=== PATIENT | female | born 1935 | race Caucasian/White ===

== ENCOUNTER 2023-02-27 11:24 | Emergency (ER) | payer MEDICARE, SELFPAY ==
--- NOTE | ~2023-02-27 | CT_ITS ---
EXAMINATION: CT CHEST WITHOUT CONTRAST CLINICAL INFORMATION: Increased attenuation of right upper lobe question infiltrate versus mass. COMPARISON: Chest x-ray 02/27/2023 TECHNIQUE: Multidetector volumetric CT imaging of the chest was done. Axial MIP volume rendering provided. Sagittal and coronal reformatted images were obtained. This CT examination was performed using dose optimization techniques as appropriate, variously including the following: *Automated exposure control *Adjustment of mA and/or kV according to patient size (this includes techniques or standardized protocols for targeted exams where dose is matched to indication/reason for exam; i.e. extremities or head) *Use of iterative reconstruction technique DLP: 181 mGy-cm FINDINGS: WET COTTON FEEDER: Hyperinflated lungs. LUNGS: There is centrilobular emphysema with diffuse groundglass attenuation seen throughout the right upper lobe corresponding to chest x-ray abnormality. Also visualized is mild groundglass attenuation in the superior segment of both lower lobes. There are scattered pulmonary nodules. A 3 mm nodule left upper lobe axial image 212/5, 3 mm nodule right upper lobe anterior segment image 151/5, 3 mm nodule along the right minor fissure likely intrafissural lymph node axial image 228/5, 2 mm nodule right middle lobe axial image 259/5, 2 mm nodule in the lingula axial image 269/5, 3 mm nodule right lower lobe axial image 293/5 and three-minute nodule left lower lobe axial image 363/5.. There is mild atelectatic changes in both lung bases. MEDIASTINUM: The thyroid lobes are symmetric and normal. The central trachea and the bronchi widely patent. Small precarinal lymph nodes are seen. Heart size and the great vessels are normal caliber. No pericardial effusion seen. Identified CORONARY ARTERY CALCIFICATION: Moderate coronary artery calcifications visualized. PLEURA: There is no pleural effusion. No pleural mass or thickening. AXILLA: Small shotty lymph nodes measuring 5 mm less seen in the axilla. The chest wall is unremarkable. UPPER ABDOMEN: Visualized liver, spleen, pancreas and bilateral adrenal glands unremarkable. No radiopaque gallstone seen. OSSEOUS STRUCTURES: No aggressive lytic or sclerotic process seen. There is exaggerated thoracic kyphosis. CT/CT chest wo IV con IMPRESSION: Centrilobular emphysema. Diffuse groundglass attenuation seen in right upper lobe and bilateral superior segments of lower lobe. Findings most suggestive of inflammatory or infectious parenchymal processes but no acute consolidation seen. Multiple pulmonary nodules measuring 3 mm and less with 3 mm right minor intrafissural lymph node. No abnormal mediastinal or axillary adenopathy. Fleischner guidelines were followed.
--- NOTE | ~2023-02-27 | XR_ITS ---
EXAMINATION: XR CHEST CLINICAL INFORMATION: Dyspnea on exertion COMPARISON: Previous chest x-ray November 2018 TECHNIQUE: 2 views of the chest were obtained. FINDINGS: The cardiac and mediastinal contours are stable. There is increased density in the right upper lobe measuring approximately 5.3 cm. Differential would include infiltrate and mass. The lungs are otherwise clear. The lungs are well inflated. No pleural effusion or pneumothorax. Increased thoracic kyphosis. Multiple old-appearing thoracic compression fractures. XR/XR chest 2V IMPRESSION: Increased attenuation in the right upper lobe, question infiltrate versus mass. Clinical correlation recommended. If there is clinical suspicion of pneumonia, short-term follow-up chest x-ray following antibiotic treatment would be recommended. If there is no suggestion of pneumonia or radiographic abnormality fails to resolve, contrast enhanced chest CT scan would be recommended.
--- NOTE | 2023-02-27 11:45 | ED_ITS ---
HPI - SOB/Dyspnea General Chief Complaint: Weakness Stated Complaint: diff breathing shaking Time Seen by Provider: 02/27/23 16:25 Source: patient and family Mode of arrival: ambulatory History of Present Illness HPI Narrative: 87-year-old female comes in with shaking on the inside as she describes it and notes that she has had a dry cough for a couple of weeks and has a remote history of cigarette smoking, quit 35 years ago. Otherwise she currently takes medications for Parkinson's, hypertension and GERD. She denies any visual/berry tory/speech difficulties denies any chest pain/palpitations and denies any GI or symptoms. Related Data Previous Rx's Medication Instructions Recorded azithromycin 250 mg tablet 250 mg PO DAILY 4 days #4 tabs 02/27/23 Allergies Allergy/AdvReac Type Severity Reaction Status Date / Time codeine [CODEINE] Allergy Mild NAUSEA & Unverified 06/25/20 15:28 VOMITING tramadol [TRAMADOL] Allergy Mild NAUSEA & Unverified 06/25/20 15:28 VOMITING Review of Systems Review of Systems: Pertinent positives and negatives as stated in HPI PMFSH Past Medical History Source: nursing notes reviewed Social History Social History Alcohol intake: current Alcohol intake frequency: 0-2 drinks per day Alcohol type: wine Smoked in Last 30 Days: No Use of substances other than those prescribed or required for medical reasons: No Advance Directives: No Advance Directives Information Provided: Yes Physical Exam Vital Signs: Vital Signs: Last Vital Signs Temp 97.5 F 02/27/23 19:06 Pulse 91 02/27/23 19:06 Resp 14 02/27/23 19:06 BP 170/66 H 02/27/23 19:06 Pulse Ox 97 02/27/23 19:06 O2 Del Method Room Air 02/27/23 19:06 BMI result Body Mass Index 20.1 VITAL SIGNS: Reviewed. GENERAL: Well developed, well nourished, in no acute distress. HEAD: Normocephalic/atraumatic EYES: PERRLA, EOMI EARS: Ext canals without abnormality NOSE: Nares patent bilateral OROPHARYNX: no oral lesions noted, posterior pharynx clear NECK: Supple, no adenopathy LUNGS: Good inspiratory effort, patient is noted to be decreased over right middle and right upper lobes but no evidence of wheeze/rhonchi/rales no tachypnea. SpO2<99> CARDIOVASCULAR: Regular rate and rhythm without noted murmurs ABDOMEN: Soft, non-tender, non-distended with bowel sounds. MUSCULOSKELETAL: No tenderness, deformities, or effusions noted on gross inspection. EXTREMITIES: No cyanosis, clubbing or edema. SKIN: Inspection of the skin reveals no rashes NEUROLOGIC: Alert and oriented x 4. Strength and sensation to light touch were grossly intact x 4. Course Course Course Narrative: This is a rapid medical exam. Deferred additional HPI, ROS, PE to primary provider. 87 yo female with history of Parkinson, HTN, GERD, HLD here with coughing, shaking weakness, LEA since Monday. Will obtain labs, EKG, CXR, viral testing. VSS Medical Decision Making Medical Decision Making MDM Narrative: 87-year-old female with rigors and reports dry cough, I reviewed all investigations and appears that she has a right-sided lung mass unclear significance. Proceed with this CT of the chest patient is otherwise afebrile, there is no leukocytosis to suggest a pneumonia, she is not tachypneic and continues to oxygenate well. Follow-up on the CT scan my interpretation is in agreement with radiology's impression that this appears to be an inflammatory or possibly infectious etiology. Will place patient on a Z-Janak and give initial 500 mg of azithromycin here in the emergency room. All results and findings were discussed with her at bedside and she is otherwise discharged home in stable condition has follow- up appointment with her primary care provider in the morning. Differential Diagnosis Please see the discussion above Lab Data Please see the discussion above 02/27/23 12:22 02/27/23 12:22 Labs: Lab Results 02/27/23 02/27/23 02/27/23 Range/Units 12:22 12:22 12:22 WBC 7.2 (4.8-10.8) X10*3/uL RBC 4.35 (4.20-5.50) X10*6/uL Hgb 12.4 (12.0-16.0) g/dl Hct 37.9 (37.0-47.0) % MCV 87.1 (80.0-98.0) fL MCH 28.5 (27.0-33.0) pg MCHC 32.7 (31.0-35.0) g/dl RDW 12.4 (11.0-16.0) % Plt Count 308 (160-400) X10*3/uL MPV 10.3 (9.4-12.3) fL Immature Gran % (Auto) 0.4 (0.0-0.4) % Neut % (Auto) 71.4 (45-73) % Lymph % (Auto) 15.3 L (20-40) % [place] % (Auto) 11.9 H (2-11) % Eos % (Auto) 0.7 (0-4) % Baso % (Auto) 0.3 (0-2) % Lymph # (Auto) 1.1 L (1.2-4.9) X10*3/uL [place] # (Auto) 0.9 (0.1-1.2) X10*3/uL Eos # (Auto) 0.1 (0.0-0.4) X10*3/uL Baso # (Auto) 0.0 (0.0-0.2) X10*3/uL Abs Immat Gran (auto) 0.03 (0.00-0.03) X10*3/uL Absolute Neuts (auto) 5.1 (2.0-8.3) x10*3/uL Absolute Nucleated RBC 0.000 (0.0-0.012) X10*3/uL Nucleated RBC % (auto) 0.0 (0.0-0.2) /100WBC PT (10.0-13.1) SEC INR (0.9-1.1) Sodium 139 (135-145) mmol/L Potassium 4.3 (3.3-5.1) mmol/L Chloride 106 (96-108) mmol/L Carbon Dioxide 23 (22-29) mmol/L Anion Gap 14 (12-20) BUN 15 (9-16) mg/dL Creatinine 1.07 (0.5-1.4) mg/dL Estim Creat Clear Calc 33.2 Estimated GFR 49 Random Glucose 100 (60-115) mg/dL Lactic Acid (0.5-2.0) mmol/L Calcium 9.6 (8.4-10.2) mg/dL Magnesium 2.0 (1.6-2.6) mg/dL Total Bilirubin 0.6 (0.0-1.0) mg/dL Direct Bilirubin 0.2 (0.0-0.5) mg/dL AST 12 (5-31) U/L ALT < 5 (0-31) U/L Alkaline Phosphatase 83 (39-117) U/L Troponin I High Sens (<3.5-17.0) ng/L B-Natriuretic Peptide (<100) pg/mL Total Protein 6.5 (6.5-8.0) g/dL Albumin 3.7 (3.5-5.0) g/dL Influenza Type A (PCR) NEGATIVE (Negative) Influenza Type B (PCR) NEGATIVE (Negative) RSV RNA Qual (PCR) NEGATIVE (Negative) SARS-CoV-2 RNA (RT-PCR) NEGATIVE (Negative) 02/27/23 02/27/23 02/27/23 Range/Units 12:22 12:22 12:22 WBC (4.8-10.8) X10*3/uL RBC (4.20-5.50) X10*6/uL Hgb (12.0-16.0) g/dl Hct (37.0-47.0) % MCV (80.0-98.0) fL MCH (27.0-33.0) pg MCHC (31.0-35.0) g/dl RDW (11.0-16.0) % Plt Count (160-400) X10*3/uL MPV (9.4-12.3) fL Immature Gran % (Auto) (0.0-0.4) % Neut % (Auto) (45-73) % Lymph % (Auto) (20-40) % [place] % (Auto) (2-11) % Eos % (Auto) (0-4) % Baso % (Auto) (0-2) % Lymph # (Auto) (1.2-4.9) X10*3/uL [place] # (Auto) (0.1-1.2) X10*3/uL Eos # (Auto) (0.0-0.4) X10*3/uL Baso # (Auto) (0.0-0.2) X10*3/uL Abs Immat Gran (auto) (0.00-0.03) X10*3/uL Absolute Neuts (auto) (2.0-8.3) x10*3/uL Absolute Nucleated RBC (0.0-0.012) X10*3/uL Nucleated RBC % (auto) (0.0-0.2) /100WBC PT 11.1 (10.0-13.1) SEC INR 1.0 (0.9-1.1) Sodium (135-145) mmol/L Potassium (3.3-5.1) mmol/L Chloride (96-108) mmol/L Carbon Dioxide (22-29) mmol/L Anion Gap (12-20) BUN (9-16) mg/dL Creatinine (0.5-1.4) mg/dL Estim Creat Clear Calc Estimated GFR Random Glucose (60-115) mg/dL Lactic Acid 0.8 (0.5-2.0) mmol/L Calcium (8.4-10.2) mg/dL Magnesium (1.6-2.6) mg/dL Total Bilirubin (0.0-1.0) mg/dL Direct Bilirubin (0.0-0.5) mg/dL AST (5-31) U/L ALT (0-31) U/L Alkaline Phosphatase (39-117) U/L Troponin I High Sens 7.0 (<3.5-17.0) ng/L B-Natriuretic Peptide (<100) pg/mL Total Protein (6.5-8.0) g/dL Albumin (3.5-5.0) g/dL Influenza Type A (PCR) (Negative) Influenza Type B (PCR) (Negative) RSV RNA Qual (PCR) (Negative) SARS-CoV-2 RNA (RT-PCR) (Negative) 02/27/23 02/27/23 Range/Units 12:22 15:53 WBC (4.8-10.8) X10*3/uL RBC (4.20-5.50) X10*6/uL Hgb (12.0-16.0) g/dl Hct (37.0-47.0) % MCV (80.0-98.0) fL MCH (27.0-33.0) pg MCHC (31.0-35.0) g/dl RDW (11.0-16.0) % Plt Count (160-400) X10*3/uL MPV (9.4-12.3) fL Immature Gran % (Auto) (0.0-0.4) % Neut % (Auto) (45-73) % Lymph % (Auto) (20-40) % [place] % (Auto) (2-11) % Eos % (Auto) (0-4) % Baso % (Auto) (0-2) % Lymph # (Auto) (1.2-4.9) X10*3/uL [place] # (Auto) (0.1-1.2) X10*3/uL Eos # (Auto) (0.0-0.4) X10*3/uL Baso # (Auto) (0.0-0.2) X10*3/uL Abs Immat Gran (auto) (0.00-0.03) X10*3/uL Absolute Neuts (auto) (2.0-8.3) x10*3/uL Absolute Nucleated RBC (0.0-0.012) X10*3/uL Nucleated RBC % (auto) (0.0-0.2) /100WBC PT (10.0-13.1) SEC INR (0.9-1.1) Sodium (135-145) mmol/L Potassium (3.3-5.1) mmol/L Chloride (96-108) mmol/L Carbon Dioxide (22-29) mmol/L Anion Gap (12-20) BUN (9-16) mg/dL Creatinine (0.5-1.4) mg/dL Estim Creat Clear Calc Estimated GFR Random Glucose (60-115) mg/dL Lactic Acid (0.5-2.0) mmol/L Calcium (8.4-10.2) mg/dL Magnesium (1.6-2.6) mg/dL Total Bilirubin (0.0-1.0) mg/dL Direct Bilirubin (0.0-0.5) mg/dL AST (5-31) U/L ALT (0-31) U/L Alkaline Phosphatase (39-117) U/L Troponin I High Sens 6.1 (<3.5-17.0) ng/L B-Natriuretic Peptide 41 (<100) pg/mL Total Protein (6.5-8.0) g/dL Albumin (3.5-5.0) g/dL Influenza Type A (PCR) (Negative) Influenza Type B (PCR) (Negative) RSV RNA Qual (PCR) (Negative) SARS-CoV-2 RNA (RT-PCR) (Negative) Independent Interpretation I performed an independent interpretation of an: EKG Interpretation: Normal sinus rhythm, HR-81, no STEMI, [place]/QRS/QTC is within normal limits. Radiology Impression Radiologist Impression: My interpretation is in agreement with radiology's impression of the imaging studies. External Record Review External record reviewed: Prior outpatient labs Chronic Conditions Patient?s care impacted by: Hypertension Discharge Plan Discharge Clinical Impression: Pneumonia Patient Disposition: Home, Self-Care Instructions: Pneumonia (ED) Additional Instructions: 1. Resume all home medications. 2. Complete the course of antibiotics as ordered. 3. Please keep the appointment with your primary care provider tomorrow as scheduled. Return to the ER for any worsening symptoms. Prescriptions: New azithromycin 250 mg tablet 250 mg PO DAILY 4 Days Qty: 4 0RF Rx Instructions: start on day 2 of therapy Referrals: Saleem Gutiérrez PA [Primary Care Provider] -
[2023-02-27 11:46] VITALS: BP 143/71; PULSE 88; RESP 18; TEMP 36.8; O2SAT 100; BMI 20.1
--- NOTE | 2023-02-27 11:47 | ECG_ITS ---
Test Reason : weakness Blood Pressure : / mmHG Vent. Rate : 081 BPM Atrial Rate : 081 BPM P-R Int : 162 ms QRS Dur : 068 ms QT Int : 358 ms P-R-T Axes : 036 064 040 degrees QTc Int : 415 ms Normal sinus rhythm Normal ECG When compared with ECG of 02-DEC-2018 16:18, T wave inversion no longer evident in Inferior leads Referred By: Tahira Gregorio Electronically Signed By:NICOLASA ARROYO
[2023-02-27 12:36] LABS: MANUAL DIFF FLAG NO
[2023-02-27 12:37] LABS: Basophils Percent Auto 0.3 % (0-2); Eosinophils Absolute Auto 0.1 X10*3/uL (0.0-0.4); Eosinophils Percent Auto 0.7 % (0-4); Hematocrit 37.9 % (37.0-47.0); Hemoglobin 12.4 g/dl (12.0-16.0); Imm Gran Abs Auto 0.03 X10*3/uL (0.00-0.03); Imm Gran Pct Auto 0.4 % (0.0-0.4); Lymphocytes Absolute Auto 1.1 X10*3/uL (1.2-4.9); Lymphocytes Percent Auto 15.3 % (20-40); Mean Corpuscular HGB Conc 32.7 g/dl (31.0-35.0); Mean Corpuscular Hemoglobin 28.5 pg (27.0-33.0); Mean Corpuscular Volume 87.1 fL (80.0-98.0); Mean Platelet Volume 10.3 fL (9.4-12.3); Monocytes Absolute Auto 0.9 X10*3/uL (0.1-1.2); Monocytes Percent Auto 11.9 % (2-11); Neutrophils Absolute Auto 5.1 x10*3/uL (2.0-8.3); Neutrophils Percent Auto 71.4 % (45-73); Platelet Count 308 X10*3/uL (160-400); Red Blood Count 4.35 X10*6/uL (4.20-5.50); Red Cell Distribution Width 12.4 % (11.0-16.0); White Blood Count 7.2 X10*3/uL (4.8-10.8)
[2023-02-27 12:45] LABS: Prothrombin Time 11.1 SEC (10.0-13.1)
[2023-02-27 12:54] LABS: Lactic Acid 0.8 mmol/L (0.5-2.0)
[2023-02-27 13:01] LABS: Alanine Aminotransferase < 5 U/L (0-31); Albumin Level 3.7 g/dL (3.5-5.0); Alkaline Phosphatase 83 U/L (39-117); Anion Gap 14 (12-20); Aspartate Amino Transferase 12 U/L (5-31); Bilirubin Direct 0.2 mg/dL (0.0-0.5); Bilirubin Total 0.6 mg/dL (0.0-1.0); Blood Urea Nitrogen 15 mg/dL (9-16); Calcium 9.6 mg/dL (8.4-10.2); Carbon Dioxide 23 mmol/L (22-29); Chloride 106 mmol/L (96-108); Creatinine Clr Calc Pharmacy 33.2; Estimated Glomerular Filt Rate 49; Glucose Random 100 mg/dL (60-115); Potassium 4.3 mmol/L (3.3-5.1); Sodium 139 mmol/L (135-145); Total Protein 6.5 g/dL (6.5-8.0)
[2023-02-27 13:02] LABS: B Type Natriuretic Peptide 41 pg/mL (<100)
[2023-02-27 13:20] LABS: Influenza A PCR NEGATIVE (Negative); Influenza B PCR NEGATIVE (Negative); Resp Syncy Virus RNA Qual PCR NEGATIVE (Negative); SARS COV2 PCR INHOUSE NEGATIVE (Negative)
--- NOTE | 2023-02-27 15:56 | MHC.EDTECH ---
PATIENT REPETED TROP DRAWN ALSO BLOOD CULTURE DRAWN AND SENT TO LAB .
[2023-02-27 16:22] LABS: Troponin-I High Sensitivity 6.1 ng/L (<3.5-17.0)
[2023-02-27 16:27] VITALS: BP 171/77; PULSE 85; RESP 18; TEMP 36.4; O2SAT 99
--- NOTE | 2023-02-27 17:26 | PC.NURSE ---
per MD, patient does not need a swallow screening test.
[2023-02-27 19:06] VITALS: BP 170/66; PULSE 91; RESP 14; TEMP 36.4; O2SAT 97
== END 2023-02-27 19:46 | disposition home or self-care (01) ==
PROVIDERS: Nurse Practitioner Family; Physician Assistant Medical; Emergency Provider Student in an Organized Health Care Education/Training Program; PCP Physician Assistant Medical
DX: J18.9 Pneumonia, unspecified organism (principal); R06.00 Dyspnea, unspecified; R53.1 Weakness; R91.8 Other nonspecific abnormal finding of lung field; Z20.822 Contact with and (suspected) exposure to COVID-19; Z20.828 Contact with and (suspected) exposure to other viral communicable diseases; I10 Essential (primary) hypertension; E78.5 Hyperlipidemia, unspecified; G20 Parkinson's disease; Z87.891 Personal history of nicotine dependence
CPT/HCPCS: 0241U; 36415; 71046; 71250; 80048; 80076; 83605; 83735; 83880; 84484; 85025; 85610; 87040; 93005; 99284; 99285

== ENCOUNTER 2023-07-19 06:45 | Emergency (ER) | payer MEDICARE, SELFPAY ==
[2023-07-19 06:49] VITALS: BP 126/91; PULSE 86; RESP 18; TEMP 36.7; O2SAT 97; BMI 18.6
[2023-07-19 07:36] VITALS: BP 145/63; PULSE 74; RESP 18; O2SAT 97
--- NOTE | 2023-07-19 07:48 | ED_ITS ---
HPI - General Adult General Chief complaint: Upper Respiratory Symptoms Stated complaint: Diff Breathing Heavy Chest ?Pneumonia Time Seen by Provider: 07/19/23 07:04 Source: patient Mode of arrival: ambulatory Limitations: no limitations History of Present Illness HPI narrative: This is an 88-year-old female recently COVID positive and completed Paxlovid within the past week presenting to the emergency department fatigue, malaise, myalgias, cough, shortness of breath worsening for the past 2-3 days. Patient reports she feels like she has pneumonia, reports she had pneumonia and a in this feels very similar to that episode. Patient denies chest pain, fevers, chills, headache, vision changes, dizziness, nausea, vomiting, abdominal pain. Related Data Previous Rx's Medication Instructions Recorded azithromycin 250 mg tablet 250 mg PO DAILY 4 days #4 tabs 02/27/23 albuterol sulfate 90 mcg/actuation 2 inh inhalation Q4-6H PRN 07/19/23 breath activated powder inhaler shortness of breath or wheezing #1 ea prednisone 20 mg tablet 40 mg (2 x 20 mg) PO DAILY 5 days 07/19/23 #10 tabs Allergies Allergy/AdvReac Type Severity Reaction Status Date / Time codeine [CODEINE] Allergy Mild NAUSEA & Unverified 06/25/20 15:28 VOMITING tramadol [TRAMADOL] Allergy Mild NAUSEA & Unverified 06/25/20 15:28 VOMITING Review of Systems 2 Review of Systems: Constitutional : No Weight loss, No Fever, + Chills, + Fatigue, + Malaise ENT/Mouth : No sore throat, No Rhinorrhea Eyes: No Eye Pain, No Swelling, No Redness Cardiovascular : No Chest Pain, + SOB, No Dyspnea on Exertion, No Orthopnea, No Edema, No Palpitations Respiratory : + Cough, No Sputum, No Wheezing Gastrointestinal : No Nausea, No Vomiting, No Diarrhea, No Constipation, No abdominal Pain, No Hematochezia, No Melena Genitourinary : No Dysuria, No Urinary Frequency, No Hematuria, Musculoskeletal : No joint pain, + Myalgias, No Joint Swelling Skin : No Skin Lesions, No rash Neuro : No Weakness, No Numbness, No Dizziness, No Headache Psych : No Anxiety/Panic, No Depression All other systems reviewed and are negative Yes all other systems are reviewed and are negative [facility] Past Medical History Attestation statement: The following information was validated with the patient. Source: old records reviewed and nursing notes reviewed Social History Social History Alcohol intake: current Alcohol intake frequency: 0-2 drinks per day Alcohol type: wine Advance Directives: No Advance Directives Information Provided: Yes Physical Exam ED Vital Signs: Vital Signs - 24 hr 07/19/23 06:49 07/19/23 07:36 07/19/23 07:36 Temperature 98.0 F Pulse Rate 86 74 Respiratory Rate 18 18 Blood Pressure 126/91 H 145/63 H Pulse Oximetry 97 97 97 Oxygen Delivery Method Room Air Room Air 07/19/23 09:22 Temperature Pulse Rate Respiratory Rate Blood Pressure Pulse Oximetry 95 Oxygen Delivery Method Room Air BMI result Body Mass Index 18.6 vss Appearance: Alert.? Oriented X3.? No acute distress.? Head: Normocephalic, atraumatic, no step-offs or deformities Eyes: Pupils equal, round and reactive to light.? ENT: Pharynx normal.? Neck: Normal inspection.? Neck supple.? CVS: Normal heart rate and rhythm.? Pulses normal.? Respiratory: No respiratory distress.? Breath sounds Faint crackles to right lower lobe..? Abdomen: Soft and nontender.? Skin: Skin warm and dry.? Normal skin color.? Normal skin turgor.? Extremities: No lower extremity edema.? No calf ttp. 5/5 strength to bilateral upper and lower extremities Neuro: Oriented X 3.? No motor deficit.? No sensory deficit. CN 2-12 intact Course Reevaluation(s) Reevaluation #1: CBC within normal limits. Chemistry with no acute findings. troponin negative, EKG nonischemic unlikely that this is ACS (heart score 2) . BNP within normal limits. Chest x-ray unremarkable. No signs of fluid overload on exam. Likely post viral syndrome versus bronchitis. D-dimer is negative, unlikely pulmonary embolism. I did discuss this case in depth with my attending who agrees with my diagnosis and treatment plan. No need for chest CT at this time. Educated patient on diagnosis and treatment plan, answered all question, patient verbalizes understanding. At this time patient will be discharged home, advised to return with new or worsening symptoms. Educated on worrisome signs and symptoms and when to return. At this time I feel comfortable discharge home. Time: 10:04 Medical Decision Making Medical Decision Making [facility] Narrative: 0749 88 year old female presents w/ chest heaviness, sob, cough, myalgias X 3 days recently covid + PE w/ faint crackles to RLL Concerns for post viral pna vs bronchitis vs prolonged viral illness. Based off hx and PE unlikely PE, ACS, disecion, acute respiratory distress, pneumothorax. Plan- labs, ekg, imaging Differential Diagnosis Differential Diagnoses: The differential diagnosis associated with the presentation includes Concerns for post viral pna vs bronchitis vs prolonged viral illness. Based off hx and PE unlikely PE, ACS, disecion, acute respiratory distress, pneumothorax. Admission/Observation Consideration of admission/observation: Escalation of care including admission/observation considered unlikely Lab Data [facility] Lab Attestation statement: I reviewed the patient's lab results. 07/19/23 07:43 07/19/23 07:43 Labs: Lab Results 07/19/23 07/19/23 Range/Units 07:43 09:26 WBC 7.9 (4.8-10.8) X10*3/uL RBC 4.15 L (4.20-5.50) X10*6/uL Hgb 11.6 L (12.0-16.0) g/dl Hct 35.5 L (37.0-47.0) % MCV 85.5 (80.0-98.0) fL MCH 28.0 (27.0-33.0) pg MCHC 32.7 (31.0-35.0) g/dl RDW 13.3 (11.0-16.0) % Plt Count 221 D (160-400) X10*3/uL MPV 10.6 (9.4-12.3) fL Immature Gran % (Auto) 0.3 (0.0-0.4) % Neut % (Auto) 71.5 (45-73) % Lymph % (Auto) 16.1 L (20-40) % [place] % (Auto) 11.2 H (2-11) % Eos % (Auto) 0.6 (0-4) % Baso % (Auto) 0.3 (0-2) % Lymph # (Auto) 1.3 (1.2-4.9) X10*3/uL [place] # (Auto) 0.9 (0.1-1.2) X10*3/uL Eos # (Auto) 0.1 (0.0-0.4) X10*3/uL Baso # (Auto) 0.0 (0.0-0.2) X10*3/uL Abs Immat Gran (auto) 0.02 (0.00-0.03) X10*3/uL Absolute Neuts (auto) 5.6 (2.0-8.3) x10*3/uL Absolute Nucleated RBC 0.000 (0.0-0.012) X10*3/uL Nucleated RBC % (auto) 0.0 (0.0-0.2) /100WBC D-Dimer High Sensitivty 176 NG/ML Sodium 137 (135-145) mmol/L Potassium 4.0 (3.3-5.1) mmol/L Chloride 108 (96-108) mmol/L Carbon Dioxide 20 L (22-29) mmol/L Anion Gap 13 (12-20) BUN 17 H (9-16) mg/dL Creatinine 0.96 (0.5-1.4) mg/dL Estim Creat Clear Calc 33.7 Estimated GFR 55 Random Glucose 121 H (60-115) mg/dL Calcium 9.6 (8.4-10.2) mg/dL Magnesium 1.9 (1.6-2.6) mg/dL Total Bilirubin 0.4 (0.0-1.0) mg/dL AST 17 (5-31) U/L ALT < 5 (0-31) U/L Alkaline Phosphatase 75 (39-117) U/L Troponin I High Sens < 2.7 D (<3.5-17.0) ng/L B-Natriuretic Peptide 42 (<100) pg/mL Total Protein 7.0 (6.5-8.0) g/dL Albumin 3.5 (3.5-5.0) g/dL COVID-19 (CESIA) Positive A (Negative) COVID-19 Clin Com See Note Independent Interpretation I performed an independent interpretation of an: EKG and Plain X-Ray Radiology Impression Discussion of test interpretation with radiology: I have reviewed the radiologist's reading. External Record Review External record reviewed: Inpatient record, Office record, Outpatient record, Prior outpatient labs, Prior outpatient radiology, Primary care record and Outside ED record Critical Care Time Critical Care Time Critical Care Time: No Discharge Plan Discharge Clinical Impression: Post viral syndrome, Shortness of breath Patient Disposition: Home, Self-Care Instructions: Shortness of Breath (ED) Additional Instructions: Take your medications as prescribed. If you were prescribed antibiotics today, it is important that you take your medication to their entirety, do not skip any doses, do not finish them early. Follow-up with your primary care provider this week. Return to the emergency department with new or worsening symptoms. Such as fevers, chills, chest pain, shortness of breath, nausea, vomiting, dizziness, headache, vision changes, lethargy In case of emergency call 911 ' XR/XR chest 1V IMPRESSION: Unremarkable chest exam Prescriptions: New prednisone 20 mg tablet 40 mg PO DAILY 5 Days Qty: 10 0RF albuterol sulfate 90 mcg/actuation aerosol powdr breath activated 2 inh inhalation Q4-6H PRN (Reason: shortness of breath or wheezing) Qty: 1 0RF No Action azithromycin 250 mg tablet 250 mg PO DAILY 4 Days Qty: 4 0RF Rx Instructions: start on day 2 of therapy Referrals: [facility] [Provider Group] - 2 days Saleem Gutiérrez PA [Primary Care Provider] - 2 days Stand Alone Forms: Work/School Release
[2023-07-19 09:22] VITALS: O2SAT 95
--- NOTE | 2023-07-19 09:22 | PC.NURSE ---
Pt ambulated around unit with O2 monitor on, ranging from 92-100% on RA. Pt started to get SOB towards end of walk.
[2023-07-19 10:17] VITALS: PULSE 73; RESP 18; O2SAT 100
== END 2023-07-19 10:26 | disposition home or self-care (01) ==
PROVIDERS: Emergency Provider Emergency Medicine Emergency Medical Services; PCP Physician Assistant Medical
DX: U07.1 COVID-19 (principal); R06.02 Shortness of breath
CPT/HCPCS: 36415; 71045; 80053; 83735; 83880; 84484; 85025; 85379; 87635; 93005; 99283; 99285

== ENCOUNTER 2023-11-09 10:35 | Emergency (ER) | payer MEDICARE, SELFPAY ==
--- NOTE | ~2023-11-09 | CT_ITS ---
EXAMINATION: CT ABDOMEN AND PELVIS WITH CONTRAST CLINICAL INFORMATION: Periumbilical pain, right lower quadrant tenderness. COMPARISON: CT chest 02/27/2023. CT abdomen/pelvis 09/10/2018. TECHNIQUE: Multidetector volumetric images were obtained from the superior aspect of the liver through the pubic symphysis following administration 85 mL of Omnipaque 350 intravenous contrast. Sagittal and coronal reformatted images were obtained on the technologist's workstation. Oral contrast: No This CT examination was performed using dose optimization techniques as appropriate, variously including the following: *Automated exposure control *Adjustment of mA and/or kV according to patient size (this includes techniques or standardized protocols for targeted exams where dose is matched to indication/reason for exam; i.e. extremities or head) *Use of iterative reconstruction technique DLP: 354 mGy-cm FINDINGS: LUNG BASES: A few up to 0.4 cm bilateral pulmonary nodules are unchanged compared to 02/27/2023. No focal consolidation or pleural effusion. Partially imaged multivessel coronary artery calcifications. LIVER, GALLBLADDER, AND BILIARY TREE: The liver is normal in size, shape, and attenuation. No focal hepatic lesion or biliary ductal dilatation is present. The gallbladder is unremarkable with no evidence of radiopaque gallstones, gallbladder wall thickening, or obvious pericholecystic inflammatory changes. PANCREAS: Unremarkable. SPLEEN: Unremarkable. ADRENAL GLANDS: Unremarkable. KIDNEYS AND URETERS: Subtle bilateral patchy nephrograms, for instance in the left upper lobe coronal image 58 series 7. 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 A distinct obstructive calculus is not seen, although evaluation of the ureters is very limited due to streak artifacts from hardware in the lumbar spine/sacrum. BLADDER: Unremarkable. GASTROINTESTINAL TRACT: Small hiatal hernia. The stomach and the small bowel are nondilated. No indirect findings to suspect acute appendicitis. Severe colonic diverticulosis without significant inflammatory changes. No evidence of bowel obstruction. Moderate degree of colonic stool burden. ABDOMINAL WALL: No significant hernia is appreciated. LYMPH NODES: No lymphadenopathy. VASCULAR: Severe atherosclerotic disease. Infrarenal abdominal aorta measures up to 2.5 cm in diameter. PELVIC VISCERA: Redemonstration of 0.9 cm fundal myometrial calcification, most likely related with a degenerative fibroid. Possible endometrial thickening. OSSEOUS STRUCTURES: Posterior fusion hardware with transpedicular screws at L5-S1. Degenerative changes of the spine. No acute or aggressive appearing osseous findings. Stable nonspecific collections density in the medial left iliac bone (7:67) dating back to 2018. CT/CT abdomen pelvis w IV con IMPRESSION: 1. Subtle bilateral patchy nephrograms raising the possibility of acute pyelonephritis. Correlate clinically. 2. 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 No discrete obstructive nephrolithiasis, although evaluation of the ureters is somewhat limited. 3. Possible endometrial thickening. Recommend correlation with a nonemergent pelvic ultrasound. 4. Severe diverticulosis but no evidence of acute diverticulitis. 5. Moderate degree of colonic stool burden that could be seen with constipation. 6. A few bilateral pulmonary nodules measuring up to 0.4 cm are stable compared to 02/27/2023. According to the UPDATED 2017 Fleischner Society recommendations, the advised follow-up imaging for multiple solid nodules measuring up to 6-8 mm is follow-up CT at 3 to 6 months. In high-risk patients, subsequent CT follow-up at 18 to 24 months is recommended. In low-risk patients, subsequent CT follow-up at 18 to 24 months is optional. Fleischner guidelines were followed.
[2023-11-09 10:39] VITALS: BP 162/70; PULSE 76; RESP 18; TEMP 36.6; O2SAT 99; BMI 18.6
[2023-11-09 11:42] LABS: MANUAL DIFF FLAG NO
[2023-11-09 11:49] LABS: Basophils Percent Auto 0.3 % (0-2); Eosinophils Percent Auto 0.5 % (0-4); Hematocrit 39.8 % (37.0-47.0); Hemoglobin 13.3 g/dl (12.0-16.0); Imm Gran Abs Auto 0.07 X10*3/uL (0.00-0.03); Lymphocytes Absolute Auto 1.9 X10*3/uL (1.2-4.9); Lymphocytes Percent Auto 26.2 % (20-40); Mean Corpuscular HGB Conc 33.4 g/dl (31.0-35.0); Mean Corpuscular Hemoglobin 28.9 pg (27.0-33.0); Mean Corpuscular Volume 86.3 fL (80.0-98.0); Mean Platelet Volume 11.2 fL (9.4-12.3); Monocytes Absolute Auto 1.1 X10*3/uL (0.1-1.2); Monocytes Percent Auto 14.4 % (2-11); Neutrophils Absolute Auto 4.2 x10*3/uL (2.0-8.3); Neutrophils Percent Auto 57.6 % (45-73); Platelet Count 222 X10*3/uL (160-400); Red Blood Count 4.61 X10*6/uL (4.20-5.50); Red Cell Distribution Width 12.6 % (11.0-16.0); White Blood Count 7.3 X10*3/uL (4.8-10.8)
[2023-11-09 11:59] LABS: Alanine Aminotransferase < 5 U/L (0-31); Albumin Level 4.1 g/dL (3.5-5.0); Alkaline Phosphatase 75 U/L (39-117); Anion Gap 11 (12-20); Aspartate Amino Transferase 13 U/L (5-31); Bilirubin Total 0.6 mg/dL (0.0-1.0); Blood Urea Nitrogen 21 mg/dL (9-16); Calcium 10.1 mg/dL (8.4-10.2); Carbon Dioxide 25 mmol/L (22-29); Chloride 106 mmol/L (96-108); Creatinine Clr Calc Pharmacy 26.5; Estimated Glomerular Filt Rate 42; Glucose Random 101 mg/dL (60-115); Lipase 25 U/L (8-78); Potassium 4.1 mmol/L (3.3-5.1); Sodium 138 mmol/L (135-145); Total Protein 7.1 g/dL (6.5-8.0)
[2023-11-09 13:34] VITALS: BP 168/70; PULSE 80; RESP 16; RESP 20; TEMP 36.6; TEMP 36.7; O2SAT 100
--- NOTE | 2023-11-09 13:35 | ECG_ITS ---
Test Reason : pain Blood Pressure : / mmHG Vent. Rate : 069 BPM Atrial Rate : 068 BPM P-R Int : 148 ms QRS Dur : 078 ms QT Int : 378 ms P-R-T Axes : 021 054 046 degrees QTc Int : 405 ms Normal sinus rhythm with Premature ventricular complexes Septal infarct , age undetermined Abnormal ECG When compared with ECG of 19-JUL-2023 08:09, Premature ventricular complexes is now Present Referred By: Jose Maria Mckenzie Electronically Signed By:FREIDA GUTHRIE MD
--- NOTE | 2023-11-09 13:36 | ED_ITS ---
HPI - General Adult General Chief complaint: Abdominal Pain Stated complaint: Abd pain Time Seen by Provider: 11/09/23 16:02 Source: patient Mode of arrival: ambulatory Limitations: no limitations History of Present Illness HPI narrative: Patient is an 88y.o. F presents for 3.5 days epigastric/ periunbilical pain, states severe 10/10, constant, no exacerbating or alleviating factors. Has eaten toast without worsening of symptoms. Last BM 3 days ago, friend suggested she may be constipated, took lactulose today with no effect, does not feel constipated. She does state that since being in the [place] over past couple of hours pain has resolved. Denies fevers, chills, chest pain, SOB, cough, nausea, vomiting, urinary symptoms, diarrhea. Related Data Previous Rx's Medication Instructions Recorded azithromycin 250 mg tablet 250 mg PO DAILY 4 days #4 tabs 02/27/23 albuterol sulfate 90 mcg/actuation 2 inh inhalation Q4-6H PRN 07/19/23 breath activated powder inhaler shortness of breath or wheezing #1 ea prednisone 20 mg tablet 40 mg (2 x 20 mg) PO DAILY 5 days 07/19/23 #10 tabs Allergies Allergy/AdvReac Type Severity Reaction Status Date / Time codeine [CODEINE] Allergy Mild NAUSEA & Unverified 06/25/20 15:28 VOMITING tramadol [TRAMADOL] Allergy Mild NAUSEA & Unverified 06/25/20 15:28 VOMITING Review of Systems 2 Review of Systems: Yes all other systems are reviewed and are negative PMFSH Past Medical History Attestation statement: The following information was validated with the patient. Source: old records reviewed Medical History (Updated 11/09/23 @ 19:30 by Josseline Bronson CNP) GERD (gastroesophageal reflux disease) High cholesterol Hypertension Parkinson disease Surgical History (Updated 11/09/23 @ 16:47 by Karen Dutta RN) History of back surgery Social History Social History Alcohol intake: current Alcohol intake frequency: holidays/special occasions only Alcohol type: wine Smoked in Last 30 Days: No Use of substances other than those prescribed or required for medical reasons: No Advance Directives: No Advance Directives Information Provided: Yes Physical Exam ED Vital Signs: Vital Signs - 24 hr 11/09/23 10:39 11/09/23 13:34 11/09/23 13:34 Temperature 98 F 98 F 98.0 F Pulse Rate 76 80 80 Respiratory Rate 18 16 20 Blood Pressure 162/70 H 168/70 H 168/70 H Pulse Oximetry 99 100 100 Oxygen Delivery Method Room Air Room Air Room Air 11/09/23 15:19 11/09/23 16:43 11/09/23 18:06 Temperature 97.6 F 97.8 F Pulse Rate 71 69 75 Respiratory Rate 18 18 18 Blood Pressure 190/73 H 170/63 H 155/67 H Pulse Oximetry 99 99 99 Oxygen Delivery Method Room Air Room Air Room Air BMI result Body Mass Index 18.6 Appearance: Alert.?Oriented to person, place and time. No acute distress.?Normal affect. Eyes: Pupils equal, round and reactive to light.? ENT: Pharynx normal.?? Neck: Normal inspection.? Neck supple.?? CVS: Heart sounds normal. Normal heart rate and rhythm.? Pulses normal.?? Respiratory: No respiratory distress.? Lung sounds clear to auscultation bilaterally?? Abdomen: Soft with periumbilical and RLQ TTP, no rigidity, no guarding, no rebound tenderness. Normoactive bowel sounds. No pulsatile mass.?? Skin: Skin warm and dry.? Normal skin color.? Normal skin turgor.?? Extremities: No lower extremity edema.? No calf ttp? Neuro: Moves all extremities spontaneously. Sensation intact bilaterally. CN II- XII intact. No focal neuro deficits. Ambulates with normal steady gait. Course Course Course Narrative: RME- 88 year old female presents for evaluation of abdominal pain that started today. Denies any nausea. She states that she did have some mild chest discomfort earlier but not currently. Plan for labs, UA, EKG Reevaluation(s) Reevaluation #1: Urinalysis with 2+ leukocyte esterase and urine WBCs but no bacteria seen, denies any urinary symptoms. CT of the abdomen and pelvis reveals subtle bilateral patchy nephrogram raising the possibility of acute pyelonephritis, no CVA tenderness upon examination, clinically have low suspicion for pyelonephritis. On CT also noted to have severe diverticulosis but no evidence of diverticulitis, in a moderate degree of colonic stool burden, suspect this to be more likely etiology of her symptoms, she is prescribed lactulose outpatient, advised continued management with this, no evidence of rectal impaction. Medications Administered Discontinued Medications Generic Name Dose Route Start Last Admin Trade Name Angela PRN Reason Stop Dose Admin Sodium Chloride 1,000 mls @ 999 mls/hr 11/09/23 16:30 11/09/23 17:41 Ns IV 11/09/23 17:30 Infused .Q1H1M MARTÍNEZ Infusion Iohexol 100 ml 11/09/23 17:03 11/09/23 17:03 Iohexol 350 Mg/Ml 100 Ml Infus..Btl IV 11/09/23 17:04 85 ml ONCE ONE Administration Medical Decision Making Medical Decision Making [facility] Narrative: Patient is an 88 y.o. F pmhx HTN, HLD, GERD, parkinsons presenting for ABD pain as per HPI. Notable TTP periumbilical and RLQ on exam. Will obtain CBC to evaluate for leukocytosis/ anemia, CMP and lipase to evaluate for abnormal electrolytes /abnormal renal function/ abnormal hepatic/biliary function, EKG, CT AP and Urinalysis. Differential Diagnosis Differential Diagnoses: The differential diagnosis associated with the presentation includes (constipation, obstruction, appendicitis, biliary colic, cholecystitis) Admission/Observation Consideration of admission/observation: Escalation of care including admission/observation considered Lab Data [facility] Lab Attestation statement: I reviewed the patient's lab results. no leukocytosis, no anemia, electrolytes normal, BUN/creatinine increased when compared to 07/2023, suspect secondary to dehydration, she admits to decreased fluid intake over past few days. 11/09/23 11:36 11/09/23 11:36 Labs: Lab Results 11/09/23 11/09/23 Range/Units 11:36 16:41 WBC 7.3 (4.8-10.8) X10*3/uL RBC 4.61 (4.20-5.50) X10*6/uL Hgb 13.3 (12.0-16.0) g/dl Hct 39.8 (37.0-47.0) % MCV 86.3 (80.0-98.0) fL MCH 28.9 (27.0-33.0) pg MCHC 33.4 (31.0-35.0) g/dl RDW 12.6 (11.0-16.0) % Plt Count 222 (160-400) X10*3/uL MPV 11.2 (9.4-12.3) fL Immature Gran % (Auto) 1.0 H (0.0-0.4) % Neut % (Auto) 57.6 (45-73) % Lymph % (Auto) 26.2 (20-40) % [place] % (Auto) 14.4 H (2-11) % Eos % (Auto) 0.5 (0-4) % Baso % (Auto) 0.3 (0-2) % Lymph # (Auto) 1.9 (1.2-4.9) X10*3/uL [place] # (Auto) 1.1 (0.1-1.2) X10*3/uL Eos # (Auto) 0.0 (0.0-0.4) X10*3/uL Baso # (Auto) 0.0 (0.0-0.2) X10*3/uL Abs Immat Gran (auto) 0.07 H (0.00-0.03) X10*3/uL Absolute Neuts (auto) 4.2 (2.0-8.3) x10*3/uL Absolute Nucleated RBC 0.000 (0.0-0.012) X10*3/uL Nucleated RBC % (auto) 0.0 (0.0-0.2) /100WBC Sodium 138 (135-145) mmol/L Potassium 4.1 (3.3-5.1) mmol/L Chloride 106 (96-108) mmol/L Carbon Dioxide 25 (22-29) mmol/L Anion Gap 11 L (12-20) BUN 21 H (9-16) mg/dL Creatinine 1.22 (0.5-1.4) mg/dL Estim Creat Clear Calc 26.5 Estimated GFR 42 Random Glucose 101 (60-115) mg/dL Calcium 10.1 (8.4-10.2) mg/dL Total Bilirubin 0.6 (0.0-1.0) mg/dL AST 13 (5-31) U/L ALT < 5 (0-31) U/L Alkaline Phosphatase 75 (39-117) U/L Total Protein 7.1 (6.5-8.0) g/dL Albumin 4.1 (3.5-5.0) g/dL Lipase 25 (8-78) U/L Urine Color Yellow Urine Appearance Clear Urine pH 6.0 (5.0-9.0) Ur Specific [place] 1.015 (1.005-1.025) Urine Protein Negative (Neg-Trace) mg/dL Urine Glucose (UA) Negative (Negative) mg/dL Urine Ketones Negative (Negative) mg/dL Urine Blood Negative (Negative) Urine Nitrite Negative (Negative) Ur Leukocyte Esterase Moderate (2+) H (Negative) Urine RBC 0-2 (0-2) /HPF Urine WBC 11-20 H (0-5) /HPF Ur Squamous Epith Cells 0-2 (0-2) /HPF Urine Bacteria None Seen (None Seen) Hyaline Casts 0-2 (0-2) /LPF Independent Interpretation I performed an independent interpretation of an: EKG and CT Scan Interpretation: Rate:69 Rhythm:? NSR with PVC Normal P waves.? Normal PAIGE.?? Normal QRS complex.?? ST T wave :??No ST elevation, no ST depression qTC: 405 The study has been interpreted contemporaneously by me. Radiology Impression Discussion of test interpretation with radiology: I have reviewed the radiologist's reading. External Record Review External record reviewed: Outpatient record Discharge Plan Discharge Clinical Impression: Abdominal pain, Constipation Patient Disposition: Home, Self-Care Instructions: Abdominal Pain (ED), Constipation (DC) Additional Instructions: CT scan does show that you are constipated, this is most likely the cause for the pain you have been experiencing. Please continue to take the lactulose as previously prescribed. Follow-up with your primary care provider. Return back to emergency department any new or worsening symptoms or concerns. Prescriptions: No Action azithromycin 250 mg tablet 250 mg PO DAILY 4 Days Qty: 4 0RF Rx Instructions: start on day 2 of therapy prednisone 20 mg tablet 40 mg PO DAILY 5 Days Qty: 10 0RF albuterol sulfate 90 mcg/actuation aerosol powdr breath activated 2 inh inhalation Q4-6H PRN (Reason: shortness of breath or wheezing) Qty: 1 0RF Referrals: Saleem Gutiérrez PA [Primary Care Provider] -
[2023-11-09 15:19] VITALS: BP 190/73; PULSE 71; RESP 18; O2SAT 99
[2023-11-09] MEDS: 0.9 % Sodium Chloride 1,000 ML 999 ML IV (16:40)
[2023-11-09 16:43] VITALS: BP 170/63; PULSE 69; RESP 18; TEMP 36.4; O2SAT 99
--- NOTE | 2023-11-09 16:47 | PC.NURSE ---
patient a&ox3, vss, pt states she has 2/10 mid abd pain, iv inserted, labs previously drawn in triage, ivf hung per order, call henderson within reach, pt awaiting radiology, will continue to monitor
[2023-11-09] MEDS: iohexoL 350 MG/ML 100 ML INFUS..BTL IV (17:03)
[2023-11-09 17:06] LABS: Appearance Urine Clear; Color Urine Yellow; Glucose Urine UA Negative (Negative); Leukocyte Esterase Urine Moderate (2+) (Negative); Nitrite Urine Negative (Negative); Specific Gravity - Urine 1.015 (1.005-1.025); UMIC TRIGGER UACC YES; Urine Blood Negative (Negative); Urine Ketones Negative (Negative); Urine Protein Negative (Neg-Trace)
[2023-11-09 17:14] LABS: Bacteria Urine None Seen (None Seen); Hyaline Casts Urine 0-2 /LPF (0-2); RBC Urine 0-2 /HPF (0-2); Squamous Epithelial Cell Urine 0-2 /HPF (0-2); UACC Culture Trigger YES
[2023-11-09 18:06] VITALS: BP 155/67; PULSE 75; RESP 18; TEMP 36.6; O2SAT 99
--- NOTE | 2023-11-09 19:15 | PC.NURSE ---
patient a&ox3, vss, pt currently denying pain/discomfort, pt asking if she can have a coffee that her daughter is bringing her, pt was told to not drink coffee until she has the results of her testing from the provider
== END 2023-11-09 19:57 | disposition home or self-care (01) ==
PROVIDERS: Physician Assistant; Emergency Provider Student in an Organized Health Care Education/Training Program; PCP Physician Assistant Medical
DX: R10.33 Periumbilical pain (principal); K59.00 Constipation, unspecified; I10 Essential (primary) hypertension; E78.00 Pure hypercholesterolemia, unspecified; G20.A1 Parkinson's disease without dyskinesia, without mention of fluctuations
CPT/HCPCS: 36415; 74177; 80053; 81001; 83690; 85025; 87086; 93005; 96360; 99284; 99285; Q9967

== ENCOUNTER → 2023-11-09 13:35 | Outpatient (BNV) | payer MEDICARE, SELFPAY | PROVIDERS: Emergency Provider Student in an Organized Health Care Education/Training Program; PCP Physician Assistant Medical; Visit Provider Internal Medicine Cardiovascular Disease | DX: I49.3 Ventricular premature depolarization (principal); R94.31 Abnormal electrocardiogram [ECG] [EKG] | CPT/HCPCS: 93010 ==

== ENCOUNTER 2023-12-13 12:36 | Outpatient (AMB) | payer MEDICARE, SELFPAY ==
--- NOTE | 2023-12-13 12:47 | HO.SPINEOV ---
Intake Intake Visit Reasons: spinal stenosis Intake Note: Ms. Mcneil is here today c/o low back pain that radiates to the left leg Partner Management Consultant Required: No Allergies codeine [CODEINE] Allergy (Mild, Unverified 06/25/20 15:28) NAUSEA & VOMITING tramadol [TRAMADOL] Allergy (Mild, Unverified 06/25/20 15:28) NAUSEA & VOMITING Assessment & Plan Assessment & Plan (1) Lumbago: Code(s): M54.50 - Low back pain, unspecified Plan Dear Dr. Phillip, Thank you for referring Elisa to our office today. She is a pleasant 88-year-old female who comes in today with a chief complaint of severe low back pain with radiation into her left lower extremity. She reports this has been ongoing for the last 4-5 years. She reports no inciting incident, but states she did have back surgery in the past in [place]. She provided us with a note that appears to be written by the Neurosurgeon Dr. Nicole describing her surgical construct. She reports she is currently established with pain management and has been getting regular injections that have been intermittently helpful. When describing the radiation of her pain she states that it starts in her low back and shoots over her left lateral thigh terminating before the knee. She states that her back pain is her worst symptom. She does report that she has taken many [id number] remedies in the past in order to help relieve her symptoms which have at times been helpful. She reports that she currently gets the most relief from sitting on a heating pad. She does state that she has significant difficulty walking, and reports that she needs to utilize the shopping cart at the grocery store to get around and complete her shopping. She gets relief from her pain by sitting or lying down. PMH: Previous L5-S1 fusion completed by Dr. Nicole in [place] at [facility]. GERD, Hypertension, hyperlipidemia, Parkinson's disease. Patient denies any pulmonary/cardiac/renal issues. Social hx: The patient does not smoke, reports no substance use. Medications: Simvastatin, amlodipine, omeprazole, carbidopa/levodopa. Allergies: NKDA. Physical exam: The patient has 5/5 strength in her upper and lower extremities. She has no sensational deficits. Her reflexes are 2+ intact. She is able to ambulate well and rises from a seated position without difficulty. Some notable kyphosis when standing upright. (-) straight leg raise, (-) Pelayo's, (-) clonus. Imaging review: MRI of the lumbar spine is of limited utility as there is significant artifact given her previous surgical construct. There is severe stenosis noted at L3-4, but the subsequent levels can not be evaluated. CT scan of the abdomen/pelvis reveals a significant levoscoliosis with the apex at L3. There is significant degenerative disc disease of the lumbar spine seen diffusely on CT. I would say L3-4 exhibits the worst degeneration that can be seen. Impression: Elisa is a pleasant 88-year-old female who comes in today with a chief complaint of low back pain with some radiation into her left lateral thigh. When discussing her symptoms, she states that they began roughly 4-5 years ago and have been worsening as the years go by. She has had good relief from injections with Dr. Phillip in the past. I reviewed both her MRI and CT imaging alongside Dr. Cruz who believes she would likely need a scoliosis correction to resolve her symptoms. I discussed with Elisa what this would entail, and she reported that she has not interested in another fusion surgery at this time. She was encouraged to continue injections with Dr. Phillip, and to reach back out to our office in the future if she feels as though she would like to pursue a surgical intervention. We do not see any health barriers that would prevent her from being a surgical candidate. Thank you for allowing us to care for your patient. The total time spent with this visit with this patient was 45 minutes reviewing history, physical exam, MRI / CT imaging review, and implementation of treatment plan or further diagnostic testing. Marcio Cruz MD,PhD [facility] Coding Level of Care Code New Pt Level 4 (11350) Diagnoses Lumbago M54.50
== END 2023-12-13 13:25 | disposition home or self-care (01) ==
PROVIDERS: PCP Physician Assistant Medical; Referring Provider Physical Medicine & Rehabilitation; Visit Provider Physician Assistant
DX: M54.50 Low back pain, unspecified (principal)
CPT/HCPCS: 99204

== ENCOUNTER → 2023-12-13 12:36 | Outpatient (BNVA) | payer MEDICARE, SELFPAY | PROVIDERS: PCP Physician Assistant Medical; Visit Provider Physician Assistant | DX: M54.50 Low back pain, unspecified (principal) | CPT/HCPCS: 99202 ==

== ENCOUNTER 2024-04-25 10:51 | Outpatient (AMB) | payer MEDICARE, SELFPAY ==
--- NOTE | 2024-04-25 10:58 | MHC.OFFVIS ---
Vital Signs 04/25/24 11:05 Height 5 ft 5 in Weight 120 lb 4 oz BMI 20.0 BP 133/73 Blood Pressure Location Lt brachial Position Sitting Respiration 12 Pulse 81 Pulse Source Pulse Oximeter Pulse Oximetry (%) 98 Oxygen Delivery Method Room Air Intake Visit Reasons: Chronic Back Pain Intake Note: Patient comes in for initial visit was referred by [facility] primary care. Reports pain 03/18. Allergies codeine [CODEINE] Allergy (Mild, Verified 04/25/24 11:07) NAUSEA & VOMITING tramadol [TRAMADOL] Allergy (Mild, Verified 04/25/24 11:07) NAUSEA & VOMITING HPI Comments Details: Elisa is very pleasant 89 years old female who presents in my office with complains on pain in the bilateral lower extremities and lower back. She reports that her pain started 7 years ago. She was diagnose with L3-L4 spinal stenosis. In the past she received L5-S1 laminectomy with diskectomy and stabilization by Dr. Nicole. 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 She reports that heat applications help her pain. She can take care of herself, she can not function normally. She was under care of Dr. Phillip and presumably received epidural steroid injections, she admits that those injections initially were helpful but now they lost the effectiveness. She was examined by Dr. Cruz and associates and she was offered L3-L4 laminectomy procedure however she refused she thinks that she is too old to have this procedure. She does not want to go for major surgery. She had images done demonstrating L3-L4 lumbar spinal canal stenosis she is suffering from chronic back pain and chronic pain syndrome. Her past medical history is negative. Past surgical history is significant for spinal fusion 30 years ago. She denies smoking cigarettes admits drinking wine once a week drinks 2 cups of coffee a day, she denies drinking soda she denies recreational drugs. [facility] Medical History (Updated 04/25/24 @ 13:03 by Boaz Rosa MD) GERD (gastroesophageal reflux disease) High cholesterol Hypertension Parkinson disease Surgical History (Updated 11/09/23 @ 16:47 by Karen Dutta RN) History of back surgery Social History Alcohol intake: current Alcohol intake frequency: holidays/special occasions only Alcohol type: wine Review of Systems Const Reports no additional complaints Eyes Reports no additional complaints ENT Reports Normal hearing present Card Reports no additional complaints Resp Reports no additional complaints GI Reports no additional complaints Reports no additional complaints Musc Reports as per HPI Neuro Reports no additional complaints, Reports Normal hearing present, Denies Abnormal speech present, Denies confusion and Denies Sensory deficit (Neuro) Psych Reports no additional complaints and Denies confusion Physical Exam Vital Signs: Last Vital Signs Pulse 81 04/25/24 11:05 Resp 12 04/25/24 11:05 BP 133/73 04/25/24 11:05 Pulse Ox 98 04/25/24 11:05 Oxygen Delivery Method Room Air 04/25/24 11:05 BMI result Body Mass Index 20.0 Const General: no acute distress; No confusion Orientation/consciousness: patient oriented x3 and No confusion Eyes General: appearance normal, both eyes and all related structures Pupils: Equal, round and reactive pupils present EOM: EOMs intact bilaterally Neck Neck: Yes full ROM Chest Chest palpation & inspection: normal inspection of the chest Resp Effort & Inspection: normal respiratory effort, able to speak in complete sentences, normal respiratory pattern, no audible wheezes and no cough Cardio Jugular venous distension: no JVD GI Inspection: Yes normal to inspection Back/Spine/Pelvis Other: 5/5 strength in her upper and lower extremities. No sensory deficit, reflexes are 2+ intact. She is able to ambulate well and rises from a seated position without difficulty. Advanced kyphosis thoracic spine, negative SLR negative clonus , negative Beni test. MRI of the lumbar spine is of limited utility as there is significant artifact given her previous surgical construct. There is severe stenosis noted at L3-4, but the subsequent levels can not be evaluated. CT scan of the abdomen/pelvis reveals a significant levoscoliosis with the apex at L3. There is significant degenerative disc disease of the lumbar spine seen diffusely on CT. I would say L3-4 exhibits the worst degeneration that can be seen. Neuro General: patient oriented x3, gait normal and No confusion Cranial nerves: Yes CN's II-XII intact bilaterally, Yes Equal, round and reactive pupils present, Yes Normal hearing present and Yes Ability to bilaterally elevate shoulders present Speech: No Abnormal speech present Gait exam (Neuro): Normal gait present Motor exam (neuro): 5/5 motor strength present throughout Sensory Exam: No Sensory deficit (Neuro) Extrem General: No pedal edema Psych Speech and movement: Normal speech and movement present Affect: normal affect Attitude: cooperative Thought process: Normal thought process present Thought content: Normal thought content present Insight: Good insight present (Psych) Judgement: Good judgement present (Psych) Results Reviewed Results Reviewed: MRI of the lumbar spine there is significant artifact given her previous surgical construct. There is severe stenosis noted at L3-4, but the subsequent levels can not be evaluated. CT scan of the abdomen/pelvis reveals a significant levoscoliosis with the apex at L3. There is significant degenerative disc disease of the lumbar spine seen diffusely on CT. I would say L3-4 exhibits the worst degeneration that can be seen. 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 Office of Dr. Cruz offered her surgical intervention at L3-L4 spinal stenotic area however patient adamantly refused. Today I offered the patient spinal cord stimulator [place] scientific trial an attempt to alleviate her pain. I explained to the patient process of getting through the trial and process of implantation of the spinal cord stimulator. [employer]ure was given to the patient. The patient was explained psychological evaluation. She does not have computer at home so she would need to be invited in the office to complete psychological evaluation. After that we will proceed with the trial. If pain relief will be unsatisfactory for this patient on the trial of spinal cord stimulator I would consider obtaining the MRI images of the lumbar spine to determine if she has ligamentum flavum infolding and/or hypertrophy and therefore minimally invasive lumbar decompression (mild) would be indicated for this patient. 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
[2024-04-25 11:05] VITALS: BP 133/73; PULSE 81; RESP 12; O2SAT 98
== END 2024-04-25 11:22 | disposition home or self-care (01) ==
PROVIDERS: PCP Physician Assistant Medical; Visit Provider Anesthesiology
DX: G89.4 Chronic pain syndrome (principal); M47.27 Other spondylosis with radiculopathy, lumbosacral region; M96.1 Postlaminectomy syndrome, not elsewhere classified; M51.36 Other intervertebral disc degeneration, lumbar region; M48.061 Spinal stenosis, lumbar region without neurogenic claudication
CPT/HCPCS: 99203

== ENCOUNTER → 2024-04-25 10:51 | Outpatient (BNVA) | payer MEDICARE, SELFPAY | PROVIDERS: PCP Physician Assistant Medical; Visit Provider Anesthesiology | DX: G89.4 Chronic pain syndrome (principal); M47.27 Other spondylosis with radiculopathy, lumbosacral region; M96.1 Postlaminectomy syndrome, not elsewhere classified; M51.36 Other intervertebral disc degeneration, lumbar region; M48.061 Spinal stenosis, lumbar region without neurogenic claudication | CPT/HCPCS: 99202 ==

== ENCOUNTER 2024-06-18 08:42 | Outpatient (AMB) | payer MEDICARE, SELFPAY ==
--- NOTE | 2024-06-18 08:42 | AM.OFFWIN_ITS ---
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 diverticulitis flair, No diarrhea, no vomiting. Constipated. Using Miralax Patient Tobacco Use Status: Former Tobacco user Allergies codeine [CODEINE] Allergy (Mild, Verified 06/18/24 08:43) NAUSEA & VOMITING tramadol [TRAMADOL] Allergy (Mild, Verified 06/18/24 08:43) NAUSEA & VOMITING Do you need a note to return to daycare/school/sports/work: No HPI HPI Comments History of Present Illness Details Patient is a 89-year-old female complaining of right lower quadrant abdominal pain for 1 week. She denies any nausea vomiting diarrhea or fevers. She does report reduced eating and drinking. She states the pain is not worse when she eats. Nothing seems to make it better. She states she does have a history of diverticulitis, still has her appendix and her gallbladder. She denies any changes in her urinary habits, blood in her urine or history of kidney stones. She denies any back pain beyond her chronic back pain, any chest pain or any arm pain. [facility] Medical History (Updated 06/18/24 @ 09:17 by Marysol Cobb PA-C) GERD (gastroesophageal reflux disease) High cholesterol Hypertension Parkinson disease Surgical History (Updated 11/09/23 @ 16:47 by Karen Dutta RN) History of back surgery Social History Alcohol intake: current Alcohol intake frequency: holidays/special occasions only Alcohol type: wine Patient Tobacco Use Status: Former Tobacco user Review of Systems Const All systems reviewed & are unremarkable except as noted in HPI and below Physical Exam Vital Signs: Last Vital Signs Temp 97.7 F 06/18/24 08:44 Pulse 76 06/18/24 08:44 BP 180/82 H 06/18/24 08:44 Pulse Ox 97 06/18/24 08:44 Oxygen Delivery Method Room Air 06/18/24 08:44 BMI result Body Mass Index 20.3 Const General: cooperative, healthy appearing, comfortable, no acute distress and well developed Orientation/consciousness: patient oriented x3 Limitations: no limitations HEENT Head: Yes normal to inspection Ears: hearing grossly normal bilaterally General nose exam: Normal external nose present Face and sinus: Yes normal facial exam Eyes General: appearance normal, both eyes and all related structures Neck Neck: Yes normal visual inspection and Yes full ROM Resp Effort & Inspection: normal respiratory effort and able to speak in complete sentences Auscultation: clear to auscultation bilaterally Cardio Rate: regular rate Rhythm: regular rhythm Heart sounds: normal S1 and S2 GI Inspection: Yes normal to inspection Palpation (GI): Soft to palpation, Tenderness to palpation present (GI) in the RLQ, with rebound tenderness and Rovsing's sign positive; Jovel's sign negative, No hepatosplenomegaly present, Rebound tenderness present and No Bladder palpation abnormal Auscultation: normal bowel sounds General: No Bladder palpation abnormal Skin General skin exam: no rashes or lesions noted Neuro General: patient oriented x3 Extrem General: Yes normal to inspection Assessment & Plan Assessment & Plan (1) Right lower quadrant abdominal pain: Code(s): R10.31 - Right lower quadrant pain Plan: Blood pressure improving, however with patient's age, continued abdominal pain not improving after 1 week, and positive Rovsing sign, sent to [facility] ED to rule out appendicitis or a GI neoplasm. Called [facility] ED with expect Plan See above Coding Level of Care Code New Pt Level 5 (08246) Diagnoses Right lower quadrant abdominal pain R10.31
[2024-06-18 08:44] VITALS: BP 180/82; PULSE 76; TEMP 36.5; O2SAT 97; BMI 20.3
[2024-06-18 09:06] VITALS: BP 150/90
== END 2024-06-18 09:21 | disposition home or self-care (01) ==
PROVIDERS: PCP Physician Assistant Medical; Visit Provider Physician Assistant
DX: R10.31 Right lower quadrant pain (principal)
CPT/HCPCS: 99203

== ENCOUNTER 2024-06-18 09:29 | Emergency (ER) | payer MEDICARE, SELFPAY ==
--- NOTE | ~2024-06-18 | CT_ITS ---
EXAMINATION: CT ABDOMEN AND PELVIS WITHOUT CONTRAST CLINICAL INFORMATION: Lower abdominal discomfort COMPARISON: 11/09/2023 TECHNIQUE: Multidetector volumetric imaging was performed from the superior aspect of the liver through the pubic symphysis. Sagittal and coronal reformatted images were obtained on the technologist's workstation. This CT examination was performed using dose optimization techniques as appropriate, variously including the following: *Automated exposure control *Adjustment of mA and/or kV according to patient size (this includes techniques or standardized protocols for targeted exams where dose is matched to indication/reason for exam; i.e. extremities or head) *Use of iterative reconstruction technique DLP: 313 mGy-cm FINDINGS: EQUIPMENT INSPECTOR: Nonobstructive bowel pattern. Fecal retention. Elevated right hemidiaphragm. Scoliosis and lumbar surgical hardware. LUNG BASES: Hyperinflated. Minor left lower lobe atelectasis. Small hiatal hernia. LIVER, GALLBLADDER, AND BILIARY TREE: The liver is normal in size, shape, and attenuation. No focal hepatic lesion or biliary ductal dilatation is present. The gallbladder is significantly distended but no evidence of radiopaque gallstones, gallbladder wall thickening, or obvious pericholecystic inflammatory changes. Common duct measures 6 mm maximally and tapers distally. PANCREAS: Unremarkable. SPLEEN: Unremarkable. ADRENAL GLANDS: Unremarkable. KIDNEYS AND URETERS: The kidneys are normal in size, shape, and attenuation. No hydronephrosis, hydroureter, or calculi seen. No perinephric stranding. 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 BLADDER: Unremarkable. GASTROINTESTINAL TRACT: Stomach is underdistended. Nonobstructive bowel pattern. Appendix not seen with certainty. Moderately severe fecal retention. Diverticulosis without diverticulitis. ABDOMINAL WALL: No significant hernia is appreciated. Scaphoid abdomen. LYMPH NODES: Normal. VASCULAR: Dense atherosclerotic calcifications ectatic infrarenal aorta. PELVIC VISCERA: Small calcified uterine fibroids. OSSEOUS STRUCTURES: Unchanged L5-S1 which somehow docking bench surgical hardware and left iliac sclerotic foci CT/CT abdomen pelvis wo IV con IMPRESSION: Distended the gallbladder. If there is a clinical concern, consider right upper quadrant ultrasound. Moderately severe fecal retention. Diverticulosis without diverticulitis. Fleischner guidelines were followed. Electronically signed by: Bernadette Traore MD 06/18/2024 05:02 PM EDT RP
--- NOTE | ~2024-06-18 | US_ITS ---
EXAMINATION: US ABDOMEN LIMITED CLINICAL INFORMATION: Right upper quadrant pain with distended gallbladder. COMPARISON: CT abdomen and pelvis earlier today TECHNIQUE: Real-time imaging of the gallbladder and common bile duct only. FINDINGS: GALLBLADDER: The gallbladder is mildly distended but without evidence of stones, sludge, polyps, wall thickening or pericholecystic fluid. Wall thickness is 3 mm and Jovel's sign is negative. COMMON BILE DUCT: Normal in caliber measuring 0.4 cm in diameter. US/US abdomen limited IMPRESSION: Normal-appearing gallbladder. Electronically signed by: Aroldo Mason MD 06/18/2024 08:47 PM EDT
[2024-06-18 09:32] VITALS: BP 184/73; PULSE 83; RESP 16; TEMP 36.4; O2SAT 100; BMI 20.2
--- NOTE | 2024-06-18 12:23 | ED_ITS ---
HPI - Abdominal Pain General Chief Complaint: Abdominal Pain Stated Complaint: Abd pain Time Seen by Provider: 06/18/24 16:27 Source: patient Mode of arrival: ambulatory History of Present Illness ED Provider: liya JACOBS narrative: Patient with chronic constipation diverticulosis comes here for about 9 days bloating feeling more pain in the right side no nausea no vomiting no fever no chills no urinary complaint patient has been taking MiraLax and been moving her bowels daily Related Data Home Medications ?Medication ?Instructions ?Recorded ?Confirmed carbidopa 25 mg-levodopa 100 mg tab PO 04/25/24 tablet spironolactone 50 mg tablet 50 mg PO DAILY 04/25/24 amlodipine 10 mg tablet 10 mg PO DAILY 06/18/24 simvastatin 20 mg tablet 20 mg PO BEDTIME 06/18/24 Previous Rx's ?Medication ?Instructions ?Recorded albuterol sulfate 90 mcg/actuation 2 inh inhalation Q4-6H PRN 07/19/23 breath activated powder inhaler shortness of breath or wheezing #1 ea losartan 50 mg tablet 50 mg PO DAILY #30 tabs 06/18/24 Allergies Allergy/AdvReac Type Severity Reaction Status Date / Time codeine [CODEINE] Allergy Mild NAUSEA & Verified 06/18/24 09:33 VOMITING tramadol [TRAMADOL] Allergy Mild NAUSEA & Verified 06/18/24 09:33 VOMITING Review of Systems Review of Systems Yes all other systems are reviewed and are negative [facility] Past Medical History Medical History GERD (gastroesophageal reflux disease) High cholesterol Hypertension Parkinson disease Surgical History History of back surgery Social History Social History Alcohol intake: current Alcohol intake frequency: a few times a month Alcohol type: wine Patient Tobacco Use Status: Former Tobacco user Smoked in Last 30 Days: No Use of substances other than those prescribed or required for medical reasons: No Advance Directives: Yes Advance Directives Information Provided: No Advance Directives on File: No Physical Exam ED Vital Signs: Vital Signs - 24 hr 06/18/24 09:32 06/18/24 16:57 06/18/24 16:58 Temperature 97.5 F 97.6 F Pulse Rate 83 74 73 Respiratory Rate 16 16 16 Blood Pressure 184/73 H 199/74 H 205/87 H Pulse Oximetry 100 100 99 Oxygen Delivery Method Room Air Room Air Room Air 06/18/24 19:09 06/18/24 19:12 Temperature 97.6 F Pulse Rate 80 80 Respiratory Rate 12 12 Blood Pressure 177/73 H 177/73 H Pulse Oximetry 97 97 Oxygen Delivery Method Room Air Room Air BMI result Body Mass Index 20.2 Appearance: Alert. Oriented X3. No acute distress. Eyes: PERRLA, No Nystagmus ENT: Pharynx normal. Oral Mucosa moist Neck: Normal inspection. Neck supple. CVS: Normal heart rate and rhythm. Pulses normal. Respiratory: No respiratory distress. Equal air entry bilateral, no wheezing/rales/rhonchi Abdomen: Soft and diffuse mild tenderness no rebound tenderness or guarding. Bowel sounds are present, no mass palpable, no CVA tenderness Skin: Skin warm and dry. Normal skin color. Normal skin turgor. Extremities: No lower extremity edema. No calf tenderness Neuro: Oriented X 3. No motor deficit. Course Course Course Narrative: This is an RME done by MIGUEL ÁNGEL Lopes: Additional HPI, ROS, PE not included below will be deferred to primary provider. This is an 89-year-old female presenting with right lower quadrant pain for the past few weeks worsening. She was concerned it was her appendix because the clinic told her it may be her appendix or diverticulitis. Denies nausea, vomiting, fevers, chills, rectal bleeding. Appearance: Alert.? Oriented X3.? No acute cardiopulmonary distress distress.? Head: Normocephalic, atraumatic, no step-offs or deformities CVS: Pulses normal.? Respiratory: No respiratory distress.? Abdomen: Soft and nontender.? Skin: ? Normal skin color. Extremities: 5/5 strength to bilateral upper and lower extremities Neuro: Oriented X 3.? No motor deficit.? No sensory deficit. Medical Decision Making Lab Data 06/18/24 12:34 06/18/24 12:34 Labs: Lab Results 06/18/24 06/18/24 Range/Units 12:31 12:34 WBC 5.0 (4.8-10.8) X10*3/uL RBC 4.27 (4.20-5.50) X10*6/uL Hgb 12.5 (12.0-16.0) g/dl Hct 37.7 (37.0-47.0) % MCV 88.3 (80.0-98.0) fL MCH 29.3 (27.0-33.0) pg MCHC 33.2 (31.0-35.0) g/dl RDW 13.2 (11.0-16.0) % Plt Count 215 (160-400) X10*3/uL MPV 10.1 (9.4-12.3) fL Immature Gran % (Auto) 0.2 (0.0-0.4) % Neut % (Auto) 62.9 (45-73) % Lymph % (Auto) 26.5 (20-40) % [place] % (Auto) 9.8 (2-11) % Eos % (Auto) 0.4 (0-4) % Baso % (Auto) 0.2 (0-2) % Lymph # (Auto) 1.3 (1.2-4.9) X10*3/uL [place] # (Auto) 0.5 (0.1-1.2) X10*3/uL Eos # (Auto) 0.0 (0.0-0.4) X10*3/uL Baso # (Auto) 0.0 (0.0-0.2) X10*3/uL Abs Immat Gran (auto) 0.01 (0.00-0.03) X10*3/uL Absolute Neuts (auto) 3.1 (2.0-8.3) x10*3/uL Absolute Nucleated RBC 0.000 (0.0-0.012) X10*3/uL Nucleated RBC % (auto) 0.0 (0.0-0.2) /100WBC Sodium 139 (135-145) mmol/L Potassium 4.3 (3.3-5.1) mmol/L Chloride 108 (96-108) mmol/L Carbon Dioxide 24 (22-29) mmol/L Anion Gap 11 L (12-20) BUN 21 H (9-16) mg/dL Creatinine 1.39 (0.5-1.4) mg/dL Estim Creat Clear Calc 24.7 Estimated GFR 36 Random Glucose 98 (60-115) mg/dL Calcium 10.0 (8.4-10.2) mg/dL Magnesium 2.3 (1.6-2.6) mg/dL Total Bilirubin 0.7 (0.0-1.0) mg/dL AST 18 (5-31) U/L ALT < 5 (0-31) U/L Alkaline Phosphatase 73 (39-117) U/L Total Protein 6.9 (6.5-8.0) g/dL Albumin 4.1 (3.5-5.0) g/dL Urine Color Yellow Urine Appearance Clear Urine pH 6.0 (5.0-9.0) Ur Specific [place] 1.015 (1.005-1.025) Urine Protein Negative (Neg-Trace) mg/dL Urine Glucose (UA) Negative (Negative) mg/dL Urine Ketones Trace (Negative) mg/dL Urine Blood Negative (Negative) Urine Nitrite Negative (Negative) Ur Leukocyte Esterase Moderate (2+) H (Negative) Urine RBC 0-2 (0-2) /HPF Urine WBC 0-5 (0-5) /HPF Ur Squamous Epith Cells 0-2 (0-2) /HPF Urine Bacteria None Seen (None Seen) Hyaline Casts 0-2 (0-2) /LPF Influenza Type A (PCR) NEGATIVE (Negative) Influenza Type B (PCR) NEGATIVE (Negative) RSV RNA Qual (PCR) NEGATIVE (Negative) SARS-CoV-2 RNA (RT-PCR) NEGATIVE (Negative) Medications Administered Discontinued Medications Generic Name Dose Route Start Last Admin Trade Name Freq PRN Reason Stop Dose Admin Bisacodyl 10 mg 06/18/24 16:41 06/18/24 17:26 Bisacodyl 5 Mg Tablet.Dr PO 06/18/24 16:42 10 mg ONCE ONE Administration Losartan Potassium 50 mg 06/18/24 17:25 06/18/24 17:31 Losartan Potassium 50 Mg Tablet PO 06/18/24 17:26 50 mg ONCE ONE Administration Protocol Magnesium Hydroxide 30 ml 06/18/24 16:41 06/18/24 17:27 Milk Of Magnesia 30 Ml Oral.Susp PO 06/18/24 16:42 30 ml ONCE ONE Administration Discharge Plan Discharge Clinical Impression: Constipation, Hypertension Patient Disposition: Home, Self-Care Instructions: Constipation (ED), Hypertension (ED) Additional Instructions: Continue take your stool softener, take milk of magnesia for severe constipation as needed Start taking losartan 50 mg daily for blood pressure control You may discontinue spironolactone Follow up with your PCP Prescriptions: New losartan 50 mg tablet 50 mg PO DAILY Qty: 30 2RF No Action albuterol sulfate 90 mcg/actuation aerosol powdr breath activated 2 inh inhalation Q4-6H PRN (Reason: shortness of breath or wheezing) Qty: 1 0RF amlodipine 10 mg tablet 10 mg PO DAILY simvastatin 20 mg tablet 20 mg PO BEDTIME carbidopa-levodopa 25-100 mg tablet PO spironolactone 50 mg tablet 50 mg PO DAILY Interventions: ED Discharge Assessment Last Done: 06/18/24 19:12 Discharge Date/Time: 06/18/24 19:21 Print Language: German
[2024-06-18 12:40] LABS: MANUAL DIFF FLAG NO
[2024-06-18 12:41] LABS: Basophils Percent Auto 0.2 % (0-2); Eosinophils Percent Auto 0.4 % (0-4); Hematocrit 37.7 % (37.0-47.0); Hemoglobin 12.5 g/dl (12.0-16.0); Imm Gran Abs Auto 0.01 X10*3/uL (0.00-0.03); Imm Gran Pct Auto 0.2 % (0.0-0.4); Lymphocytes Absolute Auto 1.3 X10*3/uL (1.2-4.9); Lymphocytes Percent Auto 26.5 % (20-40); Mean Corpuscular HGB Conc 33.2 g/dl (31.0-35.0); Mean Corpuscular Hemoglobin 29.3 pg (27.0-33.0); Mean Corpuscular Volume 88.3 fL (80.0-98.0); Mean Platelet Volume 10.1 fL (9.4-12.3); Monocytes Absolute Auto 0.5 X10*3/uL (0.1-1.2); Monocytes Percent Auto 9.8 % (2-11); Neutrophils Absolute Auto 3.1 x10*3/uL (2.0-8.3); Neutrophils Percent Auto 62.9 % (45-73); Platelet Count 215 X10*3/uL (160-400); Red Blood Count 4.27 X10*6/uL (4.20-5.50); Red Cell Distribution Width 13.2 % (11.0-16.0)
[2024-06-18 12:42] LABS: Appearance Urine Clear; Color Urine Yellow; Glucose Urine UA Negative (Negative); Leukocyte Esterase Urine Moderate (2+) (Negative); Nitrite Urine Negative (Negative); Specific Gravity - Urine 1.015 (1.005-1.025); UMIC TRIGGER UACC YES; Urine Blood Negative (Negative); Urine Ketones Trace mg/dL (Negative); Urine Protein Negative (Neg-Trace)
[2024-06-18 12:57] LABS: Bacteria Urine None Seen (None Seen); Hyaline Casts Urine 0-2 /LPF (0-2); RBC Urine 0-2 /HPF (0-2); Squamous Epithelial Cell Urine 0-2 /HPF (0-2); WBC Urine 0-5 /HPF (0-5)
[2024-06-18 13:06] LABS: Alanine Aminotransferase < 5 U/L (0-31); Albumin Level 4.1 g/dL (3.5-5.0); Alkaline Phosphatase 73 U/L (39-117); Anion Gap 11 (12-20); Aspartate Amino Transferase 18 U/L (5-31); Bilirubin Total 0.7 mg/dL (0.0-1.0); Blood Urea Nitrogen 21 mg/dL (9-16); Carbon Dioxide 24 mmol/L (22-29); Chloride 108 mmol/L (96-108); Creatinine Clr Calc Pharmacy 24.7; Estimated Glomerular Filt Rate 36; Glucose Random 98 mg/dL (60-115); Magnesium 2.3 mg/dL (1.6-2.6); Potassium 4.3 mmol/L (3.3-5.1); Sodium 139 mmol/L (135-145); Total Protein 6.9 g/dL (6.5-8.0)
[2024-06-18 13:19] LABS: Influenza A PCR NEGATIVE (Negative); Influenza B PCR NEGATIVE (Negative); Resp Syncy Virus RNA Qual PCR NEGATIVE (Negative); SARS COV2 PCR INHOUSE NEGATIVE (Negative)
[2024-06-18 16:57] VITALS: BP 199/74; PULSE 74; RESP 16; TEMP 36.4; O2SAT 100
[2024-06-18 16:58] VITALS: BP 205/87; PULSE 73; RESP 16; O2SAT 99
[2024-06-18] MEDS: bisacodyL 5 MG TABLET.DR 10 MG PO (17:26)
[2024-06-18] MEDS: Milk of Magnesia 30 ML ORAL.SUSP PO (17:27)
[2024-06-18] MEDS: Losartan Potassium 50 MG TABLET PO (17:31)
[2024-06-18 19:09] VITALS: BP 177/73; PULSE 80; RESP 12; O2SAT 97
[2024-06-18 19:12] VITALS: BP 177/73; PULSE 80; RESP 12; TEMP 36.4; O2SAT 97
== END 2024-06-18 19:21 | disposition home or self-care (01) ==
PROVIDERS: Physician Assistant Medical; Emergency Provider Internal Medicine; PCP Physician Assistant Medical
DX: K59.00 Constipation, unspecified (principal); I10 Essential (primary) hypertension; Z03.818 Encounter for observation for suspected exposure to other biological agents ruled out; R10.31 Right lower quadrant pain; E78.5 Hyperlipidemia, unspecified; K21.9 Gastro-esophageal reflux disease without esophagitis; G20.A1 Parkinson's disease without dyskinesia, without mention of fluctuations; Z79.02 Long term (current) use of antithrombotics/antiplatelets; Z79.899 Other long term (current) drug therapy
CPT/HCPCS: 0241U; 74176; 76705; 80053; 81001; 83735; 85025; 99284

== ENCOUNTER 2024-11-13 17:32 | Emergency (ER) | payer MEDICARE, SELFPAY ==
--- NOTE | ~2024-11-13 | CT_ITS ---
CLINICAL HISTORY: elevated BP - headache CT head without contrast Comparison: CT/CO/SR - BRAIN WO IV CONTRAST [id number] - 09/10/18 00:21 EST Findings: No intra-axial mass, midline shift, hydrocephalus, or acute hemorrhage. No significant atrophy-like change or white matter disease. There is no sinus or mastoid fluid. The orbits are within normal limits. No skull fracture. IMPRESSION: 1. No acute intracranial findings. This document has been electronically signed by: Kimberly Villarreal MD on 11/13/2024 18:51:08
[2024-11-13 17:37] VITALS: BP 148/88; PULSE 84; RESP 20; TEMP 36.5; O2SAT 99; BMI 23.2
--- NOTE | 2024-11-13 17:40 | ED.GENADULT ---
HPI - General Adult General Chief complaint: General Medical Stated complaint: Blood pressure @ 215/headache Time Seen by Provider: 11/13/24 22:11 Source: patient Mode of arrival: ambulatory Limitations: no limitations History of Present Illness ED Provider: Josseline Bronson NP HPI narrative: Patient is an 89-year-old female who presents emergency department for evaluation of an intermittent headache over the past few weeks and with elevated blood pressure readings. She states that recently her blood pressure readings have been elevated, she has an automated cuff at home that records a blood pressure readings. She was evaluated by her primary care doctor recently, decision was made to make adjustments to her blood pressure regimen; amlodipine was discontinued she was started on hydrochlorothiazide 12.5 mg which she just received from the pharmacy today, she also takes losartan 100 mg. When she arrived to emergency department her blood pressure was 144/88, however at the time of my evaluation 6 hours later it was elevated at 207/88. Of note she does take her antihypertensives in the evening. Reports currently she has a frontal headache 01/16, has not taken acetaminophen since earlier today. She denies dizziness, lightheadedness, vision changes, neck pain, neck stiffness, chest pain, shortness of breath, difficulty breathing, nausea, vomiting, abdominal pain, numbness or tingling of the extremities. Related Data Home Medications ?Medication ?Instructions ?Recorded ?Confirmed carbidopa 25 mg-levodopa 100 mg tab PO 04/25/24 tablet spironolactone 50 mg tablet 50 mg PO DAILY 04/25/24 amlodipine 10 mg tablet 10 mg PO DAILY 06/18/24 simvastatin 20 mg tablet 20 mg PO BEDTIME 06/18/24 Previous Rx's ?Medication ?Instructions ?Recorded albuterol sulfate 90 mcg/actuation 2 inh inhalation Q4-6H PRN 07/19/23 breath activated powder inhaler shortness of breath or wheezing #1 ea losartan 50 mg tablet 50 mg PO DAILY #30 tabs 06/18/24 Allergies Allergy/AdvReac Type Severity Reaction Status Date / Time codeine [CODEINE] Allergy Mild NAUSEA & Verified 11/13/24 17:42 VOMITING tramadol [TRAMADOL] Allergy Mild NAUSEA & Verified 11/13/24 17:42 VOMITING Review of Systems Review of Systems: Yes all other systems are reviewed and are negative PMFSH Past Medical History Medical History GERD (gastroesophageal reflux disease) High cholesterol Hypertension Parkinson disease Surgical History History of back surgery Social History Social History Alcohol intake: current Alcohol intake frequency: a few times a month Alcohol type: wine Patient Tobacco Use Status: Former Tobacco user Advance Directives: No Advance Directives Information Provided: Yes Do you have a plan to hurt others: No Plan Physical Exam ED Vital Signs: Vital Signs - 24 hr 11/13/24 17:37 11/13/24 22:13 11/13/24 23:17 Temperature 97.7 F 98.0 F Pulse Rate 84 80 Respiratory Rate 20 20 Blood Pressure 148/88 H 207/88 H 197/83 H Pulse Oximetry 99 98 Oxygen Delivery Method Room Air Room Air 11/14/24 07:13 Temperature 0 F L Pulse Rate 0 L Respiratory Rate 0 L Blood Pressure 0/0 L Pulse Oximetry 0 L Oxygen Delivery Method BMI result Body Mass Index 23.2 Appearance: Alert.?Oriented to person, place and time. No acute distress.?Normal affect. Eyes: Pupils equal, round and reactive to light.? Eye. No nystagmus. ENT: Pharynx normal.?? Neck: Normal inspection.? Neck supple.?? CVS: Heart sounds normal. Normal heart rate and rhythm.? Pulses normal.?? Respiratory: No respiratory distress.? Lung sounds clear to auscultation bilaterally?? Abdomen: Soft and non-tender. Normoactive bowel sounds. Skin: Skin warm and dry.? Normal skin color.?? Extremities: 1+ bilateral lower extremity edema.? No calf ttp? Neuro: Moves all extremities spontaneously. Sensation intact bilaterally. CN II-XII intact. No focal neuro deficits. Ambulates with normal steady gait. Course Course Course Narrative: This is a Rapid Medical Examination (RME) performed by Toro Velasco PA-C in triage. Full HPI, ROS, assessment and treatment plan per primary provider in the Main ED. 89 year old female hx of HTN here for elevated BP readings at home. reports SBP 190s then 215 [employer]. admits to headache x few weeks, worsening. recently started a new BP med a few weeks ago - cannot recall the name. no chest pain, dizzines, vision changes. + clammy, otherwise well appearing. Plan: labs, ekg, cxr, viral swabs Medications Administered Discontinued Medications Generic Name Dose Route Start Last Admin Trade Name Angela PRN Reason Stop Dose Admin Acetaminophen 975 mg 11/13/24 23:28 11/13/24 23:42 Acetaminophen 325 Mg Tablet PO 11/13/24 23:29 975 mg ONCE ONE Administration Losartan Potassium 100 mg 11/13/24 22:43 11/13/24 23:17 Losartan Potassium 50 Mg Tablet PO 11/13/24 22:44 100 mg ONCE ONE Administration Protocol Medical Decision Making Medical Decision Making MDM Narrative: Patient is an 89-year-old female with past medical history of GERD, hyperlipidemia, hypertension, Parkinson's who presents emergency department for evaluation of intermittent headache, with recently elevated blood pressure readings as per HPI. She is following with her primary care doctor was making adjustments to her antihypertensive regimen, she has just received her hydrochlorothiazide today he has not yet taken it. She arrived with a blood pressure 144/88, though 6 hours later on my evaluation it is notably more elevated 197/83, I suspect this is because she has not taken her evening antihypertensives. She will receive losartan 100 mg orally here in addition to acetaminophen for headache. She has no focal neurological deficits at the time my evaluation and a CT scan of the head was obtained prior to my assumption care is without evidence of ICH, SDH, or acute intracranial mass. She is ambulatory with a steady gait. She has 1+ bilateral lower extremity edema which is chronic for her, she elevates her legs often when possible, she states she was not able to place compression stockings to her legs on her own so she ultimately through the mouth quite some time ago, and I did discuss with her the importance of them and appropriate time to with them on such as 1st thing in the morning with the assistance of her daughter before she goes to work she is amenable to trying this again she is going to purchase in additional pair to trial. Extremities are neurovascularly intact distally. On review of serum labs CBC is without leukocytosis anemia thrombocytopenia. No significant electrolyte derangement. No KINJAL. LFTs are overall unremarkable. Troponin within normal range, EKG revealing normal sinus rhythm with ventricular rate of 82, QTC 411. Viral serologies are negative. Who provide with her losartan and re-evaluate her blood pressure, with good improvement I anticipate discharge home this there is no indication for admission to hospital at this time Differential Diagnosis Differential Diagnoses: The differential diagnosis associated with the presentation includes (See narrative above) Admission/Observation Consideration of admission/observation: Escalation of care including admission/observation considered (See narrative above) Lab Data MDM Lab Attestation statement: I reviewed the patient's lab results. (See narrative above) 11/13/24 18:41 11/13/24 18:41 Labs: Lab Results 11/13/24 Range/Units 18:41 WBC 5.7 (4.8-10.8) X10*3/uL RBC 4.06 L (4.20-5.50) X10*6/uL Hgb 12.0 (12.0-16.0) g/dl Hct 36.1 L (37.0-47.0) % MCV 88.9 (80.0-98.0) fL MCH 29.6 (27.0-33.0) pg MCHC 33.2 (31.0-35.0) g/dl RDW 12.8 (11.0-16.0) % Plt Count 233 (160-400) X10*3/uL MPV 11.5 (9.4-12.3) fL Immature Gran % (Auto) 0.4 (0.0-0.4) % Neut % (Auto) 56.7 (45-73) % Lymph % (Auto) 29.6 (20-40) % [place] % (Auto) 11.8 H (2-11) % Eos % (Auto) 1.1 (0-4) % Baso % (Auto) 0.4 (0-2) % Lymph # (Auto) 1.7 (1.2-4.9) X10*3/uL [place] # (Auto) 0.7 (0.1-1.2) X10*3/uL Eos # (Auto) 0.1 (0.0-0.4) X10*3/uL Baso # (Auto) 0.0 (0.0-0.2) X10*3/uL Abs Immat Gran (auto) 0.02 (0.00-0.03) X10*3/uL Absolute Neuts (auto) 3.2 (2.0-8.3) x10*3/uL Absolute Nucleated RBC 0.000 (0.0-0.012) X10*3/uL Nucleated RBC % (auto) 0.0 (0.0-0.2) /100WBC Sodium 140 (135-145) mmol/L Potassium 4.9 (3.3-5.1) mmol/L Chloride 110 H (96-108) mmol/L Carbon Dioxide 25 (22-29) mmol/L Anion Gap 10 L (12-20) BUN 21 H (9-16) mg/dL Creatinine 1.19 (0.5-1.4) mg/dL Estim Creat Clear Calc 29.9 Estimated GFR 43 Random Glucose 101 (60-115) mg/dL Calcium 8.9 D (8.4-10.2) mg/dL Magnesium 2.1 (1.6-2.6) mg/dL Total Bilirubin 0.5 (0.0-1.0) mg/dL AST 36 H (5-31) U/L ALT 25 (0-31) U/L Alkaline Phosphatase 97 (39-117) U/L Troponin I High Sens 7.4 D (<3.5-17.0) ng/L Total Protein 7.3 (6.5-8.0) g/dL Albumin 4.1 (3.5-5.0) g/dL Influenza Type A (PCR) NEGATIVE (Negative) Influenza Type B (PCR) NEGATIVE (Negative) RSV RNA Qual (PCR) NEGATIVE (Negative) SARS-CoV-2 RNA (RT-PCR) NEGATIVE (Negative) Independent Interpretation I performed an independent interpretation of an: EKG (See narrative above) and CT Scan (See narrative above) Radiology Impression Discussion of test interpretation with radiology: I have reviewed the radiologist's reading. Radiologist Impression: CT head without contrast Comparison: CT/NE/SR - BRAIN WO IV CONTRAST [id number] - 09/10/18 00:21 EST Findings: No intra-axial mass, midline shift, hydrocephalus, or acute hemorrhage. No significant atrophy-like change or white matter disease. There is no sinus or mastoid fluid. The orbits are within normal limits. No skull fracture. IMPRESSION: 1. No acute intracranial findings. External Record Review External record reviewed: Outpatient record Chronic Conditions Patient?s care impacted by: Other (See narrative above) Discharge Plan Discharge Clinical Impression: Hypertension Patient Disposition: Home, Self-Care Instructions: How to Take a Blood Pressure (ED), Chronic Hypertension (ED) Additional Instructions: You were evaluated in the emergency department today for a headache in the setting of elevated blood pressure readings. As discussed when you arrived your blood pressure was much better controlled, though later in the evening it was noted to again be elevated however you had not yet taken your blood pressure medications. You received a dose of losartan in the emergency department. CT scan of the head did not show evidence of bleeding into the brain which is very reassuring. It is recommended that you continue to elevate your legs at all times when possible up above the level of your chest, and reconsider usage of compression stockings placing them on 1st thing in the morning before getting out of bed to help allow for venous return back to the heart. Follow-up with your primary care doctor. Return with any new or worsening symptoms or concerns. Prescriptions: No Action albuterol sulfate 90 mcg/actuation aerosol powdr breath activated 2 inh inhalation Q4-6H PRN (Reason: shortness of breath or wheezing) Qty: 1 0RF losartan 50 mg tablet 50 mg PO DAILY Qty: 30 2RF amlodipine 10 mg tablet 10 mg PO DAILY simvastatin 20 mg tablet 20 mg PO BEDTIME carbidopa-levodopa 25-100 mg tablet PO spironolactone 50 mg tablet 50 mg PO DAILY Referrals: Saleem Gutiérrez PA [Primary Care Provider] - Interventions: ED Discharge Assessment Last Done: 11/14/24 07:13 Discharge Date/Time: 11/14/24 07:13 Print Language: Slovak
--- NOTE | 2024-11-13 17:41 | ECG_ITS ---
Test Reason : HYPERTENSION Blood Pressure : */* mmHG Vent. Rate : 82 BPM Atrial Rate : 82 BPM P-R Int : 180 ms QRS Dur : 74 ms QT Int : 352 ms P-R-T Axes : 66 45 25 degrees QTcB Int : 411 ms Normal sinus rhythm Normal ECG When compared with ECG of 09-Nov-2023 13:46, Previous ECG has undetermined rhythm, needs review Criteria for Septal infarct are no longer Present Referred By: Kathryn Velasco Electronically Signed By: Real Golden
[2024-11-13 18:58] LABS: MANUAL DIFF FLAG NO
[2024-11-13 19:13] LABS: Alanine Aminotransferase 25 U/L (0-31); Albumin Level 4.1 g/dL (3.5-5.0); Alkaline Phosphatase 97 U/L (39-117); Anion Gap 10 (12-20); Aspartate Amino Transferase 36 U/L (5-31); Bilirubin Total 0.5 mg/dL (0.0-1.0); Blood Urea Nitrogen 21 mg/dL (9-16); Calcium 8.9 mg/dL (8.4-10.2); Carbon Dioxide 25 mmol/L (22-29); Chloride 110 mmol/L (96-108); Creatinine Clr Calc Pharmacy 29.9; Estimated Glomerular Filt Rate 43; Glucose Random 101 mg/dL (60-115); Magnesium 2.1 mg/dL (1.6-2.6); Potassium 4.9 mmol/L (3.3-5.1); Sodium 140 mmol/L (135-145); Total Protein 7.3 g/dL (6.5-8.0)
[2024-11-13 19:20] LABS: Basophils Percent Auto 0.4 % (0-2); Eosinophils Absolute Auto 0.1 X10*3/uL (0.0-0.4); Eosinophils Percent Auto 1.1 % (0-4); Hematocrit 36.1 % (37.0-47.0); Imm Gran Abs Auto 0.02 X10*3/uL (0.00-0.03); Imm Gran Pct Auto 0.4 % (0.0-0.4); Lymphocytes Absolute Auto 1.7 X10*3/uL (1.2-4.9); Lymphocytes Percent Auto 29.6 % (20-40); Mean Corpuscular HGB Conc 33.2 g/dl (31.0-35.0); Mean Corpuscular Hemoglobin 29.6 pg (27.0-33.0); Mean Corpuscular Volume 88.9 fL (80.0-98.0); Mean Platelet Volume 11.5 fL (9.4-12.3); Monocytes Absolute Auto 0.7 X10*3/uL (0.1-1.2); Monocytes Percent Auto 11.8 % (2-11); Neutrophils Absolute Auto 3.2 x10*3/uL (2.0-8.3); Neutrophils Percent Auto 56.7 % (45-73); Platelet Count 233 X10*3/uL (160-400); Red Blood Count 4.06 X10*6/uL (4.20-5.50); Red Cell Distribution Width 12.8 % (11.0-16.0); Troponin-I High Sensitivity 7.4 ng/L (<3.5-17.0); White Blood Count 5.7 X10*3/uL (4.8-10.8)
[2024-11-13 19:37] LABS: Influenza A PCR NEGATIVE (Negative); Influenza B PCR NEGATIVE (Negative); Resp Syncy Virus RNA Qual PCR NEGATIVE (Negative); SARS COV2 PCR INHOUSE NEGATIVE (Negative)
[2024-11-13 22:13] VITALS: BP 207/88; PULSE 80; RESP 20; TEMP 36.7; O2SAT 98
--- OUTSIDE RECORDS SUMMARY | 2024-11-13 22:18 | XMS_ITS | Encounter Summary ---
Author Organization [facility] Address [address] [place] [address] Care Team Providers Care Imaging Clerk Name Role Phone Saleem Gutiérrez Primary Care Provider [phone] Reason for Visit * Reason Comments Hypertension Encounter Details Date Type Department Care Team (Late st Contact Info) Description 11/12/2024 10:15 AM EST Office Visit Adult Medicine [facility] [address] [place] [address] Guillermina Coffey PA [address] [place] [address] Primary hypertension (Primary Dx); Stage 3b chronic kidney disease (CMS/HCC) Social History Tobacco Use Types Packs/Day Years Used Date Smoking Tobacco: Former Cigarettes Q uit: 10/09/1987 Smokeless Tobacco: Never Tobacco Cessation:Counseling Given: Not Answered Alcohol Use Standard Drinks/Week Comments Yes 1 (1 standard drink = 0.6 oz pur e alcohol) Sex and Gender Information Value Date Recorded Sex Assigned at Female 09/27/2024 3:11 PM EST Gender Identity Female 09/27/2024 3:11 PM EST Sexual Orientation Straight 09/30/2024 8: 42 AM EST Job Start Date Occupation Industry Not on file Not on file Not on file documented as of this encounter Last Filed Vital Signs Vital Sign Reading Time Taken Comments Blood Pressure 160/62 11/12/2024 10:28 AM EST Pulse 74 11/12/2024 9:58 AM EST Temperature 36.1 ??C (96.9 ??F) 11/12/2024 9:58 AM ES T Respiratory Rate 16 11/12/2024 9:58 AM EST Oxygen Saturation - - Inhaled Oxygen Concentration - - Weight 63.3 kg (139 lb 9.6 oz) 11/12/2024 9:58 A M EST Height 166.4 cm (5' 5.5 ) 11/12/2024 9:58 AM EST Body Mass Index 22.88 11/12/2024 9:58 AM EST documented in this encounter Ordered Prescriptions Prescription Sig Dispensed Refills Start Date End Da te hydroCHLOROthiazide 12.5 mg tablet Take 1 tablet (12.5 mg total) by mouth 1 (one) time each day. 90 tablet 11/12/2024 documented in this encounter Progress Notes * [facility]EL [facility] - 11/12/2024 10:15 AM EST CHIEF COMPLAINT: Hypertension IDENTIFIER: Elisa Mcneil is a 89 y.o. old female. HPI: Patient presents to the office today for reevaluation of hypertension. She has CKD and osteopenia/osteoporosis. During recent visit with PCP team patient was started on amlodipine 2.5 mg and BP remained elevated. Dosing was increased to 5 mg on follow-up. Home BP has continued to be elevated. BP inoffice today is again noted. She has also started to experience leg swelling which she also had previously when on higher doses of amlodipine. She continues on losartan 100 mg. Many years ago she wason lisinopril and this was discontinued due to cough. She was also more recently on spironolactone and this was discontinued due to insufficient response. Patient denies dizziness or lightheadedness.No chest pain or palpitations. No shortness of breath. Having mild intermittent headaches and is using Tylenol at onset with good effect. No visual disturbances. No slurred speech. No facial droop. No numbness, tingling, weakness. No falls or head trauma. No disorientation or confusion. No fever orchills. No acute URI symptoms. No neck pain or stiffness. ROS: GENERAL: No malaise, significant weight loss or fever. See HPI HEENT: No changes in hearing or vision, nose bleeds or other nasal problems. See HPI RESPIRATORY: No cough, wheezing or shortness of breath CARDIOVASCULAR: No chest pain or palpitations. See HPI GI: No abdominal discomfort, N/V, blood in stools or black stools MUSCULOSKELETAL: see HPI SKIN: No lesions, rash or itching NEURO: No persistent headache, syncope, seizures, weakness or numbness. See HPI PAST MEDICAL HISTORY: Patient Active Problem List Diagnosis Date Noted Stage 3b chronic kidney disease ([facility]) 11/12/2024 Parkinson disease ([facility]) 05/11/2020 Tremor of left hand 04/23/2018 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 fracture 10/13/2017 Pulmonary nodules/lesions, multiple 05/08/2014 Osteopenia 06/22/2012 HTN (hypertension) 05/04/2012 Backache 09/05/2005 Esophageal reflux 09/05/2005 External hemorrhoids 09/05/2005 Hyperlipidemia 09/05/2005 SOCIAL HISTORY: Social History Tobacco Use Smoking status: Former Current packs/day: 0.00 Types: Cigarettes Quit date: 10/09/1987 Years since quittin.1 Smokeless tobacco: Never Substance Use Topics Alcohol use: Yes Alcohol/week: 1.0 standard drink of alcohol FAMILY HISTORY: Family Status Relation Name Status Mother at age 91 KIDNEY FAILURE Father at age 94 Brother (Not Specified) Brother (Not Specified) Neg Hx (Not Specified) Brother at age 71 DM HTN Sister Alive CHOLESTEROL PROBEMS htn alzheimers MGM MGF PGM PGF Daughter Alive Son Alive Daughter No partnership data on file Family History Problem Relation Name Age of Onset Hyperlipidemia Mother Other (Other: heart by-pass) Mother Other (Other: blindness) Mother Prostate cancer Father Diabetes Brother Other (Other: heart disease) Brother Breast cancer Neg Hx Colon cancer Neg Hx ACTIVE MEDICATIONS: Outpatient Medications Marked as Taking for the 11/12/24 encounter (Office Visit) with [facility]UEL [facility] Medication Sig Dispense Refill carbidopa-levodopa (PARCOPA) 25-100 mg per disintegrating tablet Take 1 tablet by mouth 2 (two) times a day. cetirizine (ZyrTEC) 10 mg tablet Take 1 tablet (10 mg total) by mouth 1 (one) time each day. fluticasone propionate (FLONASE) 50 mcg/actuation nasal spray Administer 1 spray into affected nostril(s) 1 (one) time each day. lactulose (CHRONULAC) solution losartan (COZAAR) 100 mg tablet TAKE 1 TABLET BY MOUTH DAILY 90 tablet 0 omeprazole (PriLOSEC) [address] capsule Take 1 Capsule by mouth 2 Times Daily for 360 days. polyethylene glycol (MIRALAX) 17 gram packet Take 1 Packet by mouth 2 times daily. senna (SENOKOT) 8.6 mg tablet Take 1 tablet (8.6 mg total) by mouth 2 (two) times a day. simvastatin (ZOCOR) 20 mg tablet Take 1 tablet (20 mg total) by mouth at bedtime. at bedtime. 90 tablet 1 zolpidem (AMBIEN) 5 mg tablet Take 1 tablet (5 mg total) by mouth at bedtime as needed for sleep. Max Daily Amount: 5 mg 30 tablet 5 [DISCONTINUED] amLODIPine (NORVASC) 5 mg tablet TAKE 1 TABLET(5 MG) BY MOUTH 1 TIME EACH DAY 90 tablet 0 ALLERGIES: Codeine and Tramadol hcl PHYSICAL EXAM: Blood pressure (!) 160/62, pulse 74, temperature 36.1 ??C (96.9 ??F), temperature source Temporal, resp. rate 16, height 1.664 m (65.5 ), weight 63.3 kg (139 lb 9.6 oz). Body mass index is 22.88 kg/m??. BMI is 18.5 to 24.9 (within the normal range) and will be followed APPEARANCE: Alert and in no acute distress EYES: PERRLA. Conjunctiva and sclera normal. EOMI. HEART: RRR with normal S1 and S2, no murmurs LUNG: clear to auscultation EXTREMITIES: Extremities warm and well perfused without clubbing or cyanosis. Lower extremities with 1-2+ edema. NEURO: Awake, alert and oriented x 3. Cranial nerves II-XII intact. Speech clear. No focal deficit. SKIN: Skin color, texture, turgor normal. LABS: Lab Results Component Value Date CHOL 167 10/11/2024 TRIG 56 10/11/2024 HDL 69 10/11/2024 LDLCALC 87 10/11/2024 VLDL 11.2 10/11/2024 NONHDLC 98 10/11/2024 CHOLHDL 2.4 10/11/2024 LDL 91 Lab Results Component Value Date NA 140 10/11/2024 K 4.6 10/11/2024 CL 108 10/11/2024 CO2 25 10/11/2024 GLUCOSE 113 (H) 10/11/2024 BUN 21 10/11/2024 CREATININE 1.37 (H) 10/11/2024 CALCIUM 9.6 10/11/2024 PROT 6.7 10/11/2024 ALBUMIN 4.0 10/11/2024 BILITOT 0.5 10/11/2024 AST 20 10/11/2024 ALT 9 (L) 10/11/2024 ALKPHOS 105 10/11/2024 EGFR 37 (L) 10/11/202407/2024 CREAT 0.5 - 1.1 mg/dL 1.37 High GLOMERULAR FILTRATION RATE >60 37 Low This eGFR result was calculated using the CKD-EPI 2020 Creatinine Equation NA 135 - 145 mEq/L 140 K 3.5 - 5.5 mmol/L 4.6 CL 96 - 110 mmol/L 109 CARBON DIOXIDE (CO2) 21 - 32 mmol/L 25 ANION GAP 3 - 11 6 Blood Urea Nitrogen 5 - 25 mg/dL 17 CALCIUM 8.5 - 10.5 mg/dL 9.6 BP Readings from Last 5 Encounters: 11/12/24 (!) 160/62 10/11/24 (!) 150/62 09/10/24 (!) 150/70 08/15/24 (!) 168/74 08/07/24 (!) 151/65 IMPRESSION: 1. Primary hypertension 2. Stage 3b chronic kidney disease ([facility]) PLAN: Blood pressure elevated on arrival again on repeat reading. Home BP readings have also continued farhan elevated. Patient does not appear to be adequately responding to amlodipine and is also experiencing side effect of leg swelling. Amlodipine will be discontinued. She will continue with losartan as instructed. Will trial hydrochlorothiazide 12.5 mg once daily. The risks and benefits of this medication were discussed with the patient. The patient understands the potential side effects and basicinteractions of this medication. The patient is asked to call me or my colleagues if they begin to experience any difficulties with this medication. Patient to continue with low-sodium diet. Patient to maintain adequate hydration. Patient will continue to monitor BP at home. Patient will return forclose follow-up in 2 weeks to reevaluate. Pt is educated on alarm sx's that would warrant emergencyroom evaluation. Patient understands and agrees to plan. Will contact the office sooner with any further problems or concerns. No orders of the defined types were placed in this encounter. ADDITIONAL ORDERS: None [facility]IGUEL [facility]NG[facility] Heart on 11/12/2024 at 10:58 AM EST documented in this encounter Plan of Treatment Upcoming Encounters Date Type Department Care Team (Late st Contact Info) Description 11/26/2024 2:45 PM EST Office Visit Adult Medicine [address] [phone] Saleem Gutiérrez PA [address] [place] [address] 12/02/2024 8:30 AM EST Appointment [facility] [address] [place] [address] 12/24/2024 10:30 AM EDT Office Visit Gastroenterology - [place] [address] [facility] 175 [facility] [address] [place] [phone] Pastora Arriola PA [address] [address] 04/17/2025 11:10 AM EDT Appointment Radiology Department - [address] [phone] 04/18/2025 10:30 AM EDT Office Visit Adult [address] [phone] Saleem Gutiérrez PA [address] [place] [address] documented as of this encounter Visit Diagnoses Diagnosis Primary hypertension- Primary Unspecified essential hypertension Stage 3b chronic kidney disease ([facility]/HCC) Encounter for screening mammogram for breast cancer documented in this encounter Discontinued Medications Medication Sig Discontinue Reason Start Date End Da te amLODIPine (NORVASC) 5 mg tablet TAKE 1 TABLET(5 MG) BY MOUTH 1 TIME EACH DAY Ineffective 10/18/2024 11/12/2024 documented as of this encounter Care Teams Imaging Clerk Relationship Specialty Start Date End Date Saleem Gutiérrez PA [address] [place] [address] PCP - General Internal Medicine 08/06/24 documented as of this encounter
--- OUTSIDE RECORDS SUMMARY | 2024-11-13 22:18 | XMS_ITS | Clinical Summary ---
Author Organization [facility] Address [address] [place] [address] Phone Care Team Providers Care Marine Designer Name Role Phone Saleem Gutiérrez Primary Care Provider [phone] Allergies Active Allergy Reactions Criticality Noted Date Comments Codeine Itching 09/05/2005 Other Reaction(s): Hives/Urticaria Tramadol Hcl Nausea And Vomiting 03/11/2010 dizzy Medications Medication Sig Dispensed Refills Start Date End Date Status cetirizine (ZyrTEC) 10 mg tablet Take 1 tablet (10 mg total) by mouth 1 (one) time each day. 4 Active senna (SENOKOT) 8.6 mg tablet Take 1 tablet (8.6 mg total) by mouth 2 (two) times a day. 4 Active polyethylene glycol (MIRALAX) 17 gram packet Take 1 Packet by mouth 2 times daily. 4 Active lactulose (CHRONULAC) solution 4 Active omeprazole (PriLOSEC) [address] capsule Take 1 Capsule by mouth 2 Times Daily for 360 days. 4 04/19/20 25 Active carbidopa-levodopa (PARCOPA) 25-100 mg per disintegrating tablet Take 1 tablet by mouth 2 (two) times a day. Active fluticasone propionate (FLONASE) 50 mcg/actuation nasal spray Administer 1 spray into affected nostril(s) 1 (one) time each day. 4 Active zolpidem (AMBIEN) 5 mg tablet Take 1 tablet (5 mg total) by mouth at bedtime as needed for sleep. Max Daily Amount: 5 mg 30 tablet 5 4 Active simvastatin (ZOCOR) 20 mg tablet Take 1 tablet (20 mg total) by mouth at bedtime. at bedtime. 90 tablet 1 5 Active losartan (COZAAR) 100 mg tablet TAKE 1 TABLET BY MOUTH DAILY 90 tablet 5 Active hydroCHLOROthiazid e 12.5 mg tablet Take 1 tablet (12.5 mg total) by mouth 1 (one) time each day. 90 tablet 5 Active losartan (COZAAR) 50 mg tablet Take 2 tablets (100 mg total) by mouth 1 (one) time each day. 4 10/29/19 25 Discontinued(Dos e adjustment) amLODIPine (NORVASC) 5 mg tablet Take 1 tablet (5 mg total) by mouth 1 (one) time each day. 60 tablet 5 10/18/19 25 Discontinued amLODIPine (NORVASC) 5 mg tablet TAKE 1 TABLET(5 MG) BY MOUTH 1 TIME EACH DAY 90 tablet 5 11/12/19 25 Discontinued(Ine ffective) Active Problems Problem Noted Date Diagnosed Date Stage 3b chronic kidney disease 11/12/2024 Parkinson disease 05/11/2020 Tremor of left hand 04/23/2018 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 fracture 10/13/2017 Pulmonary nodules/lesions, multiple 05/08/2014 Overview (07/22/2024): seen first 7-12 largest is 6mm in the RUL, unchanged over 2 yrs Osteopenia 06/22/2012 HTN (hypertension) 05/04/2012 Backache 09/05/2005 Overview (07/22/2024): IMO update Esophageal reflux 09/05/2005 External hemorrhoids 09/05/2005 Overview (07/22/2024): IMO update Hyperlipidemia 09/05/2005 Encounters Date Type Department Care Team Description 11/12/2024 10:15 AM EST Office Visit Adult [address] [phone] Guillermina Coffey PA Primary hypertension (Primary Dx); Stage 3b chronic kidney disease (CMS/HCC) 10/11/2024 10:15 AM EST Office Visit Adult Medicine [address] [phone] Guillermina Coffey PA Primary hypertension (Primary Dx); Hyperlipidemia, unspecified hyperlipidemia type 10/04/2024 Telephone Adult [address] [phone] Saleem Gutiérrez PA Medication Problem 09/20/2024 Telephone Adult [address] [phone] Saleem Gutiérrez PA Medication Problem (doxepin (SINEquan) 10 mg capsule) 09/10/2024 10:23 AM EST - 09/10/2024 11:59 PM EST Hospital Encounter Radiology Department [address] [phone] Primary hypertension; Hyperlipidemia, unspecified hyperlipidemia type; Osteopenia, unspecified location; 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 fracture; Parkinson's disease without dyskinesia or fluctuating manifestations (CMS/HCC); Localized edema Discharge Disposition: Home or Self Care 09/10/2024 9:30 AM EST Office Visit Adult [address] [phone] Saleem Gutiérrez PA Primary hypertension (Primary Dx); Hyperlipidemia, unspecified hyperlipidemia type; Osteopenia, unspecified location; 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 fracture; Parkinson's disease without dyskinesia or fluctuating manifestations (CMS/HCC); Type 2 diabetes mellitus with both eyes affected by mild nonproliferative retinopathy without macular edema, without long-term current use of insulin (CMS/HCC); Localized edema; Neck pain 08/15/2024 11:00 AM EST Office Visit Gastroenterology - [place] 175 [facility] 175 [facility] [address] [place] [address] Pastora Arriola PA Periumbilical abdominal pain (Primary Dx); Gastroesophageal reflux disease, unspecified whether esophagitis present; Diverticulosis from Last 3 Months Immunizations Name Administration Dates Next Due Influenza trivalent, 0.5mL ( Fluad) 65yo and older 07/02/2024,07/06/2023,06/17/2022,06/22,06/20/2018,08/16/2017,07/22/2016 ,07/23/2015 Influenza trivalent, 0.5mL, preservative free (Fluarix; FluLaval; Fluzone) ages 6mo and older (Afluria) 3 years and older 06/27/2020,06/09/2020,06/25/2013,06/21,06/24/2011,07/29/2010,07/09/2009 ,06/23/2008,07/20/2007,08/10/2005 Influenza, Unspecified 06/29/2019,2016,07/22/2016,07/23,07/10/2014 Pfizer (ages 12 & older) Biv alent, COVID-19 08/23/2023 Pneumococcal conjugate 13 va lent (Prevnar 13, PCV13) 2mo and older 03/12/2015 Pneumococcal polysaccharide 23 valent (Pneumovax 23) 2yo and older 06/24/2003 RSV, bivalent, protein subun it RSVpreF, 0.5mL, Preservative Free (Arexvy) 60yo and older 09/07/2023 Td Tetanus diptheria (Tdvax) 7yo and older 06/17/2022,06/23/2008 Zoster Live 03/01/2012 Surgical History Surgery Date Site/Laterality Comments CATARACT EXTRACTION PROCEDURE: HISTORICAL CATARACT REMOVAL; COMMENT: bilat TONSILLECTOMY PROCEDURE: HISTORICAL TONSILLECTOMY OTHER SURGICAL HISTORY PROCEDURE: HISTORY OTHER; COMMENT: SPINAL FUSION DR MORIN LOW BACK COLONOSCOPY 02/19/2008 PROCEDURE: HISTORICAL COLONOSCOPY; COMMENT: Negative UPPER GASTROINTESTINAL ENDOSCOPY 01/04/2021 PROCEDURE: NC UPPER GI ENDOSCOPY PERFORMED; COMMENT: Medium sized axial hiatal hernia, otherwise normal. Medical History Medical History Date Comments Esophageal reflux 09/05/2005 DX:Esophageal reflux Other and unspecified hyperlipidemia 09/05/2005 DX:Other and unspecified hyperlipidemia Backache, unspecified 09/05/2005 DX:Backach e, unspecified Backache, unspecified 09/05/2005 DX:Backach e, unspecified Other and unspecified hyperlipidemia 09/05/2005 DX:Other and unspecified hyperlipidemia Special screening for malign ant neoplasms, colon 02/19/2008 DX:Special screening for mal ignant neoplasms, colon; COMMENT: Negative colonoscopy 02/19/2008, no colon cancer screening needed for 10 years. HTN (hypertension) 05/04/2012 DX:HTN (hyper tension) Actinic keratosis, hx of DX:Acti alex keratosis, hx of Tremor of left hand 04/23/2018 DX:Tremor of left hand Family History Medical History Relation Name Comments Diabetes Brother 1 Other: heart disease Brother 2 Prostate cancer Father Hyperlipidemia Mother Other: blindness Mother Other: heart by-pass Mother Breast cancer Neg Hx Colon cancer Neg Hx Relation Name Status Comments Brother 1 Brother 2 Brother 3 (Age 71) DM HTN Daughter 1 Alive Daughter 2 Father (Age 94) Maternal Grandfather Maternal Grandmother Mother (Age 91) KIDNEY BEATRIZ LURE Paternal Grandfather Paternal Grandmother Sister Alive CHOLESTEROL PRO BEMS htn alzheimers Son Alive Social History Tobacco Use Types Packs/Day Years [...] file Not on file Not on file Obstetrics History Last Filed Vital Signs Vital Sign Reading [...] Mass Index 22.88 11/12/2024 9:58 AM EST Plan of Treatment Upcoming Encounters Date Type Department Care Team (Late st Contact Info) Description 11/26/2024 2:45 PM EST Office Visit Adult Medicine [address] [phone] Saleem Gutiérrez, PA [address] [place], [place] 12/02/2024 8:30 AM EST Appointment [facility] Xray [address] [place] [phone] 12/24/2024 10:30 AM EDT Office Visit Gastroenterology - [place] 175 [facility] 175 [facility] [address] [place] [phone] Pastora Arriola PA [address] [facility] [address] [place] [address] 04/17/2025 11:10 AM EDT Appointment Radiology Department - [address] [phone] 04/18/2025 10:30 AM EDT Office Visit [address] [phone] Saleem Gutiérrez, PA [address] [place] [address] Health Maintenance Due Date Last Done Comments Diabetes: Annual Foot Exam 1945 Diabetes: Annual Retina Eye Exam 1945 Social Influencers of Health Screening 09/17/2022 COVID-19 Vaccine ( season) 2024 08/23/2023, 07/21/2022, 02/13/2022, Additional history exists Depression Screening 03/19/2025 03/19/2024 Medicare Annual Wellness Visit 03/19/2025 03/19/2024 Diabetes: Blood Sugar Control Test (HGBA1C) 04/10/2025 10/11/2024, 11/16/2023 Falls Risk Assessment 04/30/2025 04/30/2024 Hypertension/CHF/CAD Annual BMP Blood Test 10/11/2025 10/11/2024, 07/17/2024, 07/17/2024, Additional history exists Cholesterol Screening (Lipid Panel) 10/11/2029 10/11/2024, 11/15/2023 Osteoporosis Screening (Bone Density Screening) 04/21/2032 04/21/2017 DTaP,Tdap,and Td Vaccines (3 - Td or Tdap) 06/17/2032 06/17/2022, 06/23/2008 Pneumococcal Vaccine: 65+ Years Completed 03/12/2015, 06/24/2003 Zoster Vaccines Completed 10/18/2022, 12/2021, 03/01/2012 RSV Immunization Patients 60+ Years Old Completed 09/07/2023 Influenza Vaccine Completed 07/02/2024, , 06/17/2022, Additional history exists HIB Vaccines Aged Out No longer eligi ble based on patient's age to complete this topic HPV Vaccines Aged Out No longer eligi ble based on patient's age to complete this topic Hepatitis A Vaccines Aged Out No long er eligible based on patient's age to complete this topic Hepatitis B Vaccines Aged Out No long er eligible based on patient's age to complete this topic IPV Vaccines Aged Out No longer eligi ble based on patient's age to complete this topic MMR Vaccines Aged Out No longer eligi ble based on patient's age to complete this topic Meningococcal ACWY Vaccine Aged Out N o longer eligible based on patient's age to complete this topic RSV Immunization Patients Under 20 months Aged Out No longer eligible based on patient's age to complete this topic Varicella Vaccines Aged Out No longer eligible based on patient's age to complete this topic Procedures Procedure Name Priority Date/Time Associated Diagnosis Comments LIPID PANEL WITH REFLEX TO DIRECT LDL Routine 10/11/2024 10:56 AM EST Primary hypertension Hyperlipidemia, unspecified hyperlipidemia type Osteopenia, unspecified location 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 fracture Parkinson's disease without dyskinesia or fluctuating manifestations (CMS/HCC) COMPREHENSIVE METABOLIC PANEL Routine 10/11/2024 10:56 AM EST Primary hypertension Hyperlipidemia, unspecified hyperlipidemia type Osteopenia, unspecified location 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 fracture Parkinson's disease without dyskinesia or fluctuating manifestations (CMS/HCC) HEMOGLOBIN A1C Routine 10/11/2024 10:56 AM EST Primary hypertension Hyperlipidemia, unspecified hyperlipidemia type Osteopenia, unspecified location 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 fracture Parkinson's disease without dyskinesia or fluctuating manifestations (CMS/HCC) Type 2 diabetes mellitus with both eyes affected by mild nonproliferative retinopathy without macular edema, without long-term current use of insulin (CMS/HCC) VAS US DUPLEX LOWER EXT VENOUS LEFT Routine 09/10/2024 10:50 AM EST Primary hypertension Hyperlipidemia, unspecified hyperlipidemia type Osteopenia, unspecified location 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 fracture Parkinson's disease without dyskinesia or fluctuating manifestations (CMS/HCC) Localized edema FALLS RISK ASSESSMENT Routine 04/30/2024 DEPRESSION SCREENING Routine 03/19/2024 DXA BONE DENSITY STUDY 1+ SITS AXIAL SKEL Routine 04/21/2017 9:13 AM EDT Encounter for screening for osteoporosis from Last 3 Months or Most Recently Relevant to Health Maintenance Results * Lipid panel with reflex to direct LDL (10/11/2024 10:56 AM EST) Cholesterol 167 0 - 200 mg/dL LAB CHEMISTRY METHOD 10/11/2024 2:38 PM [facility] Triglycerides 56 0 - 150 mg/dL LAB CHEMISTRY METHOD 10/11/2024 2:38 PM [facility] HDL 69 >=40 mg/dL LAB CHEMISTRY METHOD 10/11/2024 2:38 PM EST [facility] LDL Calculated 87 0 - 100 mg/dL LAB CHEMISTRY METHOD 10/11/2024 2:38 PM [facility] VLDL Cholesterol Tato 11.2 mg/dL LAB CHEMISTRY METHOD 10/11/2024 2:38 PM EST [facility] Non HDL Chol. (LDL+VLDL) 98 <145 mg/dL LAB CHEMISTRY METHOD 10/11/2024 2:38 PM EST [facility] Chol/HDL Ratio 2.4 0.0 - 4.4 LAB CHEMISTRY METHOD 10/11/2024 2:38 PM [facility] Blood Venous blood specimen / Unknown Venipuncture / Unknown 10/11/2024 10:56 AM EST 10/11/2024 10:56 AM EST Saleem DEL ROSARIO LAB BLOOD ORDERAB LES Performing Organization Address City/[facility]/ZIP Co de Phone Number [facility] [address] [place] [address], [place] [phone] * Hemoglobin A1c (10/11/2024 10:56 AM EST) Hemoglobin A1C 5.8 <6.5 % LAB CHEMISTRY METHOD 10/11/2024 2:47 PM EST [facility] Mean Bld Glu Estim. 120 mg/dL LAB CHEMISTRY METHOD 10/11/2024 2:47 PM [facility] Blood Venous blood specimen / Unknown Venipuncture / Unknown 10/11/2024 10:56 AM EST 10/11/2024 10:56 AM EST Saleem DEL ROSARIO LAB BLOOD ORDERAB LES Performing Organization Address City/[facility]/ZIP Co de Phone Number [facility] [address] [place] [address], [place] [phone] * (ABNORMAL) Comprehensive metabolic panel (10/11/2024 10:56 AM EST) Sodium 140 133 - 145 mmol/L LAB CHEMISTRY METHOD 10/11/2024 2:38 PM [facility] Potassium 4.6 3.5 - 5.5 mmol/L LAB CHEMISTRY METHOD 10/11/2024 2:38 PM EST [facility] Chloride 108 96 - 110 mmol/L LAB CHEMISTRY METHOD 10/11/2024 2:38 PM [facility] CO2 25 21 - 32 mmol/L LAB CHEMISTRY METHOD 10/11/2024 2:38 PM [facility] Anion Gap 7 3 - 11 LAB CHEMISTRY METHOD 10/11/2024 2:38 PM [facility] Glucose 113(H) 70 - 100 mg/dL LAB CHEMISTRY METHOD 10/11/2024 2:38 PM [facility] BUN 21 5 - 25 mg/dL LAB CHEMISTRY METHOD 10/11/2024 2:38 PM [facility] Creatinine 1.37(H) 0.50 - 1.10 mg/dL LAB CHEMISTRY METHOD 10/11/2024 2:38 PM [facility] eGFR 37(L) >=60 mL/min/1. 73m2 LAB CHEMISTRY METHOD 10/11/2024 2:38 PM [facility] Comment:Calculation based on the??Chronic Kidney Disease Epidemiology Collaboration (CKD-EPI) equation refit??without adjustment for race. BUN/Creatinine Ratio 15.3 LAB CHEMISTRY METHOD 10/11/2024 2:38 PM [facility] Calcium 9.6 8.5 - 10.5 mg/dL LAB CHEMISTRY METHOD 10/11/2024 2:38 PM [facility] AST (SGOT) 20 10 - 42 unit/L LAB CHEMISTRY METHOD 10/11/2024 2:38 PM [facility] ALT (SGPT) 9(L) 10 - 60 unit/L LAB CHEMISTRY METHOD 10/11/2024 2:38 PM [facility] Alkaline Phosphatase 105 42 - 121 unit/L LAB CHEMISTRY METHOD 10/11/2024 2:38 PM [facility] Total Protein 6.7 6.0 - 8.0 g/dL LAB CHEMISTRY METHOD 10/11/2024 2:38 PM [facility] Albumin 4.0 3.2 - 5.0 g/dL LAB CHEMISTRY METHOD 10/11/2024 2:38 PM EST [facility] Total Bilirubin 0.5 0.0 - 1.4 mg/dL LAB CHEMISTRY METHOD 10/11/2024 2:38 PM EST [facility] Blood Venous blood specimen / Unknown Venipuncture / Unknown 10/11/2024 10:56 AM EST 10/11/2024 10:56 AM EST Saleem DEL ROSARIO LAB BLOOD ORDERAB LES [facility] [address] [place] [address], * Vascular US duplex lower extremity venous left (09/10/2024 10:50 AM EST) Anatomical Region Laterality Modality Vascular, Abdomen Ultrasound 09/10/2024 1:48 PM EST Impressions 09/10/2024 1:50 PM EST Limited examination with nonvisualized posterior tibial and peroneal veins. ??No evidence of deep venous thrombosis in the left lower extremity . -------- FINAL REPORT -------- Dictated By: Tara Lewis Dictated Date: 09/10/2024 13:48 ET Assigned Physician: Tara Lewis Reviewed and Electronically Signed By: Tara Lewis Signed Date: 09/10/2024 13:50 ET Workstation ID: [id number] Transcribed By: Self Edit Transcribed Date: 09/10/2024 13:48 ET Narrative 09/10/2024 1:50 PM EST VAS US DUPLEX LOWER EXT VENOUS LEFT VENOUS ULTRASOUND, LEFT LOWER EXTREMITY HISTORY: ??Left flank pain and swelling. Procedure: Venous ultrasound of the left leg was performed from the upper groin throughout the calf. FINDINGS: ??Examination is limited. Posterior tibial and peroneal veins were not visualized. No echogenic thrombus was seen in the visualized portion of the deep venous system of the left lower extremity. ??The visualized deep venous system throughout the left leg was compressible. ??There was normal waveform respiratory phasicity. There was normal augmentation of color flow and duplex Doppler wave form throughout the deep venous system during compression at the ankle. No fluid or cyst is seen in the popliteal fossa. Procedure Note Tara Lewis MD - 09/10/2024 VAS US DUPLEX LOWER EXT VENOUS LEFT VENOUS ULTRASOUND, LEFT LOWER EXTREMITY HISTORY: Left flank pain and swelling. Procedure: Venous ultrasound of the left leg was performed from the uppergroin throughout the calf. FINDINGS: Examination is limited. Posterior tibial and peroneal veinswere not visualized. No echogenic thrombus was seen in the visualizedportion of the deep venous system of the left lower extremity. Thevisualized deep venous system throughout the left leg was compressible.There was normal waveform respiratory phasicity. There was normalaugmentation of color flow and duplex Doppler wave form throughout thedeep venous system during compression at the ankle. No fluid or cyst isseen in the popliteal fossa. IMPRESSION: Limited examination with nonvisualized posterior tibial and peronealveins. No evidence of deep venous thrombosis in the left lower extremity. -------- FINAL REPORT -------- Dictated By: Tara Lewis Dictated Date: 09/10/2024 13:48 ET Assigned Physician: Tara Lewis Reviewed and Electronically Signed By: Tara Lewis Signed Date: 09/10/2024 13:50 ET Workstation ID: [id number] Transcribed By: Self Edit Transcribed Date: 09/10/2024 13:48 ET Saleem DEL ROSARIO CV VASCULAR PROCE DURES * Falls Risk Assessment (04/30/2024) Pathologist [facility] Falls Risk Assessment abstracted Historical Provider MD MARLENE Lanier * Depression Screening (03/19/2024) Pathologist [facility] Depression Screening abstracted Historical Provider MD MARLENE JOLLY E * DXA BONE DENSITY STUDY 1+ SITS AXIAL SKEL (04/21/2017 9:13 AM EDT) Anatomical Region Laterality Modality Bone Densitometr y 04/07/2017 8:54 AM EDT Narrative 04/21/2017 1:09 PM EDT BONE DENSITY ? Lumbar Spine T-score is -2.2 ?? (SD relative to 20-29 y/o adult) Z-score is +0.4 ??(SD relative to age matched peers) This is consistent with osteopenia by criteria defined by the WHO. Left Hip T-score is -2.8 Z-score is -0.5 This is consistent with osteoporosis by criteria defined by the WHO. Comparison exam(s): significant decrease in bone density of ??lumbar spine and hip when compared to most recent bone density examination ?? Confidence level is +/-95%. Impression: Based on the World Health Organization criteria, Elisa Mcneil should be classified as having osteoporosis. The [facility] of Internal Medicine recommends using National Osteoporosis Foundation (NOF) guidelines in treatment decisions related to osteoporosis. NOF guidelines suggest considering treatment for postmenopausal women and men aged 50 or older presenting with the following: History of hip or vertebral fracture. T-score less than or equal to -2.5 (DXA) at the femoral neck, total hip, or spine, after appropriate evaluation to exclude secondary causes. Low bone mass (T-score between -1.0 and -2.5 at the femoral neck or spine) AND a 10-year probability of a hip fracture greater than or equal to 3% OR a 10-year probability of a major osteoporosis-related fracture greater than or equal to 20% based on the [place]-adapted WHO algorithm Please note that all treatment decisions require clinical judgment and consideration of individual patient factors, including patient preferences, co-morbidities, previous drug use, risk factors not captured in the FRAX model (e.g., frailty, falls, vitamin D deficiency, increased bone turnover, interval significant decline in bone density) and possible under- or over-estimation of fracture risk by FRAX. Procedure Note Beni Stark MD - 11/10/2023 BONE DENSITY Lumbar Spine T-score is -2.2 (SD relative to 20-29 y/o adult) Z-score is +0.4 (SD relative to age matched peers) This is consistent with osteopenia by criteria defined by the WHO. Left Hip T-score is -2.8 Z-score is -0.5 This is consistent with osteoporosis by criteria defined by the WHO. Comparison exam(s): significant decrease in bone density of lumbar spineand hip when compared to most recent bone density examination Confidence level is +/-95%. Impression: Based on the World Health Organization criteria, Elisa Mcneil should beclassified as having osteoporosis. The [facility] of [facility] recommendsusing National Osteoporosis Foundation (NOF) guidelines in treatmentdecisions related to osteoporosis. NOF guidelines suggest consideringtreatment for postmenopausal women and men aged 50 or older presentingwith the following: History of hip or vertebral fracture. T-score less than or equal to -2.5 (DXA) at the femoral neck, total hip,or spine, after appropriate evaluation to exclude secondary causes. Low bone mass (T-score between -1.0 and -2.5 at the femoral neck or spine)AND a 10-year probability of a hip fracture greater than or equal to 3% ORa 10-year probability of a major osteoporosis-related fracture greaterthan or equal to 20% based on the [place]-adapted WHO algorithm Please note that all treatment decisions require clinical judgment andconsideration of individual patient factors, including patientpreferences, co-morbidities, previous drug use, risk factors not capturedin the FRAX model (e.g., frailty, falls, vitamin D deficiency, increasedbone turnover, interval significant decline in bone density) and possibleunder- or over-estimation of fracture risk by FRAX. Robbie Arias MD IMG DXA PROCEDURES from Last 3 Months or Most Recently Relevant to Health Maintenance Care Teams Marine Designer Relationship Specialty Start Date End Date Saleem Gutiérrez PA [address] [place] [address] PCP - General Internal Medicine 08/06/24
[2024-11-13 23:17] VITALS: BP 197/83
[2024-11-13] MEDS: Losartan Potassium 50 MG TABLET 100 MG PO (23:17)
[2024-11-13] MEDS: Acetaminophen 325 MG TABLET 975 MG PO (23:42)
[2024-11-14 07:13] VITALS: BP 0/0; PULSE 0; RESP 0; TEMP -17.7; TEMP 0; O2SAT 0
== END 2024-11-14 07:13 | disposition home or self-care (01) ==
PROVIDERS: Physician Assistant Medical; Emergency Provider Emergency Medicine; PCP Physician Assistant Medical
DX: I10 Essential (primary) hypertension (principal); R51.9 Headache, unspecified; G20.A1 Parkinson's disease without dyskinesia, without mention of fluctuations; K21.9 Gastro-esophageal reflux disease without esophagitis; Z03.818 Encounter for observation for suspected exposure to other biological agents ruled out; Z79.899 Other long term (current) drug therapy
CPT/HCPCS: 0241U; 36415; 70450; 80053; 83735; 84484; 85025; 93005; 99284

== ENCOUNTER → 2024-11-13 17:40 | Outpatient (BNV) | payer MEDICARE, SELFPAY | PROVIDERS: PCP Physician Assistant Medical; Visit Provider Student in an Organized Health Care Education/Training Program | DX: R51.9 Headache, unspecified (principal); R03.0 Elevated blood-pressure reading, without diagnosis of hypertension | CPT/HCPCS: 70450 ==

== ENCOUNTER 2024-12-20 06:47 | Emergency (ER) | payer MEDICARE, SELFPAY ==
[2024-12-20 06:55] VITALS: BP 153/61; PULSE 82; RESP 18; TEMP 36.6; O2SAT 99; BMI 22.1
--- OUTSIDE RECORDS SUMMARY | 2024-12-20 07:13 | XMS_ITS | Clinical Summary ---
Author Organization [facility] Address [address] [place] [address] Phone Care Team Providers Care Dried Fruit Washer Name Role Phone Saleem Gutiérrez Primary Care Provider [phone] Allergies Active Allergy Reactions Criticality Noted Date Comments Codeine Itching 09/05/2005 Other Reaction(s): Hives/Urticaria Tramadol Hcl Nausea And Vomiting 03/11/2010 dizzy Medications cetirizine (ZyrTEC) 10 mg tablet Take 1 tablet (10 mg total) by mouth 1 (one) time each day. Active senna (SENOKOT) 8.6 mg tablet Take 1 tablet (8.6 mg total) by mouth 2 (two) times a day. Active polyethylene glycol (MIRALAX) 17 gram packet Take 1 Packet by mouth 2 times daily. Active lactulose (CHRONULAC) solution Active carbidopa-levodop a (PARCOPA) 25-100 mg per disintegrating tablet Take 1 tablet by mouth 2 (two) times a day. Active fluticasone propionate (FLONASE) 50 mcg/actuation nasal spray Administer 1 spray into affected nostril(s) 1 (one) time each day. 024 Active losartan (COZAAR) 100 mg tablet Take 1 tablet (100 mg total) by mouth 1 (one) time each day. 90 tablet 3 025 Active simvastatin (ZOCOR) 20 mg tablet Take 1 tablet (20 mg total) by mouth at bedtime. at bedtime. 90 tablet 3 Active hydroCHLOROthiazi de (HYDRODIURIL) 25 mg tablet Take 1 tablet (25 mg total) by mouth 1 (one) time each day. 30 each 5 025 2024 Active Simethicone 125 mg tablet Take 125 mg by mouth every 6 (six) hours if needed (bloating). 120 tablet 3 025 2024 Active esomeprazole (NexIUM) [address] capsule Take 1 capsule (40 mg total) by mouth 1 (one) time each day before breakfast. Do not open capsule. 90 each 1 025 2024 Active doxepin (SINEquan) 10 mg capsule Take 1 capsule (10 mg total) by mouth at bedtime as needed for sleep. 30 each Active HYDROcodone-aceta minophen (NORCO) 5-325 mg per tabletIndications :Primary hypertension,Hype rlipidemia, unspecified hyperlipidemia type,Gastroesopha geal reflux disease without esophagitis,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 fracture,Parkinso n's disease without dyskinesia or fluctuating manifestations (CMS/HCC),Stage 3b chronic kidney disease (CMS/HCC) Take 1 tablet by mouth every 6 (six) hours if needed for severe pain. Max Daily Amount: 4 tablets 28 tablet Active amLODIPine (NORVASC) 10 mg tablet Take 1 tablet (10 mg total) by mouth 1 (one) time each day. 30 each 2024 Active omeprazole (PriLOSEC) [address] capsule Take 1 Capsule by mouth 2 Times Daily for 360 days. 024 2024 Discontinued zolpidem (AMBIEN) 5 mg tablet Take 1 tablet (5 mg total) by mouth at bedtime as needed for sleep. Max Daily Amount: 5 mg 30 tablet 5 024 2024 Discontinued simvastatin (ZOCOR) 20 mg tablet Take 1 tablet (20 mg total) by mouth at bedtime. at bedtime. 90 tablet 1 025 2024 Discontinued(R eorder) losartan (COZAAR) 100 mg tablet TAKE 1 TABLET BY MOUTH DAILY 90 tablet 025 2024 Discontinued(R eorder) hydroCHLOROthiazi de 12.5 mg tablet Take 1 tablet (12.5 mg total) by mouth 1 (one) time each day. 90 tablet 025 2024 Discontinued ramelteon (Rozerem) 8 mg tablet Take 1 tablet (8 mg total) by mouth at bedtime. 30 each 11 025 2024 Discontinued(D uplicate order) amLODIPine (NORVASC) 5 mg tablet Take 1 tablet (5 mg total) by mouth 1 (one) time each day. 30 each 11 025 2024 Discontinued traZODone (DESYREL) 50 mg tablet Take 1 tablet (50 mg total) by mouth at bedtime as needed for sleep. 30 tablet 11 2024 Discontinued esomeprazole (NexIUM) [address] capsule Take 1 capsule (40 mg total) by mouth 1 (one) time each day before breakfast. Do not open capsule. 30 each 3 025 2024 Discontinued(R eorder) Active Problems Problem Noted Date Diagnosed Date [...] Encounters Date Type Department Care Team Description 12/18/2024 Telephone Adult Medicine [address] [phone] Saleem Gutiérrez PA Leg Swelling 12/12/2024 1:00 PM EST Office Visit Adult [address] [phone] Saleem Gutiérrez PA Primary hypertension (Primary Dx); Hyperlipidemia, unspecified hyperlipidemia type; Gastroesophageal reflux disease without esophagitis; 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 fracture; Parkinson's disease without dyskinesia or fluctuating manifestations (CMS/HCC); Stage 3b chronic kidney disease (CMS/HCC) 12/12/2024 Telephone Adult Medicine [address] [phone] Saleem Gutiérrez PA fyi 12/12/2024 Telephone Gastroenterology [facility] 175 [facility] [address] [phone] Pastora Arriola PA prior authorization 12/09/2024 Telephone Gastroenterology [facility] 175 [facility] [address] [phone] Heidi [place] 12/03/2024 10:45 AM EST Office Visit Adult [address] [phone] Saleem Gutiérrez PA Primary hypertension (Primary Dx); Hyperlipidemia, unspecified hyperlipidemia type; Osteopenia, unspecified location; Parkinson's disease without dyskinesia or fluctuating manifestations (CMS/HCC); Stage 3b chronic kidney disease (CMS/HCC); 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 fracture 12/02/2024 7:03 AM EST - 12/02/2024 11:59 PM EST Hospital Encounter [facility] Xray [address] [place] [phone] Diverticulosis of intestine w/o perforation or abscess w/o bleeding Discharge Disposition: Home or Self Care 11/26/2024 2:30 PM EST Office Visit Adult [address] [phone] Saleem Gutiérrez PA Primary hypertension (Primary Dx); Hyperlipidemia, unspecified hyperlipidemia type; Gastroesophageal reflux disease without esophagitis; 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 fracture; Parkinson's disease without dyskinesia or fluctuating manifestations ([facility]); Osteopenia, unspecified location; Stage 3b chronic kidney disease ([facility]) 11/12/2024 10:15 AM EST Office Visit Adult Medicine [address] [phone] Guillermina Coffey PA Primary hypertension (Primary Dx); Stage 3b chronic kidney disease ([facility]) 10/11/2024 10:15 AM EST Office Visit Adult [address] [phone] Guillermina Coffey PA Primary hypertension (Primary Dx); Hyperlipidemia, unspecified hyperlipidemia type 10/04/2024 Telephone Adult Medicine [address] [phone] Saleem Gutiérrez PA Medication Problem from Last 3 Months Immunizations Name Administration [...] COMMENT: Negative UPPER GASTROINTESTINAL ENDOSCOPY 01/04/2021 PROCEDURE: [facility] UPPER GI ENDOSCOPY PERFORMED; COMMENT: Medium sized [...] drink = 0.6 oz pur e alcohol) Comments Unknown Sex and Gender Information Value Date Recorded Sex Assigned at Female 09/27/2024 3:11 PM EST Legal Sex Female 4:07 AM EST Gender Identity Female 09/27/2024 3:11 PM EST Sexual Orientation Straight 09/30/2024 8: 42 AM EST Obstetrics History Last Filed Vital Signs Vital Sign Reading Time Taken Comments Blood Pressure 156/71 12/12/2024 12:58 PM EST Pulse 79 12/12/2024 12:58 PM EST Temperature 36.9 ??C (98.5 ??F) 12/12/2024 12:[address] Respiratory Rate 15 12/12/2024 12:58 PM EST Oxygen Saturation - - Inhaled Oxygen Concentration - - Weight 61.2 kg (135 lb) 12/12/2024 12:58 PM EST Height 160 cm (5' 3 ) 12/12/2024 12:58 PM EST Body Mass Index 23.91 12/12/2024 12:58 PM EST Plan of Treatment Upcoming Encounters Date Type Department Care Team (Late st Contact Info) Description 12/23/2024 2:30 PM EDT Appointment Radiology Department - [address] [phone] 12/24/2024 10:30 AM EDT Office Visit Gastroenterology [facility] [address] [place] [address] Pastora Arriola PA [address] [place] [address] 12/31/2024 9:00 AM EDT Office Visit Adult Medicine [facility] - [address] [phone] Saleem Gutiérrez PA [address] [place] [address] 04/17/2025 11:10 AM EDT Appointment Radiology Department - [address] [phone] 04/18/2025 10:30 AM EDT Office Visit Adult Medicine [facility] [address] [place], [place] [phone] Saleem Gutiérrez PA [address] [place] [address] Health Maintenance Due Date Last Done Comments [...] 04/30/2025 04/30/2024 Hypertension/CHF/CAD Annual BMP Blood Test 12/09/2025 12/09/2024, 10/11/2024, 07/17/2024, Additional history exists Cholesterol Screening (Lipid Panel) 10/11/2029 10/11/2024, 11/15/2023 Osteoporosis Screening (Bone Density Screening) 04/21/2032 04/21/2017 DTaP,Tdap,and Td Vaccines (3 - Td or Tdap) 06/17/2032 06/17/2022, 06/23/2008 Pneumococcal Vaccine: 50+ Years Completed 03/12/2015, 06/24/2003 Zoster Vaccines Completed 10/18/2022, 11/12/2021, 03/01/2012 RSV Immunization Patients 60+ Years Old [...] patient's age to complete this topic Meningococcal B Vacine Aged Out No lo nger eligible based on patient's age to complete this topic RSV Immunization Patients Under 20 months Aged Out No longer eligible based on patient's age to complete this topic Varicella Vaccines Aged Out No longer eligible based on patient's age to complete this topic Procedures Procedure Name Priority Date/Time Associated Diagnosis Comments BASIC METABOLIC PANEL Routine 12/09/2024 4:20 PM EST Primary hypertension XR UGI W AIR CONTRAST Routine 12/02/2024 8:46 AM EST Diverticulosis of intestine w/o perforation or abscess w/o bleeding LIPID PANEL WITH REFLEX TO DIRECT LDL [...] without long-term current use of insulin (CMS/HCC) FALLS RISK ASSESSMENT Routine 04/30/2024 DEPRESSION SCREENING Routine 03/19/2024 DXA BONE DENSITY STUDY 1+ SITS AXIAL SKEL Routine 04/21/2017 9:13 AM EDT Encounter for screening for osteoporosis from Last 3 Months or Most Recently Relevant to Health Maintenance Results * (ABNORMAL) Basic metabolic panel (12/09/2024 4:20 PM EST) Sodium 136 133 - 145 mmol/L LAB CHEMISTRY METHOD 12/09/2024 7:31 PM [facility] Potassium 4.9 3.5 - 5.5 mmol/L LAB CHEMISTRY METHOD 12/09/2024 7:31 PM [facility] Chloride 106 96 - 110 mmol/L LAB CHEMISTRY METHOD 12/09/2024 7:31 PM [facility] CO2 24 21 - 32 mmol/L LAB CHEMISTRY METHOD 12/09/2024 7:31 PM [facility] Anion Gap 6 3 - 11 LAB CHEMISTRY METHOD 12/09/2024 7:31 PM [facility] Glucose 106(H) 70 - 100 mg/dL LAB CHEMISTRY METHOD 12/09/2024 7:31 PM [facility] BUN 31(H) 5 - 25 mg/dL LAB CHEMISTRY METHOD 12/09/2024 7:31 PM [facility] Creatinine 1.60(H) 0.50 - 1.10 mg/dL LAB CHEMISTRY METHOD 12/09/2024 7:31 PM [facility] eGFR 31(L) >=60 mL/min/1. 73m2 LAB CHEMISTRY METHOD 12/09/2024 7:31 PM [facility] Comment:Calculation based on the??Chronic Kidney Disease Epidemiology Collaboration (CKD-EPI) equation refit??without adjustment for race. BUN/Creatinine Ratio 19.4 LAB CHEMISTRY METHOD 12/09/2024 7:31 PM [facility] Calcium 10.0 8.5 - 10.5 mg/dL LAB CHEMISTRY METHOD 12/09/2024 7:31 PM [facility] Blood Venous blood specimen / Unknown 12/09/2024 4:20 PM EST 12/09/2024 4:20 PM EST Saleem DEL ROSARIO LAB BLOOD ORDERABLES Corina young Result [facility] [address] [place] [address], * XR UGI w Air Contrast (12/02/2024 8:46 AM EST) Anatomical Region Laterality Modality Body Radiographic Amalia ging 12/02/2024 9:18 AM EST Impressions 12/02/2024 9:54 AM EST Limited exam due to patient immobility and difficulty with effervescent crystals. 1. Moderate esophageal dysmotility. 2. Small to moderate sized, fixed paraesophageal hernia with small amounts of spontaneous gastroesophageal reflux visualized. -------- FINAL REPORT -------- Dictated By: Bettina Son Dictated Date: 12/02/2024 09:18 ET Assigned Physician: Micheal Stapleton Reviewed and Electronically Signed By: Micheal Stapleton Signed Date: 12/02/2024 09:54 ET Workstation ID: [id number] Transcribed By: Self Edit Transcribed Date: 12/02/2024 09:28 ET Resident/PA/MACHINE MAINTENANCE: Bettina Son Narrative 12/02/2024 9:54 AM EST FINDINGS: Double contrast UGI performed. Limited exam due to patient immobility and poor retention of effervescent crystals. COMPARISON: No prior upper GI imaging. HISTORY: Patient is an 89-year-old female with history of generalized abdominal pain. CREDIT RELATIONSHIP MANAGER radiographs: Lathe Operator Contact Lens AP radiograph of the abdomen obtained. Bowel gas pattern is nonobstructive. Visualized lung bases appear clear. There is moderate to severe S-shaped scoliosis of the thoracolumbar spine. There is surgical hardware noted to L5-S1. The descending aorta is grossly calcified. FINDINGS: Effervescent crystals were administered orally. Thick and thin barium was then administered orally under fluoroscopic control. Esophagus: Esophagus is tortuous. Moderate esophageal dysmotility as demonstrated by multiple tertiary contractions visualized. Normal distensibility and mucosal pattern. There is no evidence of obstruction. There is a small to moderate sized, fixed, paraesophageal hernia. Stomach: The stomach is poorly distended likely due to patient poor retention of effervescent crystals. Normal motility. Prompt passage of contrast from the stomach into the duodenal bulb and sweep. No gastric mass or ulceration. Visualization of proximal small bowel is within normal limits. ?? Gastroesophageal reflux: Small amounts of spontaneous gastroesophageal reflux visualized. DAP: 739.97 Gycm^2 Procedure Note Micheal Stapleton MD - 12/02/2024 FINDINGS: Double contrast UGI performed. Limited exam due to patientimmobility and poor retention of effervescent crystals. COMPARISON: No prior upper GI imaging. HISTORY: Patient is an 89-year-old female with history of generalizedabdominal pain. CREDIT RELATIONSHIP MANAGER radiographs: Lathe Operator Contact Lens AP radiograph of the abdomen obtained. Bowel gaspattern is nonobstructive. Visualized lung bases appear clear. There ismoderate to severe S-shaped scoliosis of the thoracolumbar spine. There issurgical hardware noted to L5-S1. The descending aorta is grosslycalcified. FINDINGS: Effervescent crystals were administered orally. Thick and thinbarium was then administered orally under fluoroscopic control. Esophagus: Esophagus is tortuous. Moderate esophageal dysmotility asdemonstrated by multiple tertiary contractions visualized. Normaldistensibility and mucosal pattern. There is no evidence of obstruction.There is a small to moderate sized, fixed, paraesophageal hernia. Stomach: The stomach is poorly distended likely due to patient poorretention of effervescent crystals. Normal motility. Prompt passage ofcontrast from the stomach into the duodenal bulb and sweep. No gastricmass or ulceration. Visualization of proximal small bowel is within normallimits. Gastroesophageal reflux: Small amounts of spontaneous gastroesophagealreflux visualized. DAP: 739.97 Gycm^2 IMPRESSION: Limited exam due to patient immobility and difficulty with effervescentcrystals. 1. Moderate esophageal dysmotility. 2. Small to moderate sized, fixed paraesophageal hernia with small amountsof spontaneous gastroesophageal reflux visualized. -------- FINAL REPORT -------- Dictated By: Bettina Son Dictated Date: 12/02/2024 09:18 ET Assigned Physician: Micheal Stapleton Reviewed and Electronically Signed By: Micheal Stapleton Signed Date: 12/02/2024 09:54 ET Workstation ID: [id number] Transcribed By: Self Edit Transcribed Date: 12/02/2024 09:28 ET Resident/PA/MACHINE MAINTENANCE: Bettina Son Pastora DEL ROSARIO IMG FLUOROSCOPY PROCEDURES Fi nal Result * Lipid panel with reflex to direct LDL (10/11/2024 10:56 AM EST) Cholesterol 167 0 - 200 mg/dL LAB CHEMISTRY METHOD 10/11/2024 2:38 PM EST [facility] Triglycerides 56 0 - 150 mg/dL LAB CHEMISTRY METHOD 10/11/2024 2:38 PM EST [facility] HDL 69 >=40 mg/dL LAB CHEMISTRY METHOD 10/11/2024 2:38 PM EST [facility] LDL Calculated 87 0 - 100 mg/dL LAB CHEMISTRY METHOD 10/11/2024 2:38 PM EST [facility] VLDL Cholesterol Tato 11.2 mg/dL LAB CHEMISTRY METHOD 10/11/2024 2:38 PM EST [facility] Non HDL Chol. (LDL+VLDL) 98 <145 mg/dL LAB CHEMISTRY METHOD 10/11/2024 2:38 PM EST [facility] Chol/HDL Ratio 2.4 0.0 - 4.4 LAB CHEMISTRY METHOD 10/11/2024 2:38 PM EST [facility] Blood Venous blood specimen / Unknown Venipuncture / Unknown 10/11/2024 10:56 AM EST 10/11/2024 10:56 AM EST Saleem DEL ROSARIO LAB BLOOD ORDERABLES Corina l Result [facility] [address] [place] [address], [place] [phone] * Hemoglobin A1c (10/11/2024 10:56 AM EST) [facility] Hemoglobin A1C 5.8 <6.5 % LAB CHEMISTRY METHOD 10/11/2024 2:47 PM [facility] Mean Bld Glu Estim. 120 mg/dL LAB CHEMISTRY METHOD 10/11/2024 2:47 PM [facility] Blood Venous blood specimen / Unknown Venipuncture / Unknown 10/11/2024 10:56 AM EST 10/11/2024 10:56 AM EST us Saleem DEL ROSARIO LAB BLOOD ORDERABLES Corina young Result [facility] [address] [place] [address], * (ABNORMAL) Comprehensive metabolic panel (10/11/2024 10:56 AM EST) [facility] Sodium 140 133 - 145 mmol/L LAB CHEMISTRY METHOD 10/11/2024 2:38 PM [facility] Potassium 4.6 3.5 - 5.5 mmol/L LAB CHEMISTRY METHOD 10/11/2024 2:38 PM [facility] Chloride 108 96 - 110 mmol/L LAB CHEMISTRY METHOD 10/11/2024 2:38 PM [facility] CO2 25 21 - 32 mmol/L LAB CHEMISTRY METHOD 10/11/2024 2:38 PM [facility] Anion Gap 7 3 - 11 LAB CHEMISTRY METHOD 10/11/2024 2:38 PM [facility] Glucose 113(H) 70 - 100 mg/dL LAB CHEMISTRY METHOD 10/11/2024 2:38 PM [facility] BUN 21 5 - 25 mg/dL LAB CHEMISTRY METHOD 10/11/2024 2:38 PM [facility] Creatinine 1.37(H) 0.50 - 1.10 mg/dL LAB CHEMISTRY METHOD 10/11/2024 2:38 PM [facility] eGFR 37(L) >=60 mL/min/1. 73m2 LAB CHEMISTRY METHOD 10/11/2024 2:38 PM [facility] Comment:Calculation based on the??Chronic Kidney Disease Epidemiology Collaboration (CKD-EPI) equation refit??without adjustment for race. BUN/Creatinine Ratio 15.3 LAB CHEMISTRY METHOD 10/11/2024 2:38 PM [facility] Calcium 9.6 8.5 - 10.5 mg/dL LAB CHEMISTRY METHOD 10/11/2024 2:38 PM [facility] AST (SGOT) 20 10 - 42 unit/L LAB CHEMISTRY METHOD 10/11/2024 2:38 PM [facility] ALT (SGPT) 9(L) 10 - 60 unit/L LAB CHEMISTRY METHOD 10/11/2024 2:38 PM [facility] Alkaline Phosphatase 105 42 - 121 unit/L LAB CHEMISTRY METHOD 10/11/2024 2:38 PM [facility] Total Protein 6.7 6.0 - 8.0 g/dL LAB CHEMISTRY METHOD 10/11/2024 2:38 PM [facility] Albumin 4.0 3.2 - 5.0 g/dL LAB CHEMISTRY METHOD 10/11/2024 2:38 PM [facility] Total Bilirubin 0.5 0.0 - 1.4 mg/dL LAB CHEMISTRY METHOD 10/11/2024 2:38 PM [facility] Blood Venous blood specimen / Unknown Venipuncture / Unknown 10/11/2024 10:56 AM EST 10/11/2024 10:56 AM EST us Saleem DEL ROSARIO LAB BLOOD ORDERABLES Corina l Result [facility] [address] [place], [place] [address] [phone] * Falls Risk Assessment (04/30/2024) Falls Risk Assessment abstracted us Historical Provider MD HEALTH MAINTENANCE Final Result * Depression Screening (03/19/2024) Depression Screening abstracted us Historical Provider MD HEALTH MAINTENANCE Final Result * DXA BONE DENSITY STUDY 1+ SITS [...] should be classified as having osteoporosis. [facility] Department of Internal Medicine recommends using National [...] Mcneil should beclassified as having osteoporosis. The [facility] Department of Internal Medicine recommendsusing National Osteoporosis [...] FRAX. Robbie Arias MD IMG DXA PROCEDURES Final Result from Last 3 Months or Most Recently Relevant to Health Maintenance Insurance MEDICARE [facility] Care Teams Dried Fruit Washer Relationship Specialty Start Date End Date Saleem Gutiérrez PA [address] [place] [address] PCP - General Internal Medicine 08/06/24
--- OUTSIDE RECORDS SUMMARY | 2024-12-20 07:13 | XMS_ITS | Encounter Summary ---
Author Organization [facility] Address [address] [place] [address] Care Team Providers Care Substitute Teacher Name Role Phone Saleem Gutiérrez Primary Care Provider [phone] Reason for Referral * Imaging (Routine) - Authorized Specialty Diagnoses / Procedures Referred By Contac t Referred To Contact Radiology Diagnoses New onset headache Procedures MR Brain wo Contrast Saleem Gutiérrez PA [address] [place] [address] Phone: tel: fax: [address] Phone: tel: Referral ID Status Reason Start Date Expiration Date V isits Requested Visits Authorized [id number] Authorized 12/12/2024 12/12/2025 1 1 Reason for Visit * Reason Onset Date Comments fyi 12/12/2024 Encounter Details Date Type Department Care Team (Late st Contact Info) Description 12/12/2024 Telephone Adult Medicine [address] [phone] Saleem Gutiérrez PA [address] [place] [address] Social History Tobacco Use Types Packs/Day Years Used Date Smoking Tobacco: Former Cigarettes Q uit: 10/09/1987 Smokeless Tobacco: Never Alcohol Use Standard Drinks/Week Comments Yes 1 (1 standard drink = 0.6 oz pur e alcohol) Comments Unknown Sex and Gender Information Value Date Recorded Sex Assigned at Female 09/27/2024 3:11 PM EST Legal Sex Female 4:07 AM EST Gender Identity Female 09/27/2024 3:11 PM EST Sexual Orientation Straight 09/30/2024 8: 42 AM EST documented as of this encounter Progress Notes * Fannie Benjamin MA - 12/13/2024 3:10 PM EST Called pt and informed. * MIGUEL ÁNGEL Ozuna - 12/12/2024 3:15 PM EST She is right I had forgotten about that. I would probably do a brain MRI given the persistent headaches. * Kelli De La Cruz MA - 12/12/2024 2:54 PM EST Please advise, CT done during er visit on 11/14/24. Notes are scanned in chart. * Afia Ma - 12/12/2024 2:11 PM EST Patient is calling in today because PCP order a cat scan for PT but PT states he already had one [facility] last month on 11/14/24 Please advise documented in this encounter Plan of Treatment Upcoming Encounters Date Type Department Care Team (Late st Contact Info) Description 12/23/2024 2:30 PM EDT Appointment Radiology Department [address] [phone] 12/24/2024 10:30 AM EDT Office Visit Gastroenterology - [place] [address] [place] [phone] Pastora Arriola PA [address] [address] 12/31/2024 9:00 AM EDT Office Visit Adult Medicine [address] [phone] Saleem Gutiérrez PA [address] [place] [address] 04/17/2025 11:10 AM EDT Appointment Radiology Department [address] [phone] 04/18/2025 10:30 AM EDT Office Visit [address] [phone] Saleem Gutiérrez PA [address] [place] [address] Scheduled Orders Name Type Priority Associated Diagnoses Orde r Schedule MR Brain wo Contrast Imaging Routine New onset headache Expected: 12/12/2024, Expires: 12/12/2025 documented as of this encounter Visit Diagnoses Diagnosis New onset headache- Primary Headache Encounter for screening mammogram for breast cancer documented in this encounter Care Teams Substitute Teacher Relationship Specialty Start Date End Date Saleem Gutiérrez PA [address] [place] [address] PCP - General Internal Medicine 08/06/24 documented as of this encounter
--- OUTSIDE RECORDS SUMMARY | 2024-12-20 07:13 | XMS_ITS | Encounter Summary ---
Author Organization [facility] Address [address] [place] [address] Care Team Providers Care Shelter Case Manager Name Role Phone Saleem Gutiérrez Primary Care Provider [phone] Reason for Referral * Imaging (Routine) - Closed Specialty Diagnoses / Procedures Referred By Mike aleman Referred To Contact Radiology Diagnoses Diverticulosis of intestine w/o perforation or abscess w/o bleeding Procedures XR UGI w Air Contrast Pastora Arriola PA [address] [place] [address] Phone: tel: fax: [facility] Referral ID Status Reason Start Date Expiration Date Visits Re quested Visits Authorized [id number] Closed 07/27/2024 07/27/2025 1 1 Reason for Visit * Imaging (Routine) - Closed Specialty Diagnoses / Procedures Referred By Mike aleman Referred To Contact Radiology Diagnoses Diverticulosis of intestine w/o perforation or abscess w/o bleeding Procedures XR UGI w Air Contrast Pastora Arriola PA [address] [facility] [address] [place] [address] Phone: tel: fax: [facility] Referral ID Status Reason Start Date Expiration Date Visits Re quested Visits Authorized [id number] Closed 07/27/2024 07/27/2025 1 1 Encounter Details Date Type Department Care Team (Latest Contact Info) Description 12/02/2024 7:03 AM EST - 12/02/2024 11:59 PM EST Hospital Encounter [facility] Xray [address] [place] [address] Diverticulosis of intestine w/o perforation or abscess w/o bleeding Discharge Disposition: Home or Self Care Social History Tobacco Use Types Packs/Day Years [...] AM EST documented as of this encounter Medications at Time of Discharge carbidopa-levodopa (PARCOPA) 25-100 mg per disintegrating tablet Take 1 tablet by mouth 2 (two) times a day. cetirizine (ZyrTEC) 10 mg tablet Take 1 tablet (10 mg total) by mouth 1 (one) time each day. 07/17/2024 fluticasone propionate (FLONASE) 50 mcg/actuation nasal spray Administer 1 spray into affected nostril(s) 1 (one) time each day. 08/07/2024 hydroCHLOROthiazide (HYDRODIURIL) 25 mg tablet Take 1 tablet (25 mg total) by mouth 1 (one) time each day. 30 each 5 11/26/2024 5 lactulose (CHRONULAC) solution 07/02/2024 losartan (COZAAR) 100 mg tablet Take 1 tablet (100 mg total) by mouth 1 (one) time each day. 90 tablet 3 11/26/2024 polyethylene glycol (MIRALAX) 17 gram packet Take 1 Packet by mouth 2 times daily. 07/02/2024 senna (SENOKOT) 8.6 mg tablet Take 1 tablet (8.6 mg total) by mouth 2 (two) times a day. 07/02/2024 simvastatin (ZOCOR) 20 mg tablet Take 1 tablet (20 mg total) by mouth at bedtime. at bedtime. 90 tablet 3 11/26/2024 omeprazole (PriLOSEC) [address] capsule Take 1 Capsule by mouth 2 Times Daily for 360 days. 04/24/2024 5 ramelteon (Rozerem) 8 mg tablet Take 1 tablet (8 mg total) by mouth at bedtime. 30 each 11 11/26/2024 5 zolpidem (AMBIEN) 5 mg tablet Take 1 tablet (5 mg total) by mouth at bedtime as needed for sleep. 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 At some point, I prescribed omeprazole 20 mg daily. Ask if she is still taking that or not thank you documented in this encounter Plan of Treatment Upcoming Encounters Date Type Department Care Team (Late st Contact Info) Description 12/23/2024 2:30 PM EDT Appointment Radiology Department - [address] [phone] 12/24/2024 10:30 AM EDT Office Visit Gastroenterology - [place] 175 [facility] [address] [phone] Pastora Arriola PA 175 [facility] [address] [place] [address] 12/31/2024 9:00 AM EDT Office Visit Adult Medicine [facility] - [address] [phone] Saleem Gutiérrez PA [address] [place] [address] 04/17/2025 11:10 AM EDT Appointment Radiology Department - [address] [phone] 04/18/2025 10:30 AM EDT Office Visit Adult Medicine [facility] - [address] [phone] Saleem Gutiérrez PA [address] [place], [place] documented as of this encounter Procedures Procedure Name Priority Date/Time Associated Diagnosis Comments XR UGI W AIR CONTRAST Routine 12/02/2024 8:46 AM EST Diverticulosis of intestine w/o perforation or abscess w/o bleeding documented in this encounter Results * XR UGI w Air Contrast (12/02/2024 [...] Signed Date: 12/02/2024 09:54 ET Workstation ID: [id number] Transcribed By: Self Edit Transcribed Date: 12/02/2024 09:28 ET Resident/PA/SENIOR SYSTEMS ENGINEER: Bettina Son Narrative 12/02/2024 9:54 AM EST FINDINGS: Double contrast UGI performed. Limited exam due to patient immobility and poor retention of effervescent crystals. COMPARISON: No prior upper GI imaging. HISTORY: Patient is an 89-year-old female with history of generalized abdominal pain. [employer] radiographs: Solar Energy Systems Engineer AP radiograph of the abdomen obtained. Bowel [...] 89-year-old female with history of generalizedabdominal pain. [employer] radiographs: Solar Energy Systems Engineer AP radiograph of the abdomen obtained. Bowel [...] Signed Date: 12/02/2024 09:54 ET Workstation ID: [id number] Transcribed By: Self Edit Transcribed Date: 12/02/2024 09:28 ET Resident/PA/SENIOR SYSTEMS ENGINEER: Bettina Son Pastora [facility] IMG FLUOROSCOPY PROCEDURES Fi nal Result documented in this encounter Visit Diagnoses Diagnosis Diverticulosis of intestine w/o perforation or abscess w/o bleeding Encounter for screening mammogram for breast cancer documented in this encounter Administered Medications Inactive Administered Medications - up to 3 most recent administrations Medication Order MAR Action Action Date Dose Rate Site barium sulfate (E-Z-HD) 98 % suspension 100 mL 100 mL, oral, Once in imaging, Starting on Mon12/02/24 at 0845, For 1 dose Given 12/02/2024 8:45 AM EST 100 mL barium sulfate (E-Z-PAQUE) 96 % (w/w) suspension 100 mL 100 mL, oral, Once in imaging, Starting on Mon12/02/24 at 0844, For 1 dose Given 12/02/2024 8:45 AM EST 100 mL documented in this encounter Care Teams Shelter Case Manager Relationship Specialty Start Date End Date Saleem Gutiérrez PA [address] [place] [id number] PCP - General Internal Medicine 08/06/24 documented as of this encounter
--- OUTSIDE RECORDS SUMMARY | 2024-12-20 07:13 | XMS_ITS | Encounter Summary ---
Author Organization [facility] Address [address] [place] [address] Care Team Providers Care Loans Consultant Name Role Phone Saleem Gutiérrez Primary Care Provider [phone] Reason for Visit * Reason Onset Date Comments Leg Swelling 12/18/2024 Encounter Details Date Type Department Care Team (Late st Contact Info) Description 12/18/2024 Telephone Adult Medicine [facility] [address] [place] [address] Saleem Gutiérrez PA [address] [place], [place] [phone] Leg Swelling Social History Tobacco Use Types Packs/Day Years [...] as of this encounter Progress Notes * Mary Correa RN - 12/19/2024 8:11 AM EDT Called pt. At home to inform pt. Of providers message and discuss medications. Her symptoms at present time are bilat. Lower leg edema. Pt. States her legs are very tight but not painful and she denies any tender areas, redness or heat . She states she is having facial swelling I look like I had surgery she denies any difficulty breathing or swallowing , no swelling of the tongue . She has headache every day and has been worked up for them and awaiting an MRI .She does have swelling of her lips and left side of face from nose to jaw, no heat or redness and No pain she states her upper lip is more swollen then her bottom and the sides of her mouth are cracked . She denies it is getting worse but just about staying the same over last couple of days she denies swelling around eyes. She denies weakness, dizziness, fever or chills , no cp or sob at present but admits she will become sobwith exertion . I advised pt. With swollen lips and facial swelling left side bilat lower leg edemaadvising ER evaluation , pt. Agrees and will get a ride * MIGUEL ÁNGEL Ozuna - 12/18/2024 10:12 PM EDT I think we did increase amlodipine to 10 mg which might be related as this can cause edema althoughwould not necessarily cause shortness of breath. We might need to decrease the amlodipine back to 5and consider adding another medication * Dayna Silver RN - 12/18/2024 3:05 PM EDT Spoke with the pt Started with swelling in bilateral LE up to mid thigh Also with swelling in her face in the cheeks and lips. No swelling around the eyes. BP is still 150s No SOB or difficulty breathing. Speaking in complete sentences. 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 No cough, wheeze, stridor or distress noted Does feel like she has enough energy Swelling does go down a little when she sits in the recliner. Going to the bathroom frequently, more than usual. Please advise * Nelida Young - 12/18/2024 2:05 PM EDT Patient call requires triage: Symptoms patient is presenting: c/o swelling in both legs and she also has facial swelling How long has patient had these symptoms?: 1 week For ALL patients calling to schedule any appointment (routine, sick visit, follow up, consult, etc.) in the outpatient setting please ask the following questions: Do you have fever of higher than 101, sore throat with difficulty swallowing or severe shortness ofbreath? no If YES to any of these above symptoms, send a message to triage and do not book. Red dot. If no, an audio or video visit should be booked. Have you had close contact with someone with Coronavirus in the last 14 days? no Have you traveled abroad? no Have you traveled recently to another state outside of [place], [place], [place], [place], [place], [place], [place]? no o If yes, did you quarantine for 14 days or have a negative covid test? no If yes to any of the above, patient is not to be scheduled in office until after 14 day quarantine or negative covid test. If pain or injury related was it due to an accident at work or from a motor vehicle accident? If yes, date of accident/Injury: No If yes, gather 3rd alliance party insurance information Third Alliance Party Information: not applicable PCP: MIGUEL ÁNGEL Alegre Payor: MEDICARE / Plan: MEDICARE PART A & B / Product Type: Medicare / documented in this encounter Plan of Treatment Upcoming Encounters Date Type Department Care Team (Late st Contact Info) Description 12/23/2024 2:30 PM EDT Appointment Radiology Department - [address] [phone] 12/24/2024 10:30 AM EDT Office Visit Gastroenterology - [place] [address] [place] [phone] Pastora Arriola PA [address] [place] [address] 12/31/2024 9:00 AM EDT Office Visit Adult Medicine [address] [phone] Saleem Gutiérrez PA [address] [place] [address] 04/17/2025 11:10 AM EDT Appointment Radiology Department - [address] [phone] 04/18/2025 10:30 AM EDT Office Visit Adult [address] [phone] Saleem Gutiérrez PA [address] [place] [address] documented as of this encounter Visit Diagnoses Not on filedocumented in this encounter Care Teams Loans Consultant Relationship Specialty Start Date End Date Saleem Gutiérrez PA [address] [place] [address] PCP - General Internal Medicine 08/06/24 documented as of this encounter
--- OUTSIDE RECORDS SUMMARY | 2024-12-20 07:13 | XMS_ITS | Encounter Summary ---
Author Organization [facility] Address [address] [place] [address] Care Team Providers Care Evidence Specialist Name Role Phone Saleem Gutiérrez Primary Care Provider [phone] Reason for Referral * Consultation (Routine) - Authorized Specialty Diagnoses / Procedures Referred By Mike t Referred To Contact Internal Medicine Diagnoses Primary hypertension Saleem Gutiérrez PA [address] [place] [address] Phone: tel: fax: Hypertension Clinic - [address] [address] Phone: tel: fax: Referral ID Status Reason Start Date Expiration Date Visits Requested Visits Authorized [id number] Authorized Specialty Services Required 11/26/2024 11/26/2025 1 1 Reason for Visit * Reason Comments Blood Pressure Check Follow-up [facility] er f/u Encounter Details Date Type Department Care Team (Late st Contact Info) Description 11/26/2024 2:30 PM EST Office Visit Adult Medicine [address] [phone] Saleem Gutiérrez PA [address] [place] [address] Primary hypertension (Primary Dx); Hyperlipidemia, unspecified hyperlipidemia type; Gastroesophageal reflux disease without esophagitis; 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 fracture; Parkinson's disease without dyskinesia or fluctuating manifestations ([facility]); Osteopenia, unspecified location; Stage 3b chronic kidney disease ([facility]) Social History Tobacco Use Types Packs/Day Years [...] AM EST documented as of this encounter Last Filed Vital Signs Vital Sign Reading Time Taken Comments Blood Pressure 191/76 11/26/2024 2:29 PM EST Pulse 72 11/26/2024 2:29 PM EST Temperature 36.8 ??C (98.3 ??F) 11/26/2024 2:29 PM ES T Respiratory Rate 14 11/26/2024 2:29 PM EST Oxygen Saturation - - Inhaled Oxygen Concentration - - Weight 61.5 kg (135 lb 9.6 oz) 11/26/2024 2:29 P M EST Height 160 cm (5' 3 ) 11/26/2024 2:29 PM EST Body Mass Index 24.02 11/26/2024 2:29 PM EST documented in this encounter Ordered Prescriptions Prescription Sig Dispense Quantity Refills Last Filled Start Date End Date hydroCHLOROthiazid e (HYDRODIURIL) 25 mg tablet Take 1 tablet (25 mg total) by mouth 1 (one) time each day. 30 each 5 11/26/2024 05/25/2025 simvastatin (ZOCOR) 20 mg tablet Take 1 tablet (20 mg total) by mouth at bedtime. at bedtime. 90 tablet 3 11/26/2024 losartan (COZAAR) 100 mg tablet Take 1 tablet (100 mg total) by mouth 1 (one) time each day. 90 tablet 3 11/26/2024 ramelteon (Rozerem) 8 mg tablet Take 1 tablet (8 mg total) by mouth at bedtime. 30 each 11 11/26/2024 12/12/2024 documented in this encounter Progress Notes * Saleem Gutiérrez, MIGUEL ÁNGEL - 11/26/2024 2:30 PM EST CHIEF COMPLAINT: Blood Pressure Check and Follow-up ([facility] er f/u ) IDENTIFIER: Elisa Mcneil is a 89 y.o. old female. HPI: This very pleasant patient presents today for follow-up. Her blood pressure remains elevated. She is having some headaches in the frontal area which probably are related. She ended up at the emergency department recently had a head CT which was normal. Her medications have been adjusted quite a bitlately she was previously taking amlodipine but this was contributing to leg swelling so now she istaking losartan 100 mg and she was started on hydrochlorothiazide 12.5 by my colleague recently sheseems to be tolerating these so far. she is also having some trouble sleeping. Has tried a couple of medications ROS: GENERAL: Negative for malaise, significant weight loss and fever RESPIRATORY: No cough, wheezing or shortness of breath CARDIOVASCULAR: Negative for chest pain, leg swelling and palpitations ENDOCRINE: Negative for cold or heat intolerance, polyuria, polydipsia and goiter NEURO: No persistent headache, fainting, seizures, strokes, TIAs, weakness, numbness or tingling PAST MEDICAL HISTORY: Patient Active Problem List Diagnosis Date Noted Stage 3b chronic kidney disease ([facility]) 11/12/2024 Parkinson disease ([facility]) 05/11/2020 Tremor of left hand 04/23/2018 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 fracture 10/13/2017 Pulmonary nodules/lesions, multiple 05/08/2014 Osteopenia 06/22/2012 HTN (hypertension) 05/04/2012 Backache 09/05/2005 Esophageal reflux 09/05/2005 External hemorrhoids 09/05/2005 Hyperlipidemia 09/05/2005 Past Surgical History: Procedure Laterality Date CATARACT EXTRACTION PROCEDURE: HISTORICAL CATARACT REMOVAL; COMMENT: bilat COLONOSCOPY 02/19/2008 PROCEDURE: HISTORICAL COLONOSCOPY; COMMENT: Negative OTHER SURGICAL HISTORY PROCEDURE: HISTORY OTHER; COMMENT: SPINAL FUSION DR MORIN LOW BACK TONSILLECTOMY PROCEDURE: HISTORICAL TONSILLECTOMY UPPER GASTROINTESTINAL ENDOSCOPY 01/04/2021 PROCEDURE: [facility] UPPER GI ENDOSCOPY PERFORMED; COMMENT: Medium sized axial hiatal hernia, otherwise normal. SOCIAL HISTORY: Social History Tobacco Use Smoking status: Former Current packs/day: 0.00 Types: Cigarettes Quit date: 10/09/1987 Years since quittin.1 Smokeless tobacco: Never Substance Use Topics Alcohol use: Yes Alcohol/week: 1.0 standard drink of alcohol FAMILY HISTORY: Family History Problem Relation Name Age of Onset Hyperlipidemia Mother Other (Other: heart by-pass) Mother Other (Other: blindness) Mother Prostate cancer Father Diabetes Brother Other (Other: heart disease) Brother Breast cancer Neg Hx Colon cancer Neg Hx Family Status Relation Name Status Mother at age 91 KIDNEY FAILURE Father at age 94 Brother (Not Specified) Brother (Not Specified) Neg Hx (Not Specified) Brother at age 71 DM HTN Sister Alive CHOLESTEROL PROBEMS htn alzheimers MGM MGF PGM PGF Daughter Alive Son Alive Daughter No partnership data on file MEDICATIONS DISCONTINUED/REORDERED: Medications Discontinued During This Encounter Medication Reason simvastatin (ZOCOR) 20 mg tablet Reorder losartan (COZAAR) 100 mg tablet Reorder hydroCHLOROthiazide 12.5 mg tablet ACTIVE MEDICATIONS: Outpatient Medications Marked as Taking for the 11/26/24 encounter (Office Visit) with MIGUEL ÁNGEL Ozuna Medication Sig Dispense Refill carbidopa-levodopa (PARCOPA) 25-100 mg per disintegrating tablet Take 1 tablet by mouth 2 (two) times a day. fluticasone propionate (FLONASE) 50 mcg/actuation nasal spray Administer 1 spray into affected nostril(s) 1 (one) time each day. losartan (COZAAR) 100 mg tablet Take 1 tablet (100 mg total) by mouth 1 (one) time each day. 90 tablet 3 omeprazole (PriLOSEC) [address] capsule Take 1 Capsule by mouth 2 Times Daily for 360 days. polyethylene glycol (MIRALAX) 17 gram packet Take 1 Packet by mouth 2 times daily. simvastatin (ZOCOR) 20 mg tablet Take 1 tablet (20 mg total) by mouth at bedtime. at bedtime. 90 tablet 3 [DISCONTINUED] hydroCHLOROthiazide 12.5 mg tablet Take 1 tablet (12.5 mg total) by mouth 1 (one) time each day. 90 tablet 0 [DISCONTINUED] losartan (COZAAR) 100 mg tablet TAKE 1 TABLET BY MOUTH DAILY 90 tablet 0 [DISCONTINUED] simvastatin (ZOCOR) 20 mg tablet Take 1 tablet (20 mg total) by mouth at bedtime. atbedtime. 90 tablet 1 ALLERGIES: Allergies Allergen Reactions Codeine Itching Other Reaction(s): Hives/Urticaria Tramadol Hcl Nausea And Vomiting dizzy PHYSICAL EXAM: Visit Vitals BP (!) 191/76 Pulse 72 Temp 36.8 ??C (98.3 ??F) (Temporal) Resp 14 Ht 1.6 m (63 ) Wt 61.5 kg (135 lb 9.6 oz) BMI 24.02 kg/m?? Smoking Status Former BSA 1.64 m?? General appearance: alert and oriented, in no acute distress Lungs: clear to auscultation bilaterally Heart: regular rate and rhythm, S1, S2 normal, no murmur, click, rub or gallop Extremities: extremities normal, warm and well-perfused; no cyanosis, clubbing, or edema Neurologic: Grossly normal LABS/IMAGING: labs IMPRESSION: 1. Primary hypertension 2. Hyperlipidemia, unspecified hyperlipidemia type 3. Gastroesophageal reflux disease without esophagitis 4. 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 fracture 5. Parkinson's disease without dyskinesia or fluctuating manifestations (CMS/HCC) 6. Osteopenia, unspecified location 7. Stage 3b chronic kidney disease (CMS/HCC) PLAN: 1. Blood pressure remains elevated. I am getting her around 1 60-1 70 systolic however readings have been elevated will increase hydrochlorothiazide to 25 mg continue losartan follow-up in a week with myself check labs around that time I am hoping her headaches will improve with this we will refer to the hypertension clinic as well. 2. Still having some leg swelling I am hoping that this will also improve with the hydrochlorothiazide. 3. Chronic kidney disease will have to monitor GFR. 4. Insomnia, has tried multiple meds. Will try ramelteon discussed adverse effects. I have applied the code G2211 to this patient???s visit as the primary care provider dealing with (list the condition that is/are complex) leading to the extensive work up, and management associated with the medical care of this patient. This patient???s serious conditions and complex medical conditions also required several consultants needing management and coordination through my office. I have reviewed all information as it pertains to the management of this patient for final approval. Advised the patient to call me if any problems. Patient understands the plan. Patient is in agreement with the plan. documented in this encounter Plan of Treatment Upcoming Encounters Date Type Department Care Team (Late st Contact Info) Description 12/23/2024 2:30 PM EDT Appointment Radiology Department - [address] [phone] 12/24/2024 10:30 AM EDT Office Visit Gastroenterology - [place] [address] [place] [phone] Pastora Arriola PA [address] [address] 12/31/2024 9:00 AM EDT Office Visit Adult Medicine [address] [phone] Saleem Gutiérrez PA [address] [place] [address] 04/17/2025 11:10 AM EDT Appointment Radiology Department - [address] [phone] 04/18/2025 10:30 AM EDT Office Visit Adult Medicine [address] [phone] Saleem Gutiérrez PA [address] [place] [address] Scheduled Referrals Name Type Priority Associated Diagnoses Orde r Schedule Ambulatory referral to Hypertension Clinic Outpatient Referral Routine Primary hypertension 1 Occurrences starting 11/26/2024 until 11/26/2025 documented as of this encounter Results * (ABNORMAL) Basic metabolic panel (12/09/2024 4:20 PM EST) [facility] Sodium 136 133 - 145 mmol/L LAB CHEMISTRY METHOD 12/09/2024 7:31 PM [facility] Potassium 4.9 3.5 - 5.5 mmol/L LAB CHEMISTRY METHOD 12/09/2024 7:31 PM [facility] Chloride 106 96 - 110 mmol/L LAB CHEMISTRY METHOD 12/09/2024 7:31 PM [facility] CO2 24 21 - 32 mmol/L LAB CHEMISTRY METHOD 12/09/2024 7:31 PM [facility] Anion Gap 6 3 - 11 LAB CHEMISTRY METHOD 12/09/2024 7:31 PM [facility] Glucose 106(H) 70 - 100 mg/dL LAB CHEMISTRY METHOD 12/09/2024 7:31 PM [facility] BUN 31(H) 5 - 25 mg/dL LAB CHEMISTRY METHOD 12/09/2024 7:31 PM [facility] Creatinine 1.60(H) 0.50 - 1.10 mg/dL LAB CHEMISTRY METHOD 12/09/2024 7:31 PM [facility] eGFR 31(L) >=60 mL/min/1. 73m2 LAB CHEMISTRY METHOD 12/09/2024 7:31 PM [facility] Comment:Calculation based on the??Chronic Kidney Disease Epidemiology Collaboration (CKD-EPI) equation refit??without adjustment for race. BUN/Creatinine Ratio 19.4 LAB CHEMISTRY METHOD 12/09/2024 7:31 PM [facility] Calcium 10.0 8.5 - 10.5 mg/dL LAB CHEMISTRY METHOD 12/09/2024 7:31 PM [facility] Blood Venous blood specimen / Unknown 12/09/2024 4:20 PM EST 12/09/2024 4:20 PM EST us Saleem DEL [facility] LAB BLOOD ORDERABLES Corina l Result [facility] [address] [place] [address], [place] [phone] documented in this encounter Visit Diagnoses Diagnosis Primary hypertension- Primary Unspecified essential hypertension Hyperlipidemia, unspecified hyperlipidemia type Gastroesophageal reflux disease without esophagitis Esophageal reflux 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 fracture Parkinson's disease without dyskinesia or fluctuating manifestations ([facility]) Osteopenia, unspecified location Stage 3b chronic kidney disease ([facility]) Encounter for screening mammogram for breast cancer documented in this encounter Discontinued Medications Medication Sig Discontinue Reason Start Date End Da te simvastatin (ZOCOR) 20 mg tablet Take 1 tablet (20 mg total) by mouth at bedtime. at bedtime. Reorder 10/11/2024 11/26/2024 losartan (COZAAR) 100 mg tablet TAKE 1 TABLET BY MOUTH DAILY Reorder 10/29/2024 11/26/2024 hydroCHLOROthiazide 12.5 mg tablet Take 1 tablet (12.5 mg total) by mouth 1 (one) time each day. 11/12/2024 11/26/2024 documented as of this encounter Care Teams Evidence Specialist Relationship Specialty Start Date End Date Saleem Gutiérrez PA [address] [place] [address] PCP - General Internal Medicine 08/06/24 documented as of this encounter
--- OUTSIDE RECORDS SUMMARY | 2024-12-20 07:13 | XMS_ITS | Encounter Summary ---
Author Organization [facility] Address [address] [place] [address] Care Team Providers Care Livestock Exhibitor Name Role Phone Saleem Gutiérrez Primary Care Provider [phone] Reason for Visit * Reason Comments Follow-up 1 week f/u blood pre ssure Encounter Details Date Type Department Care Team (Late st Contact Info) Description 12/12/2024 1:00 PM EST Office Visit Adult Medicine [facility] [address] [place] [address] Saleem Gutiérrez PA [address] [place] [address] Primary hypertension (Primary Dx); Hyperlipidemia, unspecified hyperlipidemia type; Gastroesophageal reflux disease without esophagitis; 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 fracture; Parkinson's disease without dyskinesia or fluctuating manifestations (CMS/HCC); Stage 3b chronic kidney disease ([facility]) Social History Tobacco Use Types Packs/Day Years [...] Mass Index 23.91 12/12/2024 12:58 PM EST documented in this encounter Ordered Prescriptions Prescription Sig Dispense Quantity Refills Last Filled Start Date End Date amLODIPine (NORVASC) 10 mg tablet Take 1 tablet (10 mg total) by mouth 1 (one) time each day. 30 each 5 12/12/2024 HYDROcodone-acetamin ophen (NORCO) 5-325 mg per tabletIndications:Pr imary hypertension,Hyperli pidemia, unspecified hyperlipidemia type,Gastroesophagea l reflux disease without esophagitis,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 fracture,Parkinson's disease without dyskinesia or fluctuating manifestations (CMS/HCC),Stage 3b chronic kidney disease (CMS/HCC) Take 1 tablet by mouth every 6 (six) hours if needed for severe pain. Max Daily Amount: 4 tablets 28 tablet 12/12/2024 doxepin (SINEquan) 10 mg capsule Take 1 capsule (10 mg total) by mouth at bedtime as needed for sleep. 30 each 11 12/12/2024 documented in this encounter Progress Notes * MIGUEL ÁNGEL Ozuna - 12/12/2024 1:00 PM EST CHIEF COMPLAINT: Follow-up (1 week f/u blood pressure) IDENTIFIER: Elisa Mcneil is a 89 y.o. old female. HPI: This very pleasant patient presents today for follow-up of the blood pressure. Still seems to be a little bit elevated some for home readings are getting closer to goal which is good news. She is still struggling with insomnia. She is still struggling with chronic back pain. She is still having theheadaches. I was hoping that her headaches would improve with the blood pressure coming down ROS: GENERAL: Negative for malaise, significant weight [...] Date Noted Stage 3b chronic kidney disease ([facility]) 11/12/2024 Parkinson disease ([facility]) 05/11/2020 Tremor of left hand 04/23/2018 Other [...] HISTORICAL TONSILLECTOMY UPPER GASTROINTESTINAL ENDOSCOPY 01/04/2021 PROCEDURE: [place] UPPER GI ENDOSCOPY PERFORMED; COMMENT: Medium sized axial hiatal hernia, otherwise normal. SOCIAL HISTORY: Social History Tobacco Use Smoking status: Former Current packs/day: 0.00 Types: Cigarettes Quit date: 10/09/1987 Years since quittin.2 Smokeless tobacco: Never Substance Use Topics Alcohol [...] Medications Discontinued During This Encounter Medication Reason zolpidem (AMBIEN) 5 mg tablet traZODone (DESYREL) 50 mg tablet ramelteon (Rozerem) 8 mg tablet Duplicate order amLODIPine (NORVASC) 5 mg tablet ACTIVE MEDICATIONS: Outpatient Medications Marked as Taking for the 12/12/24 encounter (Office Visit) with MIGUEL ÁNGEL Ozuna Medication Sig Dispense Refill carbidopa-levodopa (PARCOPA) 25-100 mg per disintegrating tablet Take 1 tablet by mouth 2 (two) times a day. cetirizine (ZyrTEC) 10 mg tablet Take 1 tablet (10 mg total) by mouth 1 (one) time each day. esomeprazole (NexIUM) [address] capsule Take 1 capsule (40 mg total) by mouth 1 (one) time each day before breakfast. Do not open capsule. 90 each 1 fluticasone propionate (FLONASE) 50 mcg/actuation nasal spray Administer 1 spray into affected nostril(s) 1 (one) time each day. hydroCHLOROthiazide (HYDRODIURIL) 25 mg tablet Take 1 tablet (25 mg total) by mouth 1 (one) time each day. 30 each 5 lactulose (CHRONULAC) solution losartan (COZAAR) 100 mg tablet Take 1 tablet (100 mg total) by mouth 1 (one) time each day. 90 tablet 3 polyethylene glycol (MIRALAX) 17 gram packet Take 1 Packet by mouth 2 times daily. senna (SENOKOT) 8.6 mg tablet Take 1 tablet (8.6 mg total) by mouth 2 (two) times a day. Simethicone 125 mg tablet Take 125 mg by mouth every 6 (six) hours if needed (bloating). 120 tablet3 simvastatin (ZOCOR) 20 mg tablet Take 1 tablet (20 mg total) by mouth at bedtime. at bedtime. 90 tablet 3 [DISCONTINUED] amLODIPine (NORVASC) 5 mg tablet Take 1 tablet (5 mg total) by mouth 1 (one) time each day. 30 each 11 [DISCONTINUED] ramelteon (Rozerem) 8 mg tablet Take 1 tablet (8 mg total) by mouth at bedtime. 30 each 11 [DISCONTINUED] traZODone (DESYREL) 50 mg tablet Take 1 tablet (50 mg total) by mouth at bedtime as needed for sleep. 30 tablet 11 [DISCONTINUED] zolpidem (AMBIEN) 5 mg tablet Take 1 tablet (5 mg total) by mouth at bedtime as needed for sleep. Max Daily Amount: 5 mg 30 tablet 5 ALLERGIES: Allergies Allergen Reactions Codeine Itching Other Reaction(s): Hives/Urticaria Tramadol Hcl Nausea And Vomiting dizzy PHYSICAL EXAM: Visit Vitals BP (!) 156/71 Pulse 79 Temp 36.9 ??C (98.5 ??F) (Temporal) Resp 15 Ht 1.6 m (63 ) Wt 61.2 kg (135 lb) BMI 23.91 kg/m?? Smoking Status Former BSA 1.64 m?? General appearance: alert and oriented, in no acute distress Lungs: clear to auscultation bilaterally Heart: regular rate and rhythm, S1, S2 normal, no murmur, click, rub or gallop Extremities: extremities normal, warm and well-perfused; no cyanosis, clubbing, or edema Neurologic: Grossly normal LABS/IMAGING: Lab Results Component Value Date GLUCOSE 106 (H) 12/09/2024 CALCIUM 10.0 12/09/2024 NA 136 12/09/2024 K 4.9 12/09/2024 CO2 24 12/09/2024 CL 106 12/09/2024 BUN 31 (H) 12/09/2024 CREATININE 1.60 (H) 12/09/2024 IMPRESSION: 1. Primary hypertension 2. Hyperlipidemia, unspecified hyperlipidemia type 3. Gastroesophageal reflux disease without esophagitis 4. 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 fracture 5. Parkinson's disease without dyskinesia or fluctuating manifestations ([facility]) 6. Stage 3b chronic kidney disease ([facility]) PLAN: 1. Blood pressure does seem to be elevated still. Home readings are getting closer to goal. I thinkwe should increase her amlodipine to 10 mg we will arrange another short-term follow-up continue losartan and hydrochlorothiazide. Her headaches unfortunately are not much better. I was hoping these would improve with her blood pressure coming down but so far that has not been the case. I think we should get a CT scan of her head as the headaches are new onset issue. 2. She continues to experience problems with insomnia we have tried multiple meds and going to try some doxepin instead discussed adverse effects. 3. Still struggling with chronic pain she does have a referral to neurosurgery although she is veryreluctant to do anything invasive which is understandable. I did prescribe some hydrocodone for pain but I recommended that she use caution with this medication I have applied the code G2211 to [...] 2:30 PM EDT Appointment Radiology Department - [address] [phone] 12/24/2024 10:30 AM EDT Office Visit Gastroenterology - [place] [address] [place] [phone] Pastora Arriola PA [address] [place] [address] 12/31/2024 9:00 AM EDT Office Visit Adult Medicine [address] [phone] Saleem Gutiérrez PA [address] [place] [address] 04/17/2025 11:10 AM EDT Appointment Radiology Department [address] [phone] 04/18/2025 10:30 AM EDT Office Visit Adult Medicine [address] [phone] Saleem Gutiérrez PA [address] [place] [address] documented as of this encounter Visit Diagnoses Diagnosis Primary hypertension- Primary Unspecified essential hypertension Hyperlipidemia, unspecified hyperlipidemia type Gastroesophageal reflux disease without esophagitis Esophageal reflux 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 fracture Parkinson's disease without dyskinesia or fluctuating manifestations ([facility]) Stage 3b chronic kidney disease ([facility]) Encounter for screening mammogram for breast cancer documented in this encounter Discontinued Medications Medication Sig Discontinue Reason Start Date End Da te zolpidem (AMBIEN) 5 mg tablet Take 1 tablet (5 mg total) by mouth at bedtime as needed for sleep. Max Daily Amount: 5 mg 10/07/2024 12/12/2024 traZODone (DESYREL) 50 mg tablet Take 1 tablet (50 mg total) by mouth at bedtime as needed for sleep. 12/03/2024 12/12/2024 ramelteon (Rozerem) 8 mg tablet Take 1 tablet (8 mg total) by mouth at bedtime. Duplicate order 11/26/2024 12/12/2024 amLODIPine (NORVASC) 5 mg tablet Take 1 tablet (5 mg total) by mouth 1 (one) time each day. 12/03/2024 12/12/2024 documented as of this encounter Care Teams Livestock Exhibitor Relationship Specialty Start Date End Date Saleem Gutiérrez PA [address] [place] [address] PCP - General Internal Medicine 08/06/24 documented as of this encounter
--- OUTSIDE RECORDS SUMMARY | 2024-12-20 07:14 | XMS_ITS | Encounter Summary ---
Author Organization [facility] Address [address] [place] [address] Care Team Providers Care Political Researcher Name Role Phone Saleem Gutiérrez Primary Care Provider [phone] Encounter Details Date Type Department Care Team (Late st Contact Info) Description 12/09/2024 Telephone Gastroenterology - [place] 175 [facility] 175 [facility] [address] [place] [address] Heidi Waldron MA Social History Tobacco Use Types Packs/Day Years [...] as of this encounter Progress Notes * Heidi Waldron MA - 12/09/2024 2:18 PM EST Left a message for the patient to call the office * Heidi Waldron MA - 12/09/2024 2:17 PM EST ----- Message from MIGUEL ÁNGEL Wall sent at 12/08/2024 3:13 PM EST ----- Please call patient and let her know [...] 12/23/2024 2:30 PM EDT Appointment Radiology Department [address] [phone] 12/24/2024 10:30 AM EDT Office Visit Gastroenterology - [place] 175 [facility] 175 [facility] [address] [place] [address] Pastora Arriola PA 175 [facility] 200 [place] [address] 12/31/2024 9:00 AM EDT Office Visit Adult Medicine [address] [phone] Saleem Gutiérrez PA [address] [place] [address] 04/17/2025 11:10 AM EDT Appointment Radiology Department [address] [phone] 04/18/2025 10:30 AM EDT Office Visit Adult Medicine [address] [phone] Saleem Gutiérrez PA [address] [place] [address] documented as of this encounter Visit Diagnoses Not on filedocumented in this encounter Care Teams Political Researcher Relationship Specialty Start Date End Date Saleem Gutiérrez PA [address] [place] [address] PCP - General Internal Medicine 08/06/24 documented as of this encounter
--- OUTSIDE RECORDS SUMMARY | 2024-12-20 07:14 | XMS_ITS | Encounter Summary ---
Author Organization [facility] Address [address] [place] [address] Care Team Providers Care Emergency Dispatcher Name Role Phone Saleem Xie Primary Care Provider [phone] Reason for Visit * Reason Comments Hypertension 1 week f/u Encounter Details Date Type Department Care Team (Late st Contact Info) Description 12/03/2024 10:45 AM EST Office Visit Adult Medicine [facility] [address] [place] [address] Saleem Xie PA [address] [place], [place] [phone] Primary hypertension (Primary Dx); Hyperlipidemia, unspecified hyperlipidemia type; Osteopenia, unspecified location; Parkinson's disease without dyskinesia or fluctuating manifestations (CMS/HCC); Stage 3b chronic kidney disease (CMS/HCC); 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 fracture Social History Tobacco Use Types Packs/Day Years [...] Sign Reading Time Taken Comments Blood Pressure 176/75 12/03/2024 11:05 AM EST Pulse 73 12/03/2024 11:05 AM EST Temperature 36.9 ??C (98.4 ??F) 12/03/2024 11:[address] Respiratory Rate 14 12/03/2024 11:05 AM EST Oxygen Saturation - - Inhaled Oxygen Concentration - - Weight 61.4 kg (135 lb 6.4 oz) 12/03/2024 11:05 AM EST Height 160 cm (5' 3 ) 12/03/2024 11:05 AM EST Body Mass Index 23.99 12/03/2024 11:05 AM EST documented in this encounter Ordered Prescriptions Prescription Sig Dispense Quantity Refills Last Filled Start Date End Date traZODone (DESYREL) 50 mg tablet Take 1 tablet (50 mg total) by mouth at bedtime as needed for sleep. 30 tablet 11 12/03/2024 amLODIPine (NORVASC) 5 mg tablet Take 1 tablet (5 mg total) by mouth 1 (one) time each day. 30 each 11 12/03/2024 5 documented in this encounter Progress Notes * MIGUEL ÁNGEL Ozuna - 12/03/2024 10:45 AM ESTAddended by: SALEEM XIE on: 12/03/2024 11:30 AM Modules accepted: Orders * MIGUEL ÁNGEL Ozuna - 12/03/2024 10:45 AM EST CHIEF COMPLAINT: Hypertension (1 week f/u ) IDENTIFIER: Elisa Mcneil is a 89 y.o. old female. HPI: This very pleasant patient presents today for follow-up we increased the hydrochlorothiazide last week she is tolerating it but her blood pressure remains still pretty high we discussed adding amlodipine again. It is possible this could worsen her leg swelling although she did seem to tolerate this previously ROS: GENERAL: Negative for malaise, significant weight [...] Date Noted Stage 3b chronic kidney disease ([facility]) 11/12/2024 Parkinson disease ([facility]) 05/11/2020 Tremor of left hand [...] HISTORICAL TONSILLECTOMY UPPER GASTROINTESTINAL ENDOSCOPY 01/04/2021 PROCEDURE: [place] UPPER GI ENDOSCOPY PERFORMED; COMMENT: Medium sized [...] No partnership data on file MEDICATIONS DISCONTINUED/REORDERED: There are no discontinued medications. ACTIVE MEDICATIONS: Outpatient Medications Marked as Taking for the 12/03/24 encounter (Office Visit) with MIGUEL ÁNGEL Ozuna [...] at bedtime. at bedtime. 90 tablet 3 ALLERGIES: Allergies Allergen Reactions Codeine Itching Other Reaction(s): Hives/Urticaria Tramadol Hcl Nausea And Vomiting dizzy PHYSICAL EXAM: Visit Vitals BP (!) 176/75 Pulse 73 Temp 36.9 ??C (98.4 ??F) (Temporal) Resp 14 Ht 1.6 m (63 ) Wt 61.4 kg (135 lb 6.4 oz) BMI 23.99 kg/m?? Smoking Status Former BSA 1.64 m?? General appearance: alert and oriented, in no acute distress Lungs: clear to auscultation bilaterally Heart: regular rate and rhythm, S1, S2 normal, no murmur, click, rub or gallop Extremities: extremities normal, warm and well-perfused; no cyanosis, clubbing, or edema Neurologic: Grossly normal LABS/IMAGING: Labs IMPRESSION: 1. Primary hypertension 2. Hyperlipidemia, unspecified hyperlipidemia type 3. Osteopenia, unspecified location 4. Parkinson's disease without dyskinesia or fluctuating manifestations (CMS/HCC) 5. Stage 3b chronic kidney disease (CMS/HCC) 6. 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 fracture PLAN: 1. Hypertension, blood pressure still elevated today continue hydrochlorothiazide and losartan willadd 5 mg of amlodipine will follow-up next week to recheck. 2. Hyperlipidemia, continue statin. 3. Osteopenia encourage calcium and vitamin D. 4. Parkinson's has been stable we will continue Sinemet 5. Chronic kidney disease stable will update metabolic panel today I have applied the code G2211 to [...] 2:30 PM EDT Appointment Radiology Department - [address] [phone] 12/24/2024 10:30 AM EDT Office Visit Gastroenterology - [place] [address] [place] [address] Pastora Arriola PA [address] [address] [place] [address] 12/31/2024 9:00 AM EDT Office Visit Adult Medicine [address] [phone] Saleem Xie PA [address] [place] [address] 04/17/2025 11:10 AM EDT Appointment Radiology Department [address] [phone] 04/18/2025 10:30 AM EDT Office Visit Adult Medicine [address] [phone] Saleem Xie PA [address] [place] [address] documented as of this encounter Visit Diagnoses Diagnosis Primary hypertension- Primary Unspecified essential hypertension Hyperlipidemia, unspecified hyperlipidemia type Osteopenia, unspecified location Parkinson's disease without dyskinesia or fluctuating manifestations ([facility]) Stage 3b chronic kidney disease ([facility]) 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 fracture Encounter for screening mammogram for breast cancer documented in this encounter Care Teams Emergency Dispatcher Relationship Specialty Start Date End Date Saleem Xie PA [address] [place] [address] PCP - General Internal Medicine 08/06/24 documented as of this encounter
--- OUTSIDE RECORDS SUMMARY | 2024-12-20 07:14 | XMS_ITS | Encounter Summary ---
Author Organization [facility] Address [address] [place] [address] Care Team Providers Care Edi Architect Name Role Phone Saleem Gutiérrez Primary Care Provider [phone] Reason for Visit * Reason Onset Date Comments prior authorization 12/12/2024 Encounter Details Date Type Department Care Team (Late st Contact Info) Description 12/12/2024 Telephone Gastroenterology - [place] [address] [place] [address] Pastora Arriola PA [address] [place] [address] prior authorization Social History Tobacco Use Types Packs/Day Years [...] as of this encounter Progress Notes * Ranjana Rodrigues - 12/12/2024 9:18 AM EST Prior Authorization for Medication-do not complete and send this encounter unless you have the fax from the pharmacy. Is this a Cover My Meds request: NO Name of Medication esomeprazole (NexIUM) Dose of Medication [address] capsule What is the RX # from the faxed refill? [id number] [phone] [id number] How does patient take this med? Take 1 capsule (40 mg total) by mouth 1 (one) time each day before breakfast. Do not open capsule. What Pharmacy did the fax come from: [facility] Pharmacy fax #: [phone] documented in this encounter Plan of Treatment Upcoming Encounters Date Type Department Care Team (Late st Contact Info) Description 12/23/2024 2:30 PM EDT Appointment Radiology Department - [address] [phone] 12/24/2024 10:30 AM EDT Office Visit Gastroenterology - [place] 175 [facility] [address] [address] Pastora Arriola PA 175 [facility] 200 [place] [address] 12/31/2024 9:00 AM EDT Office Visit Adult Medicine [address] [phone] Saleem Gutiérrez PA [address] [place] [address] 04/17/2025 11:10 AM EDT Appointment Radiology Department - [address] [phone] 04/18/2025 10:30 AM EDT Office Visit Adult Medicine [address] [phone] Saleem Gutiérrez PA [address] [place] [address] documented as of this encounter Visit Diagnoses Not on filedocumented in this encounter Care Teams Edi Architect Relationship Specialty Start Date End Date Saleem Gutiérrez PA [address] [place] [address] PCP - General Internal Medicine 08/06/24 documented as of this encounter
--- NOTE | 2024-12-20 07:16 | ED.GENADULT ---
HPI - General Adult General Chief complaint: General Medical Stated complaint: swollen face Time Seen by Provider: 12/20/24 07:16 Source: patient, RN notes reviewed and old records reviewed Mode of arrival: ambulatory Limitations: no limitations History of Present Illness ED Provider: Surekha Farfan PA-C HPI narrative: 89 yo female presenting for evaluation of lesions on her lips that have been present for over 1 week. She is worried it may be an allergic reaction from one of her BP meds. she reports getting a cold sore on her upper lip 1 week ago. a few days later she started getting dry, flaking, cracked and red skin on the sides of her mouth radiating down toward her chin. she feels like the area on the sides of her mouth are swollen and puffy. no lip swelling. no tongue swelling, trouble swallowing or breathing. no other rashes on her body. no dental pain MD complaint: lip/face rash and swelling Onset (ago): day(s) Location: face and mouth Severity: mild Quality: other (dry) Pain Consistency: intermittent Relieving factors: none Exacerbating factors: none Associated symptoms: denies other symptoms Treatments prior to arrival: none Related Data Home Medications ?Medication ?Instructions ?Recorded ?Confirmed carbidopa 25 mg-levodopa 100 mg tab PO 04/25/24 tablet spironolactone 50 mg tablet 50 mg PO DAILY 04/25/24 amlodipine 10 mg tablet 10 mg PO DAILY 06/18/24 simvastatin 20 mg tablet 20 mg PO BEDTIME 06/18/24 Previous Rx's ?Medication ?Instructions ?Recorded albuterol sulfate 90 mcg/actuation 2 inh inhalation Q4-6H PRN 07/19/23 breath activated powder inhaler shortness of breath or wheezing #1 ea losartan 50 mg tablet 50 mg PO DAILY #30 tabs 06/18/24 mupirocin 2 % topical ointment 1 appl topical BID 2 weeks #22 12/20/24 grams Allergies Allergy/AdvReac Type Severity Reaction Status Date / Time codeine [CODEINE] Allergy Mild NAUSEA & Verified 12/20/24 06:56 VOMITING tramadol [TRAMADOL] Allergy Mild NAUSEA & Verified 12/20/24 06:56 VOMITING Review of Systems Review of Systems: Yes all other systems are reviewed and are negative PMFSH Past Medical History Medical History GERD (gastroesophageal reflux disease) High cholesterol Hypertension Parkinson disease Surgical History History of back surgery Social History Social History Alcohol intake: current Alcohol intake frequency: a few times a month Alcohol type: wine Patient Tobacco Use Status: Former Tobacco user Advance Directives: Yes Advance Directives Information Provided: Yes Advance Directives on File: No Do you have a plan to hurt others: No Plan Physical Exam ED Vital Signs: Vital Signs - 24 hr 12/20/24 06:55 Temperature 97.8 F Pulse Rate 82 Respiratory Rate 18 Blood Pressure 153/61 H Pulse Oximetry 99 Oxygen Delivery Method Room Air BMI result Body Mass Index 22.1 Appearance: Alert elderly female sitting in the chair. Oriented X3. No acute distress. Head: normocephalic, atraumatic. Eyes: Pupils equal, round and reactive to light. ENT: upper lips with a scabbed lesion, no drainage, minimal swelling. skinfolds and lateral aspects of the jeffery border with dry, red, flakey skin and mild yellow crusting. no facial swelling. Pharynx normal. No tonsillar swelling or exudate. normal appearance of the teeth and tongue. Neck: Normal inspection. Neck supple. CVS: Normal heart rate and rhythm. Pulses normal. Respiratory: No respiratory distress. Breath sounds normal. Abdomen: Soft and nontender. +BS x4 Skin: Skin warm and dry. Normal skin color. Normal skin turgor. No rashes elsewhere on the body Extremities: No lower extremity edema. No joint swelling. Neuro/psych: Oriented X 3. grossly normal, nonfocal. Normal speech and cognition. Medical Decision Making Medical Decision Making MDM Narrative: 89 yo female presenting for evaluation of lesions on her lips and red, flaking skin on the angles of her mouth. exam is c/w a cold sore and angular chelitis. may have superimposed bacterial infection as there is some crusting and yellowish coloring. will treat with mupirocin. pt counseled. no role for oral antivirals given duration of cold sore. stable for d/c home. she has appointment with her pcp on monday and can follow up for improvement then. Differential Diagnosis Differential Diagnoses: The differential diagnosis associated with the presentation includes angular chelitis, bacterial infectio, fungal infection, allergic reaction, eczema External Record Review External record reviewed: Outpatient record and Prior outpatient labs Prescription Management I considered prescription management with: Antiviral and Antibiotic Critical Care Time Critical Care Time Critical Care Time: No Discharge Plan Discharge Clinical Impression: Angular cheilitis, Cold sore Patient Disposition: Home, Self-Care Instructions: Oral Herpes Simplex Virus Infections (ED) Additional Instructions: your exam is consistent with angular chelitis which is inflammation and irritation of the skin around your lips. there is no evidence of an allergic reaction use the prescribed antibiotic ointment 2 times per day for the next 10-14 days. this will treat any superimposed bacterial infection on the skin and help moisturize the area use vasoline at night for the cold sore on your lip, recommend over the counter Abreva. this can be found at any pharmacy your symptoms have been going on for too long for the antiviral pills to work, and the pills can have adverse reactions so we are not going to prescribe those today follow up with your doctor as scheduled on 12/24/24 If you develop new or worsening symptoms call 911 or come back to the ER for further evaluation. Prescriptions: New mupirocin 2 % ointment 1 appl topical BID 14 Days Qty: 22 0RF No Action albuterol sulfate 90 mcg/actuation aerosol powdr breath activated 2 inh inhalation Q4-6H PRN (Reason: shortness of breath or wheezing) Qty: 1 0RF losartan 50 mg tablet 50 mg PO DAILY Qty: 30 2RF amlodipine 10 mg tablet 10 mg PO DAILY simvastatin 20 mg tablet 20 mg PO BEDTIME carbidopa-levodopa 25-100 mg tablet PO spironolactone 50 mg tablet 50 mg PO DAILY Referrals: Saleem Gutiérrez PA [Primary Care Provider] - Print Language: Bulgarian
[2024-12-20 08:14] VITALS: BP 153/61; PULSE 82; RESP 18; TEMP 36.6; O2SAT 99
== END 2024-12-20 08:14 | disposition home or self-care (01) ==
PROVIDERS: Emergency Provider Emergency Medicine; PCP Physician Assistant Medical
DX: K13.0 Diseases of lips (principal); R21 Rash and other nonspecific skin eruption
CPT/HCPCS: 99283; 99284

== ENCOUNTER 2024-12-30 14:04 | Outpatient (REF) | payer MEDICARE, SELFPAY ==
[2024-12-30 15:05] LABS: Blood Urea Nitrogen 26 mg/dL (9-16); Estimated Glomerular Filt Rate 34
== END 2024-12-30 14:05 | disposition home or self-care (01) ==
LOC: HO.LAB 14:04
PROVIDERS: PCP Physician Assistant Medical; Visit Provider Registered Nurse
DX: I67.9 Cerebrovascular disease, unspecified (principal); I63.12 Cerebral infarction due to embolism of basilar artery
CPT/HCPCS: 36415; 82565; 84520

== ENCOUNTER 2025-03-05 08:04 | Outpatient (REF) | payer MEDICARE, SELFPAY ==
--- NOTE | ~2025-03-05 | CT_ITS ---
CLINICAL HISTORY: CEREBRAL INFARCTION CT angiography neck with contrast. 3D Postprocessing. Comparison: None Findings: There are mild calcific atherosclerotic changes of the carotid bulbs bilaterally with mild stenosis at the origin of the right internal carotid artery. There is moderate stenosis of the origin of the left external carotid artery. Visualized intracranial arteries are patent. No aneurysm, dissection, hemodynamically significant stenoses, or occlusion. The visualized thyroid gland is unremarkable. No cervical mass or fluid collection. Lung apices clear. No acute fracture. 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 This document has been electronically signed by: Damian Oropeza MD on 03/06/2025 13:35:12
--- NOTE | ~2025-03-05 | CT_ITS ---
CLINICAL HISTORY: CEREBRAL INFRACTION CT angiography head with contrast. 3D Postprocessing. Comparison: None Findings: Intracranial arteries are patent. No aneurysm, dissection, hemodynamically significant stenoses, or occlusion. No abnormal intracranial enhancement. No intra-axial mass, midline shift, hydrocephalus, or acute hemorrhage. There are mild calcific atherosclerotic changes at the cavernous carotids without significant stenosis. IMPRESSION: Patent head CTA. This document has been electronically signed by: Damian Oropeza MD on 03/06/2025 13:34:13
[2025-03-05 09:40] LABS: GFR POC 59
[2025-03-05] MEDS: iohexoL 350 MG/ML 100 ML INFUS..BTL IV (09:40)
== END 2025-03-05 08:05 | disposition home or self-care (01) ==
LOC: HO.CT 08:04
PROVIDERS: PCP Physician Assistant Medical; Visit Provider Registered Nurse
DX: I63.12 Cerebral infarction due to embolism of basilar artery (principal)
CPT/HCPCS: 70496; 70498; 82565; Q9967

== ENCOUNTER 2025-04-17 11:49 | Outpatient (AMB) | payer MEDICARE, SELFPAY ==
--- OUTSIDE RECORDS SUMMARY | 2025-04-17 12:21 | XMS_ITS | Clinical Summary ---
Author Organization 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 07/02/20 24 Active carbidopa-levodop a (PARCOPA) 25-100 mg per disintegrating tablet Take 1 tablet by mouth 2 (two) times a day. Active losartan (COZAAR) 100 mg tablet Take 1 tablet (100 mg total) by mouth 1 (one) time each day. 90 tablet 3 11/26/19 25 Active simvastatin (ZOCOR) 20 mg tablet Take 1 tablet (20 mg total) by mouth at bedtime. at bedtime. 90 tablet 3 11/26/19 25 Active hydroCHLOROthiazi de (HYDRODIURIL) 25 mg tablet Take 1 tablet (25 mg total) by mouth 1 (one) time each day. 30 each 5 11/26/19 25 2024 Active HYDROcodone-aceta minophen (NORCO) 5-325 mg per tabletIndications :Primary hypertension,Hype rlipidemia, unspecified hyperlipidemia type,Gastroesopha geal reflux disease without esophagitis,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 fracture,Parkinso n's disease without dyskinesia or fluctuating manifestations (CMS/HCC V24, CMS/HCC V28),Stage 3b chronic kidney disease (CMS/HCC V24, CMS/HCC V28) Take 1 tablet by mouth every 6 (six) hours if needed for severe pain. Max Daily Amount: 4 tablets 28 tablet 12/13/19 25 Active amLODIPine (NORVASC) 10 mg tablet Take 1 tablet (10 mg total) by mouth 1 (one) time each day. 30 each 5 12/13/19 25 2024 Active triamcinolone (KENALOG) 0.1 % ointment Apply topically 2 (two) times a day if needed for irritation or rash. 30 g 3 02/19/20 25 Active omeprazole (PriLOSEC) [address] capsule Take 1 capsule (20 mg total) by mouth 2 (two) times a day before meals. 180 capsule 3 04/07/20 25 Active omeprazole (PriLOSEC) [address] capsule Take 1 capsule (20 mg total) by mouth 2 (two) times a day. 2024 Discontinued Active Problems Problem Noted Date Diagnosed Date Bilateral carotid artery stenosis 02/18/2025 Hx of stroke without residual deficits Stage 3b chronic kidney disease ([facility]/HCC V24, [facility]/HCC V28) 11/12/2024 Parkinson disease ([facility] V24, [facility] V28) 12/2019 Tremor of left hand 04/23/2018 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 fracture 10/13/2017 Pulmonary nodules/lesions, multiple 05/08/2014 Overview (07/22/2024): seen first 7-12 largest is 6mm in the RUL, unchanged over 2 yrs Osteopenia 06/22/2012 HTN (hypertension) 05/04/2012 Backache 09/05/2005 Overview (07/22/2024): IMO update Esophageal reflux 09/05/2005 External hemorrhoids 09/05/2005 Overview (07/22/2024): IMO update Hyperlipidemia 09/05/2005 Encounters Date Type Department Care Team Description 03/13/2025 10:30 AM EDT Ancillary Procedure [facility] [address] [place] [address] Cerebrovascular accident (CVA), unspecified mechanism ([facility] V24, [facility] V28) 03/11/2025 Telephone Adult [address] [phone] Saleem Gutiérrez PA call back 02/18/2025 1:30 PM EDT Office Visit Adult [address] [phone] Saleem Gutiérrez PA Left facial swelling (Primary Dx); Bilateral carotid artery stenosis; Cheilitis; Abnormal results of thyroid function studies 02/17/2025 Telephone Adult [address] [phone] Teresa Collins [place] Facial Swelling from Last 3 Months Immunizations Name Administration [...] COMMENT: Negative UPPER GASTROINTESTINAL ENDOSCOPY 01/04/2021 PROCEDURE: ND UPPER GI ENDOSCOPY PERFORMED; COMMENT: Medium sized [...] = 0.6 oz pur e alcohol) Comments No Sex and Gender Information Value Date Recorded Sex Assigned at Female 09/27/2024 3:11 PM EST Legal Sex Female 4:07 AM EST Gender Identity Female 09/27/2024 3:11 PM EST Sexual Orientation Straight 09/30/2024 8: 42 AM EST Obstetrics History Last Filed Vital Signs Vital Sign Reading Time Taken Comments Blood Pressure 150/79 03/13/2025 12:52 PM EDT Pulse 50 02/18/2025 1:28 PM EDT Temperature 36.4 C (97.5 F) 02/18/2025 1:28 PM EDT Respiratory Rate 14 02/18/2025 1:28 PM EDT Oxygen Saturation - - Inhaled Oxygen Concentration - - Weight 63 kg (139 lb) 03/13/2025 12:52 PM EDT Height 165.1 cm (5' 5 ) 03/13/2025 12:52 PM EDT Body Mass Index 23.13 03/13/2025 12:52 PM EDT Plan of Treatment Upcoming Encounters Date Type Department Care Team (Late st Contact Info) Description 04/28/2025 11:15 AM EDT Office Visit Adult Medicine [address] [phone] Herlinda Mcgovern PA [address] [place], [place] 05/26/2025 10:30 AM EDT Office Visit Gastroenterology - [place] [facility] 175 [facility] [address] [place] [phone] Pastora Arriola PA 175 [facility] [address] [place] [address] 05/28/2025 2:30 PM EDT Consult Vascular Surgery - [place] [address] [facility] [address] [place] [phone] Christine Maldonado MD [address] [facility] [address] [place] [id number] 08/20/2025 8:45 AM EST Office Visit Adult Medicine [facility] [address] [place] [address] Saleem Gutiérrez PA [address] [place] [address] Health Maintenance Due Date Last Done Comments Social Influencers of Health Screening 09/17/2022 COVID-19 Vaccine ( season) 2024 08/23/2023, 07/21/2022, 02/13/2022, Additional history exists Depression Screening 03/19/2025 03/19/2024 Medicare Annual Wellness Visit 03/19/2025 03/19/2024 Falls Risk Assessment 04/30/2025 04/30/2024 Influenza Vaccine (#1) 2025 , 07/06/2023, 06/17/2022, Additional history exists Hypertension/CHF/CAD Annual BMP Blood Test 03/07/2026 03/07/2025, 02/18/2025, 12/09/2024, Additional history exists Cholesterol Screening (Lipid Panel) 10/11/2029 10/11/2024, 11/15/2023 Osteoporosis Screening (Bone Density Screening) 04/21/2032 04/21/2017 DTaP,Tdap,and Td Vaccines (3 - Td or Tdap) 06/17/2032 06/17/2022, 06/23/2008 Pneumococcal Vaccine: 50+ Years Completed 03/12/2015, 06/24/2003 Zoster Vaccines Completed 10/18/2022, 12/2021, 03/01/2012 RSV Immunization Adult Patients Completed 09/07/2023 HIB Vaccines Aged Out No longer eligi [...] age to complete this topic Meningococcal B Vaccine Aged Out No l onger eligible based on patient's age to complete this topic RSV Immunization Patients Under 20 months Aged Out No longer eligible based on patient's age to complete this topic Varicella Vaccines Aged Out No longer eligible based on patient's age to complete this topic Procedures Procedure Name Priority Date/Time Associated Diagnosis Comments TRANSTHORACIC ECHOCARDIOGRAM (TTE) COMPLETE Routine 03/13/2025 11:10 AM EDT Cerebrovascular accident (CVA), unspecified mechanism ([facility] V24, CMS/[facility] V28) BASIC METABOLIC PANEL Routine 03/07/2025 2:17 PM EDT Decreased GFR EXTERNAL CLINICAL LAB 03/05/2025 EXTERNAL CLINICAL LAB 03/05/[address] REPORT 03/05/[address] REPORT 03/05/2025 CBC WITH AUTO DIFFERENTIAL Routine 02/18/2025 2:18 PM EDT Bilateral carotid artery stenosis Cheilitis Left facial swelling URINALYSIS WITH REFLEX MICROSCOPIC Routine 02/18/2025 2:18 PM EDT Bilateral carotid artery stenosis Cheilitis Left facial swelling CBC AND DIFFERENTIAL Routine 02/18/2025 2:18 PM EDT Bilateral carotid artery stenosis Cheilitis Left facial swelling THYROID STIMULATING HORMONE WITH REFLEX TO FREE T4 AND FREE T3 Routine 02/18/2025 2:18 PM EDT Bilateral carotid artery stenosis Cheilitis Left facial swelling Abnormal results of thyroid function studies COMPREHENSIVE METABOLIC PANEL Routine 02/18/2025 2:18 PM EDT Bilateral carotid artery stenosis Cheilitis Left facial swelling B-TYPE NATRIURETIC PEPTIDE Routine 02/18/2025 2:18 PM EDT Bilateral carotid artery stenosis Cheilitis Left facial swelling URINALYSIS WITH REFLEX MICROSCOPIC Routine 02/18/2025 2:18 PM EDT Bilateral carotid artery stenosis Cheilitis Left facial swelling MICROALBUMIN CREATININE URINE RATIO Routine 02/18/2025 2:18 PM EDT Bilateral carotid artery stenosis Cheilitis Left facial swelling LIPID PANEL WITH REFLEX TO DIRECT LDL Routine 10/11/2024 10:56 AM EST Primary hypertension Hyperlipidemia, unspecified hyperlipidemia type Osteopenia, unspecified location 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 fracture Parkinson's disease without dyskinesia or fluctuating manifestations (CMS/HCC V24, CMS/HCC V28) FALLS RISK ASSESSMENT Routine 04/30/2024 DEPRESSION SCREENING Routine 03/19/2024 DXA BONE DENSITY STUDY 1+ SITS AXIAL SKEL Routine 04/21/2017 9:13 AM EDT Encounter for screening for osteoporosis from Last 3 Months or Most Recently Relevant to Health Maintenance Results * (ABNORMAL) TRANSTHORACIC ECHOCARDIOGRAM (TTE) COMPLETE (03/13/2025 11:10 AM EDT) LV EDV (A2C) 69 mL CV PACS LV EDV (A4C) 60 mL CV PACS LV Diastolic Volume (BP) 65 46 - 106 mL CV PACS LV ESV (A2C) 20 mL CV PACS LV ESV (A4C) 21 mL CV PACS LV Systolic Volume (BP) 19 14 - 42 mL CV PACS IVSD 1.0(A) 0.6 - 0.9 cm CV PACS LVIDD 5.0 3.8 - 5.2 cm CV PACS LVIDS 3.1 2.2 - 3.5 cm CV PACS LVOT Diameter 2.0 cm CV PACS LVOT Mean [place] 0.9 m/s CV PACS LVOT Mean Grad 4 mmHg CV PACS LVOT Mean Grad 4 mmHg CV PACS LVOT Peak VTI 29.6 cm CV PACS LVOT Peak [place] 1.4 m/s CV PACS LVOT Peak Gradient 8 mmHg CV PACS LVPWD 1.0(A) 0.6 - 0.9 cm CV PACS MV E' Tissue Velocity Lateral 10 cm/s CV PACS MV E' Tissue Velocity Septal 5 cm/s CV PACS LVOT Area 3.1 cm2 CV PACS LVOT Stroke Volume 93 mL CV PACS Left Atrium Minor [place] 6.1 cm CV PACS Left Atrium Major [place] 6.1 cm CV PACS LA Area Sys (A2C) 24 cm2 CV PACS LA Area Sys (A4C) 23 cm2 CV PACS LA Volume (BP) 74 mL CV PACS LA Size 4.1 cm CV PACS RA Area 12.0 cm2 CV PACS RA 2D Volume 25 mL CV PACS AV Mean Gradient 8 mmHg CV PACS Ao VTI 42.0 cm CV PACS AV Peak [place] 2.1 m/s CV PACS AV Peak Gradient 18 mmHg CV PACS AV Area Continuity Equation 2.2 cm2 CV PACS AV Area Peak Velocity 2.2 cm2 CV PACS Aortic Sinus Valsalva 3.1 cm CV PACS Ascending Aorta 3.3 cm CV PACS IVC Proximal 2.1 cm CV PACS MV Deceleration [place] 6.2 m/s2 CV PACS E Wave Deceleration Time 173 119 - 242 ms CV PACS MV PHT 51 ms CV PACS MV Peak A [place] 1.09 m/s CV PACS MV Peak A [place] 1.09 m/s CV PACS MV Peak E [place] 1.07 m/s CV PACS MV Mean Gradient 3 mmHg CV PACS MV VTI 33.1 cm CV PACS Mitral Valve Max Velocity 1.4 m/s CV PACS MV Peak Gradient 8 mmHg CV PACS MV Area PHT 4.3 cm2 CV PACS MV Area Continuity Equation 2.8 cm2 CV PACS PV Acceleration Time 121 ms CV PACS PV Mean Gradient 2 mmHg CV PACS PV VTI 19.7 cm CV PACS PV Peak Velocity 1.0 m/s CV PACS PV Peak Gradient 4 mmHg CV PACS RV Diastolic Basal Dimension 3.8 2.5 - 4.1 cm CV PACS RV S' 14 cm/s CV PACS TAPSE 23 mm CV PACS TR Peak Velocity 2.73 m/s CV PACS TR Peak Velocity 2.73 m/s CV PACS TR Peak Gradient 30 mmHg CV PACS E/E' Ratio Septal 21 CV PACS E/E' Ratio Averaged 16 CV PACS Relative Wall Thickness ratio 0.40 CV PACS LVOT:AV VTI Index 0.70 CV PACS FS 38 % CV PACS LV Mass 2D 182 g CV PACS MV VTI:LVOT VTI ratio 1.1 CV PACS LVOT flow 283 mL/s CV PACS AV Velocity Ratio 0.67 CV PACS E/E' Ratio Lateral 11 CV PACS BSA 1.7 m2 CV PACS LV Diastolic Volume Index (BP) 38 29 - 61 mL/m2 CV PACS LV Systolic Volume Index (BP) 11 8 - 24 mL/m2 CV PACS LV EDV Index (A4C) 36 mL/m2 CV PACS LV ESV Index (A4C) 12 mL/m2 CV PACS LV EDV Index (A2C) 41 mL/m2 CV PACS LV ESV Index (A2C) 12 mL/m2 CV PACS LA Volume Index (BP) 44 mL/m2 CV PACS LVIDD Index 2.96 cm/m2 CV PACS LVIDS Index 1.83 cm/m2 CV PACS LV Mass Index 2D 108(A) 44 - 88 g/m2 CV PACS LVOT Stroke Index 55 mL/m2 CV PACS LA Dimension Index 2D 2.4 cm/m2 CV PACS RA 2D Volume Index 15 15 - 27 mL/m2 CV PACS TANIA Index (VTI) 1.31 cm2/m2 CV PACS TANIA Index (Pk [place]) 1.30 cm2/m2 CV PACS Ascending Aorta Index 1.95 cm/m2 CV PACS Est. RA Pressure 8 mmHg CV PACS Anatomical Region Laterality Modality Ultrasound Narrative 04/04/2025 10:30 AM EDT Left ventricle cavity size is normal. There is mild, concentric left ventricular hypertrophy. Left ventricular systolic function is in the normal range with an ejection fraction of 60-65%. There is normal left ventricular regional wall motion. There is normal right ventricular size and systolic function. There is Grade II (moderate) diastolic dysfunction consistent with increased left atrial pressure. Borderline pulmonary hypertension with RV systolic pressure 38 mmHg. Right ventricle cavity is normal. Right ventricular systolic function is normal. There is no hemodynamically significant valve disease. Minor valvular abnormalities as below. There is moderate left atrial enlargement. Left Ventricle Left ventricle cavity size is normal. There is mild concentric hypertrophy. Systolic function is normal with an ejection fraction of 60-65%. There are no regional LV wall motion abnormalities. There is grade II (moderate) diastolic dysfunction and elevated left atrial pressure. Right Ventricle Right ventricle cavity appears normal. Systolic function is normal. Left Atrium Left atrium cavity is moderately dilated. Right Atrium Right atrium cavity is normal. IVC/SVC Inferior vena cava structure is normal. RA pressures is estimated to be 8 mmHg (IVC diameter <21 mm and decreases <50% during inspiration). Mitral Valve The leaflets are mildly thickened. There is mild annular calcification. There is mild regurgitation with a centrally directed jet. There is no evidence of mitral valve stenosis. Tricuspid Valve Tricuspid valve structure is normal. There is trace regurgitation. There is borderline pulmonary hypertension with RV systolic pressure 38 mmHg. Aortic Valve The aortic valve is trileaflet. The leaflets are mildly thickened. There is no regurgitation or stenosis. Pulmonic Valve There is trace pulmonic valve regurgitation. Ascending Aorta The aorta appears normal in size. Pericardium Pericardium appears normal. There is no pericardial effusion. Study Details Overall the study quality was adequate. Saleem DEL ROSARIO CV ECHO PROCEDURES Final Result * (ABNORMAL) Basic metabolic panel (03/07/2025 2:17 PM EDT) Sodium 137 133 - 145 mmol/L LAB CHEMISTRY METHOD 03/07/2025 5:45 PM [facility] Potassium 4.5 3.5 - 5.5 mmol/L LAB CHEMISTRY METHOD 03/07/2025 5:45 PM [facility] Chloride 106 96 - 110 mmol/L LAB CHEMISTRY METHOD 03/07/2025 5:45 PM [facility] CO2 25 21 - 32 mmol/L LAB CHEMISTRY METHOD 03/07/2025 5:45 PM [facility] Anion Gap 6 3 - 11 LAB CHEMISTRY METHOD 03/07/2025 5:45 PM [facility] Glucose 120(H) 70 - 100 mg/dL LAB CHEMISTRY METHOD 03/07/2025 5:45 PM [facility] BUN 30(H) 5 - 25 mg/dL LAB CHEMISTRY METHOD 03/07/2025 5:45 PM EDT [facility] Creatinine 1.99(H) 0.50 - 1.10 mg/dL LAB CHEMISTRY METHOD 03/07/2025 5:45 PM EDT [facility] eGFR 24(L) >=60 mL/min/1. 73m2 LAB CHEMISTRY METHOD 03/07/2025 5:45 PM EDT [facility] Comment:Calculation based on the Chronic Kidney Disease Epidemiology Collaboration (CKD-EPI) equation refit without adjustment for race. BUN/Creatinine Ratio 15.1 LAB CHEMISTRY METHOD 03/07/2025 5:45 PM EDT [facility] Calcium 9.4 8.5 - 10.5 mg/dL LAB CHEMISTRY METHOD 03/07/2025 5:45 PM EDT [facility] Blood Venous blood specimen / Unknown Venipuncture / Unknown 03/07/2025 2:17 PM EDT 03/07/2025 2:17 PM EDT Saleem DEL ROSARIO LAB BLOOD ORDERABLES Corina l Result [facility] [address] [place] [address], * External CT Report (03/05/2025) Only the most recent of2 resultswithin the time period is included. Anatomical Region Laterality Modality Computed Tomogra phy Provider [facility] IMG CT PROCEDURES Final Result * External clinical lab (03/05/2025) Only the most recent of2 resultswithin the time period is included. Provider [facility] LAB BLOOD ORDERABLES Fin al Result * (ABNORMAL) Urinalysis with reflex microscopic (02/18/2025 2:18 PM EDT) Specific [place] Urine 1.012 1.003 - 1.030 LAB URINALYSIS - AUTOMATED METHOD 02/18/2025 4:25 PM [facility] pH, Urine 6.0 5.0 - 8.0 pH LAB URINALYSIS - AUTOMATED METHOD 02/18/2025 4:25 PM [facility] Leukocytes, Urine Moderate(A) Negative LAB URINALYSIS - AUTOMATED METHOD 02/18/2025 4:25 PM [facility] Nitrite, Urine Negative Negative LAB URINALYSIS - AUTOMATED METHOD 02/18/2025 4:25 PM [facility] Protein, Urine Negative <=Trace mg/dL LAB URINALYSIS - AUTOMATED METHOD 02/18/2025 4:25 PM [facility] Glucose, Urine Negative Negative mg/dL LAB URINALYSIS - AUTOMATED METHOD 02/18/2025 4:25 PM [facility] Ketones, Urine Negative Negative mg/dL LAB URINALYSIS - AUTOMATED METHOD 02/18/2025 4:25 PM [facility] Urobilinogen , Urine 1.0 0.2 - 1.0 mg/dL LAB URINALYSIS - AUTOMATED METHOD 02/18/2025 4:25 PM [facility] Bilirubin, Urine Negative Negative LAB URINALYSIS - AUTOMATED METHOD 02/18/2025 4:25 PM [facility] Blood, Urine Negative Negative LAB URINALYSIS - AUTOMATED METHOD 02/18/2025 4:25 PM [facility] RBC, Urine 1.5 0 - 4 /HPF LAB URINALYSIS - AUTOMATED METHOD 02/18/2025 4:25 PM [facility] WBC, Urine 14.9(H) 0 - 4 /HPF LAB URINALYSIS - AUTOMATED METHOD 02/18/2025 4:25 PM [facility] Squamous Epithelial, Urine 49 0 - 60 /LPF LAB URINALYSIS - AUTOMATED METHOD 02/18/2025 4:25 PM [facility] Bacteria, Urine Negative Negative /HPF LAB URINALYSIS - AUTOMATED METHOD 02/18/2025 4:25 PM EDT [facility] Hyaline Casts, Urine 0.8 0 - 3 /LPF LAB URINALYSIS - AUTOMATED METHOD 02/18/2025 4:25 PM EDT [facility] Urine Urine specimen obtained by clean catch procedure / Unknown Non-blood Collection / Unknown 02/18/2025 2:18 PM EDT 02/18/2025 2:18 PM EDT Saleem Gutiérrez [place] LAB URINE ORDERABLES Corina l Result Performing Organization Address [facility]/ZIP Co de Phone Number [facility] [address] [place] [address], [place] [phone] * Thyroid stimulating hormone with reflex to free t4 and free t3 (02/18/2025 2:18 PM EDT) [facility] TSH 3.16 0.40 - 4.00 mcIU/mL LAB CHEMISTRY METHOD 02/18/2025 5:43 PM EDT [facility] Blood Venous blood specimen / Unknown Venipuncture / Unknown 02/18/2025 2:18 PM EDT 02/18/2025 2:18 PM EDT [facility] Rima Gutiérrez [place] LAB BLOOD ORDERABLES Corina l Result Performing Organization Address City/[facility]/ZIP Co de Phone Number [facility] [address] [place] [address], [place] [phone] * (ABNORMAL) CBC auto differential (02/18/2025 2:18 PM EDT) Pathologist [facility] WBC 6.7 4.8 - 10.8 K/[facility] LAB HEMETOLOGY METHOD 02/18/2025 4:26 PM EDT [facility] RBC 4.10 3.80 - 4.80 M/[facility] LAB HEMETOLOGY METHOD 02/18/2025 4:26 PM EDT [facility] Hemoglobin 12.0 11.5 - 16.0 g/dL LAB HEMETOLOGY METHOD 02/18[facility]2025 4:[facility] Hematocrit 37.6 35.0 - 47.0 % LAB HEMETOLOGY METHOD 02/18/2025 4:26 PM [facility] MCV 91.0 79.0 - 98.0 FL LAB HEMETOLOGY METHOD 02/18/2025 4:26 PM [facility] MCH 29.1 27.0 - 32.0 pcg LAB HEMETOLOGY METHOD 02/18/2025 4:26 PM [facility] MCHC 31.9(L) 32.0 - 37.0 g/dL LAB HEMETOLOGY METHOD 02/18/2025 4:26 PM [facility] RDW 13.2 11.0 - 15.0 % LAB HEMETOLOGY METHOD 02/18/2025 4:26 PM [facility] Platelets 389 130 - 400 K/mcL LAB HEMETOLOGY METHOD 02/18/2025 4:26 PM [facility] MPV 11.2(H) 7.0 - 11.0 FL LAB HEMETOLOGY METHOD 02/18/2025 4:26 PM [facility] NRBC 0.0 <1.0 % LAB HEMETOLOGY METHOD 02/18/2025 4:26 PM [facility] NRBC Absolute 0.00 <0.10 K/mcL LAB HEMETOLOGY METHOD 02/18/2025 4:26 PM [facility] Neutrophils Relative 49.7 % LAB HEMETOLOGY METHOD 02/18/2025 4:26 PM [facility] Lymphocytes Relative 34.9 % LAB HEMETOLOGY METHOD 02/18/2025 4:26 PM EDT [facility] Monocytes Relative 14.1 % LAB HEMETOLOGY METHOD 02/18/2025 4:26 PM EDT [facility] Eosinophils Relative 0.3 % LAB HEMETOLOGY METHOD 02/18/2025 4:26 PM [facility] Basophils Relative 0.4 % LAB HEMETOLOGY METHOD 02/18/2025 4:26 PM EDT [facility] Immature Granulocytes Relative 0.6 % LAB HEMETOLOGY METHOD 02/18/2025 4:26 PM EDT [facility] Neutrophils Absolute 3.32 1.50 - 7.00 K/mcL LAB HEMETOLOGY METHOD 02/18/2025 4:26 PM [facility] Lymphocytes Absolute 2.33 1.00 - 5.00 K/mcL LAB HEMETOLOGY METHOD 02/18/2025 4:26 PM [facility] Monocytes Absolute 0.94 0.20 - 1.00 K/mcL LAB HEMETOLOGY METHOD 02/18/2025 4:26 PM [facility] Eosinophils Absolute 0.02 0.00 - 0.50 K/mcL LAB HEMETOLOGY METHOD 02/18/2025 4:26 PM [facility] Basophils Absolute 0.03 0.00 - 0.20 K/mcL LAB HEMETOLOGY METHOD 02/18/2025 4:26 PM [facility] Immature Granulocytes Absolute 0.04(H) 0.00 - 0.03 K/mcL LAB HEMETOLOGY METHOD 02/18/2025 4:26 PM [facility] Blood Venous blood specimen / Unknown Venipuncture / Unknown 02/18/2025 2:18 PM EDT 02/18/2025 2:18 PM EDT Saleem DEL ROSARIO LAB BLOOD ORDERABLES Croina young Result [facility] [address] [place] [address], [place] [phone] * Microalbumin creatinine urine ratio (02/18/2025 2:18 PM EDT) Creatinine, Urine 126.0 mg/dL LAB CHEMISTRY METHOD 02/18/2025 5:41 PM EDT [facility] Microalb, Ur 12.0 0.0 - 29.0 mg/L LAB CHEMISTRY METHOD 02/18/2025 5:41 PM EDT [facility] Microalb/Creat Ratio 10 <30 mg/g creat LAB CHEMISTRY METHOD 02/18/2025 5:41 PM EDT [facility] Urine Urine specimen obtained by clean catch procedure / Unknown Non-blood Collection / Unknown 02/18/2025 2:18 PM EDT 02/18/2025 2:18 PM EDT Saleem DEL ROSARIO LAB URINE ORDERABLES Corina l Result Performing Organization Address [facility] de Phone Number [facility] [address] [place] [address], [place] [phone] * B-type natriuretic peptide (02/18/2025 2:18 PM EDT) BNP 58 <=100 pcg/mL LAB CHEMISTRY METHOD 02/18/2025 5:12 PM EDT [facility] Blood Venous blood specimen / Unknown Venipuncture / Unknown 02/18/2025 2:18 PM EDT 02/18/2025 2:18 PM EDT Saleem DEL ROSARIO LAB BLOOD ORDERABLES Corina l Result Performing Organization Address [facility]/ZIP Co de Phone Number [facility] [address] [place] [address], [place] [phone] * (ABNORMAL) Comprehensive metabolic panel (02/18/2025 2:18 PM EDT) [facility] Signature Sodium 138 133 - 145 mmol/L LAB CHEMISTRY METHOD 02/18/2025 4:49 PM [facility] Potassium 5.1 3.5 - 5.5 mmol/L LAB CHEMISTRY METHOD 02/18/2025 4:49 PM [facility] Chloride 105 96 - 110 mmol/L LAB CHEMISTRY METHOD 02/18/2025 4:49 PM [facility] CO2 24 21 - 32 mmol/L LAB CHEMISTRY METHOD 02/18/2025 4:49 PM [facility] Anion Gap 9 3 - 11 LAB CHEMISTRY METHOD 02/18/2025 4:49 PM [facility] Glucose 111(H) 70 - 100 mg/dL LAB CHEMISTRY METHOD 02/18/2025 4:49 PM [facility] BUN 26(H) 5 - 25 mg/dL LAB CHEMISTRY METHOD 02/18/2025 4:49 PM [facility] Creatinine 1.92(H) 0.50 - 1.10 mg/dL LAB CHEMISTRY METHOD 02/18/2025 4:49 PM [facility] eGFR 25(L) >=60 mL/min/1. 73m2 LAB CHEMISTRY METHOD 02/18/2025 4:49 PM [facility] Comment:Calculation based on the Chronic Kidney Disease Epidemiology Collaboration (CKD-EPI) equation refit without adjustment for race. BUN/Creatinine Ratio 13.5 LAB CHEMISTRY METHOD 02/18/2025 4:49 PM [facility] Calcium 10.1 8.5 - 10.5 mg/dL LAB CHEMISTRY METHOD 02/18/2025 4:49 PM [facility] AST (SGOT) 20 10 - 42 unit/L LAB CHEMISTRY METHOD 02/18/2025 4:49 PM [facility] ALT (SGPT) 11 10 - 60 unit/L LAB CHEMISTRY METHOD 02/18/2025 4:49 PM EDT [facility] Alkaline Phosphatase 117 42 - 121 unit/L LAB CHEMISTRY METHOD 02/18/2025 4:49 PM EDT [facility] Total Protein 7.4 6.0 - 8.0 g/dL LAB CHEMISTRY METHOD 02/18/2025 4:49 PM EDT [facility] Albumin 4.0 3.2 - 5.0 g/dL LAB CHEMISTRY METHOD 02/18/2025 4:49 PM EDT [facility] Total Bilirubin 0.5 0.0 - 1.4 mg/dL LAB CHEMISTRY METHOD 02/18/2025 4:49 PM [facility] Blood Venous blood specimen / Unknown Venipuncture / Unknown 02/18/2025 2:18 PM EDT 02/18/2025 2:18 PM EDT Saleem DEL ROSARIO LAB BLOOD ORDERABLES Corina l Result [facility] [address] [place] [address], * Lipid panel with reflex to direct LDL (10/11/2024 10:56 AM EST) Cholesterol 167 0 - 200 mg/dL LAB CHEMISTRY METHOD 10/11/2024 2:38 PM [facility] Triglycerides 56 0 - 150 mg/dL LAB CHEMISTRY METHOD 10/11/2024 2:38 PM [facility] HDL 69 >=40 mg/dL LAB CHEMISTRY METHOD 10/11/2024 2:38 PM [facility] LDL Calculated 87 0 - 100 mg/dL LAB CHEMISTRY METHOD 10/11/2024 2:38 PM [facility] VLDL Cholesterol Tato 11.2 mg/dL LAB CHEMISTRY METHOD 10/11/2024 2:38 PM [facility] Non HDL Chol. (LDL+VLDL) 98 <145 mg/dL LAB CHEMISTRY METHOD 10/11/2024 2:38 PM EST [facility] Chol/HDL Ratio 2.4 0.0 - 4.4 LAB CHEMISTRY METHOD 10/11/2024 2:38 PM EST [facility] Blood Venous blood specimen / Unknown Venipuncture / Unknown 10/11/2024 10:56 AM EST 10/11/2024 10:56 AM EST Saleem DEL ROSARIO LAB BLOOD ORDERABLES Corina l Result [facility] [address] [place] [address], [place] [phone] * Falls Risk Assessment (04/30/2024) Falls Risk Assessment abstracted Historical Provider MD HEALTH MAINTENANCE Final Result * Depression Screening (03/19/2024) Depression Screening abstracted Historical Provider MD HEALTH MAINTENANCE Final Result * DXA BONE DENSITY STUDY 1+ SITS AXIAL SKEL (04/21/2017 9:13 AM EDT) Anatomical Region Laterality Modality Bone Densitometr y 04/07/2017 8:54 AM EDT Narrative 04/21/2017 1:09 PM EDT BONE DENSITY Lumbar Spine T-score is -2.2 (SD relative to 20-29 y/o adult) Z-score is +0.4 (SD relative to age matched peers) This is consistent with osteopenia by criteria defined by the WHO. Left Hip T-score is -2.8 Z-score is -0.5 This is consistent with osteoporosis by criteria defined by the WHO. Comparison exam(s): significant decrease in bone density of lumbar spine and hip when compared to most recent bone density examination Confidence level is +/-95%. Impression: Based on the World Health Organization criteria, Elisa Hernandez should be classified as having osteoporosis. The [facility] recommends using National [...] on the World Health Organization criteria, Elisa Hernandez should beclassified as having osteoporosis. The [facility] recommendsusing National Osteoporosis [...] fracture risk by FRAX. 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
--- NOTE | 2025-04-17 12:34 | A.OFFVIS_ITS ---
Vital Signs 04/17/25 12:35 Height 5 ft 5 in Intake Visit Reasons: After CTA Allergies codeine (CODEINE) Allergy (Mild, Verified 04/17/25 12:40) NAUSEA & VOMITING tramadol (TRAMADOL) Allergy (Mild, Verified 04/17/25 12:40) NAUSEA & VOMITING Medication List - Last Reconciled 04/17/25 by Neelam Lara CNP albuterol sulfate 90 mcg/actuation 2 inhalations inhalation Q4-6H PRN amlodipine 10 mg PO DAILY aspirin 81 mg PO DAILY carbidopa-levodopa 25-100 mg tabs PO BID hydrochlorothiazide 25 mg PO DAILY losartan 100 mg PO DAILY mupirocin 2% 1 appl topical BID 2 weeks omeprazole 20 mg PO BID simvastatin 20 mg PO BEDTIME HPI Comments Details: 89-year-old woman with parkinsonism and tremor. She started to notice more shaking in left hand over the last few weeks. No difficulty eating, drinking, or swallowing. Balance could be off at times, but no falls. She had some trouble getting up from a chair. No recent headaches. She apparently saw rotary derrick operator and testing came back okay. Sleep was not so good. Mood was okay. 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 Anxiety Cerebral microvascular disease Parkinsonism GERD (gastroesophageal reflux disease) High cholesterol Hypertension Parkinson disease Surgical History History of back surgery Social History Alcohol intake: current Alcohol intake frequency: a few times a month Alcohol type: wine Patient Tobacco Use Status: Former Tobacco user Review of Systems Const Denies chills, Denies daytime sleepiness, Reports difficulty sleeping, Denies fatigue, Denies fever(s), Denies frequent falls, Denies headache(s), Denies increased appetite, Denies poor appetite, Denies snoring, Denies weakness, Denies weight gain and Denies weight loss Eyes Denies loss of vision ENT Denies vertigo, Denies dizziness and Denies headache(s) Card Denies chest pain at rest, Denies chest pain with activity, Denies leg edema and Denies palpitations Resp Denies snoring GI Denies constipation, Denies heartburn, Denies diarrhea and Denies nausea Denies urinary frequency, Denies urinary incontinence and Denies urinary urgency Musc Reports abnormal gait (balance difficulty), Reports numbness and Reports tingling Skin/Breast Denies dry skin and Denies rash Neuro Reports abnormal gait (balance difficulty), Denies vertigo, Denies dizziness, Denies frequent falls, Denies headache(s), Denies lack of coordination, Denies loss of vision, Denies memory loss, Reports numbness, Denies restless legs, Denies seizure-like activity, Reports tingling, Denies paresthesias, Reports tremor(s) and Denies weakness Psych Denies anxiety, Denies depression, Denies auditory hallucinations, Denies memory loss, Denies visual hallucinations and Denies suicidal ideation Endo Denies fatigue and Denies palpitations Physical Exam Const Other: General Appearance:? normal, in no acute distress. Skin:? no rashes, no significant birthmarks. Heart:? S1, S2 normal, no murmurs. Lungs:? clear anteriorly and posteriorly. Extremities:? no edema. Psych:? alert, oriented, cognitive function intact, cooperative with exam. Neuro Other: Mental Status:?Normal attention, orientation, memory and affect.? Cranial Nerves:?Pupils are equal, round and reactive to light. External occular muscles are intact. Visual de are full. Face is symmetrical. Facial sensations are normal. Tongue is midline. Palate elevates symmetrically. Shoulder shrugging is normal. Hearing to bedside conversation is normal. Sensory Exam:?....? Coordination:?No ataxia,?no titubation.? Gait Exam: Within normal limits. Cerebellar Signs:?[id number] is okay. Extrapyramidal System:?Slightly decreased facial expression and blinking. No rigidity. Mild bilateral hand postural tremor. Mild pill-rolling left hand tremor. Pronator Drift:?Not present.? Involuntary Movements:?Mild bilateral hand postural tremor. Mild pill-rolling tremor in left hand. Speech:?Normal.? Results Reviewed Results Reviewed: CTA at [facility] in February 2025: Mild atherosclerosis MRI brain WO at [place] in Dec 2024: Acute left occipital patchy infarct, mod chronic ischemic lesions Brain WO at in Aug 2018: Mild MVD Assessment & Plan Assessment & Plan (1) Parkinson disease: Code(s): G20.A1 - Parkinson's disease without dyskinesia, without mention of fluctuations Category: Medical Qualifiers: Dyskinesia presence: unspecified whether dyskinesia Fluctuating manifestations: unspecified whether manifestations fluctuate Qualified Code(s): G20.A1 - Parkinson's disease without dyskinesia, without mention of fluctuations Plan: Increase carbidopa-levodopa 25-100mg 1 tablet three times a day (2) 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 (3) Cerebral microvascular disease: Code(s): I67.89 - Other cerebrovascular disease Category: Medical Plan: Control blood pressure. Continue low dose aspirin and statin. Plan . 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
== END 2025-04-17 12:55 | disposition home or self-care (01) ==
LOC: HO.HSM 11:50
PROVIDERS: PCP Physician Assistant Medical; Referring Provider Physician Assistant Medical; Visit Provider Registered Nurse
DX: G20.A1 Parkinson's disease without dyskinesia, without mention of fluctuations (principal); I63.12 Cerebral infarction due to embolism of basilar artery; I67.89 Other cerebrovascular disease
CPT/HCPCS: 99214

== ENCOUNTER → 2025-04-17 11:49 | Outpatient (BNVA) | payer MEDICARE, SELFPAY | PROVIDERS: PCP Physician Assistant Medical; Referring Provider Physician Assistant Medical; Visit Provider Registered Nurse | DX: G20.A1 Parkinson's disease without dyskinesia, without mention of fluctuations (principal); I63.12 Cerebral infarction due to embolism of basilar artery; I67.89 Other cerebrovascular disease | CPT/HCPCS: 99212 ==

== ENCOUNTER 2025-05-08 16:18 | Emergency (ER) | payer MEDICARE, SELFPAY ==
--- NOTE | ~2025-05-08 | XR_ITS ---
EXAMINATION: XR LUMBOSACRAL SPINE CLINICAL INFORMATION: left lower back pain COMPARISON: None available. TECHNIQUE: Three views of the lumbosacral spine. FINDINGS: There is 17 degrees levoscoliosis. Posterior pedicle screws and rods are present at L5-S1. L2-3, L3-4, and L4-5 demonstrates disc space narrowing with endplate sclerosis and osteophytes. There is also facet sclerosis with osteophytes. Moderate abdominal aortic calcification is visible. XR/XR lumbar spine 2-3V IMPRESSION: Mild levoscoliosis. Moderate degenerative disc disease and facet osteoarthritis L2-3 through L4-5. PLIF at L5-S1. Electronically signed by: Donnell Bell MD 05/08/2025 05:00 PM EDT
[2025-05-08 16:32] VITALS: BP 147/56; PULSE 86; RESP 16; TEMP 36.2; O2SAT 100; BMI 22.5
--- NOTE | 2025-05-08 16:40 | ED.BACK ---
HPI - Back Pain/Injury General Chief Complaint: Back Pain/Injury Stated Complaint: lower back pain Time Seen by Provider: 05/08/25 16:38 Source: patient Mode of arrival: ambulatory Limitations: no limitations History of Present Illness ED Provider: KATHRYN VELASCO PA-C HPI Narrative: 89 year old female with pmhx significant for chronic pain syndrome, spinal stenosis, scoliosis, s/p L5-S1 fusion, parkinson's disease, GERD, HTN, HLD presents to the ED today for evaluation of acute on chronic left lower back pain that began on waking this morning. Pain is localized to left lower back. No radiation down left lower extremity. Reports long standing history of lower back pain. Reports following with pain management in the past for corticosteroid injections however these no longer help her discomfort. She has also followed with neuro spine surgeon who recommended surgical intervention however she declined at that time. She does not currently follow with anyone for her back pain. Reports trialing various pain medications in the past with out improvement in pain. Denies recent injury/trauma/falls. Reports previous spinal surgery >20 years ago. Denies IV drug use. Denies fever, chills, neck pain, bowel or bladder incontinence or retention, numbness/tingling/weakness in the lower extremities, dysuria, hematuria, saddle anesthesia. Related Data Home Medications ?Medication ?Instructions ?Recorded ?Confirmed amlodipine 10 mg tablet 10 mg PO DAILY 06/18/24 04/17/25 simvastatin 20 mg tablet 20 mg PO BEDTIME 06/18/24 04/17/25 aspirin 81 mg tablet,delayed 81 mg PO DAILY 04/17/25 04/17/25 release hydrochlorothiazide 25 mg tablet 25 mg PO DAILY 04/17/25 04/17/25 losartan 100 mg tablet 100 mg PO DAILY 04/17/25 04/17/25 omeprazole 20 mg capsule,delayed 20 mg PO BID 04/17/25 04/17/25 release Previous Rx's ?Medication ?Instructions ?Recorded albuterol sulfate 90 mcg/actuation 2 inh inhalation Q4-6H PRN 07/19/23 breath activated powder inhaler shortness of breath or wheezing #1 ea mupirocin 2 % topical ointment 1 appl topical BID 2 weeks #22 12/20/24 grams carbidopa 25 mg-levodopa 100 mg 1 tab PO TID 90 days #270 tabs 04/17/25 tablet (Sinemet) lidocaine 5 % topical patch 1 patch topical DAILY #15 ea 05/08/25 (Lidoderm) prednisone 50 mg tablet 50 mg PO DAILY 5 days #5 tabs 05/08/25 cyclobenzaprine 5 mg tablet 5 mg PO TID PRN back pain 7 days 05/14/25 #21 tabs Allergies Allergy/AdvReac Type Severity Reaction Status Date / Time codeine (CODEINE) Allergy Mild NAUSEA & Verified 05/14/25 06:54 VOMITING tramadol (TRAMADOL) Allergy Mild NAUSEA & Verified 05/14/25 06:54 VOMITING Review of Systems Review of Systems: Constitutional: No fever, chills, fatigue, night sweats, weight changes ENT/Mouth: No ear pain, hearing loss, nasal congestion, sinus pain, rhinorrhea, sore throat Eyes: No eye pain, swelling, redness, vision changes, discharge Cardio: No chest pain, palpitations, LEA, orthopnea, peripheral edema Pulm: No SOB, cough, sputum, wheezing, dyspnea, hemoptysis GI: No nausea, vomiting, hematemesis, abdominal pain, diarrhea, constipation, hematochezia, melena : No irregular bleeding, dysuria, frequency, urgency, hesitancy, hematuria, flank pain, urinary flow changes, urinary incontinence or retention MSK: +back pain, No neck pain, joint pain, myalgias Skin: No lesions, rashes Neuro: No weakness, numbness, paresthesias, LOC, dizziness, headache All other systems reviewed and are negative. ON LICENSE OF [facility] Past Medical History Attestation statement: The following information was validated with the patient. 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 Anxiety Cerebral microvascular disease Parkinsonism GERD (gastroesophageal reflux disease) High cholesterol Hypertension Parkinson disease Surgical History History of back surgery Social History Social History Alcohol intake: current Alcohol intake frequency: holidays/special occasions only Alcohol type: wine Patient Tobacco Use Status: Former Tobacco user Advance Directives: No Advance Directives Information Provided: Yes Do you have a plan to hurt others: No Plan Physical Exam Vital Signs: Vital Signs: Last Vital Signs Temp 97.9 F 05/08/25 18:44 Pulse 82 05/08/25 18:44 Resp 16 05/08/25 18:44 BP 138/58 L 05/08/25 18:44 Pulse Ox 100 05/08/25 18:44 O2 Del Method Room Air 05/08/25 18:44 BMI result Body Mass Index 22.5 Vital signs stable, afebrile Const: General: cooperative, healthy appearing, comfortable, no acute distress, alert, awake and Physically active Orientation/consciousness: patient oriented x3 HEENT: Head: Yes normal to inspection, Yes normocephalic and Yes atraumatic Eyes: General: appearance normal, both eyes and all related structures Pupils: Equal, round and reactive pupils present EOM: EOMs intact bilaterally Neck: Other: + no cervical midline spinous tenderness or step-off deformity. Neck: Yes normal visual inspection, Yes full ROM and Yes no meningeal signs Resp: Effort & Inspection: normal respiratory effort Auscultation: clear to auscultation bilaterally Cardio: Rate: regular rate Rhythm: regular rhythm GI: Inspection: Yes normal to inspection Palpation (GI): Soft to palpation and nontender : General: Yes no CVA tenderness Back/Spine/Pelvis: Other: No midline spinous tenderness. No paraspinal muscle tenderness. No step off deformity. Back: no CVA tenderness Neuro: Other: Strength 5/5 intact throughout.? No saddle anesthesia.? Sensation intact to light touch.? Neurovascular intact distally.? General: patient oriented x3, gait normal and no meningeal signs Cranial nerves: Yes Equal, round and reactive pupils present Gait exam (Neuro): Normal gait present Course Course Course Narrative: Patient with long standing hx of low back pain. unchanged from priors without new injury. unresponsive to multiple pain meds in the past. patient has followed up with dr. curz and declining any surgical interventions. XR lumbar spine 2-3V IMPRESSION: Mild levoscoliosis. Moderate degenerative disc disease and facet osteoarthritis L2-3 through L4-5. PLIF at L5-S1 discussed symptom control interventions with patient - declining any muscle relaxers which I feel is reasonable given her age. she is ameanable to trialing a course of steroids. advised to follow up with dr. pennings as her last appointment was approx 1 yr ago. no neuro deficits. ambulating with slow but steady gait. Patient has remained stable throughout ED visit today. Discussed worrisome signs and symptoms and when to return to the ED. All questions answered at this time. Patient is agreeable with disposition and stable for discharge. Medications Administered Discontinued Medications Generic Name Dose Route Start Last Admin Trade Name Angela PRN Reason Stop Dose Admin Lidocaine 1 patch 05/08/25 17:28 05/08/25 17:38 Lidocaine 4 % Patch Adh..Patch TRANSDERMA 05/08/25 17:29 1 patch ONCE ONE Administration Protocol Prednisone 50 mg 05/08/25 17:28 05/08/25 17:39 Prednisone 10 Mg Tablet PO 05/08/25 17:29 50 mg ONCE ONE Administration Medical Decision Making Medical Decision Making [facility] Narrative: 89 year old female with pmhx significant for chronic pain syndrome, spinal stenosis, scoliosis, s/p L5-S1 fusion, parkinson's disease, GERD, HTN, HLD presents to the ED today for evaluation of acute on chronic left lower back pain that began on waking this morning. Concern for MSK sprain/strain, fracture, subluxation, disc herniation, sciatica. Unlikely cord compression, cauda equina, Guillain-Gadsden, epidural abscess. Plan for imaging and pain control. Differential Diagnosis Differential Diagnoses: The differential diagnosis associated with the presentation includes as above Admission/Observation Not indicated. Lab Data [facility] Lab Attestation statement: I reviewed the patient's lab results. as above Labs: Lab Results 05/08/25 Range/Units 17:18 Urine Color Yellow Urine Appearance Clear Urine pH 6.0 (5.0-9.0) Ur Specific [place] 1.015 (1.005-1.025) Urine Protein Trace (Neg-Trace) mg/dL Urine Glucose (UA) Negative (Negative) mg/dL Urine Ketones Trace (Negative) mg/dL Urine Blood Negative (Negative) Urine Nitrite Negative (Negative) Ur Leukocyte Esterase Moderate (2+) H (Negative) Urine RBC 0-2 (0-2) /HPF Urine WBC 21-50 H (0-5) /HPF Ur Squamous Epith Cells 0-2 (0-2) /HPF Urine Bacteria None Seen (None Seen) Hyaline Casts >20 (0-2) /LPF Independent Interpretation I performed an independent interpretation of an: Plain X-Ray Interpretation: xr without acute compression fracture Radiology Impression Discussion of test interpretation with radiology: I have reviewed the radiologist's reading. Radiologist Impression: Procedure(s): XR lumbar spine 2-3V Accession Number(s): [id number] cc: Kathryn Velasco; Saleem Gutiérrez~ EXAMINATION: XR LUMBOSACRAL SPINE CLINICAL INFORMATION: left lower back pain COMPARISON: None available. TECHNIQUE: Three views of the lumbosacral spine. FINDINGS: There is 17 degrees levoscoliosis. Posterior pedicle screws and rods are present at L5-S1. L2-3, L3-4, and L4-5 demonstrates disc space narrowing with endplate sclerosis and osteophytes. There is also facet sclerosis with osteophytes. Moderate abdominal aortic calcification is visible. XR/XR lumbar spine 2-3V IMPRESSION: Mild levoscoliosis. Moderate degenerative disc disease and facet osteoarthritis L2-3 through L4-5. PLIF at L5-S1. Electronically signed by: Donnell Bell MD 05/08/2025 05:00 PM EDT External Record Review External record reviewed: Inpatient record Prescription Management I considered prescription management with: Pain Medication and Other (Muscle relaxer, steroid) Critical Care Time Critical Care Time Critical Care Time: No Discharge Plan Discharge Clinical Impression: Lumbago Patient Disposition: Home, Self-Care Instructions: Acute Low Back Pain (ED) Additional Instructions: You were evaluated in the Emergency Department today for your back pain.? The xray of your lumbar spine shows previous rods in place. There are also arthritic degenerative changes. Your urine does not show urinary tract infection. Use ice several times per day for 20 minutes at a time for the next 48 hours and then change to heat. I recommend you take 600mg ibuprofen every 6 hours or tylenol 650mg every 6 hours as needed for pain. If needed, you can alternate these medications so that you take one medication every 3 hours. For example, at noon take ibuprofen, then at 3pm take tylenol, then at 6pm take ibuprofen. Prednisone is a steroid that has been sent to your pharmacy. take this as prescribed for the next 5 days. Lidoderm patches are numbing patches. Apply to painful areas. Please schedule an appointment for follow-up with your primary care provider this week for further evaluation of your symptoms. Please follow up with neuro spine (Dr. Cruz) to discuss further management. You have been provided with their referrral, call them to establish care. Return to the Emergency Department if you experience worsening back pain, difficulty walking, fevers, numbness, tingling, incontinence, or any other concerning symptoms. In the case of an emergency call 911. Prescriptions: New prednisone 50 mg tablet 50 mg PO DAILY 5 Days Qty: 5 0RF lidocaine [Lidoderm] 5 % adhesive patch,medicated 1 patch topical DAILY Qty: 15 0RF Rx Instructions: leave on most painful area for up to 12 hrs No Action mupirocin 2 % ointment 1 appl topical BID 14 Days Qty: 22 0RF albuterol sulfate 90 mcg/actuation aerosol powdr breath activated 2 inh inhalation Q4-6H PRN (Reason: shortness of breath or wheezing) Qty: 1 0RF cyclobenzaprine 5 mg tablet 5 mg PO TID PRN (Reason: back pain) 7 Days Qty: 21 0RF amlodipine 10 mg tablet 10 mg PO DAILY simvastatin 20 mg tablet 20 mg PO BEDTIME aspirin 81 mg tablet,delayed release (DR/EC) 81 mg PO DAILY omeprazole 20 mg capsule,delayed release(DR/EC) 20 mg PO BID hydrochlorothiazide 25 mg tablet 25 mg PO DAILY losartan 100 mg tablet 100 mg PO DAILY carbidopa-levodopa [Sinemet] 25-100 mg tablet 1 tab PO TID 90 Days Qty: 270 0RF Referrals: He Cruz MD, PhD [Physician, Neuro Spine] Saleem Gutiérrez PA [Primary Care Provider, Internal Medicine] Interventions: ED Discharge Assessment Last Done: 05/08/25 18:44 Discharge Date/Time: 05/08/25 18:46 Print Language: Jordanian
--- OUTSIDE RECORDS SUMMARY | 2025-05-08 17:06 | XMS_ITS ---
Author Name [facility] Organization Unknown Care Team Organization Name Specialty Phone Email Start Date End Da te [facility] Anuradha Amaro Primary [facility] 10/17/20222023 [facility] Saleem Gutiérrez Primary Care 08/16/2022
--- NOTE | 2025-05-08 17:24 | MHC.EDTECH ---
pt ambulated well to and from the bathroom for urine output. UA collected and sent to lab
[2025-05-08 17:29] LABS: Appearance Urine Clear; Glucose Urine UA Negative (Negative); PH 6.0 (5.0-9.0); Specific Gravity - Urine 1.015 (1.005-1.025); UMIC TRIGGER UACC YES
[2025-05-08] MEDS: Lidocaine 4 % Patch ADH..PATCH 1 PATCH TRANSDERMA (17:38)
[2025-05-08 17:41] LABS: UACC Culture Trigger YES
[2025-05-08 18:44] VITALS: BP 138/58; PULSE 82; RESP 16; TEMP 36.6; O2SAT 100
== END 2025-05-08 18:46 | disposition home or self-care (01) ==
PROVIDERS: Physician Assistant Medical; Emergency Provider Emergency Medicine; PCP Physician Assistant Medical
DX: M54.50 Low back pain, unspecified (principal); Z79.899 Other long term (current) drug therapy
CPT/HCPCS: 72100; 81001; 87086; 99283; 99284

== ENCOUNTER → 2025-05-08 16:38 | Outpatient (BNV) | payer MEDICARE, SELFPAY | PROVIDERS: Emergency Provider Emergency Medicine; PCP Physician Assistant Medical; Visit Provider Radiology Diagnostic Radiology | DX: M51.369 Other intervertebral disc degeneration, lumbar region without mention of lumbar back pain or lower extremity pain (principal) | CPT/HCPCS: 72100 ==

== ENCOUNTER → 2025-05-14 06:39 | Outpatient (BNV) | payer MEDICARE, SELFPAY | PROVIDERS: Visit Provider Radiology Diagnostic Radiology | DX: K44.9 Diaphragmatic hernia without obstruction or gangrene (principal); M51.360 Other intervertebral disc degeneration, lumbar region with discogenic back pain only | CPT/HCPCS: 72100; 74176 ==

== ENCOUNTER 2025-05-14 06:48 | Emergency (ER) | payer MEDICARE, SELFPAY ==
--- NOTE | ~2025-05-14 | XR_ITS ---
EXAMINATION: XR LUMBAR SPINE 2-3 VIEWS HISTORY: lower back pain COMPARISON: Comparison is made with the prior examination dated 05/08/2025. FINDINGS: AP, lateral, and coned down views of the lumbar spine are submitted. The bones are osteopenic. There is scoliosis. The patient is again noted to be status post posterior fusion of L5 and S1 with pedicle screws and spinal stabilization rods. The vertebral bodies maintain normal height without evidence of fracture. There is moderate degenerative disc disease with disc space narrowing and osteophyte formation. There is calcification of the abdominal aorta. XR/XR lumbar spine 2-3V IMPRESSION: Osteopenia and scoliosis. Status post posterior fusion of L5 and S1. Moderate degenerative disc disease. Electronically signed by: Dwayne Osuna MD 05/14/2025 08:27 AM EDT
--- NOTE | ~2025-05-14 | CT_ITS ---
EXAMINATION: CT ABDOMEN PELVIS WITHOUT IV CONTRAST HISTORY: flank pain, low back pain COMPARISON: Comparison is made with the prior examination dated 06/18/2024. TECHNIQUE: CT scan of the abdomen and pelvis was performed without contrast using standard departmental protocol. Coronal and sagittal reformatted images were generated and reviewed. Oral contrast material was not administered at the request of the referring physician. This CT exam was performed with one or more of the following dose reduction techniques: automated exposure control, adjustment of the mA and/or kV according to patient size, use of iterative reconstruction technique. DLP: 330 mGy-cm FINDINGS: LOWER CHEST: The visualized lung bases are clear. There is no pleural effusion. CARDIOVASCULATURE: The heart is normal in size. There is no pericardial effusion. LIVER: The liver is normal in size and contour. The liver has an unremarkable unenhanced appearance. GALLBLADDER / BILE DUCTS: The gallbladder is distended, without evidence of calcified stones. There is no intra or extrahepatic biliary ductal dilatation. SPLEEN: The spleen is normal in size and has an unremarkable unenhanced appearance. PANCREAS: The pancreas has an unremarkable unenhanced appearance. ADRENAL GLANDS: Unremarkable. KIDNEYS/RETROPERITONEUM: No renal or ureteral calculi are identified. There is no hydronephrosis or hydroureter. LYMPH NODES: No retroperitoneal lymphadenopathy is identified in the abdomen or pelvis. VASCULATURE: The abdominal aorta demonstrates atherosclerotic calcification, but is normal in caliber. MESENTERY/PERITONEUM: No free fluid. No masses. There is no free intraperitoneal gas. STOMACH: There is a large hiatal hernia which is new from the prior study. The remainder of the stomach is collapsed. SMALL BOWEL: The small bowel is normal in caliber. COLON: There is a large amount of stool throughout the colon. APPENDIX: Normal. URINARY BLADDER/PELVIC ORGANS: The urinary bladder is unremarkable. There are calcifications in the uterus which likely represent fibroids. BONES / SOFT TISSUES: The patient is status post posterior fusion of L5-S1 with pedicle screws. There is a moderate degenerative disc disease. Evaluation is limited by streak artifact. CT/CT abdomen pelvis wo IV con IMPRESSION: 1. Large hiatal hernia. 2. Large amount of stool throughout the colon. 3. Degenerative disc disease of the spine. Status post posterior fusion of L5 and S1. Electronically signed by: Dwayne Osuna MD 05/14/2025 10:08 AM EDT RP
[2025-05-14 06:51] VITALS: BP 148/65; PULSE 66; RESP 18; TEMP 36.6; O2SAT 99; BMI 22.8
--- OUTSIDE RECORDS SUMMARY | 2025-05-14 07:52 | XMS_ITS | Clinical Summary ---
Author Organization [facility] Address [address] [place] [address] Phone Care Team Providers Care Industrial Technology Teacher Name Role Phone Saleem Gutiérrez Primary Care Provider [phone] Allergies Active Allergy Reactions Criticality Noted Date Comments Codeine Itching 09/05/2005 Other Reaction(s): Hives/Urticaria Tramadol Hcl Nausea And Vomiting 03/11/2010 dizzy Medications polyethylene glycol (MIRALAX) 17 gram packet Take 1 Packet by mouth 2 times daily. 024 Active losartan (COZAAR) 100 mg tablet Take 1 tablet (100 mg total) by mouth 1 (one) time each day. 90 tablet 3 025 Active HYDROcodone-aceta minophen (NORCO) 5-325 mg per [...] Max Daily Amount: 4 tablets 28 tablet 025 Active triamcinolone (KENALOG) 0.1 % ointment Apply topically 2 (two) times a day if needed for irritation or rash. 30 g 3 025 Active omeprazole (PriLOSEC) [address] capsule Take 1 capsule (20 mg total) by mouth 2 (two) times a day before meals. 180 capsule 3 025 Active carbidopa-levodop a (PARCOPA) 25-100 mg per disintegrating tablet Dissolve 1 tablet on top of the tongue 3 (three) times a day. Active hydroCHLOROthiazi de (HYDRODIURIL) 25 mg tablet Take 1 tablet (25 mg total) by mouth 1 (one) time each day. 90 each 1 025 2025 Active simvastatin (ZOCOR) 20 mg tablet TAKE 1 TABLET AT BEDTIME 90 tablet 1 Active amLODIPine (NORVASC) 10 mg tablet TAKE 1 TABLET DAILY 90 tablet 1 Active carbidopa-levodop a (PARCOPA) 25-100 mg per disintegrating tablet Take 1 tablet by mouth 2 (two) times a day. 2024 Discontinued(D ose adjustment) simvastatin (ZOCOR) 20 mg tablet Take 1 tablet (20 mg total) by mouth at bedtime. at bedtime. 90 tablet 3 025 2024 Discontinued hydroCHLOROthiazi de (HYDRODIURIL) 25 mg tablet Take 1 tablet (25 mg total) by mouth 1 (one) time each day. 30 each 5 025 2024 Discontinued(R eorder) amLODIPine (NORVASC) 10 mg tablet Take 1 tablet (10 mg total) by mouth 1 (one) time each day. 30 each 5 025 2024 Discontinued Active Problems Problem Noted Date Diagnosed Date Bilateral carotid artery stenosis 02/18/2025 Hx of stroke without residual deficits Stage 3b chronic kidney disease ([facility]/HCC V24, CM S/HCC V28) 11/12/2024 Parkinson disease ([facility]/HCC V24, [facility] V28) 12/2019 Tremor of left [...] Encounters Date Type Department Care Team Description 05/08/2025 Telephone Adult Medicine [address] [phone] Saleem Gutiérrez PA Back Pain 04/28/2025 11:15 AM EDT Office Visit Adult [address] [phone] Herlinda Mcgovern PA Primary hypertension (Primary Dx); Other hyperlipidemia; Stage 4 chronic kidney disease (CMS/HCC V24, CMS/HCC V28); Parkinson's disease without dyskinesia or fluctuating manifestations (CMS/HCC V24, CMS/HCC V28); Spinal stenosis of lumbar region with neurogenic claudication 03/13/2025 10:30 AM EDT Ancillary Procedure [facility] [address] [address] Cerebrovascular accident (CVA), unspecified mechanism (CMS/HCC V24, CMS/HCC V28) 03/11/2025 Telephone Adult Medicine [address] [phone] Saleem Gutiérrez PA call back 02/18/2025 1:30 PM EDT Office Visit Adult [address] [phone] Saleem Gutiérrez PA Left facial swelling (Primary Dx); Bilateral carotid artery stenosis; Cheilitis; Abnormal results of thyroid function studies 02/17/2025 Telephone Adult Medicine [address] [phone] Teresa Collins MA Facial Swelling from Last [...] COMMENT: Negative UPPER GASTROINTESTINAL ENDOSCOPY 01/04/2021 PROCEDURE: [place] UPPER GI ENDOSCOPY PERFORMED; COMMENT: Medium sized [...] Sign Reading Time Taken Comments Blood Pressure 138/53 04/28/2025 11:02 AM EDT Pulse 82 04/28/2025 11:02 AM EDT Temperature 36.3 C (97.4 F) 04/28/2025 11:02 AM EDT Respiratory Rate 14 02/18/2025 1:28 PM EDT Oxygen Saturation - - Inhaled Oxygen Concentration - - Weight 60.8 kg (134 lb) 04/28/2025 11:02 AM EDT Height 160 cm (5' 3 ) 04/28/2025 11:02 AM EDT Body Mass Index 23.74 04/28/2025 11:02 AM EDT Plan of Treatment Upcoming Encounters Date Type Department Care Team (Late st Contact Info) Description 05/26/2025 10:30 AM EDT Office Visit Gastroenterology - [place] [address] [place] [id number] Pastora Arriola PA [address] [place] [address] 05/28/2025 2:30 PM EDT Consult Vascular Surgery - [place] [address] [place] [address] Christine Maldonado MD [address] [facility] [address] [place] [address] 07/29/2025 11:00 AM EDT Office Visit Adult Medicine [facility] [address] [place] [phone] Heber Garg MD [address] [place] [address] Health Maintenance Due Date Last Done Comments Social Influencers of Health Screening 09/17/2022 COVID-19 Vaccine ( season) 2024 08/23/2023, 07/21/2022, 02/13/2022, Additional history exists Depression Screening 10/09/2024 03/19/2024 Medicare Annual Wellness Visit 03/19/2025 03/19/2024 Falls Risk Assessment 04/30/2025 04/30/2024 Influenza Vaccine (#1) 2025 , 07/06/2023, 06/17/2022, Additional history exists Hypertension/CHF/CAD Annual BMP Blood Test 04/28/2026 04/28/2025, 03/07/2025, 02/18/2025, Additional history exists Cholesterol Screening (Lipid Panel) 04/28/2030 04/28/2025, 10/11/2024, 11/15/2023 Osteoporosis Screening (Bone Density Screening) 04/21/2032 04/21/2017 DTaP,Tdap,and Td Vaccines (3 - Td or Tdap) 06/17/2032 06/17/2022, 06/23/2008 Pneumococcal Vaccine: 50+ Years Completed 03/12/2015, 06/24/2003 Zoster Vaccines Completed 10/18/2022, 1112/2021, 03/01/2012 RSV Immunization Adult Patients Completed 09/07/2023 [...] Procedure Name Priority Date/Time Associated Diagnosis Comments CBC WITH AUTO DIFFERENTIAL Routine 04/28/2025 11:52 AM EDT Primary hypertension Hyperlipidemia, unspecified hyperlipidemia type Parkinson's disease without dyskinesia or fluctuating manifestations (CMS/HCC V24, CMS/HCC V28) Stage 3b chronic kidney disease (CMS/HCC V24, CMS/HCC V28) LIPID PANEL WITH REFLEX TO DIRECT LDL Routine 04/28/2025 11:52 AM EDT Primary hypertension Hyperlipidemia, unspecified hyperlipidemia type Parkinson's disease without dyskinesia or fluctuating manifestations (CMS/HCC V24, CMS/HCC V28) Stage 3b chronic kidney disease (CMS/HCC V24, CMS/HCC V28) COMPREHENSIVE METABOLIC PANEL Routine 04/28/2025 11:52 AM EDT Primary hypertension Hyperlipidemia, unspecified hyperlipidemia type Parkinson's disease without dyskinesia or fluctuating manifestations (CMS/HCC V24, CMS/HCC V28) Stage 3b chronic kidney disease (CMS/HCC V24, CMS/HCC V28) MICROALBUMIN CREATININE URINE RATIO Routine 04/28/2025 11:52 AM EDT Primary hypertension Hyperlipidemia, unspecified hyperlipidemia type Parkinson's disease without dyskinesia or fluctuating manifestations (CMS/HCC V24, CMS/HCC V28) Stage 3b chronic kidney disease (CMS/HCC V24, CMS/HCC V28) CBC AND DIFFERENTIAL Routine 04/28/2025 11:52 AM EDT Primary hypertension Hyperlipidemia, unspecified hyperlipidemia type Parkinson's disease without dyskinesia or fluctuating manifestations (CMS/HCC V24, CMS/HCC V28) Stage 3b chronic kidney disease (CMS/HCC V24, CMS/HCC V28) TRANSTHORACIC ECHOCARDIOGRAM (TTE) COMPLETE Routine 03/13/2025 11:10 AM EDT Cerebrovascular accident (CVA), unspecified mechanism (CMS/HCC V24, CMS/HCC V28) BASIC METABOLIC PANEL Routine 03/07/2025 2:17 [...] carotid artery stenosis Cheilitis Left facial swelling FALLS RISK ASSESSMENT Routine 04/30/2024 DEPRESSION SCREENING Routine 03/19/2024 DXA BONE DENSITY STUDY 1+ SITS AXIAL SKEL Routine 04/21/2017 9:13 AM EDT Encounter for screening for osteoporosis from Last 3 Months or Most Recently Relevant to Health Maintenance Results * Lipid panel with reflex to direct LDL (04/28/2025 11:52 AM EDT) Cholesterol 159 0 - 200 mg/dL LAB CHEMISTRY METHOD 04/28/2025 7:13 PM T [facility] Triglycerides 84 0 - 150 mg/dL LAB CHEMISTRY METHOD 04/28/2025 7:13 PM EDT [facility] HDL 60 >=40 mg/dL LAB CHEMISTRY METHOD 04/28/2025 7:13 PM EDT [facility] LDL Calculated 82 0 - 100 mg/dL LAB CHEMISTRY METHOD 04/28/2025 7:13 PM EDT [facility] VLDL Cholesterol Tato 16.8 mg/dL LAB CHEMISTRY METHOD 04/28/2025 7:13 PM T [facility] Non HDL Chol. (LDL+VLDL) 99 <145 mg/dL LAB CHEMISTRY METHOD 04/28/2025 7:13 PM EDT [facility] Chol/HDL Ratio 2.7 0.0 - 4.4 LAB CHEMISTRY METHOD 04/28/2025 7:13 PM EDT [facility] Blood Venous blood specimen / Unknown Venipuncture / Unknown 04/28/2025 11:52 AM EDT 04/28/2025 11:52 AM EDT us Saleem DEL ROSARIO LAB BLOOD ORDERABLES Corina young Result [facility] [address] [place] [address], * (ABNORMAL) CBC auto differential (04/28/2025 11:52 AM EDT) Only the most recent of2 resultswithin the time period is included. WBC 6.7 4.8 - 10.8 K/mcL LAB HEMETOLOGY METHOD 04/28/2025 3:26 PM EDT [facility] RBC 4.10 3.80 - 4.80 M/mcL LAB HEMETOLOGY METHOD 04/28/2025 3:26 PM EDT [facility] Hemoglobin 11.8 11.5 - 16.0 g/dL LAB HEMETOLOGY METHOD 04/28/2025 3:26 PM EDT [facility] Hematocrit 37.1 35.0 - 47.0 % LAB HEMETOLOGY METHOD 04/28/2025 3:26 PM EDT [facility] MCV 91.4 79.0 - 98.0 FL LAB HEMETOLOGY METHOD 04/28/2025 3:26 PM EDT [facility] MCH 29.1 27.0 - 32.0 pcg LAB HEMETOLOGY METHOD 04/28/2025 3:26 PM [facility] MCHC 31.8(L) 32.0 - 37.0 g/dL LAB HEMETOLOGY METHOD 04/28/2025 3:26 PM EDT [facility] RDW 12.8 11.0 - 15.0 % LAB [facility]OLOGY [facility] Platelets 281 130 - 400 K/mcL LAB HEMETOLOGY METHOD 04/28/2025 3:26 PM [facility] MPV 11.9(H) 7.0 - 11.0 FL LAB HEMETOLOGY METHOD 04/28/2025 3:26 PM [facility] NRBC 0.0 <1.0 % LAB HEMETOLOGY METHOD 04/28/2025 3:26 PM [facility] NRBC Absolute 0.00 <0.10 K/mcL LAB HEMETOLOGY METHOD 04/28/2025 3:26 PM [facility] Neutrophils Relative 57.6 % LAB HEMETOLOGY METHOD 04/28/2025 3:26 PM [facility] Lymphocytes Relative 29.1 % LAB HEMETOLOGY METHOD 04/28/2025 3:26 PM [facility] Monocytes Relative 11.7 % LAB HEMETOLOGY METHOD 04/28/2025 3:26 PM [facility] Eosinophils Relative 0.9 % LAB HEMETOLOGY METHOD 04/28/2025 3:26 PM [facility] Basophils Relative 0.4 % LAB HEMETOLOGY METHOD 04/28/2025 3:26 PM [facility] Immature Granulocytes Relative 0.3 % LAB HEMETOLOGY METHOD 04/28/2025 3:26 PM [facility] Neutrophils Absolute 3.87 1.50 - 7.00 K/mcL LAB HEMETOLOGY METHOD 04/28/2025 3:26 PM [facility] Lymphocytes Absolute 1.96 1.00 - 5.00 K/mcL LAB HEMETOLOGY METHOD 04/28/2025 3:26 PM [facility] Monocytes Absolute 0.79 0.20 - 1.00 K/mcL LAB HEMETOLOGY METHOD 04/28/2025 3:26 PM EDT [facility] Eosinophils Absolute 0.06 0.00 - 0.50 K/[facility] LAB HEMETOLOGY METHOD 04/28/2025 3:26 PM EDT [facility] Basophils Absolute 0.03 0.00 - 0.20 K/[facility] LAB HEMETOLOGY METHOD 04/28/2025 3:26 PM EDT [facility] Immature Granulocytes Absolute 0.02 0.00 - 0.03 K/[facility] LAB HEMETOLOGY METHOD 04/28/2025 3:26 PM EDT [facility] Blood Venous blood specimen / Unknown Venipuncture / Unknown 04/28/2025 11:52 AM EDT 04/28/2025 11:52 AM EDT Saleem DEL ROSARIO LAB BLOOD ORDERABLES Corina young Result [facility] [address] [place] [address], * Microalbumin creatinine urine ratio (04/28/2025 11:52 AM EDT) Only the most recent of2 resultswithin the time period is included. Creatinine, Urine 211.0 mg/dL LAB CHEMISTRY METHOD 04/28/2025 5:01 PM EDT [facility] Microalb, Ur 26.6 0.0 - 29.0 mg/L LAB CHEMISTRY METHOD 04/28/2025 5:01 PM EDT [facility] Microalb/Creat Ratio 13 <30 mg/g creat LAB CHEMISTRY METHOD 04/28/2025 5:01 PM EDT [facility] Urine Urine specimen obtained by clean catch procedure / Unknown Non-blood Collection / Unknown 04/28/2025 11:52 AM EDT 04/28/2025 11:52 AM EDT us Saleem DEL ROSARIO LAB URINE ORDERABLES Corina young Result [facility] [address] [place] [address], [place] [phone] * (ABNORMAL) Comprehensive metabolic panel (04/28/2025 11:52 AM EDT) Only the most recent of2 resultswithin the time period is included. Sodium 136 133 - 145 mmol/L LAB CHEMISTRY METHOD 04/28/2025 7:13 PM EDT [facility] Potassium 4.3 3.5 - 5.5 mmol/L LAB CHEMISTRY METHOD 04/28/2025 7:13 PM [facility] Chloride 104 96 - 110 mmol/L LAB CHEMISTRY METHOD 04/28/2025 7:13 PM [facility] CO2 25 21 - 32 mmol/L LAB CHEMISTRY METHOD 04/28/2025 7:13 PM [facility] Anion Gap 7 3 - 11 LAB CHEMISTRY METHOD 04/28/2025 7:13 PM [facility] Glucose 143(H) 70 - 100 mg/dL LAB CHEMISTRY METHOD 04/28/2025 7:13 PM [facility] BUN 25 5 - 25 mg/dL LAB CHEMISTRY METHOD 04/28/2025 7:13 PM [facility] Creatinine 1.92(H) 0.50 - 1.10 mg/dL LAB CHEMISTRY METHOD 04/28/2025 7:13 PM [facility] eGFR 25(L) >=60 mL/min/1. 73m2 LAB CHEMISTRY METHOD 04/28/2025 7:13 PM [facility] Comment:Calculation based on the Chronic Kidney Disease Epidemiology Collaboration (CKD-EPI) equation refit without adjustment for race. BUN/Creatinine Ratio 13.0 LAB CHEMISTRY METHOD 04/28/2025 7:13 PM EDT [facility] Calcium 10.2 8.5 - 10.5 mg/dL LAB CHEMISTRY METHOD [facility] AST (SGOT) 15 10 - 42 unit/L LAB CHEMISTRY METHOD 04/28/2025 7:13 PM [facility] ALT (SGPT) 15 10 - 60 unit/L LAB CHEMISTRY METHOD 04/28/2025 7:13 PM EDT [facility] Alkaline Phosphatase 108 42 - 121 unit/L LAB CHEMISTRY METHOD 04/28/2025 7:13 PM T [facility] Total Protein 7.2 6.0 - 8.0 g/dL LAB CHEMISTRY METHOD 04/28/2025 7:13 PM [facility] Albumin 4.3 3.2 - 5.0 g/dL LAB CHEMISTRY METHOD 04/28/2025 7:13 PM [facility] Total Bilirubin 0.6 0.0 - 1.4 mg/dL LAB CHEMISTRY METHOD 04/28/2025 7:13 PM [facility] Blood Venous blood specimen / Unknown Venipuncture / Unknown 04/28/2025 11:52 AM EDT 04/28/2025 11:52 AM EDT us Saleem DEL ROSARIO LAB BLOOD ORDERABLES Corina l Result [facility] [address] [place] [address], * (ABNORMAL) TRANSTHORACIC ECHOCARDIOGRAM (TTE) COMPLETE (03/13/2025 [...] 93 mL CV PACS Left Atrium Minor Marks 6.1 cm CV PACS Left Atrium Major Marks 6.1 cm CV PACS LA Area Sys [...] Proximal 2.1 cm CV PACS MV Deceleration Vermilion 6.2 m/s2 CV PACS E Wave Deceleration [...] Details Overall the study quality was adequate. us Saleem DEL ROSARIO CV ECHO PROCEDURES Final Result * (ABNORMAL) Basic metabolic panel (03/07/2025 2:17 PM EDT) [facility] Signature Sodium 137 133 - 145 mmol/L LAB CHEMISTRY METHOD 03/07/2025 5:45 PM EDT [facility] Potassium 4.5 3.5 - 5.5 mmol/L LAB CHEMISTRY METHOD 03/07/2025 5:45 PM [facility] Chloride 106 96 - 110 mmol/L LAB CHEMISTRY METHOD 03/07/2025 5:45 PM [facility] CO2 25 21 - 32 mmol/L LAB CHEMISTRY METHOD 03/07/2025 5:45 PM [facility] Anion Gap 6 3 - 11 LAB CHEMISTRY METHOD 03/07/2025 5:45 PM [facility] Glucose 120(H) 70 - 100 mg/dL LAB CHEMISTRY METHOD 03/07/2025 5:45 PM [facility] BUN 30(H) 5 - 25 mg/dL LAB CHEMISTRY METHOD 03/07/2025 5:45 PM [facility] Creatinine 1.99(H) 0.50 - 1.10 mg/dL LAB CHEMISTRY METHOD 03/07/2025 5:45 PM [facility] eGFR 24(L) >=60 mL/min/1. 73m2 LAB CHEMISTRY METHOD 03/07/2025 5:45 PM [facility] Comment:Calculation based on the Chronic Kidney Disease Epidemiology Collaboration (CKD-EPI) equation refit without adjustment for race. BUN/Creatinine Ratio 15.1 LAB CHEMISTRY METHOD 03/07/2025 5:45 PM [facility] Calcium 9.4 8.5 - 10.5 mg/dL LAB CHEMISTRY METHOD 03/07/2025 5:45 PM [facility] Blood Venous blood specimen / Unknown Venipuncture / Unknown 03/07/2025 2:17 PM EDT 03/07/2025 2:17 PM EDT us Saleem DEL ROSARIO LAB BLOOD ORDERABLES Corina l Result [facility] [address] [place] [address], [place] [phone] * External CT Report (03/05/2025) Only the most recent of2 resultswithin the time period is included. Anatomical Region Laterality Modality Computed Tomogra phy [facility] IMG CT PROCEDURES Final Result * External clinical lab (03/05/2025) Only the most recent of2 resultswithin the time period is included. [facility] LAB BLOOD ORDERABLES Fin al Result * (ABNORMAL) Urinalysis with reflex microscopic (02/18/2025 2:18 PM EDT) Specific [place] Urine 1.012 1.003 - 1.030 LAB URINALYSIS - AUTOMATED METHOD 02/18/2025 4:25 PM [facility] pH, Urine 6.0 5.0 - 8.0 pH LAB URINALYSIS - AUTOMATED METHOD 02/18/2025 4:25 PM [facility] Leukocytes, Urine Moderate(A) Negative LAB URINALYSIS - AUTOMATED METHOD 02/18/2025 4:25 PM [facility] Nitrite, Urine Negative Negative LAB URINALYSIS - AUTOMATED METHOD 02/18/2025 4:25 PM [facility] Protein, Urine Negative <=Trace mg/dL LAB URINALYSIS - AUTOMATED METHOD 02/18/2025 4:25 PM [facility] Glucose, Urine Negative Negative mg/dL LAB URINALYSIS - AUTOMATED METHOD 02/18/2025 4:25 PM [facility] Ketones, Urine Negative Negative mg/dL LAB URINALYSIS - AUTOMATED METHOD 02/18/2025 4:25 PM [facility] Urobilinogen , Urine 1.0 0.2 - 1.0 mg/dL LAB URINALYSIS - AUTOMATED METHOD 02/18/2025 4:25 PM [facility] Bilirubin, Urine Negative Negative LAB URINALYSIS - AUTOMATED METHOD 02/18/2025 4:25 PM EDT [facility] Blood, Urine Negative Negative LAB URINALYSIS - AUTOMATED METHOD 02/18/2025 4:25 PM EDT [facility] RBC, Urine 1.5 0 - 4 /HPF LAB URINALYSIS - AUTOMATED METHOD 02/18/2025 4:25 PM EDT [facility] WBC, Urine 14.9(H) 0 - 4 /HPF LAB URINALYSIS - AUTOMATED METHOD 02/18/2025 4:25 PM EDT [facility] Squamous Epithelial, Urine 49 0 - 60 /LPF LAB URINALYSIS - AUTOMATED METHOD 02/18/2025 4:25 PM EDT [facility] Bacteria, Urine Negative Negative /HPF LAB URINALYSIS - AUTOMATED METHOD [facility] Hyaline Casts, Urine 0.8 0 - 3 /LPF LAB URINALYSIS - AUTOMATED METHOD 02/18/2025 4:25 PM EDT [facility] Urine Urine specimen obtained by clean catch procedure / Unknown Non-blood Collection / Unknown 02/18/2025 2:18 PM EDT 02/18/2025 2:18 PM EDT us Saleem DEL ROSARIO LAB URINE ORDERABLES Corina young Result [facility] [address] [place] [address], * Thyroid stimulating hormone with reflex to free t4 and free t3 (02/18/2025 2:18 PM EDT) TSH 3.16 0.40 - 4.00 mcIU/mL LAB CHEMISTRY METHOD 02/18/2025 5:43 PM EDT [facility] Blood Venous blood specimen / Unknown Venipuncture / Unknown 02/18/2025 2:18 PM EDT 02/18/2025 2:18 PM EDT Saleem DEL ROSARIO LAB BLOOD ORDERABLES Corina l Result [facility] [address] [place] [address], [place] [phone] * B-type natriuretic peptide (02/18/2025 2:18 PM EDT) [facility] BNP 58 <=100 pcg/mL LAB CHEMISTRY METHOD 02/18/2025 5:12 PM EDT [facility] Blood Venous blood specimen / Unknown Venipuncture / Unknown 02/18/2025 2:18 PM EDT 02/18/2025 2:18 PM EDT Saleem DEL ROSARIO LAB BLOOD ORDERABLES Corina l Result [facility] [address] [place] [address], [place] [phone] * Falls Risk Assessment (04/30/2024) [facility] Falls Risk Assessment abstracted Historical Provider HEALTH MAINTENANCE Final Result * Depression Screening (03/19/2024) [facility] Depression Screening abstracted Historical Provider HEALTH MAINTENANCE Final Result * DXA BONE [...] should be classified as having osteoporosis. The [facility] Department of Internal Medicine recommends using National [...] Hernandez should beclassified as having osteoporosis. The [facility] Department of Internal Medicine recommendsusing National Osteoporosis [...] fracture risk by FRAX. Robbie Arias MD [facility] DXA PROCEDURES Final Result from Last 3 Months or Most Recently Relevant to Health Maintenance Insurance MEDICARE [facility] Care Teams Industrial Technology Teacher Relationship Specialty Start Date End Date Saleem Gutiérrez PA [address] [place] [address] PCP - General Internal Medicine 08/06/24
--- NOTE | 2025-05-14 09:08 | ED_ITS ---
HPI - General Adult General Chief complaint: Back Pain/Injury Stated complaint: Back Pain, Rx not helping Time Seen by Provider: 05/14/25 08:59 Source: patient and family (patient's daughter (via telephone)) Mode of arrival: wheelchair Limitations: no limitations History of Present Illness ED Provider: Nicolle Escobedo PA-C HPI narrative: Patient is an 89 year old assigned female at with a history of stroke, CPS, spinal stenosis, scoliosis, s/p L5-S1, Parkinson's disease, GERD, HTN, and HLD presenting to the emergency department today with continued low back pain. Patient states that over the last week she has had low back pain, was seen here on 05/08/2025 and prescribed a steroid which she states is not helping and her pain continues. Patient states that she lives with her daughter. Patient denies any dizziness, lightheadedness, abdominal pain, nausea, vomiting, fever, chills, blurry vision, double vision, loss of vision, chest pain, difficulty breathing, shortness of breath, night sweats, pain with urination, increased urinary frequency, increased urinary urgency, blood in her urine or stool, syncope or a near syncopal episode, recent trauma or falls, bowel incontinence, bladder incontinence, or any other complaints at this time. Relieving factors: none Exacerbating factors: none Associated symptoms: denies other symptoms Treatments prior to arrival: none Related Data Home Medications ?Medication ?Instructions ?Recorded ?Confirmed amlodipine 10 mg tablet 10 mg PO DAILY 06/18/2404/08 simvastatin 20 mg tablet 20 mg PO BEDTIME 06/18/24 aspirin 81 mg tablet,delayed 81 mg PO DAILY 04/17/25 0 04/17/25 release hydrochlorothiazide 25 mg tablet 25 mg PO DAILY 04/17/25 losartan 100 mg tablet 100 mg PO DAILY 04/17/2508/02 omeprazole 20 mg capsule,delayed 20 mg PO BID 04/17/25 04/17/25 release Previous Rx's ?Medication ?Instructions ?Recorded albuterol sulfate 90 mcg/actuation 2 inh inhalation Q4 -6H PRN 07/19/23 breath activated powder inhaler shortness of breath or wheezing #1 ea mupirocin 2 % topical ointment 1 appl topical BID 2 we eks #22 12/20/24 grams carbidopa 25 mg-levodopa 100 mg 1 tab PO TID 90 days # 270 tabs 04/17/25 tablet (Sinemet) lidocaine 5 % topical patch 1 patch topical DAILY #15 ea 05/08/25 (Lidoderm) prednisone 50 mg tablet 50 mg PO DAILY 5 days #5 tab s 05/08/25 cyclobenzaprine 5 mg tablet 5 mg PO TID PRN back pain 7 days 05/14/25 #21 tabs Allergies Allergy/AdvReac Type Severity Reaction Status Date / Time codeine (CODEINE) Allergy Mild NAUSEA & Verified 05/14/25 06:54 VOMITING tramadol (TRAMADOL) Allergy Mild NAUSEA & Verified 05/14/25 06:54 VOMITING Review of Systems 2 Constitutional: Constitutional: Reports no additional constitutional complaints, Denies chills, Denies fever(s) and Denies night sweats Eyes: Eyes: Reports no additional eye complaints, Denies blurry vision, Denies change in vision, Denies diplopia, Denies eye discharge, Denies loss of vision and Denies eye pain ENT: Denies dizziness Cardiovascular: Cardiovascular: Reports no additional cardiovascular complaints, Denies chest pain, Denies lightheadedness, Denies Loss of Consciousness and Denies dyspnea Respiratory: Respiratory: Reports no additional respiratory complaints and Denies dyspnea Gastrointestinal: Gastrointestinal: Reports no additional gastrointestinal complaints, Denies abdominal pain, Denies melena, Denies hematochezia, Denies change in bowel habits and Denies change in stool character Genitourinary: Genitourinary: Denies hematuria, Denies urinary frequency, Denies dysuria, Denies urinary incontinence, Denies urinary hesitancy and Denies urinary urgency Musculoskeletal: Musculoskeletal: Reports no additional musculoskeletal complaints, Reports back pain, Denies numbness and Denies tingling Neurologic: Denies dizziness, Denies loss of vision, Denies numbness and Denies tingling Psychiatric: Psychiatric: Reports no additional psychiatric complaints Endocrine: Endocrine: Reports no additional endocrine complaints Hematologic/Lymphatic: Hematologic/Lymphatic: Reports no additional hematologic/lymphatic complaints Allergic/Immunologic: Allergic/Immunologic: Reports no additional allergic/immunologic complaints PMFSH Past Medical History Attestation statement: The following information was validated with the patient. 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 Anxiety Cerebral microvascular disease Parkinsonism GERD (gastroesophageal reflux disease) High cholesterol Hypertension Parkinson disease Surgical History History of back surgery Social History Social History Alcohol intake: current Alcohol intake frequency: holidays/special occasions only Alcohol type: wine Patient Tobacco Use Status: Former Tobacco user Advance Directives: No Advance Directives Information Provided: Yes Do you have a plan to hurt others: No Plan Physical Exam ED Vital Signs: Vital Signs - 24 hr 05/14/25 06:51 05/14/25 10:02 05/14/25 11:27 Temperature 98 F 97.6 F Pulse Rate 66 81 Respiratory Rate 18 16 16 Blood Pressure 148/65 H 153/85 H 139/56 L Pulse Oximetry 99 97 Oxygen Delivery Method Room Air Room Air 05/14/25 13:56 05/14/25 15:57 Temperature 97.1 F 97.1 F Pulse Rate 66 66 Respiratory Rate 16 16 Blood Pressure 128/52 L 128/52 L Pulse Oximetry 99 99 Oxygen Delivery Method Room Air Room Air BMI result Body Mass Index 22.8 Const General: cooperative, no acute distress, alert and awake Nutritional Appearance: well nourished Orientation/consciousness: patient oriented x3 HENMT Head: Yes normal to inspection and Yes atraumatic Ears: hearing grossly normal bilaterally and external ears normal General nose exam: Normal external nose present, no nasal discharge noted and no epistaxis Face and sinus: Yes normal facial exam, No abrasion and No laceration Mouth: Normal oral and palatal mucosa present, no drooling and no muffled voice Eyes General: appearance normal, both eyes and all related structures Periorbital: periorbital findings normal Eyelids: Yes eyelids normal Conjunctivae: conjunctivae normal Pupils: Equal, round and reactive pupils present EOM: EOMs intact bilaterally Neck Neck: Yes normal visual inspection, Yes full ROM and Yes no lymphadenopathy Resp Effort & Inspection: normal respiratory effort and able to speak in complete sentences Neuro General: patient oriented x3, moves all extremities and CN's II-XI intact bilaterally Cranial nerves: Yes Equal, round and reactive pupils present Cognition (Neuro): normal cognition Extrem General: Yes normal to inspection, Yes full ROM and Yes capillary refill normal Psych Appearance: grossly normal Mental Status: mental status grossly normal Affect: normal affect Attitude: cooperative Thought process: Normal thought process present Thought content: Normal thought content present Insight: Good insight present (Psych) Medications Administered Discontinued Medications Generic Name Dose Route Start Last Admin Trade Name Freq PRN Reason Stop Dose Admin Diazepam 5 mg 05/14/25 09:22 05/14/25 10:04 Diazepam 10 Mg/2 Ml Cartridge IVPUSH 05/14/25 09:23 5 mg STAT STA Administration Hydromorphone HCl 0.5 mg 05/14/25 11:05 05/14/25 11:26 Hydromorphone Hcl 0.5 Mg/0.5 Ml Syringe IVPUSH 05/14/25 11:06 0.5 mg ONCE ONE Administration Protocol Sodium Chloride 1,000 mls @ 999 mls/hr 05/14/25 10:30 05/14/25 12:12 Ns IV 05/14/25 11:30 Infused .Q1H1M MARTÍNEZ Infusion Sodium Biphosphate/Sodium Phosphate 133 ml 05/14/25 12:28 05/14/25 12:40 Sodium Phosphate,Hill-Dibasic 133 Ml Enema NE 05/14/25 12:29 133 ml ONCE ONE Administration Medical Decision Making Medical Decision Making [facility] Narrative: Patient is an 89 year old assigned female at with a history of stroke, CPS, spinal stenosis, scoliosis, s/p L5-S1, Parkinson's disease, GERD, HTN, and HLD presenting to the emergency department today with continued low back pain. Patient's physical exam was unremarkable. Patient's blood work showed an elevated WBC count however, this is likely secondary to her recent prednisone use. Patient's urine showed no acute process. Patient's CT abd/pelvis showed a large amount of stool but otherwise unremarkable. I explained my physical exam findings as well as all test results to the patient and the patient's daughter. I answered all questions asked by the patient and the patient's daughter. Patient received an enema and had a successful bowel movement, IV valium, and IV dilaudid which, upon re-evaluation, she stated it helped her symptoms some. I spoke with the patient and her daughter about the patient being evaluated by the physical therapy and case management teams. Patient and her daughter declined this at this time and stated they felt safe taking her home. I stressed the importance of the patient taking her medication as directed (either prescribed or as the over the counter packaging recommends). I stressed the importance of the patient following up with her primary care provider and her dispatch specialist. I stressed the importance of the patient returning to the emergency department immediately if her symptoms were to worsen or if she were to develop any dizziness, shortness of breath, difficulty breathing, chest pain, blurry vision, loss of vision, nausea, vomiting, abdominal pain, fever, chills, back pain, or any other complaints. Patient and the patient's daughter verbalized agreement and understanding with this treatment plan and discharge. Differential Diagnosis Differential Diagnoses: The differential diagnosis associated with the presentation includes Acute on chronic low back pain Constipation Admission/Observation Consideration of admission/observation: Escalation of care including admission/observation considered Patient would have been admitted to the hospital had her work up had any findings where hospital admission was appropriate and her clinical presentation warranted hospital admission. Lab Data [facility] Lab Attestation statement: I reviewed the patient's lab results. My interpretation of these results are in the [facility] Rationale portion of this note. 05/14/25 09:56 05/14/25 09:56 Labs: Lab Results 05/14/25 05/14/25 Range/Units 09:56 11:13 WBC 13.7 H (4.8-10.8) X10*3/uL RBC 4.29 (4.20-5.50) X10*6/uL Hgb 12.5 (12.0-16.0) g/dl Hct 36.9 L (37.0-47.0) % MCV 86.0 (80.0-98.0) fL MCH 29.1 (27.0-33.0) pg MCHC 33.9 (31.0-35.0) g/dl RDW 12.8 (11.0-16.0) % Plt Count 280 (160-400) X10*3/uL MPV 10.8 (9.4-12.3) fL Immature Gran % (Auto) 0.8 H (0.0-0.4) % Neut % (Auto) 73.7 H (45-73) % Lymph % (Auto) 12.3 L (20-40) % Hill % (Auto) 13.0 H (2-11) % Eos % (Auto) 0.1 (0-4) % Baso % (Auto) 0.1 (0-2) % Lymph # (Auto) 1.7 (1.2-4.9) X10*3/uL Hill # (Auto) 1.8 H (0.1-1.2) X10*3/uL Eos # (Auto) 0.0 (0.0-0.4) X10*3/uL Baso # (Auto) 0.0 (0.0-0.2) X10*3/uL Abs Immat Gran (auto) 0.11 H (0.00-0.03) X10*3/uL Absolute Neuts (auto) 10.1 H (2.0-8.3) x10*3/uL Absolute Nucleated RBC 0.000 (0.0-0.012) X10*3/uL Nucleated RBC % (auto) 0.0 (0.0-0.2) /100WBC Smear Tech's Comments VERIFIED Sodium 137 (135-145) mmol/L Potassium 3.7 D (3.3-5.1) mmol/L Chloride 103 (96-108) mmol/L Carbon Dioxide 26 (22-29) mmol/L Anion Gap 12 (12-20) BUN 35 H (9-16) mg/dL Creatinine 1.60 H (0.5-1.4) mg/dL Estim Creat Clear Calc 20.1 Estimated GFR 30 Random Glucose 90 (60-115) mg/dL Calcium 9.8 D (8.4-10.2) mg/dL Magnesium 2.2 (1.6-2.6) mg/dL Total Bilirubin 0.6 (0.0-1.0) mg/dL AST 16 (5-31) U/L ALT < 6 (0-31) U/L Alkaline Phosphatase 86 (39-117) U/L Total Protein 7.0 (6.5-8.0) g/dL Albumin 4.2 (3.5-5.0) g/dL Urine Color Yellow Urine Appearance Clear Urine pH 7.0 (5.0-9.0) Ur Specific [place] 1.010 (1.005-1.025) Urine Protein Negative (Neg-Trace) mg/dL Urine Glucose (UA) Negative (Negative) mg/dL Urine Ketones Negative (Negative) mg/dL Urine Blood Negative (Negative) Urine Nitrite Negative (Negative) Ur Leukocyte Esterase Moderate (2+) H (Negative) Urine RBC 0-2 (0-2) /HPF Urine WBC 6-10 H (0-5) /HPF Ur Squamous Epith Cells 0-2 (0-2) /HPF Urine Bacteria None Seen (None Seen) Hyaline Casts 0-2 (0-2) /LPF Independent Interpretation I performed an independent interpretation of an: CT Scan Interpretation: My interpretation is in agreement with the radiologist's impression of this imaging study. L Report Number: [id number]: Total DLP = 330.00 mGy-cm EXAMINATION: CT ABDOMEN PELVIS WITHOUT IV CONTRAST HISTORY: flank pain, low back pain COMPARISON: Comparison is made with the prior examination dated 06/18/2024. TECHNIQUE: CT scan of the abdomen and pelvis was performed without contrast using standard departmental protocol. Coronal and sagittal reformatted images were generated and reviewed. Oral contrast material was not administered at the request of the referring physician. This CT exam was performed with one or more of the following dose reduction techniques: automated exposure control, adjustment of the mA and/or kV according to patient size, use of iterative reconstruction technique. DLP: 330 mGy-cm FINDINGS: LOWER CHEST: The visualized lung bases are clear. There is no pleural effusion. CARDIOVASCULATURE: The heart is normal in size. There is no pericardial effusion. LIVER: The liver is normal in size and contour. The liver has an unremarkable unenhanced appearance. GALLBLADDER / BILE DUCTS: The gallbladder is distended, without evidence of calcified stones. There is no intra or extrahepatic biliary ductal dilatation. SPLEEN: The spleen is normal in size and has an unremarkable unenhanced appearance. PANCREAS: The pancreas has an unremarkable unenhanced appearance. ADRENAL GLANDS: Unremarkable. KIDNEYS/RETROPERITONEUM: No renal or ureteral calculi are identified. There is no hydronephrosis or hydroureter. LYMPH NODES: No retroperitoneal lymphadenopathy is identified in the abdomen or pelvis. VASCULATURE: The abdominal aorta demonstrates atherosclerotic calcification, but is normal in caliber. MESENTERY/PERITONEUM: No free fluid. No masses. There is no free intraperitoneal gas. STOMACH: There is a large hiatal hernia which is new from the prior study. The remainder of the stomach is collapsed. SMALL BOWEL: The small bowel is normal in caliber. COLON: There is a large amount of stool throughout the colon. APPENDIX: Normal. URINARY BLADDER/PELVIC ORGANS: The urinary bladder is unremarkable. There are calcifications in the uterus which likely represent fibroids. BONES / SOFT TISSUES: The patient is status post posterior fusion of L5-S1 with pedicle screws. There is a moderate degenerative disc disease. Evaluation is limited by streak artifact. CT/CT abdomen pelvis wo IV con IMPRESSION: 1. Large hiatal hernia. 2. Large amount of stool throughout the colon. 3. Degenerative disc disease of the spine. Status post posterior fusion of L5 and S1. Electronically signed by: Dwayne Osuna MD 05/14/2025 10:08 AM EDT RP Dictated By: Dwayne Osuna MD Signed By: Electronically signed by Dwayne Osuna MD 05/14/25 1008 Radiology Impression Discussion of test interpretation with radiology: I have reviewed the radiologist's reading. Independent Historian Clinical information obtained from an independent historian. History obtained from or confirmed by: Other (patient's daughter provided additional history and confirmed the history provided by the patient. ) Prescription Management I considered prescription management with: Pain Medication (patient prescribed pain medication) Critical Care Time Critical Care Time Critical Care Time: Yes Total Critical Care Time: 39 Attestation: I spent 39 minutes of Critical Care Time with this patient. This does not include time spent on separately reported billable procedures. Discharge Plan Discharge Clinical Impression: Muscle spasm Constipation Qualifiers: Constipation type: other constipation type Qualified Code(s): K59.09 - Other constipation Back pain Qualifiers: Back pain location: back pain in other location Chronicity: chronic Qualified Code(s): M54.89 - Other dorsalgia Patient Disposition: Home, Self-Care Instructions: Constipation (DC), Muscle Spasm (ED), Back Pain (ED) Additional Instructions: It is crucial you follow up with your dispatch specialist. Your CT scan of the abdomen/pelvis showed significant constipation - continue with your miralax regimen. You were able to express some of the stool while in the department after your enema. Follow up with your primary care provider. Return to the emergency department immediately if your symptoms worsen or if you develop any numbness, tingling, dizziness, shortness of breath, difficulty breathing, chest pain, blurry vision, loss of vision, nausea, vomiting, abdominal pain, fever, chills, back pain, or any other complaints. L If you do not have a primary care provider - call any of the below numbers to establish and follow up with a primary care provider. [facility] Primary Care ([place]) [phone] [place] [address], [address] [facility] Primary Care ([address] [place]) [phone] [place] [address], [address] [facility], [address] [facility] Primary Care ([address] [place]) [phone] [place] [address], [address] [facility], [address] [facility] Primary Care ([place]) [phone] [place] [address] 2 [facility], [address] [facility] Family Medicine [phone] [place] [address], [id number] Please see the information below about our Patient Portal. If you are not yet enrolled in the [facility] Patient Portal, you will receive an enrollment email invitation following your visit to any [facility] setting. You may also self-enroll in the Patient Portal by visiting our website: [email or web address] The following information is required to access the Patient Portal: - Your [facility] Medical Record Number - Your personal home email address (must match what is in your electronic medical record, Registration staff can assist with this) - Name - Date of Capabilities of the Patient Portal: - Message some providers - View upcoming appointments - Access your health summary, medical history, and visit history - View current conditions and allergies - View procedure and lab results - View your medications, including guidelines, side effects, and precautions - Complete pre-appointment questionnaires requested by your provider - Ready summary reports of your office visits and procedures To access the Patient Portal Mobile [employer], follow these directions: - Search [employer] in the [employer] Store or Google Play Store - Download the Chava - Search for [place] [facility] - Enter your login/password Prescriptions: New cyclobenzaprine 5 mg tablet 5 mg PO TID PRN (Reason: back pain) 7 Days Qty: 21 0RF No Action mupirocin 2 % ointment 1 appl topical BID 14 Days Qty: 22 0RF prednisone 50 mg tablet 50 mg PO DAILY 5 Days Qty: 5 0RF lidocaine [Lidoderm] 5 % adhesive patch,medicated 1 patch topical DAILY Qty: 15 0RF Rx Instructions: leave on most painful area for up to 12 hrs albuterol sulfate 90 mcg/actuation aerosol powdr breath activated 2 inh inhalation Q4-6H PRN (Reason: shortness of breath or wheezing) Qty: 1 0RF amlodipine 10 mg tablet 10 mg PO DAILY simvastatin 20 mg tablet 20 mg PO BEDTIME aspirin 81 mg tablet,delayed release (DR/EC) 81 mg PO DAILY omeprazole 20 mg capsule,delayed release(DR/EC) 20 mg PO BID hydrochlorothiazide 25 mg tablet 25 mg PO DAILY losartan 100 mg tablet 100 mg PO DAILY carbidopa-levodopa [Sinemet] 25-100 mg tablet 1 tab PO TID 90 Days Qty: 270 0RF Referrals: [facility] [Provider Group, Neurosurgery] Referral Note: Call to establish and follow up with a dispatch specialist if you do not want to see your current dispatch specialist. Interventions: ED Discharge Assessment Last Done: 05/14/25 15:57 Discharge Date/Time: 05/14/25 15:57 Print Language: Hungarian
[2025-05-14 10:02] VITALS: BP 153/85; PULSE 81; RESP 16; TEMP 36.4; O2SAT 97
[2025-05-14] MEDS: diazePAM 10 MG/2 ML CARTRIDGE 5 MG IVPUSH (10:04)
[2025-05-14 10:16] LABS: Hematocrit 36.9 % (37.0-47.0); Hemoglobin 12.5 g/dl (12.0-16.0); Imm Gran Abs Auto 0.11 X10*3/uL (0.00-0.03); Imm Gran Pct Auto 0.8 % (0.0-0.4); Lymphocytes Absolute Auto 1.7 X10*3/uL (1.2-4.9); MANUAL DIFF FLAG SCAN; Mean Corpuscular HGB Conc 33.9 g/dl (31.0-35.0); Mean Corpuscular Hemoglobin 29.1 pg (27.0-33.0); Mean Corpuscular Volume 86.0 fL (80.0-98.0); NRBC Abs Auto 0.000 X10*3/uL (0.0-0.012); NRBC Pct Auto 0.0 /100WBC (0.0-0.2); Platelet Count 280 X10*3/uL (160-400); Red Blood Count 4.29 X10*6/uL (4.20-5.50); SCAN SMEAR FLAG 1; White Blood Count 13.7 X10*3/uL (4.8-10.8)
[2025-05-14 10:19] LABS: Alanine Aminotransferase < 6 U/L (0-31); Albumin Level 4.2 g/dL (3.5-5.0); Alkaline Phosphatase 86 U/L (39-117); Anion Gap 12 (12-20); Aspartate Amino Transferase 16 U/L (5-31); Blood Urea Nitrogen 35 mg/dL (9-16); Calcium 9.8 mg/dL (8.4-10.2); Carbon Dioxide 26 mmol/L (22-29); Chloride 103 mmol/L (96-108); Creatinine Clr Calc Pharmacy 20.1; Estimated Glomerular Filt Rate 30; Magnesium 2.2 mg/dL (1.6-2.6); Potassium 3.7 mmol/L (3.3-5.1); Sodium 137 mmol/L (135-145); Total Protein 7.0 g/dL (6.5-8.0)
[2025-05-14 11:19] LABS: Appearance Urine Clear; Glucose Urine UA Negative (Negative); PH 7.0 (5.0-9.0); Specific Gravity - Urine 1.010 (1.005-1.025); UMIC TRIGGER UACC YES
[2025-05-14 11:21] LABS: UACC Culture Trigger YES
[2025-05-14 11:27] VITALS: BP 139/56; RESP 16
--- NOTE | 2025-05-14 13:18 | PC.NURSE ---
patient w/ loose and hard stool after enema, able to get up to commode w/ one assist.
[2025-05-14 13:56] VITALS: BP 128/52; PULSE 66; RESP 16; TEMP 36.2; O2SAT 99
[2025-05-14 15:57] VITALS: BP 128/52; PULSE 66; RESP 16; TEMP 36.2; O2SAT 99
== END 2025-05-14 15:57 | disposition home or self-care (01) ==
PROVIDERS: Physician Assistant Medical; Emergency Provider Emergency Medicine
DX: M54.50 Low back pain, unspecified (principal); M62.830 Muscle spasm of back; R79.89 Other specified abnormal findings of blood chemistry; G20.A1 Parkinson's disease without dyskinesia, without mention of fluctuations; R10.2 Pelvic and perineal pain; R11.0 Nausea; Z79.899 Other long term (current) drug therapy; Z87.891 Personal history of nicotine dependence
CPT/HCPCS: 36415; 72100; 74176; 80053; 81001; 83735; 85025; 87086; 96361; 96374; 96375; 99285; 99291; J1171; J3360

== ENCOUNTER 2025-05-27 14:23 | Emergency (ER) | payer MEDICARE, SELFPAY ==
--- NOTE | ~2025-05-27 | US_ITS ---
CLINICAL HISTORY: Niharika rule out --- Additional Notes or Special Instructions: GB and CBD only please US abdomen limited Comparison: US/RI/SR - US ABDOMEN LIMITED - 06/18/24 18:35 EDT Findings: The common duct is 5 mm in diameter. The gallbladder slightly distended measuring 10.7 cm in craniocaudal dimension. There is no sonographic Jovel sign. The main portal vein is antegrade. No ascites. IMPRESSION: Mildly distended gallbladder measuring 10.7 cm in craniocaudal dimension, otherwise unremarkable. This document has been electronically signed by: Kimberly Villarreal MD on 05/27/2025 19:49:53
--- NOTE | ~2025-05-27 | CT_ITS ---
EXAMINATION: CT ANGIOGRAM ABDOMEN AND PELVIS CLINICAL INFORMATION: Aorta dissection, rule out COMPARISON: Abdomen ultrasound and CT scan pelvis 06/18/2024 TECHNIQUE: Multiple axial images were obtained through the abdomen and pelvis following the administration of 100 mL of Omnipaque 350 intravenous contrast. Images were reviewed on a dedicated 3-D workstation. This CT examination was performed using dose optimization techniques as appropriate, variously including the following: *Automated exposure control *Adjustment of mA and/or kV according to patient size (this includes techniques or standardized protocols for targeted exams where dose is matched to indication/reason for exam; i.e. extremities or head) *Use of iterative reconstruction technique DLP: 541 mGY*cm FINDINGS: HEPATOBILIARY: There are diffuse fatty changes in liver with fatty sparing along the gallbladder fossa. There are no visible gallbladder stones. The gallbladder appears distended, increased from the prior. Gallbladder wall thickening is present. Extrahepatic bile duct diameter measures 8 mm which is likely normal for patient age. PANCREAS: The pancreas is homogeneous and unremarkable. SPLEEN: The spleen is homogeneous and without enlargement. ADRENALS: Unremarkable without nodules or mass. GENITOURINARY: There is no hydronephrosis. There is no nephrolithiasis. There is no bladder wall thickening. Small calcified fibroid is present in the uterine fundus. Ovaries are unremarkable. BOWEL: There is a sliding hiatal hernia involving the gastric fundus. The GI tract is unremarkable. There is moderate gaseous distention of the colon The appendix is nondilated and there is no wall thickening or inflammatory changes in the mesoappendix. LYMPHOVASCULAR: There is no adenopathy. There is no aneurysm but there is moderate to severe atherosclerotic calcification. There is no intimal flap to suggest a dissection. ABDOMINAL CAVITY and Wall: No ascites, mesenteric engorgement or fat stranding, or free air. There is no hernia. SOFT TISSUES: Unremarkable without abnormal masses or fluid collections. Skeletal structures: There is mild levoscoliosis. Moderate inferior endplate fracture of L1 is identified. Posterior pedicle screws and rods fusing L5-S1. There is moderate disc space narrowing and vacuum phenomena at L2-3. There is diffuse osteopenia. 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 Rectangular sclerotic region in the posterior left iliac bone is stable. CT/CT angio abdomen pelvis IMPRESSION: The gallbladder appears distended with wall thickening raising concern for cholecystitis. Consider follow-up right upper quadrant ultrasound. No aortic dissection. Moderate-sized sliding hiatal hernia. Fatty liver. 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 Electronically signed by: Donnell Bell MD 05/27/2025 05:43 PM EDT RP
--- NOTE | ~2025-05-27 | CT_ITS ---
EXAMINATION: CT ANGIOGRAM CHEST CLINICAL INFORMATION: aorta dissection, rule out COMPARISON: February 27, 2023 TECHNIQUE: Multiple axial images were obtained through the chest after the administration of 80 mL of Omnipaque 350 intravenous contrast. Extensive vascular post-processing including two-dimensional and three-dimensional reformatted images were created and reviewed on an independent workstation. This CT examination was performed using dose optimization techniques as appropriate, variously including the following: *Automated exposure control *Adjustment of mA and/or kV according to patient size (this includes techniques or standardized protocols for targeted exams where dose is matched to indication/reason for exam; i.e. extremities or head) *Use of iterative reconstruction technique DLP: 541 mGY*cm FINDINGS: THORACIC AORTA: There is no intimal flap to suggest dissection. There is moderate atherosclerotic calcifications. There is no aneurysm. LUNGS AND PLEURA: Linear density in the lateral segment right lower lobe and in the base of the right middle lobe is consistent with subsegmental atelectasis. 5 mm flat nodular density along the minor fissure is most consistent with an intrapulmonary lymph node. MEDIASTINUM: Sliding hiatal hernia involves a gastric fundus. CORONARY ARTERY CALCIFICATION: Present CHEST WALL/AXILLA: No axillary or internal mammary lymphadenopathy. BONES: There is hyperkyphosis. There is moderate disc space narrowing with vacuum phenomenon in the midthoracic spine. There is an inferior endplate fracture of L1 with 60% loss of height that is new since the prior CT. CT/CT angio chest aorta IMPRESSION: Age-indeterminate moderate inferior endplate fracture of L1. It is new since the CT performed February 2023. There is a sliding hiatal hernia involving gastric fundus. Moderate atherosclerotic disease involving the thoracic aorta without dissection or aneurysm. Fleischner guidelines were followed. Electronically signed by: Donnell Bell MD 05/27/2025 05:28 PM EDT
--- NOTE | 2025-05-27 14:24 | ED.GENADULT ---
HPI - General Adult General Chief complaint: Nausea/Vomiting/Diarrhea Stated complaint: ABD pain/N/V/Diarrhea.back pain,dizziness Time Seen by Provider: 05/27/25 14:24 Source: patient Mode of arrival: EMS Limitations: no limitations History of Present Illness ED Provider: Dr. Fagan HPI narrative: 89-year-old female history of chronic back pain lumbar spinal stenosis, Parkinson's disease presented hospital today for sudden onset of nausea vomiting. Patient stated that her abdomen does feel distended. She does take oxycodone regularly. She takes MiraLax as her bowel regimen. Denies any fever. Patient states that she was supposed to see her neurosurgeon today however due to her symptoms she is unable to go. Denies any dysuria denies any fever. She does endorse some diarrhea associated with this. She states the last time she had a normal bowel movement was 1 week ago. She shared that she is dry heaving due to the nausea. Related Data Home Medications ?Medication ?Instructions ?Recorded ?Confirmed amlodipine 10 mg tablet 10 mg PO DAILY 06/18/24 04/17/25 simvastatin 20 mg tablet 20 mg PO BEDTIME 06/18/24 04/17/25 aspirin 81 mg tablet,delayed 81 mg PO DAILY 04/17/25 04/17/25 release hydrochlorothiazide 25 mg tablet 25 mg PO DAILY 04/17/25 04/17/25 losartan 100 mg tablet 100 mg PO DAILY 04/17/25 04/17/25 omeprazole 20 mg capsule,delayed 20 mg PO BID 04/17/25 04/17/25 release Previous Rx's ?Medication ?Instructions ?Recorded albuterol sulfate 90 mcg/actuation 2 inh inhalation Q4-6H PRN 07/19/23 breath activated powder inhaler shortness of breath or wheezing #1 ea mupirocin 2 % topical ointment 1 appl topical BID 2 weeks #22 12/20/24 grams carbidopa 25 mg-levodopa 100 mg 1 tab PO TID 90 days #270 tabs 04/17/25 tablet (Sinemet) lidocaine 5 % topical patch 1 patch topical DAILY #15 ea 05/08/25 (Lidoderm) prednisone 50 mg tablet 50 mg PO DAILY 5 days #5 tabs 05/08/25 cyclobenzaprine 5 mg tablet 5 mg PO TID PRN back pain 7 days 05/14/25 #21 tabs Allergies Allergy/AdvReac Type Severity Reaction Status Date / Time codeine (CODEINE) Allergy Mild NAUSEA & Verified 05/27/25 14:36 VOMITING tramadol (TRAMADOL) Allergy Mild NAUSEA & Verified 05/27/25 14:36 VOMITING Review of Systems Review of Systems: Pertinent review of system as mentioned in HPI all systems otherwise negative. 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 Anxiety Cerebral microvascular disease Parkinsonism GERD (gastroesophageal reflux disease) High cholesterol Hypertension Parkinson disease Surgical History History of back surgery Social History Social History Alcohol intake: current Alcohol intake frequency: holidays/special occasions only Alcohol type: wine Patient Tobacco Use Status: Former Tobacco user Physical Exam ED Exam Exam: General: Pleasant, appears nauseous Head: Normacephalic, atraumatic ENT: oral mucosa dry, neck supple, no tracheal deviation Cardiovascular: regular rate, regular rhythm, no murmurs, rubbing, gallops Respiratory: CTAB, no wheeze, rales, rhonchi Gastrointestinal: Soft, non distended, diffuse tenderness on palpation Neurological: Awake and alert, no focal neurological deficit appreciated on exam Skin: Warm and dry Psychiatric: Appropriate mood and thoughts Vital Signs: Vital Signs - 24 hr 05/27/25 14:32 05/27/25 17:22 05/27/25 19:59 Temperature 97.5 F 97.9 F 98.7 F Pulse Rate 80 73 86 Respiratory Rate 16 14 20 Blood Pressure 134/71 146/53 H 138/65 Pulse Oximetry 99 96 97 Oxygen Delivery Method Room Air Room Air Room Air 05/27/25 21:34 Temperature 98.7 F Pulse Rate 86 Respiratory Rate 20 Blood Pressure 138/65 Pulse Oximetry 97 Oxygen Delivery Method Room Air BMI result Body Mass Index 23.8 Medications Administered Discontinued Medications Generic Name Dose Route Start Last Admin Trade Name Freq PRN Reason Stop Dose Admin Sodium Chloride 1,000 mls @ 999 mls/hr 05/27/25 15:15 05/27/25 16:41 Ns IV 05/27/25 16:15 Infused .Q1H1M MARTÍNEZ Infusion Iohexol 100 ml 05/27/25 16:41 05/27/25 16:42 Iohexol 350 Mg/Ml 100 Ml Infus..Btl IV 05/27/25 16:42 80 ml ONCE ONE Administration Ondansetron HCl 4 mg 05/27/25 15:04 05/27/25 15:18 Ondansetron Hcl 4 Mg/2 Ml Vial IVPUSH 05/27/25 15:05 4 mg ONCE ONE Administration Medical Decision Making Medical Decision Making [facility] Narrative: This is a 89-year-old female history of chronic back pain, CVA, Parkinson's disease presenting to ER today for evaluation of sudden onset of nausea vomiting. Given patient's age and risk factors we will obtain CT abdomen and pelvis. Abdominal lab work will be obtained as well. IV fluids were initiated for the patient. We will plan to give patient does IV Zofran for nausea. No sign of acute surgical abdomen on exam. I suspect patient may have constipation secondary to chronic opioid use. Upon review patient does have elevated creatinine. I did review patient's previous creatinine level in previous visits. Appears that it is climbing since December. Discussed with patient that it may be a good idea to rule out aortic dissection due to worsening creatinine and continue his back pain. Discussed the risk of IV contrast in setting of elevated creatinine. Patient understands those risks. She is amenable to pursuing CT angio to rule out Aortic dissection at this time. Patient CTA was negative for any signs of dissection. However she noted to have distended gallbladder. Ultrasound was performed. She does have a gallbladder measured at 10.7 cm. She is not tender in right upper quadrant no sign of Jovel's sign. Will plan to discharge patient is time. She is asymptomatic. Her nausea has improved. Patient no longer has abdominal pain. Patient looks well. She is amenable to the plan to follow up with her primary care doctor. Differential Diagnosis Differential Diagnoses: The differential diagnosis associated with the presentation includes Colitis, gastritis, pancreatitis, constipation, perforated gastrium Lab Data [facility] Lab Attestation statement: I reviewed the patient's lab results. 05/27/25 14:47 05/27/25 14:47 Labs: Lab Results 05/27/25 05/27/25 Range/Units 14:47 17:03 WBC 8.1 (4.8-10.8) X10*3/uL RBC 4.25 (4.20-5.50) X10*6/uL Hgb 12.3 (12.0-16.0) g/dl Hct 36.7 L (37.0-47.0) % MCV 86.4 (80.0-98.0) fL MCH 28.9 (27.0-33.0) pg MCHC 33.5 (31.0-35.0) g/dl RDW 12.5 (11.0-16.0) % Plt Count 264 (160-400) X10*3/uL MPV 10.4 (9.4-12.3) fL Immature Gran % (Auto) 0.4 (0.0-0.4) % Neut % (Auto) 80.2 H (45-73) % Lymph % (Auto) 8.9 L (20-40) % [place] % (Auto) 9.9 (2-11) % Eos % (Auto) 0.4 (0-4) % Baso % (Auto) 0.2 (0-2) % Lymph # (Auto) 0.7 L (1.2-4.9) X10*3/uL [place] # (Auto) 0.8 (0.1-1.2) X10*3/uL Eos # (Auto) 0.0 (0.0-0.4) X10*3/uL Baso # (Auto) 0.0 (0.0-0.2) X10*3/uL Abs Immat Gran (auto) 0.03 (0.00-0.03) X10*3/uL Absolute Neuts (auto) 6.5 (2.0-8.3) x10*3/uL Absolute Nucleated RBC 0.000 (0.0-0.012) X10*3/uL Nucleated RBC % (auto) 0.0 (0.0-0.2) /100WBC PT 10.7 L (10.9-12.4) SEC INR 0.9 (0.9-1.1) Sodium 132 L (135-145) mmol/L Potassium 4.0 (3.3-5.1) mmol/L Chloride 95 L (96-108) mmol/L Carbon Dioxide 25 (22-29) mmol/L Anion Gap 16 (12-20) BUN 31 H (9-16) mg/dL Creatinine 1.76 H (0.5-1.4) mg/dL Estim Creat Clear Calc 17.4 Estimated GFR 27 Random Glucose 129 H (60-115) mg/dL Calcium 9.8 (8.4-10.2) mg/dL Magnesium 2.4 (1.6-2.6) mg/dL Total Bilirubin 0.7 (0.0-1.0) mg/dL AST 18 (5-31) U/L ALT < 6 (0-31) U/L Alkaline Phosphatase 107 (39-117) U/L Troponin I High Sens 7.5 (<3.5-17.0) ng/L B-Natriuretic Peptide 52 (<100) pg/mL Total Protein 7.1 (6.5-8.0) g/dL Albumin 4.1 (3.5-5.0) g/dL Lipase 49 (8-78) U/L Urine Color Yellow Urine Appearance Clear Urine pH 6.5 (5.0-9.0) Ur Specific Squires 1.010 (1.005-1.025) Urine Protein Negative (Neg-Trace) mg/dL Urine Glucose (UA) Negative (Negative) mg/dL Urine Ketones Negative (Negative) mg/dL Urine Blood Negative (Negative) Urine Nitrite Negative (Negative) Ur Leukocyte Esterase Trace H (Negative) Urine RBC 0-2 (0-2) /HPF Urine WBC 0-5 (0-5) /HPF Ur Squamous Epith Cells 0-2 (0-2) /HPF Urine Bacteria None Seen (None Seen) Hyaline Casts 0-2 (0-2) /LPF Influenza Type A (PCR) NEGATIVE (Negative) Influenza Type B (PCR) NEGATIVE (Negative) RSV RNA Qual (PCR) NEGATIVE (Negative) SARS-CoV-2 RNA (RT-PCR) NEGATIVE (Negative) Independent Interpretation I performed an independent interpretation of an: CT Scan Radiology Impression Discussion of test interpretation with radiology: I have reviewed the radiologist's reading. Discharge Plan Discharge Clinical Impression: Nausea & vomiting Qualifiers: Vomiting type: unspecified Qualified Code(s): R11.2 - Nausea with vomiting, unspecified Patient Disposition: Home, Self-Care Additional Instructions: Please follow with your primary care doctor regards to her distended gallbladder. We have signs of right upper quadrant pain. Return to the ER. Prescriptions: No Action mupirocin 2 % ointment 1 appl topical BID 14 Days Qty: 22 0RF prednisone 50 mg tablet 50 mg PO DAILY 5 Days Qty: 5 0RF lidocaine [Lidoderm] 5 % adhesive patch,medicated 1 patch topical DAILY Qty: 15 0RF Rx Instructions: leave on most painful area for up to 12 hrs albuterol sulfate 90 mcg/actuation aerosol powdr breath activated 2 inh inhalation Q4-6H PRN (Reason: shortness of breath or wheezing) Qty: 1 0RF cyclobenzaprine 5 mg tablet 5 mg PO TID PRN (Reason: back pain) 7 Days Qty: 21 0RF amlodipine 10 mg tablet 10 mg PO DAILY simvastatin 20 mg tablet 20 mg PO BEDTIME aspirin 81 mg tablet,delayed release (DR/EC) 81 mg PO DAILY omeprazole 20 mg capsule,delayed release(DR/EC) 20 mg PO BID hydrochlorothiazide 25 mg tablet 25 mg PO DAILY losartan 100 mg tablet 100 mg PO DAILY carbidopa-levodopa [Sinemet] 25-100 mg tablet 1 tab PO TID 90 Days Qty: 270 0RF Interventions: ED Discharge Assessment Last Done: 05/27/25 21:34 Discharge Date/Time: 05/27/25 21:35 Print Language: Sri Lankan
[2025-05-27 14:26] VITALS: BP 138/70; PULSE 83; O2SAT 98
[2025-05-27 14:32] VITALS: BP 134/71; PULSE 80; RESP 16; TEMP 36.4; O2SAT 99; BMI 23.8
--- NOTE | 2025-05-27 14:38 | ECG_ITS ---
Test Reason : abd pain Blood Pressure : */* mmHG Vent. Rate : 80 BPM Atrial Rate : 80 BPM P-R Int : 174 ms QRS Dur : 72 ms QT Int : 354 ms P-R-T Axes : 56 33 8 degrees QTcB Int : 408 ms Normal sinus rhythm Septal infarct , age undetermined Abnormal ECG When compared with ECG of 13-Nov-2024 18:49, No significant change was found Referred By: Cherry Fagan Electronically Signed By: FREIDA GUTHRIE MD
[2025-05-27 14:51] LABS: MANUAL DIFF FLAG NO
[2025-05-27 14:54] LABS: Hematocrit 36.7 % (37.0-47.0); Hemoglobin 12.3 g/dl (12.0-16.0); Imm Gran Abs Auto 0.03 X10*3/uL (0.00-0.03); Imm Gran Pct Auto 0.4 % (0.0-0.4); Lymphocytes Absolute Auto 0.7 X10*3/uL (1.2-4.9); Mean Corpuscular HGB Conc 33.5 g/dl (31.0-35.0); Mean Corpuscular Hemoglobin 28.9 pg (27.0-33.0); Mean Corpuscular Volume 86.4 fL (80.0-98.0); NRBC Abs Auto 0.000 X10*3/uL (0.0-0.012); NRBC Pct Auto 0.0 /100WBC (0.0-0.2); Platelet Count 264 X10*3/uL (160-400); Red Blood Count 4.25 X10*6/uL (4.20-5.50); White Blood Count 8.1 X10*3/uL (4.8-10.8)
[2025-05-27 14:58] LABS: INTERNATIONAL NORM RATIO 0.9 (0.9-1.1); Prothrombin Time 10.7 SEC (10.9-12.4)
[2025-05-27 15:11] LABS: Alanine Aminotransferase < 6 U/L (0-31); Albumin Level 4.1 g/dL (3.5-5.0); Alkaline Phosphatase 107 U/L (39-117); Anion Gap 16 (12-20); Aspartate Amino Transferase 18 U/L (5-31); Blood Urea Nitrogen 31 mg/dL (9-16); Calcium 9.8 mg/dL (8.4-10.2); Carbon Dioxide 25 mmol/L (22-29); Chloride 95 mmol/L (96-108); Creatinine Clr Calc Pharmacy 17.4; Estimated Glomerular Filt Rate 27; Magnesium 2.4 mg/dL (1.6-2.6); Potassium 4.0 mmol/L (3.3-5.1); Sodium 132 mmol/L (135-145); Total Protein 7.1 g/dL (6.5-8.0)
[2025-05-27 15:13] LABS: B Type Natriuretic Peptide 52 pg/mL (<100)
[2025-05-27 15:27] LABS: Troponin-I High Sensitivity 7.5 ng/L (<3.5-17.0)
[2025-05-27 15:35] LABS: Lipase 49 U/L (8-78)
[2025-05-27 15:44] LABS: Resp Syncy Virus RNA Qual PCR NEGATIVE (Negative); SARS COV2 PCR INHOUSE NEGATIVE (Negative)
--- OUTSIDE RECORDS SUMMARY | 2025-05-27 16:20 | XMS_ITS | Encounter Summary ---
Author Organization [facility] Address [address] [place] [address] Care Team Providers Care Public Health Internship Name Role Phone Saleem Gutiérrez Primary Care Provider [phone] Reason for Referral * Imaging (Routine) - Authorized Specialty Diagnoses / Procedures Referred By Contac t Referred To Contact Radiology Diagnoses Abdominal pain, unspecified abdominal location Procedures CT Abdomen Pelvis wo Contrast Saleem Gutiérrez PA [address] [place] [address] Phone: tel: fax: CT Scan - [address] Phone: tel: fax: Referral ID Status Reason Start Date Expiration Date V isits Requested Visits Authorized [id number] Authorized 05/26/2025 05/26/2026 1 1 * Consultation (Urgent) - Authorized Specialty Diagnoses / Procedures Referred By Contac t Referred To Contact Gastroenterology Diagnoses Abdominal pain, unspecified abdominal location Saleem Gutiérrez PA [address] [place] [address] Phone: tel: fax: Gastroenterology - [place] [address] [facility] [address] [place] [address] Phone: tel: fax: Referral ID Status Reason Start Date Expiration Date Visits Requested Visits Authorized [id number] Authorized Specialty Services Required 05/26/2025 05/26/2026 1 1 Reason for Visit * Reason Onset Date Comments Results 05/24/2025 Encounter Details Date Type Department Care Team (Late st Contact Info) Description 05/24/2025 Telephone Adult Medicine [facility] [address] [place] [address] Saleem Gutiérrez PA [address] [place] [address] Results Social History Tobacco Use Types Packs/Day Years Used Date Smoking Tobacco: Former Cigarettes Q uit: 10/09/1987 Smokeless Tobacco: Never Alcohol Use Standard Drinks/Week Comments Yes 1 (1 standard drink = 0.6 oz pur e alcohol) Housing Instability Answer Date Recorde d Are you worried that in the next 2 months you may not have stable housing? No 05/21/2025 Food Access & Nutrition Answer Date Rec orded Do you have access to a vari ety of food including fruits and vegetables? Yes 05/21/2025 Health Literacy Answer Date Recorded How often do you need to hav e someone help you when you read instructions, pamphlets, or other written material from your doctor or pharmacy? Never 05/21/2025 Caregiver: How often do you need to have someone help you when you read instructions, pamphlets, or other written material from your doctor or pharmacy? Not on file 05/21/2025 Financial Risk Answer Date Recorded How hard is it for you to pa y for the very basics like food, housing, medical care, and air conditioning / heating? Not very hard 05/21/2025 Transportation Answer Date Recorded Has the lack of transportati on kept you from meetings, work, or from getting things needed for daily living? No Has the lack of transportati on kept you from medical appointments or from getting medications? No 05/21/2025 Social Isolation Answer Date Recorded How often do you feel lonely or isolated from th ose around you? Never 05/21/2025 Food Risk Answer Date Recorded Within the past 12 months we worried whether our food would run out before we got money to buy more. Never true 05/21/2025 Within the past 12 months th e food we bought just didn't last and we didn't have money to get more. Never true 05/21/2025 Dependent Care Answer Date Recorded Do you need help finding or paying for care for your loved ones. For example, childbirth and infant care teacher or elderly care for an older adult? No 05/21/2025 Education Answer Date Recorded Do you think completing more education or training, like finishing a GED, going to college, or learning a trade, would be helpful for you? No 05/21/2025 Employment and Income Answer Date Recor ded During the last four weeks, have you been actively looking for work? No 05/21/2025 Living Situation Answer Date Recorded What is your living situation? 0 05/21/2025 Comments No Sex and Gender Information Value Date Recorded Sex Assigned at Female 09/27/2024 3:11 PM EST Legal Sex Female 4:07 AM EST Gender Identity Female 09/27/2024 3:11 PM EST Sexual Orientation Straight 09/30/2024 8: 42 AM EST documented as of this encounter Ordered Prescriptions Prescription Sig Dispense Quantity Refills Last Filled Start Date End Date cyclobenzaprine (FLEXERIL) 10 mg tablet Take 1 tablet (10 mg total) by mouth 3 (three) times a day if needed for muscle spasms. 90 tablet 3 05/26/2025 calcitonin salmon (MIACALCIN) 200 unit/actuation nasal spray Administer 1 spray into one nostril 1 (one) time each day. 3.7 mL 3 05/26/2025 documented in this encounter Progress Notes * MIGUEL ÁNGEL Ozuna - 05/26/2025 12:36 PM EDT I spoke with the patient. She is having a lot of pain in the back over the last 2 to 3 weeks. Couldconsider vertebroplasty decided to start with some calcitonin nasal spray. She will be seeing the surgeon tomorrow patient to obtain MRI information. Also talked about diarrhea over the last couple of days and abdominal pain. She does have a history of chronic abdominal complaints but it sounds like things are worse lately. I suggested following up with GI and I did order a CT of her belly as well to evaluate discussed warning signs and symptoms * Polina Mccormick - 05/26/2025 9:56 AM EDT Patient returning your call regarding MRI test results * MIGUEL ÁNGEL Ozuna - 05/24/2025 11:09 AM EDT Tried calling pt regarding mri looks like she has a vertebral fx left detaled vm could consider calcitonin nasal spray and vertebroplasty documented in this encounter Plan of Treatment Upcoming Encounters Date Type Department Care Team (Late st Contact Info) Description 05/29/2025 2:[address] Scan - [address] [phone] 07/29/2025 11:00 AM EDT Office Visit Adult Medicine [facility] - [address] [phone] Heber Garg MD [address] [place], [place] 09/09/2025 10:50 AM EST Office Visit Gastroenterology - [place] [facility] [address] [facility] [address] [place] [phone] Pastora Arriola PA [address] [facility] [address] [place] [address] Scheduled Orders Name Type Priority Associated Diagnoses Orde r Schedule CT Abdomen Pelvis wo Contrast Imaging Routine Abdominal pain, unspecified abdominal location Expected: 05/26/2025, Expires: 05/26/2026 Scheduled Referrals Name Type Priority Associated Diagnoses Order Schedule Ambulatory referral to Gastroenterology Outpatient Referral Routine Abdominal pain, unspecified abdominal location 1 Occurrences starting 05/26/2025 until 05/26/2026 documented as of this encounter Visit Diagnoses Diagnosis Abdominal pain, unspecified abdominal location- Primary documented in this encounter Additional Health Concerns Assessment Noted Time PHQ-9 Depression Total Score: 25 025 10:03 AM EDT A fall risk assessment has been complete d for the patient 05/21/2025 10:02 AM EDT documented as of this encounter Care Teams Public Health Internship Relationship Specialty Start Date End Date Saleem Gutiérrez PA [address] [place] [address] PCP - General Internal Medicine 08/06/24 documented as of this encounter
[2025-05-27] MEDS: iohexoL 350 MG/ML 100 ML INFUS..BTL IV (16:42)
[2025-05-27 17:13] LABS: Appearance Urine Clear; Glucose Urine UA Negative (Negative); PH 6.5 (5.0-9.0); Specific Gravity - Urine 1.010 (1.005-1.025); UMIC TRIGGER UA YES
[2025-05-27 17:22] VITALS: BP 146/53; PULSE 73; RESP 14; TEMP 36.6; O2SAT 96
[2025-05-27 19:59] VITALS: BP 138/65; PULSE 86; RESP 20; TEMP 37.1; O2SAT 97
[2025-05-27 21:34] VITALS: BP 138/65; PULSE 86; RESP 20; TEMP 37.1; O2SAT 97
== END 2025-05-27 21:35 | disposition home or self-care (01) ==
PROVIDERS: Emergency Provider Student in an Organized Health Care Education/Training Program; PCP Physician Assistant Medical
DX: R11.2 Nausea with vomiting, unspecified (principal); R19.7 Diarrhea, unspecified; R14.0 Abdominal distension (gaseous); G20.A1 Parkinson's disease without dyskinesia, without mention of fluctuations; Z79.899 Other long term (current) drug therapy; Z03.818 Encounter for observation for suspected exposure to other biological agents ruled out
CPT/HCPCS: 36415; 71275; 74174; 76705; 80053; 81001; 83690; 83735; 83880; 84484; 85025; 85610; 87637; 93005; 96361; 96374; 99284; 99285; J2405; Q9967

== ENCOUNTER → 2025-05-27 14:38 | Outpatient (BNV) | payer MEDICARE, SELFPAY | PROVIDERS: Emergency Provider Student in an Organized Health Care Education/Training Program; PCP Physician Assistant Medical; Visit Provider Internal Medicine Cardiovascular Disease | DX: R94.31 Abnormal electrocardiogram [ECG] [EKG] (principal); R10.9 Unspecified abdominal pain | CPT/HCPCS: 93010 ==

== ENCOUNTER → 2025-05-27 16:06 | Outpatient (BNV) | payer MEDICARE, SELFPAY | PROVIDERS: Emergency Provider Student in an Organized Health Care Education/Training Program; PCP Physician Assistant Medical; Visit Provider Radiology Diagnostic Radiology | DX: K82.8 Other specified diseases of gallbladder (principal); I70.0 Atherosclerosis of aorta | CPT/HCPCS: 76705 ==

== ENCOUNTER 2025-05-30 13:53 | Outpatient (AMB) | payer MEDICARE, SELFPAY ==
--- NOTE | 2025-05-30 13:54 | HO.SPINEOV ---
Intake Visit Reasons: ED f/u Intake Note: Ms. Mcneil is here today for and ED F/u from her low back pain. Pharmacogeneticist Required: No Allergies codeine (CODEINE) Allergy (Mild, Verified 05/30/25 13:58) NAUSEA & VOMITING tramadol (TRAMADOL) Allergy (Mild, Verified 05/30/25 13:58) NAUSEA & VOMITING Assessment & Plan Assessment & Plan (1) Lumbago: Code(s): M54.50 - Low back pain, unspecified Category: Medical Plan HPI: Elisa is a pleasant 89-year-old female comes in today for evaluation of worsening low back pain. She is previously known to our service and was evaluated in December of last year. To recap she has a previous L5-S1 fusion, osteoporosis, and Parkinson's. I did previously review her symptoms with the attending neurosurgeon Dr. Cruz, who does not believe that she would be a good surgical candidate for lumbar fusion given her age and history of Parkinson's / osteoporosis. She states that a few weeks ago her low back pain significantly worsened without any known inciting incident. She was evaluated in the emergency department twice since then. She denies any shooting pains into her legs. She denies any numbness and tingling in her legs. She denies any issues with bowel/bladder incontinence. Physical exam: The patient is in a wheelchair for the examination, but does report that she is able to ambulate around her home. She has full 5/5 strength in her bilateral upper and lower extremities. No sensational deficits to light touch on examination. When describing her pain she runs her hands across the small of her low back. Imaging review: MRI imaging completed at [facility] is severely degraded secondary to motion artifact and previous surgical instrumentation at L5-S1. 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 Impression: Elisa is a pleasant 89-year-old female who comes in today for a subsequent evaluation after having an acute flare-up of low back pain a few weeks ago. She was evaluated in the emergency department and I compared her x-ray imaging from 05/08 to the extreme imaging from May 14, which shows a new compression fracture in the vertebral body of L2. The patient is interested in evaluation for potential kyphoplasty. I will refer her to our colleagues in pain management to discuss this. Marcio Cruz MD,PhD [facility] Orders: Referrals Pain Management Referral S32.020A - Wedge compression fracture of second lumbar vertebra, initial encounter for closed fracture Coding Level of Care Code Est Pt Level 2 (72522) Diagnoses Lumbago M54.50
--- OUTSIDE RECORDS SUMMARY | 2025-05-30 13:55 | XMS_ITS | Encounter Summary ---
Author Organization [facility] Address [address] [place] [address] Care Team Providers Care Fittings Finisher Name Role Phone Saleem Gutiérrez Primary Care Provider [phone] Reason for Referral * Imaging (Routine) - Authorized Specialty Diagnoses / Procedures Referred By Contac t Referred To Contact Radiology Diagnoses Abdominal pain, unspecified abdominal location Procedures CT Abdomen Pelvis wo Contrast Saleem Gutiérrez PA [address] [place] [address] Phone: tel: fax: CT Scan - [address] Phone: tel: fax: Referral ID Status Reason Start Date Expiration Date V isits Requested Visits Authorized [id number] Authorized 05/26/2025 05/26/2026 1 1 * Consultation (Urgent) - Authorized Specialty Diagnoses / Procedures Referred By Contac t Referred To Contact Gastroenterology Diagnoses Abdominal pain, unspecified abdominal location Saleem Gutiérrez PA [address] [place] [address] Phone: tel: fax: Gastroenterology - [place] [address] [facility] [address] [place] [address] Phone: tel: fax: Referral ID Status Reason Start Date Expiration Date Visits Requested Visits Authorized [id number] Authorized Specialty Services Required 05/26/2025 05/26/2026 1 1 Reason for Visit * Reason Onset Date Comments Results 05/24/2025 Encounter Details Date Type Department Care Team (Late st Contact Info) Description 05/24/2025 Telephone Adult Medicine [facility] [address] [place] [address] Saleem Gutiérrez PA [address] [place] [address] Results Social History Tobacco Use Types Packs/Day [...] care for your loved ones. For example, early childhood director or elderly care for an older adult? [...] Care Team (Late st Contact Info) Description 06/02/2025 10:30 AM EDT Office Visit Gastroenterology [facility] 175 [facility] [address] [address] Pastora Arriola PA 175 [facility] 200 [place] [address] 06/04/2025 3:30 PM EDT Consult Vascular Surgery [facility] [address] [facility] [[email or web address] [address] [place] [address] Cherise Matias MD 300 [facility] [address] [place] [address] 07/29/2025 11:00 AM EDT Office Visit Adult Medicine [facility] [address] [place] [address] Heber Garg MD [address] [place] [address] 09/09/2025 10:50 AM EST Office Visit Gastroenterology [facility] [address] [place] [address] Pastora Arriola PA [address] [facility] [address] [place] [address] Scheduled Referrals Name Type Priority Associated Diagnoses Order Schedule Ambulatory referral to Gastroenterology Outpatient Referral Routine Abdominal pain, unspecified abdominal location 1 Occurrences starting 05/26/2025 until 05/26/2026 documented as of this encounter Results * CT Abdomen Pelvis wo Contrast (05/29/2025 1:56 PM EDT) Anatomical Region Laterality Modality Body Computed Tomogra phy 05/29/2025 4:27 PM EDT Narrative 05/29/2025 4:[address] of the abdomen and pelvis without intravenous contrast. History acute abdominal pain. Diarrhea. Examination was performed on multidetector scanner without administration of intravenous contrast. Comparison with previous examinations latest from 01/09/2024. Evaluation of the abdominal and pelvic organs is limited due to lack of intravenous contrast. No focal abnormalities were identified in the liver, spleen, pancreas, adrenal glands or kidneys. There is gallbladder is markedly distended without evidence of pericholecystic fluid collection or cholelithiasis. There is no biliary ducts dilatation. There are marked calcifications in the abdominal aorta and iliac arteries. There is moderate-sized hiatus hernia. There is no evidence of bowel obstruction. Colon is not opacified with oral contrast and appear to be mildly distended with gas. Evaluation of the lower abdomen and upper pelvis is limited due to artifact from the surgical metal in the lumbar spine. There is no evidence of ascites abscesses or focal fluid collections. Uterus and adnexal areas appear to be unremarkable. There is no gross lymphadenopathy. Bladder is not distended, contains high density material with density measuring 48.9 Hounsfield units. Urinary bladder needs to be further evaluated clinically. Possibility of presence of blood or debris is within the bladder should be considered. Correlation with urinalysis is recommended. Images obtained through the lung bases revealed coarse linear opacities in the right middle lobe and right lower lobe probably representing atelectasis and or scarring. No evidence of pleural effusion. Bony structures revealed arm post operative changes with posterior fusion at L5- S1 level. There is new since previous examination more marked compression deformity of the L1. CONCLUSIONS: Limited examination due to artifact from the surgical metal in the lumbosacral spine and lack of oral contrast in the colon. No evidence of bowel obstruction or constipation. Severe calcifications in the abdominal aorta and branches. Poorly distended bladder with some high density material. Possibility of presence of blood or debris is within the urinary bladder should be considered. Correlation with urinalysis clinical evaluation is suggested. Marked distention of the gallbladder. Medium-size hiatus hernia. New since previous examination marked compression deformity of the L1. -------- FINAL REPORT -------- Dictated By: Tara Lewis Dictated Date: 05/29/2025 16:27 ET Assigned Physician: Tara Lewis Reviewed and Electronically Signed By: Tara Lewis Signed Date: 05/29/2025 16:42 ET Workstation ID: [id number] Transcribed By: Self Edit Transcribed Date: 05/29/2025 16:27 ET Procedure Note Tara Lewis MD - 05/29/2025 CT of the abdomen and pelvis without intravenous contrast. History acute abdominal pain. Diarrhea. Examination was performed on multidetector scanner without administrationof intravenous contrast. Comparison with previous examinations latest from01/09/2024. Evaluation of the abdominal and pelvic organs is limited due to lack ofintravenous contrast. No focal abnormalities were identified in the liver, spleen, pancreas,adrenal glands or kidneys. There is gallbladder is markedly distendedwithout evidence of pericholecystic fluid collection or cholelithiasis.There is no biliary ducts dilatation. There are marked calcifications inthe abdominal aorta and iliac arteries. There is moderate-sized hiatus hernia. There is no evidence of bowelobstruction. Colon is not opacified with oral contrast and appear to bemildly distended with gas. Evaluation of the lower abdomen and upperpelvis is limited due to artifact from the surgical metal in the lumbarspine. There is no evidence of ascites abscesses or focal fluid collections. Uterus and adnexal areas appear to be unremarkable. There is no grosslymphadenopathy. Bladder is not distended, contains high density material with densitymeasuring 48.9 Hounsfield units. Urinary bladder needs to be furtherevaluated clinically. Possibility of presence of blood or debris is withinthe bladder should be considered. Correlation with urinalysis isrecommended. Images obtained through the lung bases revealed coarse linear opacities inthe right middle lobe and right lower lobe probably representingatelectasis and or scarring. No evidence of pleural effusion. Bony structures revealed arm post operative changes with posterior fusionat L5- S1 level. There is new since previous examination more markedcompression deformity of the L1. CONCLUSIONS: Limited examination due to artifact from the surgical metalin the lumbosacral spine and lack of oral contrast in the colon. Noevidence of bowel obstruction or constipation. Severe calcifications inthe abdominal aorta and branches. Poorly distended bladder with some high density material. Possibility ofpresence of blood or debris is within the urinary bladder should beconsidered. Correlation with urinalysis clinical evaluation is suggested.Marked distention of the gallbladder. Medium-size hiatus hernia. New since previous examination marked compression deformity of the L1. -------- FINAL REPORT -------- Dictated By: Tara Lewis Dictated Date: 05/29/2025 16:27 ET Assigned Physician: Tara Lewis Reviewed and Electronically Signed By: Tara Lewis Signed Date: 05/29/2025 16:42 ET Workstation ID: [id number] Transcribed By: Self Edit Transcribed Date: 05/29/2025 16:27 ET Saleem DEL ROSARIO IMG CT PROCEDURES Final R esult documented in this encounter Visit Diagnoses Diagnosis Abdominal pain, unspecified abdominal location- Primary Abdominal pain, unspecified abdominal location documented in this encounter Additional Health Concerns Assessment Noted Time PHQ-9 Depression Total Score: 25 025 10:03 AM EDT A fall risk assessment has been complete d for the patient 05/21/2025 10:02 AM EDT documented as of this encounter Care Teams Fittings Finisher Relationship Specialty Start Date End Date Saleem Gutiérrez PA [address] [place] [address] PCP - General Internal Medicine 08/06/24 documented as of this encounter
== END 2025-05-30 15:04 | disposition home or self-care (01) ==
LOC: HO.HNS 13:53
PROVIDERS: PCP Physician Assistant Medical; Visit Provider Physician Assistant
DX: M54.50 Low back pain, unspecified (principal)
CPT/HCPCS: 99212

== ENCOUNTER → 2025-05-30 13:53 | Outpatient (BNVA) | payer MEDICARE, SELFPAY | PROVIDERS: PCP Physician Assistant Medical; Visit Provider Physician Assistant | DX: M54.50 Low back pain, unspecified (principal) | CPT/HCPCS: 99212 ==

== ENCOUNTER 2025-06-19 12:53 | Outpatient (AMB) | payer MEDICARE, SELFPAY ==
--- NOTE | 2025-06-19 13:05 | MHC.OFFVIS ---
Vital Signs 06/19/25 13:06 Height 5 ft 2 in Weight 130 lb BMI 23.8 BP 135/63 Blood Pressure Location Lt brachial Position Sitting Respiration 18 Pulse 93 Pulse Oximetry (%) 96 Oxygen Delivery Method Room Air Intake Visit Reasons: evaluation for potential kyphoplasty Scale Tester Required: No Allergies codeine (CODEINE) Allergy (Mild, Verified 05/30/25 13:58) NAUSEA & VOMITING tramadol (TRAMADOL) Allergy (Mild, Verified 05/30/25 13:58) NAUSEA & VOMITING HPI Comments Details: Elisa is very pleasant 89 years old female who presents in my office with complains on pain in the be back pain in the projection of approximately L2 vertebra. She was until May of this year very active, she was attending her garden, her past medical history was significant only for medication controlled hypertension and osteoporosis. She was taking calcium pills and calcitonin nasal spray to help her osteoporosis. In the beginning of May she started to feel severe pain in the upper lumbar spine. She was seen by PA in the office of Dr. Cruz, they saw the MRI of the lumbar spine which was available to them through [employer] connection. They diagnose her with compression fracture L2 vertebra. She denies any inciting events, therefore malignancy and pathological fracture can not be excluded. This patient was referred to me to perform kyphoplasty. She reports severe pain. She reports pain 10/10 today. She is in wheelchair, she lost ability to stand and walk after this pain onset. She can not sleep normally can not do activities of daily living can not take care of herself can not function normally. In the distal past the patient was operated on L5-S1 rods and with fusion were performed. She denies smoking cigarettes denies drinking alcohol denies caffeinated beverages. 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 Anxiety Cerebral microvascular disease Parkinsonism GERD (gastroesophageal reflux disease) High cholesterol Hypertension Parkinson disease Surgical History History of back surgery Social History Alcohol intake: current Alcohol intake frequency: holidays/special occasions only Alcohol type: wine Patient Tobacco Use Status: Former Tobacco user Review of Systems Const All systems reviewed & are unremarkable except as noted in HPI and below ENT Reports Normal hearing present Neuro Reports Normal hearing present, Denies Abnormal speech present, Denies confusion and Denies Sensory deficit (Neuro) Psych Denies confusion Physical Exam Vital Signs: Last Vital Signs Pulse 93 06/19/25 13:06 Resp 18 06/19/25 13:06 BP 135/63 06/19/25 13:06 Pulse Ox 96 06/19/25 13:06 Oxygen Delivery Method Room Air 06/19/25 13:06 BMI result Body Mass Index 23.8 Const General: no acute distress; No confusion Orientation/consciousness: patient oriented x3 and No confusion Eyes General: appearance normal, both eyes and all related structures Pupils: Equal, round and reactive pupils present EOM: EOMs intact bilaterally Neck Neck: Yes full ROM Chest Chest palpation & inspection: normal inspection of the chest Resp Effort & Inspection: normal respiratory effort, able to speak in complete sentences, normal respiratory pattern, no audible wheezes and no cough Cardio Jugular venous distension: no JVD GI Inspection: Yes normal to inspection Back/Spine/Pelvis Other: 5/5 strength in her upper and lower extremities. No sensory deficit, reflexes are 2+ intact. She is able to ambulate well and rises from a seated position without difficulty. Advanced kyphosis thoracic spine, negative SLR negative clonus , negative Beni test. MRI of the lumbar spine is of limited utility as there is significant artifact given her previous surgical construct. There is severe stenosis noted at L3-4, but the subsequent levels can not be evaluated. CT scan of the abdomen/pelvis reveals a significant levoscoliosis with the apex at L3. There is significant degenerative disc disease of the lumbar spine seen diffusely on CT. I would say L3-4 exhibits the worst degeneration that can be seen. Neuro General: patient oriented x3, gait normal and No confusion Cranial nerves: Yes CN's II-XII intact bilaterally, Yes Equal, round and reactive pupils present, Yes Normal hearing present and Yes Ability to bilaterally elevate shoulders present Speech: No Abnormal speech present Gait exam (Neuro): Normal gait present Motor exam (neuro): 5/5 motor strength present throughout Sensory Exam: No Sensory deficit (Neuro) Extrem General: No pedal edema Psych Speech and movement: Normal speech and movement present Affect: normal affect Attitude: cooperative Thought process: Normal thought process present Thought content: Normal thought content present Insight: Good insight present (Psych) Judgement: Good judgement present (Psych) Results Reviewed Results Reviewed: I personally evaluated the CTA of the abdomen and pelvis and there is advanced compression fracture of L2 vertebra. The MRI will be available for us, the patient brought the disc, we will upload the disc into our system. 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 Therefore I offered this patient kyphoplasty and biopsy of the L2 bone materials. I will schedule this patient as soon as possible. 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
[2025-06-19 13:06] VITALS: BP 135/63; PULSE 93; RESP 18; O2SAT 96; BMI 23.8
== END 2025-06-19 13:20 | disposition home or self-care (01) ==
LOC: HO.PMC 12:53
PROVIDERS: PCP Physician Assistant Medical; Visit Provider Anesthesiology
DX: M81.0 Age-related osteoporosis without current pathological fracture (principal); M84.50XA Pathological fracture in neoplastic disease, unspecified site, initial encounter for fracture; C79.51 Secondary malignant neoplasm of bone
CPT/HCPCS: 99213

== ENCOUNTER → 2025-06-19 12:53 | Outpatient (BNVA) | payer MEDICARE, SELFPAY | PROVIDERS: PCP Physician Assistant Medical; Visit Provider Anesthesiology | DX: S32.020A Wedge compression fracture of second lumbar vertebra, initial encounter for closed fracture (principal); M81.0 Age-related osteoporosis without current pathological fracture; Z98.1 Arthrodesis status | CPT/HCPCS: 99212 ==

== ENCOUNTER 2025-07-11 09:08 | Day surgery (SDC) | payer MEDICARE, SELFPAY ==
--- OUTSIDE RECORDS SUMMARY | 2025-06-23 20:33 | XMS_ITS | Encounter Summary ---
Author Organization [facility] Address [address] [place] [address] Care Team Providers Care Hiv Counselor Name Role Phone Saleem Gutiérrez Primary Care Provider [phone] Reason for Visit * Reason Onset Date Comments URI 06/23/2025 Nasal Congestion 06/23/2025 Weakness - Generalized 06/23/2025 Encounter Details Date Type Department Care Team ([facility] st Contact Info) Description 06/23/2025 Telephone Adult Medicine [address] [address] Saleem Gutiérrez PA [address] [place] [phone] Social History Tobacco Use Types Packs/Day Years [...] care for your loved ones. For example, child care assistant or elderly care for an older adult? [...] as of this encounter Progress Notes * Dayna Silver RN - 06/23/2025 4:07 PM EDT Call goes to [facility] signal X 2 * Jose Maria Hyatt - 06/23/2025 3:12 PM EDT Patient call requires triage: Symptoms patient is presenting: Patient called stating that she has been having a runny nose , has been having a cold , and feeling very weak for the past few weeks , would like to speak to nurse to get advice on what to do How long has patient had these symptoms?: a few weeks For ALL patients calling to schedule any [...] traveled recently to another state outside of [place], [place], [place], [place], [place], [place], [place]? no o If yes, did you quarantine [...] of accident/Injury: No If yes, gather 3rd republican insurance information Third Green Party Information: not applicable PCP: MIGUEL ÁNGEL Alegre Payor: MEDICARE / Plan: MEDICARE PART A & B / Product Type: Medicare / documented in this encounter Plan of Treatment Upcoming Encounters Date Type Department Care Team (Late st Contact Info) Description 07/29/2025 11:00 AM EDT Office Visit Adult Medicine [address] [phone] Heber Garg MD [address] [place], [place] 09/09/2025 10:50 AM EST Office Visit Gastroenterology - [place] [address] [facility] [address] [place] [phone] Pastora Arriola PA 175 [facility] [address] [place] [address] 01/05/2026 1:30 PM EDT Appointment [facility] Ultrasound [address] [place] [phone] 06/17/2026 1:00 PM EDT Office Visit Vascular Surgery - [place] [address] [place] [address] Cherise Matias MD [address] [place] [phone] documented as of this encounter Visit Diagnoses Not on filedocumented in this encounter Additional Health Concerns Assessment Noted Time PHQ-9 Depression Total Score: 25 025 10:03 AM EDT A fall risk assessment has been complete d for the patient 05/21/2025 10:02 AM EDT documented as of this encounter Care Teams Hiv Counselor Relationship Specialty Start Date End Date Saleem Gutiérrez PA [address] [place] [address] PCP - General Internal Medicine 08/06/24 documented as of this encounter
--- OUTSIDE RECORDS SUMMARY | 2025-06-23 20:33 | XMS_ITS | Clinical Summary ---
Author Organization [facility] Address [address] [place] [address] Phone Care Team Providers Care Gi Tech Name Role Phone Saleem Gutiérrez Primary Care Provider [phone] Allergies Active Allergy Reactions Criticality Noted Date Comments Codeine Itching 09/05/2005 Other Reaction(s): Hives/Urticaria Tramadol Hcl Nausea And Vomiting 03/11/2010 dizzy Medications polyethylene glycol (MIRALAX) 17 gram packet Take 1 Packet by mouth 2 times daily. 07/02/20 24 Active losartan (COZAAR) 100 mg tablet Take 1 tablet (100 mg total) by mouth 1 (one) time each day. 90 tablet 3 11/26/19 25 Active HYDROcodone-aceta minophen (NORCO) 5-325 mg per [...] 4 tablets 28 tablet 12/13/19 25 Active Additional Information Patient not taking.Reported on 06/02/2025 triamcinolone (KENALOG) 0.1 % ointment Apply topically 2 (two) times a day if needed for irritation or rash. 30 g 3 05/13/20 25 Active omeprazole (PriLOSEC) [address] capsule Take 1 capsule (20 mg total) by mouth 2 (two) times a day before meals. 180 capsule 3 04/07/20 Active carbidopa-levodop a (PARCOPA) 25-100 mg per disintegrating tablet Dissolve 1 tablet on top of the tongue 3 (three) times a day. Active hydroCHLOROthiazi de (HYDRODIURIL) 25 mg tablet Take 1 tablet (25 mg total) by mouth 1 (one) time each day. 90 each 1 05/05/20 25 026 Active simvastatin (ZOCOR) 20 mg tablet TAKE 1 TABLET AT BEDTIME 90 tablet 1 05/09/20 Active amLODIPine (NORVASC) 10 mg tablet TAKE 1 TABLET DAILY 90 tablet 1 05/09/20 Active LORazepam (ATIVAN) 1 mg tablet Take 1-2 tablets (1-2 mg total) by mouth See administration instructions. Take 30 minutes prior to procedure. 2 tablet 05/21/20 Active Additional Information Patient not taking.Reported on 06/02/2025 calcitonin salmon (MIACALCIN) 200 unit/actuation nasal spray Administer 1 spray into one nostril 1 (one) time each day. 3.7 mL 3 05/26/20 Active cyclobenzaprine (FLEXERIL) 10 mg tablet Take 1 tablet (10 mg total) by mouth 3 (three) times a day if needed for muscle spasms. 90 tablet 3 05/26/20 Active aspirin 81 mg EC tablet Take 1 tablet (81 mg total) by mouth 1 (one) time each day. 12/31/19 Active Gas Relief Extra Strength 125 mg chewable tablet Chew every 6 (six) hours if needed. 05/07/20 Active senna-docusate (PERICOLACE) 8.6-50 mg per tablet Take 1 tablet by mouth 2 (two) times a day if needed for constipation. 90 each 1 06/02/20 25 026 Active oxyCODONE-acetami nophen (PERCOCET) 5-325 mg per tabletIndications :Spinal stenosis of lumbar region with neurogenic claudication Take 1 tablet by mouth every 6 (six) hours if needed for severe pain for up to 7 days. Max Daily Amount: 4 tablets 28 tablet 05/21/20 025 Active Problems Problem Noted Date Diagnosed Date Bilateral carotid artery stenosis 02/18/2025 Hx of stroke without residual deficits 5 Stage 3b chronic kidney disease ([facility] V24, CM S/[facility] V28) 11/12/2024 Parkinson disease ([facility] V24, [facility] V28) 12/2019 Tremor [...] Encounters Date Type Department Care Team Description 06/23/2025 Telephone Adult Medicine [address] [phone] Saleem Gutiérrez PA 06/19/2025 Telephone Adult Medicine [address] [phone] Teresa Collins MA 06/18/2025 Telephone Gastroenterology [facility] [address] [place] [phone] Heidi Waldron MA 06/12/2025 Telephone Adult Medicine [address] [phone] Saleem Gutiérrez PA 06/04/2025 3:30 PM EDT Consult Vascular Surgery - [place] [address] [place] [phone] Cherise Matias MD Asymptomatic bilateral carotid artery stenosis (Primary Dx); Bilateral carotid artery stenosis 06/04/2025 9:35 AM EDT Lab Draw Station [address] Constipation, unspecified constipation type; Fever, unspecified; Intestinal methanogen overgrowth, unspecified 06/02/2025 10:30 AM EDT Office Visit Gastroenterology [facility] [address] [place] [phone] Pastora Arriola PA Constipation, unspecified constipation type (Primary Dx); Fever, unspecified; Intestinal methanogen overgrowth, unspecified 06/02/2025 Telephone Adult Medicine [address] [phone] Saleem Gutiérrez, PA 05/31/2025 Telephone Adult Medicine [address] [phone] Saleem Gutiérrez, PA 05/29/2025 12:19 PM EDT - 05/29/2025 11:59 PM EDT Hospital Encounter CT Scan - [address] [phone] Abdominal pain, unspecified abdominal location Discharge Disposition: Home or Self Care 05/29/2025 Telephone Adult Medicine [address] [phone] Saleem Gutiérrez, PA 05/24/2025 Telephone Adult Medicine [address] [phone] Saleem Gutiérrez, PA 05/23/2025 12:40 PM EDT - 05/23/2025 11:59 PM EDT Hospital Encounter Radiology Department - [address] [phone] Spinal stenosis of lumbar region with neurogenic claudication Discharge Disposition: Home or Self Care 05/21/2025 10:00 AM EDT Office Visit Adult Medicine [address] [phone] Saleem Gutiérrez, PA Spinal stenosis of lumbar region with neurogenic claudication (Primary Dx); Low back pain without sciatica, unspecified back pain laterality, unspecified chronicity 05/20/2025 Telephone Adult Medicine [address] [phone] Saleem Gutiérrez PA 05/08/2025 Telephone Adult [address] [phone] Saleem Gutiérrez PA 04/28/2025 11:15 AM EDT Office Visit Adult Medicine [address] [phone] Herlinda Mcgovern PA Primary hypertension (Primary Dx); Other hyperlipidemia; Stage 4 chronic kidney disease (CMS/HCC V24, CMS/HCC V28); Parkinson's disease without dyskinesia or fluctuating manifestations (CMS/HCC V24, CMS/HCC V28); Spinal stenosis of lumbar region with neurogenic claudication from Last 3 Months Immunizations Name Administration [...] COMMENT: Negative UPPER GASTROINTESTINAL ENDOSCOPY 01/04/2021 PROCEDURE: WI UPPER GI ENDOSCOPY PERFORMED; COMMENT: Medium sized [...] your loved ones. For example, child care associate teacher or elderly care for an older [...] Sign Reading Time Taken Comments Blood Pressure 100/50 06/04/2025 3:31 PM EDT Pulse 64 06/04/2025 3:31 PM EDT Temperature 36.7 C (98.1 F) 05/21/2025 9:59 AM EDT Respiratory Rate 16 06/04/2025 3:31 PM EDT Oxygen Saturation 97% 06/02/2025 10:47 AM EDT Inhaled Oxygen Concentration - - Weight 57.2 kg (126 lb) 06/02/2025 10:47 AM EDT Height 165.1 cm (5' 5 ) 06/04/2025 3:31 PM EDT Body Mass Index 20.97 06/02/2025 10:47 AM EDT Plan of Treatment Upcoming Encounters Date Type Department Care Team (Late st Contact Info) Description 07/29/2025 11:00 AM EDT Office Visit Adult Medicine [facility] [address] [place], [place] [phone] Heber Garg MD [address], [place] 09/09/2025 10:50 AM EST Office Visit Gastroenterology [facility] [address] [facility] [address] [facility] [address] [place] [phone] Pastora Arriola PA [address] [facility] [address] [place] [address] 01/05/2026 1:30 PM EDT Appointment [facility] Ultrasound [address] [place] [phone] 06/17/2026 1:00 PM EDT Office Visit Vascular Surgery - [place] [address] [place] [phone] Cherise Matias MD [facility] [place] [phone] Health Maintenance Due Date Last Done Comments Medicare Annual Wellness Visit 03/19/2025 03/19/2024 COVID-19 Vaccine ( season) 2025 08/23/2023, 07/21/2022, 02/13/2022, Additional history exists Influenza Vaccine (#1) 2025 , 07/06/2023, 06/17/2022, Additional history exists Hypertension/CHF/CAD Annual BMP Blood Test 04/28/2026 04/28/2025, 03/07/2025, 02/18/2025, Additional history exists Falls Risk Assessment 05/21/2026 05/21/2025, 024 Social Influencers of Health Screening 05/21/2026 05/21/2025 Cholesterol Screening (Lipid Panel) 04/28/2030 04/28/2025, 10/11/2024, 11/15/2023 Osteoporosis Screening (Bone Density Screening) 04/21/2032 04/21/2017 DTaP,Tdap,and Td Vaccines (3 - Td or Tdap) 06/17/2032 06/17/2022, 06/23/2008 Pneumococcal Vaccine: 50+ Years Completed 03/12/2015, 06/24/2003 Zoster Vaccines Completed 10/18/2022, 12/2021, 03/01/2012 RSV Immunization Adult Patients Completed 09/07/2023 Depression Screening Completed 05/21/2025, 03/19/20 24 HIB Vaccines Aged Out No longer eligi [...] Procedure Name Priority Date/Time Associated Diagnosis Comments CALPROTECTIN, STOOL Routine 06/04/2025 9 :37 AM EDT Constipation, unspecified constipation type CLOSTRIDIUM DIFFICILE TOXIN Routine 06/04/2025 9:37 AM EDT Constipation, unspecified constipation type GASTROINTESTINAL PATHOGENS BY PCR Routine 06/04/2025 9:37 AM EDT Constipation, unspecified constipation type Fever, unspecified Intestinal methanogen overgrowth, unspecified CT ABDOMEN PELVIS WO CONTRAST Routine 05/29/2025 1:56 PM EDT Abdominal pain, unspecified abdominal location EXTERNAL ULTRASOUND REPORT 05/27/[address] REPORT 05/27/[address] REPORT 05/27/[address] REPORT 05/27/[address] REPORT 05/27/2025 MR LUMBAR SPINE WO CONTRAST Routine 05/23/2025 1:25 PM EDT Spinal stenosis of lumbar region with neurogenic claudication EXTERNAL XRAY REPORT 05/08/2025 CBC WITH AUTO DIFFERENTIAL Routine 04/28/2025 11:52 [...] chronic kidney disease (CMS/HCC V24, CMS/HCC V28) FALLS RISK ASSESSMENT Routine 04/30/2024 DEPRESSION SCREENING Routine 03/19/2024 DXA BONE DENSITY STUDY 1+ SITS AXIAL SKEL Routine 04/21/2017 9:13 AM EDT Encounter for screening for osteoporosis from Last 3 Months or Most Recently Relevant to Health Maintenance Results * Gastrointestinal pathogens molecular study (06/04/2025 9:37 AM EDT) Campylobacter Detection by PCR Not Detected Not Detected LAB MICROBIOLOGY METHOD 5 2:15 PM EDT [facility] Plesiomonas shigelloides Detection by PCR Not Detected Not Detected LAB MICROBIOLOGY METHOD 5 2:15 PM EDT [facility] Salmonella Detection by PCR Not Detected Not Detected LAB MICROBIOLOGY METHOD 5 2:15 PM EDT [facility] Vibrio Detection by PCR Not Detected Not Detected LAB MICROBIOLOGY METHOD 5 2:15 PM EDT [facility] Vibrio cholerae Detection by PCR Not Detected Not Detected LAB MICROBIOLOGY METHOD 5 2:15 PM EDT [facility] Yersinia enterocolitica Detection by PCR Not Detected Not Detected LAB MICROBIOLOGY METHOD 5 2:15 PM EDT [facility] Enteroaggregative E coli EAEC Detection by PCR Not Detected Not Detected LAB MICROBIOLOGY METHOD 5 2:15 PM EDT [facility] Enteropathogenic E coli EPEC Detection Not Detected Not Detected LAB MICROBIOLOGY METHOD 5 2:15 PM EDT [facility] Enterotoxigenic E coli ETEC LTST Detection Not Detected Not Detected LAB MICROBIOLOGY METHOD 5 2:15 PM EDT [facility] Shiga-like toxin producing E coli STEC STX1 STX2 Det Not Detected Not Detected LAB MICROBIOLOGY METHOD 5 2:15 PM EDT [facility] Shigella Enteroinvasive E coli EIEC Detection Not Detected Not Detected LAB MICROBIOLOGY METHOD 5 2:15 PM EDT [facility] Cryptosporidium Detection by PCR Not Detected Not Detected LAB MICROBIOLOGY METHOD 5 2:15 PM EDT [facility] Cyclospora cayetanensis Detection by PCR Not Detected Not Detected LAB MICROBIOLOGY METHOD 5 2:15 PM EDT [facility] Entamoeba histolytica Detection by PCR Not Detected Not Detected LAB MICROBIOLOGY METHOD 5 2:15 PM EDT [facility] Giardia lamblia Detection by PCR Not Detected Not Detected LAB MICROBIOLOGY METHOD 5 2:15 PM EDT [facility] Adenovirus F 40 41 Detection by PCR Not Detected Not Detected LAB MICROBIOLOGY METHOD 5 2:15 PM EDT [facility] Astrovirus Detection by PCR Not Detected Not Detected LAB MICROBIOLOGY METHOD 5 2:15 PM EDT [facility] Norovirus GI GII Detection by PCR Not Detected LAB MICROBIOLOGY METHOD 2:15 PM EDT [facility] Sapovirus Detection by PCR Not Detected Not Detected LAB MICROBIOLOGY METHOD 2:15 PM EDT [facility] Rotavirus A Detection by PCR Not Detected Not Detected LAB MICROBIOLOGY METHOD 2:15 PM EDT [facility] Stool Rectum structure / Unknown Non-blood Collection / Unknown 06/04/2025 9:37 AM EDT 06/04/2025 9:37 AM EDT Narrative [facility] - 06/04/2025 2:15 PM EDT PCR testing is much more sensitive than traditional techniques and allows for the detection of low numbers of stool pathogens. The clinical correlation of PCR results with the need for treatment and clinical outcomes has not been established. Therefore the results of PCR testing for stool pathogens must be taken into clinical context when making treatment decisions. This is a diagnostic test only, repeat testing for cure is not advised. You may consider infectious disease consult for additional guidance. Testing Performed by [facility] Pastora DEL [facility] LAB MICROBIOLOGY - GENERAL OR DERABLES Final Result [facility] [address] [place] [address], * (ABNORMAL) Calprotectin, stool (06/04/2025 9:37 AM EDT) Calprotectin, Fecal 560.0(H) <50 mcg/g 06/06/2025 12:36 PM EDT [facility] Comment: <50 mcg/g Normal 50 - 120 mcg/g Borderline >120 mcg/g Abnormal Borderline results suggest repeat testing in 4 to 6 weeks. Test performed at [facility], [address], [place] [address] Toya Garcia MD, PhD - Luggage Attendant Stool Rectum structure / Unknown Non-blood Collection / Unknown 06/04/2025 9:37 AM EDT 06/04/2025 9:37 AM EDT [facility] BODY FLUIDS AND STOOLS OR DERABLES Final Result [facility] [address] [place] [address] * Clostridium difficile toxin (06/04/2025 9:37 AM EDT) Clostridium difficile GDH Antigen Negative Negative 06/04/2025 1:25 PM EDT [facility] C difficile Toxins A+B, EIA Negative Negative 06/04/2025 1:25 PM EDT [facility] Comment:NEGATIVE FOR TOXIN P RODUCING CLOSTRIDIOIDES DIFFICILE, NO ADDITIONAL TESTING IS NECESSARY. Stool Rectum structure / Unknown Non-blood Collection / Unknown 06/04/2025 9:37 AM EDT 06/04/2025 9:37 AM EDT [facility] MICROBIOLOGY - GENERAL OR DERABLES Final Result Performing Organization Address [facility] Co de Phone Number [facility] [address] [place] [address], [place] [phone] * CT Abdomen Pelvis wo Contrast (05/29/2025 [...] Signed Date: 05/29/2025 16:42 ET Workstation ID: [id number] Transcribed By: Self Edit Transcribed Date: 05/29/2025 [...] Signed Date: 05/29/2025 16:42 ET Workstation ID: [id number] Transcribed By: Self Edit Transcribed Date: 05/29/2025 16:27 ET us Saleem DEL ROSARIO IMG CT PROCEDURES Final R esult * External Ultrasound Report (05/27/2025) Anatomical Region Laterality Modality Ultrasound us Provider [facility] US PROCEDURES Final Result * External CT Report (05/27/2025) Only the most recent of4 resultswithin the time period is included. Anatomical Region Laterality Modality Computed Tomogra phy us Provider [facility] IMG CT PROCEDURES Final Result * MR Lumbar Spine wo Contrast (05/23/2025 1:25 PM EDT) Anatomical Region Laterality Modality L-spine, Spine Magnetic Resonan ce 05/23/2025 4:28 PM EDT Impressions 05/23/2025 5:07 PM EDT Impression: 1. Extensive artifact at L4-S1 due to orthopedic hardware. 2. Compression fracture at the inferior endplate of L1 which appears acute/subacute. There is less than 25% vertebral body height loss. No extension to the posterior elements 3. Multilevel degenerative changes as above -------- FINAL REPORT -------- Dictated By: Luis A Lemos Dictated Date: 05/23/2025 16:28 ET Assigned Physician: Luis A Lemos Reviewed and Electronically Signed By: Luis A Lemos Signed Date: 05/23/2025 17:07 ET Workstation ID: [id number] Transcribed By: Self Edit Transcribed Date: 05/23/2025 16:29 ET Narrative 05/23/2025 5:07 PM EDT MRI LUMBAR SPINE Clinical Statement: Low back pain, > 6 wks lumbar radiculopathy symptoms Comparison: MRI lumbar spine from 09/15/2023 and 07/08/2017 Technique: Multiplanar, multisequence MRI images of the lumbar spine were obtained without intravenous contrast. Extremely limited examination due to extensive artifact Findings: There is mild levoscoliosis of the lumbar spine. Again seen is extensive magnetic susceptibility artifact from surgical hardware obscuring L4, L5 and S1. Vertebral body height loss at L1 with less than 25% vertebral body height loss predominantly at the inferior endplate. There is mild increased edema within the vertebral body. The remainder the vertebral body marrow signal is grossly within normal limits. Disc desiccation at multiple levels with disc height loss at L2-L3 and L3-L4. Cord signal is normal. The conus medullaris is normal in signal characteristics and morphology and terminates at the L1-2 level. T12-L1: Broad-based disc bulge with mild bilateral neuroforaminal stenosis, no spinal canal stenosis L1-L2: Compression deformity at the inferior endplate of L1, broad-based disc bulge, mild facet hypertrophy with severe right and moderate left neuroforaminal stenosis and mild spinal canal stenosis L2-L3: Broad-based disc bulge eccentric to the left and central/left paracentral disc herniation, small annular tear with severe right and moderate left neuroforaminal stenosis and moderate spinal canal stenosis L3-L4: Broad-based disc bulge and central disc protrusion, ligamentum flavum hypertrophy with moderate bilateral neuroforaminal stenosis and mild spinal canal stenosis L4-S1 obscured due to extensive artifact. Procedure Note Luis A Lemos MD - 05/23/2025 MRI LUMBAR SPINE Clinical Statement: Low back pain, > 6 wks lumbar radiculopathy symptoms Comparison: MRI lumbar spine from 09/15/2023 and 07/08/2017 Technique: Multiplanar, multisequence MRI images of the lumbar spine wereobtained without intravenous contrast. Extremely limited examination dueto extensive artifact Findings: There is mild levoscoliosis of the lumbar spine. Again seen isextensive magnetic susceptibility artifact from surgical hardwareobscuring L4, L5 and S1. Vertebral body height loss at L1 with less than25% vertebral body height loss predominantly at the inferior endplate.There is mild increased edema within the vertebral body. The remainderthe vertebral body marrow signal is grossly within normal limits. Discdesiccation at multiple levels with disc height loss at L2-L3 and L3-L4.Cord signal is normal. The conus medullaris is normal in signalcharacteristics and morphology and terminates at the L1-2 level. T12-L1: Broad-based disc bulge with mild bilateral neuroforaminalstenosis, no spinal canal stenosis L1-L2: Compression deformity at the inferior endplate of L1, broad-baseddisc bulge, mild facet hypertrophy with severe right and moderate leftneuroforaminal stenosis and mild spinal canal stenosis L2-L3: Broad-based disc bulge eccentric to the left and central/leftparacentral disc herniation, small annular tear with severe right andmoderate left neuroforaminal stenosis and moderate spinal canal stenosis L3-L4: Broad-based disc bulge and central disc protrusion, ligamentumflavum hypertrophy with moderate bilateral neuroforaminal stenosis andmild spinal canal stenosis L4-S1 obscured due to extensive artifact. IMPRESSION: Impression: 1. Extensive artifact at L4-S1 due to orthopedic hardware. 2. Compression fracture at the inferior endplate of L1 which appearsacute/subacute. There is less than 25% vertebral body height loss. Noextension to the posterior elements 3. Multilevel degenerative changes as above -------- FINAL REPORT -------- Dictated By: Luis A Lemos Dictated Date: 05/23/2025 16:28 ET Assigned Physician: Luis A Lemos Reviewed and Electronically Signed By: Luis A Lemos Signed Date: 05/23/2025 17:07 ET Workstation ID: [id number] Transcribed By: Self Edit Transcribed Date: 05/23/2025 16:29 ET Saleem DEL ROSARIO G MRI PROCEDURES Final Result * External Xray Report (05/08/2025) Anatomical Region Laterality Modality Radiographic Amalia ging Provider [facility] XR PROCEDURES Final Result * Lipid panel with reflex to direct LDL (04/28/2025 11:52 AM EDT) Cholesterol 159 0 - 200 mg/dL LAB CHEMISTRY METHOD 04/28/2025 7:13 PM EDT [facility] Triglycerides 84 0 - 150 mg/dL LAB CHEMISTRY METHOD 04/28/2025 7:13 PM EDT [facility] HDL 60 >=40 mg/dL LAB CHEMISTRY METHOD 04/28/2025 7:13 PM EDT [facility] LDL Calculated 82 0 - 100 mg/dL LAB CHEMISTRY METHOD 04/28/2025 7:13 PM EDT [facility] VLDL Cholesterol Tato 16.8 mg/dL LAB CHEMISTRY METHOD 04/28/2025 7:13 PM EDT [facility] Non HDL Chol. (LDL+VLDL) 99 <145 mg/dL LAB CHEMISTRY METHOD 04/28/2025 7:13 PM EDT [facility] Chol/HDL Ratio 2.7 0.0 - 4.4 LAB CHEMISTRY METHOD 04/28/2025 7:13 PM EDT [facility] Blood Venous blood specimen / Unknown Venipuncture / Unknown 04/28/2025 11:52 AM EDT 04/28/2025 11:52 AM EDT Saleem DEL [facility] LAB BLOOD ORDERABLES Corina l Result [facility] [address] [place] [address], * (ABNORMAL) CBC auto differential (04/28/2025 11:52 AM EDT) WBC 6.7 4.8 - 10.8 K/mcL LAB HEMETOLOGY METHOD 04/28/2025 3:26 PM EDT [facility] RBC 4.10 3.80 - 4.80 M/mcL LAB HEMETOLOGY METHOD 04/28/2025 3:26 PM EDT [facility] Hemoglobin 11.8 11.5 - 16.0 g/dL LAB HEMETOLOGY METHOD 04/28/2025 3:26 PM EDT [facility] Hematocrit 37.1 35.0 - 47.0 % LAB HEMETOLOGY METHOD 04/28/2025 3:26 PM EDT [facility] MCV 91.4 79.0 - 98.0 FL LAB HEMETOLOGY METHOD 04/28/2025 3:26 PM EDT [facility] MCH 29.1 27.0 - 32.0 pcg LAB HEMETOLOGY METHOD 04/28/2025 3:26 PM EDT [facility] MCHC 31.8(L) 32.0 - 37.0 g/dL LAB HEMETOLOGY METHOD 04/28/2025 3:26 PM [facility] RDW 12.8 11.0 - 15.0 % LAB HEMETOLOGY METHOD 04/28/2025 3:26 PM EDT [facility] Platelets 281 130 - 400 [...] LAB HEMETOLOGY METHOD 04/28/2025 3:26 PM EDT [facility] Lymphocytes Absolute 1.96 1.00 - 5.00 K/mcL LAB HEMETOLOGY METHOD 04/28/2025 3:26 PM EDT [facility] Monocytes Absolute 0.79 0.20 - 1.00 K/mcL LAB HEMETOLOGY METHOD 04/28/2025 3:26 PM EDT [facility] Eosinophils Absolute 0.06 0.00 - 0.50 K/mcL LAB HEMETOLOGY METHOD 04/28/2025 3:26 PM EDT [facility] Basophils Absolute 0.03 0.00 - 0.20 K/mcL LAB HEMETOLOGY METHOD 04/28/2025 3:26 PM EDT [facility] Immature Granulocytes Absolute 0.02 0.00 - 0.03 K/mcL LAB HEMETOLOGY METHOD 04/28/2025 3:26 PM EDT [facility] Blood Venous blood specimen / Unknown Venipuncture / Unknown 04/28/2025 11:52 AM EDT 04/28/2025 11:52 AM EDT Saleem DEL ROS[facility] LAB BLOOD ORDERABLES Corina l Result [facility] [address] [place] [address], * Microalbumin creatinine urine ratio (04/28/2025 11:52 AM EDT) Creatinine, Urine 211.0 mg/dL LAB CHEMISTRY METHOD 04/28/2025 5:01 PM EDT [facility] [facility] Microalb, Ur 26.6 0.0 - 29.0 mg/L LAB CHEMISTRY METHOD 04/28/2025 5:01 PM EDT [facility] Microalb/Creat Ratio 13 <30 mg/g creat LAB CHEMISTRY METHOD 04/28/2025 5:01 PM [facility] Urine Urine specimen obtained by clean catch procedure / Unknown Non-blood Collection / Unknown 04/28/2025 11:52 AM EDT 04/28/2025 11:52 AM EDT Saleem DEL ROSARIO LAB URINE ORDERABLES Corina l Result [facility] [address] [place] [address], [place] [phone] * (ABNORMAL) Comprehensive metabolic panel (04/28/2025 11:52 AM EDT) Sodium 136 133 - 145 mmol/L LAB CHEMISTRY METHOD 04/28/2025 7:13 PM [facility] Potassium 4.3 3.5 - 5.5 [...] 13.0 LAB CHEMISTRY METHOD 04/28/2025 7:13 PM [facility] Calcium 10.2 8.5 - 10.5 mg/dL LAB CHEMISTRY METHOD 04/28/2025 7:13 PM [facility] AST (SGOT) 15 10 - 42 unit/L LAB CHEMISTRY METHOD 04/28/2025 7:13 PM [facility] ALT (SGPT) 15 10 - 60 unit/L LAB CHEMISTRY METHOD 04/28/2025 7:13 PM [facility] Alkaline Phosphatase 108 42 - 121 unit/L LAB CHEMISTRY METHOD 04/28/2025 7:13 PM [facility] Total Protein 7.2 6.0 - [...] ROSARIO LAB BLOOD ORDERABLES Corina young Result [facility] [address] [place] [address], * Falls Risk Assessment (04/30/2024) Falls Risk Assessment abstracted us Historical Provider HEALTH MAINTENANCE Final Result * Depression Screening (03/19/2024) Depression Screening abstracted us Historical Provider HEALTH MAINTENANCE Final Result * [...] should be classified as having osteoporosis. The [facility] Department of Internal Medicine recommends using National [...] Mcneil should beclassified as having osteoporosis. The [facility] Department of Internal Medicine recommendsusing National Osteoporosis [...] to Health Maintenance Insurance MEDICARE [facility] Care Teams Gi Tech Relationship Specialty Start Date End Date Saleem Gutiérrez PA [address] [place] [address] PCP - General Internal Medicine 08/06/24
--- OUTSIDE RECORDS SUMMARY | 2025-06-23 20:33 | XMS_ITS | Encounter Summary ---
Author Organization [facility] Address [address] [place] [address] Care Team Providers Care Edge Bander Hand Name Role Phone Saleem Gutiérrez Primary Care Provider [phone] Reason for Visit * Reason Onset Date Comments MEDICATION HOLD CALL 06/19/2025 Encounter Details Date Type Department Care Team ([facility] Contact Info) Description 06/19/2025 Telephone Adult Medicine [address] [phone] Teresa Collins MA Social History Tobacco Use Types Packs/Day [...] your loved ones. For example, child care attendant school or elderly care for an older adult? [...] as of this encounter Progress Notes * Teresa Collins MA - 06/19/2025 2:45 PM EDT Patient needs to hold Asprin 81 mg for 7 days and proc is 07/04/25 for L2 Kyphoplasty. We can just afax [phone] documented in this encounter Plan of Treatment Upcoming Encounters Date Type Department Care Team ([facility] st Contact Info) Description 07/29/2025 11:00 AM EDT Office Visit Adult Medicine [address], [place] [phone] Heber Garg MD [address] [place], [place] 09/09/2025 10:50 AM EST Office Visit Gastroenterology - [place] [address] [facility] [address] [place] [phone] Pastora Arriola PA [address] [facility] [address] [place] [address] 01/05/2026 1:30 PM EDT Appointment [facility] Ultrasound [address] [place] [phone] 06/17/2026 1:00 PM EDT Office Visit Vascular Surgery - [place] [address] [place] [phone] Cherise Matias MD [address] [place] [phone] documented as of this encounter Visit Diagnoses Not on filedocumented in this encounter Additional Health Concerns Assessment Noted Time PHQ-9 Depression Total Score: 25 025 10:03 AM EDT A fall risk assessment has been complete d for the patient 05/21/2025 10:02 AM EDT documented as of this encounter Care Teams Edge Bander Hand Relationship Specialty Start Date End Date Saleem Gutiérrez PA [address] [place], [place] PCP - General Internal Medicine 08/06/24 documented as of this encounter
--- OUTSIDE RECORDS SUMMARY | 2025-06-23 20:33 | XMS_ITS | Encounter Summary ---
Author Organization [facility] Address [address] [place] [address] Care Team Providers Care Heel Burnisher Name Role Phone Saleem Gutiérrez Primary Care Provider [phone] Encounter Details Date Type Department Care Team ([facility] st Contact Info) Description 06/18/2025 Telephone Gastroenterology - [place] [address] [facility] [address] [place] [address] Heidi Waldron MA Social History [...] your loved ones. For example, early childhood aide classroom or elderly care for an older adult? [...] AM EST documented as of this encounter Plan of Treatment Upcoming Encounters Date Type Department Care Team (Late st Contact Info) Description 07/29/2025 11:00 AM EDT Office Visit Adult Medicine [address] [phone] Heber Garg MD [address] [place], [place] 09/09/2025 10:50 AM EST Office Visit Gastroenterology - [place] 175 [facility] 175 [facility] [address] [place] [address] Pastora Arriola PA 175 [facility] [address] [place] [address] 01/05/2026 1:30 PM EDT Appointment [facility] Ultrasound [address] [place] [phone] 06/17/2026 1:00 PM EDT Office Visit Vascular Surgery - [place] [address] [place] [phone] Cherise Matias MD [address] [place] [address] documented as of this encounter Visit Diagnoses Not on filedocumented in this encounter Additional Health Concerns Assessment Noted Time PHQ-9 Depression Total Score: 25 025 10:03 AM EDT A fall risk assessment has been complete d for the patient 05/21/2025 10:02 AM EDT documented as of this encounter Care Teams Heel Burnisher Relationship Specialty Start Date End Date Saleem Gutiérrez PA [address] [place] [address] PCP - General Internal Medicine 08/06/24 documented as of this encounter
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
--- OUTSIDE RECORDS SUMMARY | 2025-06-23 20:33 | XMS_ITS | Encounter Summary ---
Author Organization [facility] Address [address] [place] [address] Care Team Providers Care Cnc Grinder Name Role Phone Saleem Gutiérrez Primary Care Provider [phone] Encounter Details Date Type Department Care Team ([facility] st Contact Info) Description 05/31/2025 Telephone Adult Medicine [address] [phone] Saleem Gutiérrez PA [address] [place] [phone] Social History Tobacco Use Types Packs/Day Years [...] for your loved ones. For example, child development consultant or elderly care for an older adult? [...] as of this encounter Progress Notes * MIGUEL ÁNGEL Ozuna - 06/02/2025 12:20 PM EDT Tried again, left VM * MIGUEL ÁNGEL Oz[place] - 05/31/2025 9:47 AM EDT Tried calling pt regarding CT scan, left VM looks like she did go to ER. GB looks distended on imaging would like to discuss also urinary bladder looked abnormal as well. documented in this encounter Plan of Treatment Upcoming Encounters Date Type Department Care Team (Late st Contact Info) Description 07/29/2025 11:00 AM EDT Office Visit Adult Medicine [facility] [address] [place], [place] [phone] Heber Garg MD [address] [place], [place] 09/09/2025 10:50 AM EST Office Visit Gastroenterology - [place] 175 [facility] 175 [facility] [address] [place] [phone] Pastora Arriola PA 175 [facility] [address] [place] [address] 01/05/2026 1:[address] [facility] Ultrasound [address] [place] [phone] 06/17/2026 1:00 PM EDT Office Visit Vascular Surgery - [place] [address] [place] [phone] Cherise Matias MD [address] [place] [phone] documented as of this encounter Visit Diagnoses [...] documented as of this encounter Care Teams Cnc Grinder Relationship Specialty Start Date End Date Saleem Gutiérrez PA [address] [place] [address] PCP - General Internal Medicine 08/06/24 documented as of this encounter
[2025-07-02 09:34] VITALS: BMI 22.9
--- NOTE | 2025-07-02 13:11 | HO.ANESPROP2 ---
Documented by User: Rhonda Patrick NP 07/11/25 10:31 HPI - Anesthesia Eval Consult details Narrative: 89yo F for L2 Kyphoplasty and Biopsy of L2 Bone Minerals Pt eval with PCP 06/25/25 for flu like symptoms. Resolved except occassional dry cough at time of telephone assessment 07/02/25. 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) Parkinson disease (Acute) Past Medical History Medical History (Updated 07/02/25 @ 15:06 by Rhonda Patrick NP) CKD (chronic kidney disease) Hiatal hernia HLD (hyperlipidemia) 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 Anxiety Cerebral microvascular disease Parkinsonism GERD (gastroesophageal reflux disease) High cholesterol Hypertension Parkinson disease Surgical History Surgical History (Updated 07/02/25 @ 09:20 by Brenda Nicole RN) Hx of tonsillectomy H/O colonoscopy History of back surgery (~1994) Social History Social History Are you a primary healthcare liaison to a significant other at home: No Do you presently have visiting nurse or other home services: No Alcohol intake: current Alcohol intake frequency: does not drink Alcohol type: wine Comment: Counts correct Patient Tobacco Use Status: Former Tobacco user Use of substances other than those prescribed or required for medical reasons: No Have you been hit, kicked, punched, or otherwise hurt by someone within the past year? If so, by whom?: No Advance Directives: No Advance Directives Information Provided: Yes Advance Directives on File: No Patient : No : No Poor oral hygiene: Yes Meds Allergies Allergy/AdvReac Type Severity Reaction Status Date / Time codeine (CODEINE) Allergy Mild NAUSEA & Verified 05/30/25 13:58 VOMITING tramadol (TRAMADOL) Allergy Mild NAUSEA & Verified 05/30/25 13:58 VOMITING Home Medications ?Medication ?Instructions ?Recorded ?Confirmed ?Last Taken ?Type amlodipine 10 mg tablet 10 mg PO DAILY 06/18/24 07/02/25 07/11/25 History simvastatin 20 mg tablet 20 mg PO BEDTIME 06/18/24 07/02/25 Unknown History aspirin 81 mg tablet,delayed 81 mg PO DAILY 04/17/25 07/02/25 Unknown History release hydrochlorothiazide 25 mg tablet 25 mg PO DAILY 04/17/25 07/02/25 Unknown History losartan 100 mg tablet 100 mg PO DAILY 04/17/25 07/02/25 Unknown History omeprazole 20 mg capsule,delayed 20 mg PO BID 04/17/25 07/02/25 07/11/25 History release multivitamin 1 tab PO DAILY 07/02/25 07/02/25 Unknown History polyvinyl alcohol 1.4 % eye drops 1 drp ophthalmic (eye) TID 07/02/25 07/02/25 Unknown History simethicone 80 mg chewable tablet 80 mg PO Q6-8H PRN Abdominal 07/02/25 07/02/25 Unknown History (Gas Relief 80 (simethicone)) Distention Exam Height,Weight and Vital Signs: Height 5 ft 1 in Weight 54.885 kg Pertinent Lab Results Pertinent Lab Results: Laboratory Tests 05/27/25 14:47 WBC 8.1 Hgb 12.3 Hct 36.7 L Plt Count 264 CMP 06/2025 from outside facility [place] - BUN/Creat elevated at 31/1.6 (known CKD) Narrative Narrative: ECHO 03/2025 ? Left ventricle cavity size is normal. There is mild, concentric left ventricular hypertrophy. Left ventricular systolic function is in the normal range with an ejection fraction of 60-65%. There is normal left ventricular regional wall motion. ? There is normal right ventricular size and systolic function. ? There is Grade II (moderate) diastolic dysfunction consistent with increased left atrial pressure. Borderline pulmonary hypertension with RV systolic pressure 38 mmHg. ? Right ventricle cavity is normal. Right ventricular systolic function is normal. ? There is no hemodynamically significant valve disease. Minor valvular abnormalities as below. ? There is moderate left atrial enlargement. EKG 05/2025 Vent. Rate : 80 BPM Atrial Rate : 80 BPM P-R Int : 174 ms QRS Dur : 72 ms QT Int : 354 ms P-R-T Axes : 56 33 8 degrees QTcB Int : 408 ms Normal sinus rhythm Septal infarct , age undetermined Abnormal ECG When compared with ECG of 13-Nov-2024 18:49, No significant change was found Carotid US 12/2024 IMPRESSION: RIGHT: 50% to 69% hemodynamically significant stenosis of the internal carotid artery. LEFT: 50% to 69% hemodynamically significant stenosis of the internal carotid artery. 24 hour holter 12/2024 ? Normal sinus rhythm. No atrial fibrillation noted. 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 Anxiety Cerebral microvascular disease Parkinsonism GERD (gastroesophageal reflux disease) High cholesterol Hypertension Parkinson disease Family History Family history of problems with anesthesia: No Surgical History Surgical History (Updated 07/02/25 @ 09:20 by Brenda Nicole RN) Hx of tonsillectomy H/O colonoscopy History of back surgery (~1994) History of Problems with Anesthesia: No Social History Social History Are you a primary healthcare liaison to a significant other at home: No Do you presently have visiting nurse or other home services: No Alcohol intake: current Alcohol intake frequency: does not drink Alcohol type: wine Comment: Counts correct Patient Tobacco Use Status: Former Tobacco user Use of substances other than those prescribed or required for medical reasons: No Have you been hit, kicked, punched, or otherwise hurt by someone within the past year? If so, by whom?: No Advance Directives: No Advance Directives Information Provided: Yes Advance Directives on File: No Patient : No : No Poor oral hygiene: Yes Meds Allergies Allergy/AdvReac Type Severity Reaction Status Date / Time codeine (CODEINE) Allergy Mild NAUSEA & Verified 05/30/25 13:58 VOMITING tramadol (TRAMADOL) Allergy Mild NAUSEA & Verified 05/30/25 13:58 VOMITING Home Medications ?Medication ?Instructions ?Recorded ?Confirmed ?Last Taken ?Type amlodipine 10 mg tablet 10 mg PO DAILY 06/18/24 07/02/25 07/11/25 History simvastatin 20 mg tablet 20 mg PO BEDTIME 06/18/24 07/02/25 Unknown History aspirin 81 mg tablet,delayed 81 mg PO DAILY 04/17/25 07/02/25 Unknown History release hydrochlorothiazide 25 mg tablet 25 mg PO DAILY 04/17/25 07/02/25 Unknown History losartan 100 mg tablet 100 mg PO DAILY 04/17/25 07/02/25 Unknown History omeprazole 20 mg capsule,delayed 20 mg PO BID 04/17/25 07/02/25 07/11/25 History release multivitamin 1 tab PO DAILY 07/02/25 07/02/25 Unknown History polyvinyl alcohol 1.4 % eye drops 1 drp ophthalmic (eye) TID 07/02/25 07/02/25 Unknown History simethicone 80 mg chewable tablet 80 mg PO Q6-8H PRN Abdominal 07/02/25 07/02/25 Unknown History (Gas Relief 80 (simethicone)) Distention Exam Airway Mallampati Class: II TM Dist: >3cm Neck ROM: Full Denture: Upper and Lower Heart: ok Lungs: ok Assessment and Plan Assessment Anesthesia Assessment: Anesthesia Plan Discussed Final Anesthetic Review Family History of Problems with Anesthesia: No History of Problems with Anesthesia: No NPO: Yes ASA Class: IV Final Preanesthetic Review: No Changes in Pt Med Stat, Meds/Allgs Chart Reviewed, Consent Obtained/Reviewed and Anes Risks/Benef Reviewed Patient Risk: High Procedure Risk: Intermediate Anesthetic Plan Anesthetic Plan: Agree w/ Assess. and Plan and TIVA Disposition: Standard PACU
[2025-07-11] VITALS (9 sets, daily range): BP systolic 126–146; BP diastolic 53–69; PULSE 82–95; RESP 14–20; TEMP 36.3–36.8; O2SAT 96–100
--- NOTE | ~2025-07-11 | FL_ITS ---
EXAMINATION: FL GUIDANCE ONLY HISTORY: l2 kyphoplasty and bx of L2 bone COMPARISON: Correlation is made with a CT of the abdomen and pelvis dated 05/27/2025. TECHNIQUE: Fluoroscopy time: 2 minutes, 15.5 seconds. Cumulative Dose: 4 4.16 mGy. DAP: 11.1223 Gycm2 Images: 4. FINDINGS: Fluoroscopic spot films of the thoracolumbar junction demonstrate kyphoplasty changes at L1. FL/FL guidance in OR IMPRESSION: Fluoroscopy during procedure. Please see procedure report for additional information. Electronically signed by: Dwayne Osuna MD 07/11/2025 12:12 PM EDT
--- NOTE | 2025-07-11 09:35 | P.BOP_ITS ---
Brief Operative Note Date of Service: 07/11/25 Pre-op diagnosis: VCF L1 Post-op diagnosis: same Procedure: VCF L1 kyphoplasty Implants: Polymethyl methacrylate cement Surgeon: Boaz Rosa MD Anesthesia: GLMA Was an Agricultural Equipment Sales Engineer used for this Procedure?: No Estimated blood loss (mL): 8 Pathology: none sent Condition: stable Disposition: PACU
--- NOTE | 2025-07-11 09:35 | MHC.SHP ---
Pre-Procedural Eval Section A - 24 Hr Update-Section A only Date of Service: 07/11/25 Section B - Complete if H&P > 30 days Chief Complaint: Wedge compression fracture of 2ND lumbar vertebebr Details of Present Illness: Wedge compression fracture of the 1st lumbar vertebra Relevant Family History (Specify if Yes): No Relevant Social History: None Present Medications: None Medical History: Significant History (Osteoporosis) History of Previous Operations: No relevant previous surgery Allergies: Allergies Allergy/AdvReac Type Severity Reaction Status Date / Time codeine (CODEINE) Allergy Mild NAUSEA & Verified 05/30/25 13:58 VOMITING tramadol (TRAMADOL) Allergy Mild NAUSEA & Verified 05/30/25 13:58 VOMITING Review of Systems Sugical H&P ROS: Negative: Cardiovascular, Respiratory, Psychiatric, Hem-Onc, Allergic/Immunologic, Gastrointestinal, Genitourinary, Integumentary and Eyes/Ears/Nose/Throat and Yes, Specify: Constitution (Frail patient), Neurological (Parkinson's disease, cerebral microvascular disease, history of stroke), Musculoskeletal (Spondylosis lumbar postlaminectomy syndrome compression fracture L1) and Endocrine (osteoporosis) Exam Surgical H&P Exam: Normal: HEENT, Normal: Heart, Normal: Lungs, Normal: Extremities, Normal: Abdomen and Normal: Skin and Significant Findings: Neurological (Parkinson's tremor) Plan Diagnosis/Plan: Unchanged I have reviewed the history and physical and performed a pertinent physical examination on my patient. No changes have occurred unless specified. I will perform kyphoplasty of the L1 vertebra. Time Spent With Patient Time: Total time managing care of this patient today ___ minutes.
[2025-07-11] MEDS: Lactated Ringers 1,000 ML 100 ML IVCONT (09:39)
--- NOTE | 2025-07-11 11:43 | P.OP_ITS ---
Operative Note Operative Note Date of Service: 07/11/25 Narrative: Kyphoplasty L1 Elisa is very pleasant 89 years old female who developed L1 compression fracture while tenting her garden. She came today to the operating room for kyphoplasty of the L1 compression fracture.. She was take to the operating room and positioned prone on the bed [employer] monitors were applied and patient was deeply sedated. The entire back of the patient was prepped and draped with ChloraPrep and sterile half sheet were used to drape the lateral C-arm after that the full body dressing laparoscopy drape was applied. Another sterilely draped C-arm was brought for AP and oblique images over the operating field. Time-out was performed delineating name and date of of the patient, nature of the procedure, allergies of the patient, need for antibiotics, antibiotic cefazolin was given intravenously 2 g 20 minutes before procedure. Square AP and lateral image of the L1 vertebra was obtained on the screens. The location of needle insertion was delineated as the distance between the lateral border of the pedicle on AP view and in the lateral line bilaterally staying away from the pedicle border to approximate 1 width of the patient's L1 vertebr a. The position of the insertion of the each trocar was injected with mixture of lidocaine 2% and ropivacaine 0.5% one-to-one. After that 11 gauge trocar was inserted through the skin wheal it was advanced to the pedicle and was positioned at the edge of the pedicle on the right. Under anterior posterior and lateral views the trocar was advanced through the pedicle into vertebral body. Care was taken not to bridge inferior or medial border of the pedicle. When the tip of the needle was about [address] from the center of the L3 vertebral body on anterior posterior view, the stylette was removed from the trocar and the procedure was repeated on the left side with the same care taken. After that hand-held drill was obtained and it was used to advance the drill holes in the vertebral body further anterior and medial. Care was taken not to bridge the SAP fracture line on AP and lateral view and to stay 1 cm away from anterior wall of the vertebral body on the lateral view. The balloons were inflated forming the cavities within the vertebral body. After that 4mL of the polymethyl methacrylate cement was injected into the right cannula and 4 mL of polymethyl methacrylate cement was injected into the right cannula. After that 3 ml of polymethyl methacrylate cement was injected into the left cannula. The AP and lateral views of cement into the vertebral body were obtained. No breaching of the anterior posterior wall or superior and inferior wall with cement was demonstrated on the screen. After that we waited until the cement we be hardened and removed cannulas from the vertebral body, pressure was applied to arrest the bleeding and after that one 0-0 silk suture was applied on each insertion site. Sterile dressing was applied using 2 by 2s and Tegaderm. The patient tolerated procedure well. She was awakened transferred to the PACU where she recovered uneventfully.
== END 2025-07-11 13:53 | disposition home or self-care (01) ==
PROVIDERS: PCP Physician Assistant Medical; Visit Provider Anesthesiology
PROC: (CPT 22514; principal; 2025-07-11 10:50)
DX: S32.010A Wedge compression fracture of first lumbar vertebra, initial encounter for closed fracture (principal); Y93.H2 Activity, gardening and landscaping; Y92.017 Garden or yard in single-family (private) house as the place of occurrence of the external cause; M81.0 Age-related osteoporosis without current pathological fracture; M48.061 Spinal stenosis, lumbar region without neurogenic claudication; M41.86 Other forms of scoliosis, lumbar region; M51.369 Other intervertebral disc degeneration, lumbar region without mention of lumbar back pain or lower extremity pain; R26.2 Difficulty in walking, not elsewhere classified; G20.A1 Parkinson's disease without dyskinesia, without mention of fluctuations; I67.82 Cerebral ischemia; I10 Essential (primary) hypertension; E78.00 Pure hypercholesterolemia, unspecified; Z79.899 Other long term (current) drug therapy; Z98.1 Arthrodesis status; Z99.3 Dependence on wheelchair; Z88.5 Allergy status to narcotic agent; Z98.890 Other specified postprocedural states; Z87.891 Personal history of nicotine dependence
CPT/HCPCS: 22514; C1713; J0690; J2003; J2704; J2795; J3010; Q9967

== ENCOUNTER → 2025-07-11 09:08 | Outpatient (BNV) | payer MEDICARE, SELFPAY | PROVIDERS: PCP Physician Assistant Medical; Visit Provider Anesthesiology | DX: S32.010A Wedge compression fracture of first lumbar vertebra, initial encounter for closed fracture (principal) | CPT/HCPCS: 22514 ==

== ENCOUNTER 2025-07-17 13:21 | Outpatient (AMB) | payer MEDICARE, SELFPAY ==
[2025-07-17 13:45] VITALS: BP 123/60; PULSE 84; RESP 16; O2SAT 99; BMI 22.9
--- NOTE | 2025-07-17 13:45 | MHC.OFFVIS ---
Vital Signs 07/17/25 13:45 Height 5 ft 1 in Weight 121 lb BMI 22.9 BP 123/60 Blood Pressure Location Rt radial Position Sitting Respiration 16 Pulse 84 Pulse Source Pulse Oximeter Pulse Oximetry (%) 99 Oxygen Delivery Method Room Air Intake Visit Reasons: S/p L2 Kyphoplasty and Bone Biopsy 07/04/25 Order Processing Specialist Required: No Accompanied by: Daughter Allergies codeine (CODEINE) Allergy (Mild, Verified 07/17/25 13:49) NAUSEA & VOMITING tramadol (TRAMADOL) Allergy (Mild, Verified 07/17/25 13:49) NAUSEA & VOMITING HPI Comments Details: Elisa is back in my office after kyphoplasty on L1 was performed. She reports no pain. She reports good mobility and activities of daily living. We will refer her to the endocrinology or Rheumatology for treatment of osteoporosis. [place] were removed today. The wounds are completely healed. Tegaderm dressings were placed, hygiene limitations were discussed. No new appointment is necessary unless patient wants to see me again. Prior: is very pleasant 89 years old female who presents in my office with complains on pain in the be back pain in the projection of approximately L2 vertebra. She was until May of this year very active, she was attending her [employer], her past medical history was significant only for medication controlled hypertension and osteoporosis. She was taking calcium pills and calcitonin nasal spray to help her osteoporosis. In the beginning of May she started to feel severe pain in the upper lumbar spine. She was seen by PA in the office of Dr. Cruz, they saw the MRI of the lumbar spine which was available to them through [facility]. They diagnose her with compression fracture L1 vertebra. She denies any inciting events, therefore malignancy and pathological fracture can not be excluded. This patient was referred to me to perform kyphoplasty. She reports severe pain. She reports pain 10/10 today. She is in wheelchair, she lost ability to stand and walk after this pain onset. 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 Anxiety Cerebral microvascular disease Parkinsonism GERD (gastroesophageal reflux disease) High cholesterol Hypertension Parkinson disease Surgical History (Updated 07/02/25 @ 09:20 by Brenad Nicole RN) Hx of tonsillectomy H/O colonoscopy History of back surgery (~1994) Social History Are you a primary career specialist to a significant other at home: No Do you presently have visiting nurse or other home services: No Alcohol intake: current Alcohol intake frequency: does not drink Alcohol type: wine Comment: Counts correct Patient Tobacco Use Status: Former Tobacco user Review of Systems Const All systems reviewed & are unremarkable except as noted in HPI and below ENT Reports Normal hearing present Neuro Reports Normal hearing present, Denies Abnormal speech present, Denies confusion and Denies Sensory deficit (Neuro) Psych Denies confusion Physical Exam Vital Signs: Last Vital Signs Pulse 84 07/17/25 13:45 Resp 16 07/17/25 13:45 BP 123/60 07/17/25 13:45 Pulse Ox 99 07/17/25 13:45 Oxygen Delivery Method Room Air 07/17/25 13:45 BMI result Body Mass Index 22.9 Const General: no acute distress; No confusion Orientation/consciousness: patient oriented x3 and No confusion Eyes General: appearance normal, both eyes and all related structures Pupils: Equal, round and reactive pupils present EOM: EOMs intact bilaterally Neck Neck: Yes full ROM Chest Chest palpation & inspection: normal inspection of the chest Resp Effort & Inspection: normal respiratory effort, able to speak in complete sentences, normal respiratory pattern, no audible wheezes and no cough Cardio Jugular venous distension: no JVD GI Inspection: Yes normal to inspection Back/Spine/Pelvis Other: 5/5 strength in her upper and lower extremities. No sensory deficit, reflexes are 2+ intact. She is able to ambulate well and rises from a seated position without difficulty. Advanced kyphosis thoracic spine, negative SLR negative clonus , negative Beni test. MRI of the lumbar spine is of limited utility as there is significant artifact given her previous surgical construct. There is severe stenosis noted at L3-4, but the subsequent levels can not be evaluated. CT scan of the abdomen/pelvis reveals a significant levoscoliosis with the apex at L3. There is significant degenerative disc disease of the lumbar spine seen diffusely on CT. I would say L3-4 exhibits the worst degeneration that can be seen. Neuro General: patient oriented x3, gait normal and No confusion Cranial nerves: Yes CN's II-XII intact bilaterally, Yes Equal, round and reactive pupils present, Yes Normal hearing present and Yes Ability to bilaterally elevate shoulders present Speech: No Abnormal speech present Gait exam (Neuro): Normal gait present Motor exam (neuro): 5/5 motor strength present throughout Sensory Exam: No Sensory deficit (Neuro) Extrem General: No pedal edema Psych Speech and movement: Normal speech and movement present Affect: normal affect Attitude: cooperative Thought process: Normal thought process present Thought content: Normal thought content present Insight: Good insight present (Psych) Judgement: Good judgement present (Psych) Assessment & Plan Assessment & Plan (1) Compression fracture of L2: Code(s): S32.020A - Wedge compression fracture of second lumbar vertebra, initial encounter for closed fracture Category: Medical (2) Osteoporosis: Code(s): M81.0 - Age-related osteoporosis without current pathological fracture Category: Medical Plan Unfortunately I was not able to obtain bone fragment for the evaluation. The patient needs to be referred to endocrinology or Rheumatology for the management of her osteoporosis. No new appointment is necessary next appointment is as needed. Coding Level of Care Code Est Pt Level 3 (82171) Diagnoses Compression fracture of L2 S32.020A Osteoporosis M81.0
== END 2025-07-17 14:05 | disposition home or self-care (01) ==
LOC: HO.PMC 13:22
PROVIDERS: PCP Physician Assistant Medical; Visit Provider Anesthesiology
DX: S32.020A Wedge compression fracture of second lumbar vertebra, initial encounter for closed fracture (principal); M81.0 Age-related osteoporosis without current pathological fracture
CPT/HCPCS: 99213

== ENCOUNTER → 2025-07-17 13:21 | Outpatient (BNVA) | payer MEDICARE, SELFPAY | PROVIDERS: PCP Physician Assistant Medical; Visit Provider Anesthesiology | DX: S32.020A Wedge compression fracture of second lumbar vertebra, initial encounter for closed fracture (principal); M81.0 Age-related osteoporosis without current pathological fracture; Z48.89 Encounter for other specified surgical aftercare | CPT/HCPCS: 99212 ==

== ENCOUNTER 2025-09-12 11:14 | Outpatient (AMB) | payer MEDICARE, SELFPAY ==
--- NOTE | 2025-09-12 11:31 | MHC.OFFVIS ---
Intake Visit Reasons: 3 mnts f/u for PD Accompanied by: Family/Other Allergies codeine (CODEINE) Allergy (Mild, Verified 09/12/25 11:38) NAUSEA & VOMITING tramadol (TRAMADOL) Allergy (Mild, Verified 09/12/25 11:38) NAUSEA & VOMITING Medication List - Last Reconciled 09/12/25 by Neelam Lara CNP amlodipine 10 mg PO DAILY aspirin 81 mg PO DAILY carbidopa-levodopa 25-100 mg (Sinemet) 1 tab PO TID 90 days cyanocobalamin (vitamin B-12) 1,000 mcg PO DAILY fentanyl 50 mcg/hr 1 patch topical Q3D hydrochlorothiazide 25 mg PO DAILY losartan 100 mg PO DAILY multivitamin 1 tab PO DAILY omeprazole 20 mg PO BID polyvinyl alcohol 1.4% 1 drp ophthalmic (eye) TID simethicone (Gas Relief 80 (simethicone)) 80 mg PO Q6-8H PRN simvastatin 20 mg PO BEDTIME HPI Comments Details: 89-year-old woman with parkinsonism and tremor. She was doing okay. She had L1 kyphoplasty for compression fracture in 06/2025. She was on Fentanyl patch for pain management. Left hand tremor was better with increased dose of carbidopa-levodopa. No functional impairment. No difficulty eating, drinking, or swallowing. Balance was off at times, but no falls. Sleep was so-so. Mood was okay. 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 Anxiety Cerebral microvascular disease Parkinsonism GERD (gastroesophageal reflux disease) High cholesterol Hypertension Parkinson disease Surgical History (Updated 07/02/25 @ 09:20 by Brenda Nicole RN) Hx of tonsillectomy H/O colonoscopy History of back surgery (~1994) Social History Are you a primary spiritual care coordinator to a significant other at home: No Do you presently have visiting nurse or other home services: No Alcohol intake: current Alcohol intake frequency: does not drink Alcohol type: wine Comment: Counts correct Patient Tobacco Use Status: Former Tobacco user Review of Systems Const Denies chills, Denies daytime sleepiness, Reports difficulty sleeping, Denies fatigue, Denies fever(s), Denies frequent falls, Denies headache(s), Denies increased appetite, Denies poor appetite, Denies snoring, Denies weakness, Denies weight gain and Denies weight loss Eyes Denies loss of vision ENT Denies vertigo, Denies dizziness and Denies headache(s) Card Denies chest pain at rest, Denies chest pain with activity, Denies leg edema and Denies palpitations Resp Denies snoring GI Denies constipation, Denies heartburn, Denies diarrhea and Denies nausea Denies urinary frequency, Denies urinary incontinence and Denies urinary urgency Musc Reports abnormal gait (balance difficulty), Reports numbness and Reports tingling Skin/Breast Denies dry skin and Denies rash Neuro Reports abnormal gait (balance difficulty), Denies vertigo, Denies dizziness, Denies frequent falls, Denies headache(s), Denies lack of coordination, Denies loss of vision, Denies memory loss, Reports numbness, Denies restless legs, Denies seizure-like activity, Reports tingling, Denies paresthesias, Reports tremor(s) and Denies weakness Psych Denies anxiety, Denies depression, Denies auditory hallucinations, Denies memory loss, Denies visual hallucinations and Denies suicidal ideation Endo Denies fatigue and Denies palpitations Physical Exam Const Other: General Appearance:? normal, in no acute distress. Skin:? no rashes, no significant birthmarks. Heart:? S1, S2 normal, no murmurs. Lungs:? clear anteriorly and posteriorly. Extremities:? no edema. Psych:? alert, oriented, cognitive function intact, cooperative with exam. Neuro Other: Mental Status:?Normal attention, orientation, memory and affect.? Cranial Nerves:?Pupils are equal, round and reactive to light. External occular muscles are intact. Visual de are full. Face is symmetrical. Facial sensations are normal. Tongue is midline. Palate elevates symmetrically. Shoulder shrugging is normal. Hearing to bedside conversation is normal. Sensory Exam:?....? Coordination:?No ataxia,?no titubation.? Gait Exam: In wheelchair. Cerebellar Signs:?[id number] is okay. Extrapyramidal System:?Slightly decreased facial expression and blinking. No rigidity. Mild bilateral hand postural tremor. Mild intermittent pill-rolling left hand tremor. Pronator Drift:?Not present.? Involuntary Movements:?Mild bilateral hand postural tremor. Mild intermittent pill-rolling tremor in left hand. Speech:?Normal.? Results Reviewed Results Reviewed: [place] [facility] [place]: Mild atherosclerosis MRI brain WO at [place] in Dec 2024: Acute left occipital patchy infarct, mod chronic ischemic lesions Brain WO at in Aug 2018: Mild MVD Assessment & Plan Assessment & Plan (1) Parkinson disease: Code(s): G20.A1 - Parkinson's disease without dyskinesia, without mention of fluctuations Category: Medical Qualifiers: Dyskinesia presence: unspecified whether dyskinesia Fluctuating manifestations: unspecified whether manifestations fluctuate Qualified Code(s): G20.A1 - Parkinson's disease without dyskinesia, without mention of fluctuations Plan: Continue carbidopa-levodopa 25-100mg 1 tablet three times a day. Follow up in 6 months or sooner as needed. (2) History of stroke: Code(s): Z86.73 - Personal history of transient ischemic attack (TIA), and cerebral infarction without residual deficits Category: Medical Plan: Control blood pressure. Continue low dose aspirin and statin. Plan . Coding Level of Care Code Est Pt Level 4 (06478) Diagnoses Parkinson's disease, unspecified whether dyskinesia present, unspecified whether manifestations fluctuate G20.A1 Dyskinesia presence: unspecified whether dyskinesia Fluctuating manifestations: unspecified whether manifestations fluctuate History of stroke Z86.73
== END 2025-09-12 11:46 | disposition home or self-care (01) ==
LOC: HO.HSM 11:15
PROVIDERS: PCP Physician Assistant Medical; Visit Provider Registered Nurse
DX: G20.A1 Parkinson's disease without dyskinesia, without mention of fluctuations (principal); Z86.73 Personal history of transient ischemic attack (TIA), and cerebral infarction without residual deficits
CPT/HCPCS: 99214

== ENCOUNTER → 2025-09-12 11:14 | Outpatient (BNVA) | payer MEDICARE, SELFPAY | PROVIDERS: PCP Physician Assistant Medical; Visit Provider Registered Nurse | DX: G20.A1 Parkinson's disease without dyskinesia, without mention of fluctuations (principal); Z86.73 Personal history of transient ischemic attack (TIA), and cerebral infarction without residual deficits | CPT/HCPCS: 99212 ==

== ENCOUNTER 2025-09-17 14:04 | Emergency (ER) | payer MEDICARE, SELFPAY ==
--- NOTE | ~2025-09-17 | XR_ITS ---
EXAMINATION: XR ABDOMEN KUB CLINICAL INDICATION: constipation, r/o SBO COMPARISON: CT on 05/27/2025 TECHNIQUE: AP view of the abdomen. FINDINGS: Scattered small and large bowel gas is evident with stool visible in the rectum and cecum. Bone graft material projecting over the upper left SI joint. Posterior pedicle screws and rods are present at L5-S1. There is levoscoliosis and methacrylate within L1 There is extensive vascular calcification in the aorta. XR/XR KUB IMPRESSION: There is a nonspecific nonobstructed bowel gas pattern. Electronically signed by: Donnell Bell MD 09/17/2025 02:44 PM EST
--- NOTE | ~2025-09-17 | CT_ITS ---
CLINICAL HISTORY: Rt sided abdo pain tenderness CT abdomen and pelvis without contrast Comparison: CT/[facility] - CT ANGIO ABDOMEN PELVIS - 05/27/25 16:33 EDT Findings: Lung bases: Coronary artery calcifications. Liver: No focal lesions. Gallbladder: Distended gallbladder. Spleen: Normal Pancreas: Unremarkable. Adrenal glands: No nodules. Kidneys: No hydronephrosis. No stones. Pelvic organs: Degenerated fibroid of the uterus. Peritoneum and Gastrointestinal: Moderate-sized hiatal hernia. Colonic diverticulosis without acute diverticulitis. The appendix is not seen. No bowel obstruction, pneumoperitoneum, or ascites. Lymph nodes: No lymphadenopathy. 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 Bones and soft tissues: Multilevel degenerative changes with dextroscoliosis of the lumbar spine. Vertebral body augmentation at L1 vertebral body. Sclerosis of the left iliac bone is unchanged. IMPRESSION: Distended gallbladder. Pericholecystic inflammation appears decreased when compared to May 27, 2025. Otherwise, no acute findings of the abdomen or pelvis. This document has been electronically signed by: Ana Maria Mendoza MD on 09/17/2025 21:24:43
[2025-09-17 14:17] VITALS: BP 121/56; PULSE 95; RESP 18; TEMP 36.7; O2SAT 99; BMI 23.0
--- NOTE | 2025-09-17 14:18 | ED.ABDPAIN ---
HPI - Abdominal Pain General Chief Complaint: Abdominal Pain Stated Complaint: dry heaves Time Seen by Provider: 09/17/25 20:02 History of Present Illness ED Provider: Gem JACOBS narrative: The patient is an 89-year-old woman who comes to the emergency room because she has been having abdominal discomfort for about 3 or 4 days. She feels the pain primarily in her right lower abdomen. She also feels that she has not had a bowel movement 5 days. She is currently using a fentanyl patch. She has been on a fentanyl patch for chronic pain for several weeks. She has been taking senna. She has had dry heaves and nausea but no actual vomiting. No definite fever, sweats, chills. Related Data Home Medications ?Medication ?Instructions ?Recorded ?Confirmed amlodipine 10 mg tablet 10 mg PO DAILY 06/18/24 09/12/25 simvastatin 20 mg tablet 20 mg PO BEDTIME 06/18/24 07/02/25 aspirin 81 mg tablet,delayed 81 mg PO DAILY 04/17/25 09/12/25 release hydrochlorothiazide 25 mg tablet 25 mg PO DAILY 04/17/25 07/02/25 losartan 100 mg tablet 100 mg PO DAILY 04/17/25 07/02/25 omeprazole 20 mg capsule,delayed 20 mg PO BID 04/17/25 07/02/25 release multivitamin 1 tab PO DAILY 07/02/25 07/02/25 polyvinyl alcohol 1.4 % eye drops 1 drp ophthalmic (eye) TID 07/02/25 07/02/25 simethicone 80 mg chewable tablet 80 mg PO Q6-8H PRN Abdominal 07/02/25 07/02/25 (Gas Relief 80 (simethicone)) Distention cyanocobalamin (vitamin B-12) 1,000 mcg PO DAILY 09/12/25 09/12/25 1,000 mcg tablet fentanyl 50 mcg/hr transdermal 1 patch topical Q3D 09/12/25 09/12/25 patch Previous Rx's ?Medication ?Instructions ?Recorded carbidopa 25 mg-levodopa 100 mg 1 tab PO TID 90 days #270 tabs 09/03/25 tablet (Sinemet) Allergies Allergy/AdvReac Type Severity Reaction Status Date / Time codeine (CODEINE) Allergy Mild NAUSEA & Verified 09/17/25 14:20 VOMITING tramadol (TRAMADOL) Allergy Mild NAUSEA & Verified 09/17/25 14:20 VOMITING Review of Systems Review of Systems Yes all other systems are reviewed and are negative [facility] Past Medical History Medical History (Updated 09/18/25 @ 00:00 by Rosalia Patrick) CKD (chronic kidney disease) Hiatal hernia HLD (hyperlipidemia) 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 Anxiety Cerebral microvascular disease Parkinsonism GERD (gastroesophageal reflux disease) High cholesterol Hypertension Parkinson disease Surgical History (Updated 07/02/25 @ 09:20 by Brenda Nicole RN) Hx of tonsillectomy H/O colonoscopy History of back surgery (~1994) Social History Social History Are you a primary career guidance technician to a significant other at home: No Do you presently have visiting nurse or other home services: No Unable to assess alcohol history related to: Unknown Alcohol intake: never Comment: Counts correct Patient Tobacco Use Status: Former Tobacco user Smoked in Last 30 Days: No Use of substances other than those prescribed or required for medical reasons: No Advance Directives: Yes Advance Directives Information Provided: No Advance Directives on File: No Do you have a plan to hurt others: No Plan Physical Exam ED Vital Signs: Vital Signs - 24 hr 09/17/25 14:17 09/17/25 20:13 09/17/25 22:40 Temperature 98.0 F 97.9 F Pulse Rate 95 100 93 Respiratory Rate 18 18 18 Blood Pressure 121/56 L 154/50 H 121/61 Pulse Oximetry 99 98 95 Oxygen Delivery Method Room Air Room Air Room Air BMI result Body Mass Index 23.0 Const Other: The patient is a frail 89-year-old woman who was awake and alert. She seems chronically ill. She denied having ongoing pain of the time that I examined her. She did not seem in obvious distress or toxic. HENMT Other: The face is symmetrical. Mucous membranes moist. Eyes Other: Pupils are round equal, conjunctivae are clear, extraocular movements intact Neck Neck: Yes normal visual inspection and Yes no JVD Resp Effort & Inspection: normal respiratory effort Auscultation: clear to auscultation bilaterally Cardio Rate: regular rate Rhythm: regular rhythm Heart sounds: S1 normal heart sound present and S2 normal heart sound present GI Other: There seemed to be some tenderness in the right lower quadrant. No rebound or guarding. Digital rectal exam revealed no fecal impaction in the rectum. Stool appeared normal. Skin Other: Skin is dry and unremarkable. Neuro Other: The patient is an 89-year-old woman who was awake and alert. She seems to have an appropriate mental status. Cranial nerves are grossly intact. She moves her extremities symmetrically. No focal finding. Extrem Other: No peripheral edema Course Course Course Narrative: This is an RME: Additional HPI, ROS, PE not included below will be deferred to primary provider. RME assessment and note performed by: Gosia Jones PA-C This is a [id number], chronic back pain lumbar spinal stenosis, Parkinson's disease, CVA not anticoagulated, arthritis, who presents to the ER with complaints of right sided abdominal pain and nausea x 4 days. Endorsing constipation, not passing any gas. No urinary symptoms. Plan: Labs, KUB xray, UA, further ER eval needed Medical Decision Making Medical Decision Making MDM Narrative: the patient is an 89-year-old woman who presents with what sounds like intermittent abdominal discomfort. She was not having ongoing pain at the time of my exam. She was worried about not passing stool or gas for several days. She has been using Senokot. She has been on a fentanyl patch recently for chronic pains. Constipation was certainly a possible consideration. digital rectal exam revealed that she had no fecal impaction in the rectum. A KUB showed no acute findings. Laboratory evaluation showed a white count of 6.2, hemoglobin 11.1, platelet count 263, differential is unremarkable. The patient is chemistries showed stable chronic renal Insufficiency. LFTs unremarkable. Lipase normal. CRP normal at 0.32. The patient has an abnormal urinalysis with 2+ leukocyte esterase and 21-50 white cells. However no bacteria were seen. Nitrites are negative. The patient has no urinary symptoms consistent with a UTI. A CT scan of the abdomen and pelvis shows no definite acute findings. The patient was able to tolerate oral intake in the emergency room. She was not having ongoing abdominal pain of the time that she was in the emergency room. She does not seem to be constipated. I doubt that a UTI is causing her symptoms. The patient will be discharged to add MiraLax to her bowel regimen and to continue her fentanyl patches. Return if worse. Lab Data 09/17/25 14:52 09/17/25 14:52 Labs: Lab Results 09/17/25 09/17/25 Range/Units 14:52 20:22 WBC 6.2 (4.8-10.8) X10*3/uL RBC 3.79 L (4.20-5.50) X10*6/uL Hgb 11.1 L (12.0-16.0) g/dl Hct 33.5 L (37.0-47.0) % MCV 88.4 (80.0-98.0) fL MCH 29.3 (27.0-33.0) pg MCHC 33.1 (31.0-35.0) g/dl RDW 12.8 (11.0-16.0) % Plt Count 263 (160-400) X10*3/uL MPV 10.3 (9.4-12.3) fL Immature Gran % (Auto) 0.2 (0.0-0.4) % Neut % (Auto) 70.4 (45-73) % Lymph % (Auto) 19.4 L (20-40) % [place] % (Auto) 9.2 (2-11) % Eos % (Auto) 0.5 (0-4) % Baso % (Auto) 0.3 (0-2) % Lymph # (Auto) 1.2 (1.2-4.9) X10*3/uL [place] # (Auto) 0.6 (0.1-1.2) X10*3/uL Eos # (Auto) 0.0 (0.0-0.4) X10*3/uL Baso # (Auto) 0.0 (0.0-0.2) X10*3/uL Abs Immat Gran (auto) 0.01 (0.00-0.03) X10*3/uL Absolute Neuts (auto) 4.4 (2.0-8.3) x10*3/uL Absolute Nucleated RBC 0.000 (0.0-0.012) X10*3/uL Nucleated RBC % (auto) 0.0 (0.0-0.2) /100WBC Sodium 135 (135-145) mmol/L Potassium 4.0 (3.3-5.1) mmol/L Chloride 102 (96-108) mmol/L Carbon Dioxide 22 (22-29) mmol/L Anion Gap 15 (12-20) BUN 25 H (9-16) mg/dL Creatinine 1.78 H (0.5-1.4) mg/dL Estim Creat Clear Calc 16.4 Estimated GFR 27 Random Glucose 115 (60-115) mg/dL Calcium 10.2 (8.4-10.2) mg/dL Magnesium 2.1 (1.6-2.6) mg/dL Total Bilirubin 0.7 (0.0-1.0) mg/dL Direct Bilirubin 0.3 (0.0-0.5) mg/dL AST 25 (5-31) U/L ALT < 6 (0-31) U/L Alkaline Phosphatase 69 (39-117) U/L Troponin I High Sens 8.1 (<3.5-17.0) ng/L C-Reactive Protein 0.32 (< or = 0.50) mg/dL Total Protein 6.7 (6.5-8.0) g/dL Albumin 4.4 (3.5-5.0) g/dL Lipase 19 (8-78) U/L Urine Color Dark Yellow Urine Appearance Clear Urine pH 5.0 (5.0-9.0) Ur Specific [place] 1.020 (1.005-1.025) Urine Protein Negative (Neg-Trace) mg/dL Urine Glucose (UA) Negative (Negative) mg/dL Urine Ketones 15 (Negative) mg/dL Urine Blood Negative (Negative) Urine Nitrite Negative (Negative) Ur Leukocyte Esterase Moderate (2+) H (Negative) Urine RBC 0-2 (0-2) /HPF Urine WBC 21-50 H (0-5) /HPF Ur Squamous Epith Cells 3-5 (0-2) /HPF Urine Bacteria None Seen (None Seen) Hyaline Casts 3-5 (0-2) /LPF Medications Administered Discontinued Medications Generic Name Dose Route Start Last Admin Trade Name Freq PRN Reason Stop Dose Admin Lactated Ringer's 500 mls @ 999 mls/hr 09/17/25 20:30 09/17/25 21:05 Lr IV 09/17/25 21:00 Infused .Q31M MARTÍNEZ Infusion Discharge Plan Discharge Clinical Impression: Abdominal pain Patient Disposition: Home, Self-Care Additional Instructions: Your testing in the emergency room is very reassuring. No dangerous process is seen. I think it would be reasonable for you to continue using the fentanyl patch. However it might be good for you to resume use of MiraLax to make sure that you do not get significantly constipated. Please contact your regular doctor's office in the morning for a follow up appointment to discuss these symptoms further. Return to the emergency room if significantly worse. Prescriptions: No Action carbidopa-levodopa [Sinemet] 25-100 mg tablet 1 tab PO TID 90 Days Qty: 270 0RF multivitamin Tablet 1 tab PO DAILY polyvinyl alcohol [Dry Eyes] 1.4 % Drops 1 drp OPHTHALMIC (EYE) TID simethicone [Gas Relief 80 (simethicone)] 80 mg Tablet,Chewable 80 mg PO Q6-8H PRN (Reason: Abdominal Distention) amlodipine 10 mg tablet 10 mg PO DAILY simvastatin 20 mg tablet 20 mg PO BEDTIME aspirin 81 mg tablet,delayed release (DR/EC) 81 mg PO DAILY omeprazole 20 mg capsule,delayed release(DR/EC) 20 mg PO BID hydrochlorothiazide 25 mg tablet 25 mg PO DAILY losartan 100 mg tablet 100 mg PO DAILY fentanyl 50 mcg/hr patch 72 hour 1 patch topical Q3D cyanocobalamin (vitamin B-12) 1,000 mcg tablet 1,000 mcg PO DAILY Referrals: Saleem Gutiérrez PA [Primary Care Provider, Internal Medicine] Interventions: ED Discharge Assessment Last Done: 09/17/25 22:40 Discharge Date/Time: 09/17/25 22:58 Print Language: Guamanian
--- NOTE | 2025-09-17 14:20 | ECG_ITS ---
Test Reason : abdm pain Blood Pressure : */* mmHG Vent. Rate : 93 BPM Atrial Rate : 93 BPM P-R Int : 154 ms QRS Dur : 70 ms QT Int : 316 ms P-R-T Axes : 45 55 34 degrees QTcB Int : 392 ms Normal sinus rhythm Normal ECG When compared with ECG of 27-May-2025 14:48, No significant change was found Referred By: Gosia Jones Electronically Signed By: FREIDA GUTHRIE MD
[2025-09-17 14:58] LABS: MANUAL DIFF FLAG NO
[2025-09-17 15:00] LABS: Hematocrit 33.5 % (37.0-47.0); Hemoglobin 11.1 g/dl (12.0-16.0); Imm Gran Abs Auto 0.01 X10*3/uL (0.00-0.03); Imm Gran Pct Auto 0.2 % (0.0-0.4); Lymphocytes Absolute Auto 1.2 X10*3/uL (1.2-4.9); Mean Corpuscular HGB Conc 33.1 g/dl (31.0-35.0); Mean Corpuscular Hemoglobin 29.3 pg (27.0-33.0); Mean Corpuscular Volume 88.4 fL (80.0-98.0); NRBC Abs Auto 0.000 X10*3/uL (0.0-0.012); NRBC Pct Auto 0.0 /100WBC (0.0-0.2); Platelet Count 263 X10*3/uL (160-400); Red Blood Count 3.79 X10*6/uL (4.20-5.50); White Blood Count 6.2 X10*3/uL (4.8-10.8)
[2025-09-17 15:39] LABS: Alanine Aminotransferase < 6 U/L (0-31); Albumin Level 4.4 g/dL (3.5-5.0); Alkaline Phosphatase 69 U/L (39-117); Anion Gap 15 (12-20); Aspartate Amino Transferase 25 U/L (5-31); Blood Urea Nitrogen 25 mg/dL (9-16); Calcium 10.2 mg/dL (8.4-10.2); Carbon Dioxide 22 mmol/L (22-29); Chloride 102 mmol/L (96-108); Creatinine Clr Calc Pharmacy 16.4; Estimated Glomerular Filt Rate 27; Lipase 19 U/L (8-78); Magnesium 2.1 mg/dL (1.6-2.6); Potassium 4.0 mmol/L (3.3-5.1); Sodium 135 mmol/L (135-145); Total Protein 6.7 g/dL (6.5-8.0)
[2025-09-17 15:45] LABS: Troponin-I High Sensitivity 8.1 ng/L (<3.5-17.0)
[2025-09-17 20:13] VITALS: BP 154/50; PULSE 100; RESP 18; O2SAT 98
[2025-09-17] MEDS: Lactated Ringers 500 ML 999 ML IV (20:32)
[2025-09-17 20:45] LABS: Appearance Urine Clear; Glucose Urine UA Negative (Negative); PH 5.0 (5.0-9.0); Specific Gravity - Urine 1.020 (1.005-1.025); UMIC TRIGGER UACC YES
[2025-09-17 20:48] LABS: UACC Culture Trigger YES
[2025-09-17 22:40] VITALS: BP 121/61; PULSE 93; RESP 18; TEMP 36.6; O2SAT 95
--- OUTSIDE RECORDS SUMMARY | 2025-09-18 01:03 | XMS_ITS | Clinical Summary ---
Author Organization [facility] Address [address] [place] [address] Phone Care Team Providers Care Hair Weaver Name Role Phone Saleem Gutiérrez Primary Care Provider [phone] Allergies Active Allergy Reactions Criticality Noted Date Comments Codeine Itching 09/05/2005 Other Reaction(s): Hives/Urticaria Tramadol Hcl Nausea And Vomiting 03/11/2010 dizzy Medications polyethylene glycol (MIRALAX) 17 gram packet Take 1 Packet by mouth 2 times daily. 07/02/20 24 Active losartan (COZAAR) 100 mg tablet Take 1 tablet (100 mg total) by mouth 1 (one) time each day. 90 tablet 3 11/26/19 25 Active triamcinolone (KENALOG) 0.1 % ointment Apply topically 2 (two) times a day if needed for irritation or rash. 30 g 3 02/19/20 25 Active carbidopa-levodop a (PARCOPA) 25-100 mg per disintegrating tablet Dissolve 1 tablet on top of the tongue 3 (three) times a day. Active hydroCHLOROthiazi de (HYDRODIURIL) 25 mg tablet Take 1 tablet (25 mg total) by mouth 1 (one) time each day. 90 each 1 05/05/20 25 2025 Active simvastatin (ZOCOR) 20 mg tablet TAKE 1 TABLET AT BEDTIME 90 tablet 1 05/09/20 25 Active amLODIPine (NORVASC) 10 mg tablet TAKE 1 TABLET DAILY 90 tablet 1 05/09/20 25 Active calcitonin salmon (MIACALCIN) 200 unit/actuation nasal spray Administer 1 spray into one nostril 1 (one) time each day. 3.7 mL 3 05/26/20 Active aspirin 81 mg EC [...] for constipation. 90 each 1 06/02/20 25 2025 Active omeprazole (PriLOSEC) [address] capsule TAKE 1 CAPSULE DAILY 90 capsule 1 08/12/20 Active cyanocobalamin (VITAMIN B-12) 1,000 mcg tablet Take 1 tablet (1,000 mcg total) by mouth 1 (one) time each day. 90 each 1 08/12/20 Active fentaNYL (DURAGESIC) 50 mcg/hr Place 1 patch on the skin every 3rd (third) day. Max Daily Amount: 1 patch 10 patch 08/29/20 Active fentaNYL (DURAGESIC) 25 mcg/hr Place 1 patch on the skin every 3rd (third) day. Max Daily Amount: 1 patch 10 patch 08/12/202024 Discontinued Hospital, Clinic, or Other Facility Administered Medication Ordered Dose Route Frequency Start Date End Date Status cyanocobalamin (VITAMIN B-12) injection 1,000 mcgIndications:B12 deficiency 1000 mcg IM See admin instructions 08/12/2025 Active Active Problems Problem Noted Date Diagnosed Date Type 2 diabetes mellitus wit h both eyes affected by mild nonproliferative retinopathy without macular edema, without long-term current use of insulin 07/29/2025 Bilateral carotid artery stenosis 02/18/2025 Hx of stroke without residual deficits Stage 3b chronic kidney disease 11/12/2024 Parkinson disease 05/11/2020 Tremor of left hand 04/23/2018 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 fracture 10/13/2017 Pulmonary nodules/lesions, multiple 05/08/2014 Overview (07/22/2024): seen first 7-12 largest is 6mm in the RUL, unchanged over 2 yrs Osteopenia 06/22/2012 HTN (hypertension) 05/04/2012 Backache 09/05/2005 Overview (07/22/2024): O update Esophageal reflux 09/05/2005 External hemorrhoids 09/05/2005 Overview (07/22/2024): O update Hyperlipidemia 09/05/2005 Encounters Date Type Department Care Team Description 09/09/2025 Telephone Adult Medicine [address] [phone] Saleem Gutiérrez, PA 09/08/2025 Telephone Adult Medicine [address] [phone] Teresa Collins MA 09/01/[address] [phone] Pasquale Shaw LPN 08/29/2025 1:30 PM EST Office Visit [address] [phone] Saleem Gutiérrez, PA Primary hypertension (Primary Dx); Hyperlipidemia, unspecified hyperlipidemia type; Osteopenia, unspecified location; 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 fracture; Parkinson's disease without dyskinesia or fluctuating manifestations (CMS/HCC V24, CMS/HCC V28); Stage 3b chronic kidney disease (CMS/HCC V24, CMS/HCC V28); Type 2 diabetes mellitus with both eyes affected by mild nonproliferative retinopathy without macular edema, without long-term current use of insulin (CMS/HCC V24, CMS/HCC V28); Low back pain without sciatica, unspecified back pain laterality, unspecified chronicity; Spinal stenosis of lumbar region with neurogenic claudication; Cervical pain 08/20/2025 2:15 PM EST Clinical Support [address] [phone] B12 deficiency (Primary Dx) 08/12/2025 Results Follow-Up Adult [address], [place] [phone] Heber Garg MD 08/12/[address] [phone] Heber Garg MD 08/12/[address] [phone] Heber Garg MD 08/11/2025 12:30 PM EST Lab Draw Station [address] Anemia, unspecified type 08/04/[address] [phone] Heber Garg MD 07/30/2025 1:42 PM EDT - 07/30/2025 11:59 PM EDT Hospital Encounter Bone [address] [phone] 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 fracture Discharge Disposition: Home or Self Care 07/29/2025 11:00 AM EDT Office Visit [address] [phone] Heber Garg MD Type 2 diabetes mellitus with both eyes affected by mild nonproliferative retinopathy without macular edema, without long-term current use of insulin (CMS/HCC V24, CMS/HCC V28) (Primary Dx); Need for prophylactic vaccination and inoculation against influenza; Primary hypertension; Other hyperlipidemia; Spinal stenosis of lumbar region with neurogenic claudication; Parkinson's disease without dyskinesia or fluctuating manifestations (CMS/HCC V24, CMS/HCC V28); Bilateral carotid artery stenosis; Stage 3b chronic kidney disease (CMS/HCC V24, CMS/HCC V28); 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 fracture 07/29/2025 Results Follow-Up [address] [phone] Heber Garg MD 07/15/2025 Telephone Adult Medicine [address] [phone] Saleem Gutiérrez, PA 06/27/2025 Telephone Adult Medicine [address] [phone] Teresa Collins MA 06/25/2025 11:44 AM EDT - 06/25/2025 11:59 PM EDT Hospital Encounter [address] [phone] Dyspnea, unspecified type; Other fatigue; Cough, unspecified type Discharge Disposition: Home or Self Care 06/25/2025 11:30 AM EDT Office Visit Adult [address] [phone] Steffen Eldridge PA Dyspnea, unspecified type (Primary Dx); Other fatigue; Cough, unspecified type; Acute upper respiratory infection, unspecified 06/23/2025 Telephone Adult Medicine [address] [phone] Saleem Gutiérrez PA 06/19/2025 Telephone Adult [address] [phone] Teresa Collins MA from Last 3 Months Immunizations Immunization Administration Dates Next Due Influenza trivalent, 0.5mL ( Fluad) 65yo and older 07/29/2025,07/02/2024,07/06/2023,06/17,06/22/2021,06/20/2018,08/16/2017 ,07/22/2016,07/23/2015 Influenza trivalent, 0.5mL, preservative free (Fluarix; FluLaval; Fluzone) ages 6mo and older (Afluria) 3 years and older 06/27/2020,06/09/2020,06/25/2013,06/21,06/24/2011,07/29/2010,07/09/2009 ,06/23/2008,07/20/2007,08/10/2005 Influenza, Unspecified 06/29/2019,2016,07/22/2016,07/23,07/10/2014 Pfizer (ages 12 & older) Biv alent, COVID-19 08/23/2023 Pneumococcal conjugate 13 va lent (Prevnar 13, PCV13) 2mo and older 03/12/2015 Pneumococcal polysaccharide 23 valent (Pneumovax 23) 2yo and older 06/24/2003 RSV, bivalent, protein subun it RSVpreF, 0.5mL, Preservative Free (Arexvy) 50yo and older 09/07/2023 Td Tetanus diptheria (Tdvax) 7yo and older 06/17/2022,06/23/2008 Zoster Live 03/01/2012 Zoster recombinant (Shingrix ) 19yo and older 10/18/2022,08/11/2022 Surgical History Surgery Date Site/Laterality Comments CATARACT EXTRACTION PROCEDURE: HISTORICAL CATARACT REMOVAL; COMMENT: bilat TONSILLECTOMY PROCEDURE: HISTORICAL TONSILLECTOMY OTHER SURGICAL HISTORY PROCEDURE: HISTORY OTHER; COMMENT: SPINAL FUSION DR MORIN LOW BACK COLONOSCOPY 02/19/2008 PROCEDURE: HISTORICAL COLONOSCOPY; COMMENT: Negative UPPER GASTROINTESTINAL ENDOSCOPY 01/04/2021 PROCEDURE: DE UPPER GI ENDOSCOPY PERFORMED; COMMENT: Medium sized [...] Years Used Date Smoking Tobacco: Former Cigarettes 0.8 Q uit: 10/09/1987 Smokeless Tobacco: Never Tobacco [...] care for your loved ones. For example, registered nurse maternal child or elderly care for an older adult? [...] Date Recorded What is your living situation? Unrecognized valu e 05/21/2025 Comments No Sex and Gender Information Value Date Recorded Sex Assigned at Female 09/27/2024 3:11 PM EST Legal Sex Female 4:07 AM EST Gender Identity Female 09/27/2024 3:11 PM EST Sexual Orientation Straight 09/30/2024 8: 42 AM EST Last Filed Vital Signs Vital Sign Reading Time Taken Comments Blood Pressure 102/62 08/29/2025 1:40 PM EST Pulse 89 08/29/2025 1:40 PM EST Temperature 35.8 C (96.4 F) 08/29/2025 1:40 PM EST Respiratory Rate 15 08/29/2025 1:40 PM EST Oxygen Saturation 97% 08/29/2025 1:40 PM EST Inhaled Oxygen Concentration - - Weight 56.6 kg (124 lb 12.8 oz) 08/29/2025 1:40 PM EST Height 154.9 cm (5' 1 ) 08/29/2025 1:40 PM EST Body Mass Index 23.58 08/29/2025 1:40 PM EST Plan of Treatment Upcoming Encounters Date Type Department Care Team (Late st Contact Info) Description 09/23/2025 2:40 PM EST Office Visit Gastroenterology - [address] [facility] [address] [place] [phone] Pastora Arriola PA [address] [facility] [address] [place] [address] 10/22/2025 2:30 PM EST Clinical Support Adult [address] [phone] 12/09/2025 2:30 PM EST Office Visit Adult Medicine [facility] [address] [place] [phone] Saleem Gutiérrez PA [address] [place] [phone] 01/05/2026 1:30 PM EDT Appointment [facility] Ultrasound [address] [place] [address] 06/17/2026 1:00 PM EDT Office Visit Vascular Surgery - [place] [address] [place] [address] Cherise Matias MD [address] [place] [phone] Health Maintenance Due Date Last Done Comments Drug Screen 1935 Naloxone Order 1935 Pain Assessment 1935 Medicare Annual Wellness Visit 03/19/2025 03/19/2024 COVID-19 Vaccine ( season) 2025 08/23/2023, 07/21/2022, 02/13/2022, Additional history exists Diabetes: Annual Retina Eye Exam 12/17/2025 12/17/2024 Diabetes: Annual Foot Exam 12/18/2025 12/18/2024 Diabetes: Blood Sugar Control Test (HGBA1C) 01/27/2026 07/29/2025, 10/11/2024, 11/16/2023 Falls Risk Assessment 05/21/2026 05/21/2025, 024 Social Influencers of Health Screening 05/21/2026 05/21/2025 Opioid Substance Agreement 07/24/2026 07/23/2026 Hypertension/CHF/CAD Annual BMP Blood Test 07/29/2026 07/29/2025, 06/25/2025, 04/28/2025, Additional history exists Cholesterol Screening (Lipid Panel) 04/28/2030 04/28/2025, 10/11/2024, 11/15/2023 DTaP,Tdap,and Td Vaccines (3 - Td or Tdap) 06/17/2032 06/17/2022, 06/23/2008 Osteoporosis Screening (Bone Density Screening) 07/30/2040 07/30/2025, 04/21/2017 Pneumococcal Vaccine: 50+ Years Completed 03/12/2015, 06/24/2003 Zoster Vaccines Completed 10/18/2022, 1112/2021, 03/01/2012 RSV Immunization Adult Patients Completed 09/07/2023 Depression Screening Completed 05/21/2025, 03/19/20 Influenza Vaccine Completed 07/29/2025, , 07/06/2023, Additional history exists HIB Vaccines Aged Out [...] Procedure Name Priority Date/Time Associated Diagnosis Comments FERRITIN Routine 08/11/2025 12:31 PM EST Anemia, unspecified type IRON AND TIBC Routine 08/11/2025 12:31 PM EST Anemia, unspecified type FOLATE Routine 08/11/2025 12:31 PM EST Anemia, unspecified type VITAMIN B12 Routine 08/11/2025 12:31 PM EST Anemia, unspecified type RETICULOCYTE COUNT Routine 08/11/2025 12 :31 PM EST Anemia, unspecified type BD BONE DENSITY DXA AXIAL SKELETON Routine 07/30/2025 2:11 PM EDT 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 fracture MICROALBUMIN CREATININE URINE RATIO Routine 07/30/2025 1:56 PM EDT Type 2 diabetes mellitus with both eyes affected by mild nonproliferative retinopathy without macular edema, without long-term current use of insulin ([facility] V24, CMS/[facility] V28) CBC WITH AUTO DIFFERENTIAL Routine 07/29/2025 11:45 AM EDT Type 2 diabetes mellitus with both eyes affected by mild nonproliferative retinopathy without macular edema, without long-term current use of insulin ([facility] V24, CMS/[facility] V28) COMPREHENSIVE METABOLIC PANEL Routine 07/29/2025 11:45 AM EDT Type 2 diabetes mellitus with both eyes affected by mild nonproliferative retinopathy without macular edema, without long-term current use of insulin ([facility] V24, CMS/[facility] V28) HEMOGLOBIN A1C Routine 07/29/2025 11:45 AM EDT Type 2 diabetes mellitus with both eyes affected by mild nonproliferative retinopathy without macular edema, without long-term current use of insulin ([facility] V24, CMS/[facility] V28) CBC AND DIFFERENTIAL Routine 07/29/2025 11:45 AM EDT Type 2 diabetes mellitus with both eyes affected by mild nonproliferative retinopathy without macular edema, without long-term current use of insulin ([facility] V24, CMS/[facility] V28) EXTERNAL XRAY REPORT 07/11/2025 EXTERNAL XRAY REPORT 07/11/2025 XR CHEST 2 VIEWS Routine 06/25/2025 11:5 6 AM EDT Dyspnea, unspecified type Other fatigue Cough, unspecified type COMPREHENSIVE METABOLIC PANEL Routine 06/25/2025 11:41 AM EDT Dyspnea, unspecified type Other fatigue Cough, unspecified type Acute upper respiratory infection, unspecified [id number], RSV, FLU A AND B QUALITATIVE RT-PCR, LOCAL REFERENCE LAB Routine 06/25/2025 11:40 AM EDT Dyspnea, unspecified type Other fatigue Cough, unspecified type Acute upper respiratory infection, unspecified LIPID PANEL WITH REFLEX TO DIRECT LDL Routine 04/28/2025 11:52 AM EDT Primary hypertension Hyperlipidemia, unspecified hyperlipidemia type Parkinson's disease without dyskinesia or fluctuating manifestations ([facility]/HCC V24, [facility] V28) Stage 3b chronic kidney disease ([facility]/HCC V24, [facility] V28) FALLS RISK ASSESSMENT Routine 04/30/2024 DEPRESSION SCREENING Routine 03/19/2024 from Last 3 Months or Most Recently Relevant to Health Maintenance Results * Iron and TIBC (08/11/2025 12:31 PM EST) Pathologist [facility] Iron 79 40 - 150 mcg/dL LAB CHEMISTRY METHOD 08/11/2025 5:29 PM EST [facility] TIBC 276 250 - 450 mcg/dL LAB CHEMISTRY METHOD 08/11/2025 5:29 PM EST [facility] Iron Saturation 29 15 - 50 % LAB CHEMISTRY METHOD 08/11/2025 5:29 PM EST [facility] Blood Venous blood specimen / Unknown Venipuncture / Unknown 08/11/2025 12:31 PM EST 08/11/2025 12:31 PM EST us Heber Garg MD LAB BLOOD ORDERABLES F inal Result [facility] [address] [place] [address], [place] [phone] * Reticulocyte count (08/11/2025 12:31 PM EST) Retic Ct Abs 0.050 0.030 - 0.090 M/mcL LAB HEMETOLOGY METHOD 08/11/2025 3:00 PM EST [facility] Retic Ct Pct 1.4 0.7 - 1.7 % LAB HEMETOLOGY METHOD 08/11/2025 3:00 PM [facility] Immature Retic Fract 6.8 2.3 - 15.9 % LAB HEMETOLOGY METHOD 08/11/2025 3:00 PM EST [facility] Reticulocyte Hemoglobin 32.8 >29.0 pcg LAB HEMETOLOGY METHOD 08/11/2025 3:00 PM EST [facility] Blood Venous blood specimen / Unknown Venipuncture / Unknown 08/11/2025 12:31 PM EST 08/11/2025 12:31 PM EST Heber Garg MD LAB BLOOD ORDERABLES F inal Result Performing Organization Address City/[facility]/ZIP Co de Phone Number [facility] [address] [place] [address], [place] [phone] * (ABNORMAL) Folate (08/11/2025 12:31 PM EST) Pathologist [facility] Folate >20.0(H) 2.8 - 17.0 ng/ml LAB CHEMISTRY METHOD 08/11/2025 5:51 PM EST [facility] Blood Venous blood specimen / Unknown Venipuncture / Unknown 08/11/2025 12:31 PM EST 08/11/2025 12:31 PM EST Heber Garg MD LAB BLOOD ORDERABLES F inal Result [facility] [address] [place] [address], [place] [phone] * Ferritin (08/11/2025 12:31 PM EST) Ferritin 218 8 - 252 ng/mL LAB CHEMISTRY METHOD 08/11/2025 5:51 PM EST [facility] Blood Venous blood specimen / Unknown Venipuncture / Unknown 08/11/2025 12:31 PM EST 08/11/2025 12:31 PM EST us Heber Garg MD LAB BLOOD ORDERABLES F inal Result Performing Organization Address City/[facility]/ZIP Co de Phone Number [facility] [address] [place] [address], [place] [phone] * (ABNORMAL) Vitamin B12 (08/11/2025 12:31 PM EST) [facility] Vitamin B-12 191(L) 250 - 900 pcg/mL LAB CHEMISTRY METHOD 08/11/2025 5:58 PM EST [facility] Blood Venous blood specimen / Unknown Venipuncture / Unknown 08/11/2025 12:31 PM EST 08/11/2025 12:31 PM EST us Heber Garg MD LAB BLOOD ORDERABLES F inal Result Performing Organization Address [facility] Co de Phone Number [facility] [address] [place] [address], [place] [phone] * BD Bone Density DXA Axial Skeleton (07/30/2025 2:11 PM EDT) Anatomical Region Laterality Modality Wrist, Hip, L-spine Bone Densito metry 08/05/2025 9:50 AM EDT Impressions 08/05/2025 9:54 AM EDT Osteoporosis. PLEASE NOTE: W.H.O. classification is based on lowest measured density at the spine, femoral neck, or total hip.This classification has prognostic significance when applied to post menopausal women and older men. 1) The World Health Organization defines low BMD as follows: T-score Normal at or > -1 Osteopenia < -1 and > -2.5 Osteoporosis at or < -2.5 without fractures Established osteoporosis < -2.5 with fractures -------- FINAL REPORT -------- Dictated By: Luis A Lemos Dictated Date: 08/05/2025 09:50 ET Assigned Physician: Luis A Lemos Reviewed and Electronically Signed By: Luis A Lemos Signed Date: 08/05/2025 09:54 ET Workstation ID: [id number] Transcribed By: Self Edit Transcribed Date: 08/05/2025 09:50 ET Narrative 08/05/2025 9:54 AM EDT Clinical history: post-menopausal osteoporosis prevention Scans of the lumbar spine and hips were performed on a [employer] fan beam bone densitometer. Bone mineral density measurements and associated T and Z scores respectively are as follows: Lumbar Spine: L1-L3 BMD: 0.996 g/cm2 T-Score: -0.2 Z-Score: 2.6 Compared with the prior study dated 04/21/2017, the BMD reading has increased which is statistically significant Left Proximal Femur: Neck BMD: 0.420 g/cm2 T-Score: -3.9 Z-Score: -1.3 Total BMD: 0.502 g/cm2 T-Score: -3.6 Z-Score: -1.3 Compared with the prior study the mean BMD reading in the total left hip has decreased which is statistically significant Compared with standards for the young adult, lowest measured bone density places the patient in the W.H.O. osteoporotic range. Procedure Note Luis A Lemos MD - 08/05/2025 Clinical history: post-menopausal osteoporosis prevention Scans of the lumbar spine and hips were performed on a [employer] beam bone densitometer. Bone mineral density measurements and associated T and Z scoresrespectively are as follows: Lumbar Spine: L1-L3 BMD: 0.996 g/cm2 T-Score: -0.2 Z-Score: 2.6 Compared with the prior study dated 04/21/2017, the BMD reading hasincreased which is statistically significant Left Proximal Femur: Neck BMD: 0.420 g/cm2 T-Score: -3.9 Z-Score: -1.3 Total BMD: 0.502 g/cm2 T-Score: -3.6 Z-Score: -1.3 Compared with the prior study the mean BMD reading in the total left hiphas decreased which is statistically significant Compared with standards for the young adult, lowest measured bone densityplaces the patient in the W.H.O. osteoporotic range. IMPRESSION: Osteoporosis. PLEASE NOTE: W.H.O. classification is based on lowest measured density at the spine,femoral neck, or total hip.This classification has prognostic significancewhen applied to post menopausal women and older men. 1) The World Health Organization defines low BMD as follows: T-score Normal at or > -1 Osteopenia < -1 and > -2.5 Osteoporosis at or < -2.5 withoutfractures Established osteoporosis < -2.5 with fractures -------- FINAL REPORT -------- Dictated By: Luis A Lemos Dictated Date: 08/05/2025 09:50 ET Assigned Physician: Luis A Lemos Reviewed and Electronically Signed By: Luis A Lemos Signed Date: 08/05/2025 09:54 ET Workstation ID: [id number] Transcribed By: Self Edit Transcribed Date: 08/05/2025 09:50 ET Heber Garg MD IMG DXA PROCEDURES Fin al Result * Microalbumin creatinine urine ratio (07/30/2025 1:56 PM EDT) Creatinine, Urine 112.0 mg/dL LAB CHEMISTRY METHOD 07/30/2025 5:23 PM EDT [facility] Microalb, Ur 8.2 0.0 - 29.0 mg/L LAB CHEMISTRY METHOD 07/30/2025 5:23 PM EDT [facility] Microalb/Creat Ratio 7 <30 mg/g creat LAB CHEMISTRY METHOD 07/30/2025 5:23 PM T [facility] Urine Urine specimen obtained by clean catch procedure / Unknown Non-blood Collection / Unknown 07/30/2025 1:56 PM EDT 07/30/2025 1:56 PM EDT us Heber Garg MD LAB URINE ORDERABLES F inal Result [facility] [address] [place] [address], * (ABNORMAL) CBC auto differential (07/29/2025 11:45 AM EDT) WBC 5.6 4.8 - 10.8 K/mcL LAB HEMETOLOGY METHOD 07/29/2025 3:41 PM EDT [facility] RBC 3.90 3.80 - 4.80 M/mcL LAB HEMETOLOGY METHOD 07/29/2025 3:41 PM EDT [facility] Hemoglobin 10.9(L) 11.5 - 16.0 g/dL LAB HEMETOLOGY METHOD 07/29/2025 3:41 PM EDT [facility] Hematocrit 34.4(L) 35.0 - 47.0 % LAB HEMETOLOGY METHOD 07/29/2025 3:41 PM EDT [facility] MCV 88.4 79.0 - 98.0 FL LAB HEMETOLOGY METHOD 07/29/2025 3:41 PM EDT [facility] MCH 28.0 27.0 - 32.0 pcg LAB HEMETOLOGY METHOD 07/29/2025 3:41 PM EDT [facility] MCHC 31.7(L) 32.0 - 37.0 g/dL LAB HEMETOLOGY METHOD 07/29/2025 3:41 PM EDT [facility] RDW 13.6 11.0 - 15.0 % LAB HEMETOLOGY METHOD 07/29/2025 3:41 PM EDT [facility] Platelets 286 130 - 400 K/mcL LAB HEMETOLOGY METHOD 07/29/2025 3:41 PM EDT [facility] MPV 10.8 7.0 - 11.0 FL LAB HEMETOLOGY METHOD 07/29/2025 3:41 PM EDT [facility] NRBC 0.0 <1.0 % LAB HEMETOLOGY METHOD 07/29/2025 3:[facility] NRBC Absolute 0.00 <0.10 K/mcL LAB HEMETOLOGY METHOD 07/29/2025 3:41 PM [facility] Neutrophils Relative 58.6 % LAB HEMETOLOGY METHOD 07/29/2025 3:41 PM [facility] Lymphocytes Relative 26.2 % LAB HEMETOLOGY METHOD 07/29/2025 3:41 PM [facility] Monocytes Relative 13.3 % LAB HEMETOLOGY METHOD 07/29/2025 3:41 PM [facility] Eosinophils Relative 1.1 % LAB HEMETOLOGY METHOD 07/29/2025 3:41 PM [facility] Basophils Relative 0.4 % LAB HEMETOLOGY METHOD 07/29/2025 3:41 PM [facility] Immature Granulocytes Relative 0.4 % LAB HEMETOLOGY METHOD 07/29/2025 3:41 PM [facility] Neutrophils Absolute 3.30 1.50 - 7.00 K/mcL LAB HEMETOLOGY METHOD 07/29/2025 3:41 PM [facility] Lymphocytes Absolute 1.47 1.00 - 5.00 K/mcL LAB HEMETOLOGY METHOD 07/29/2025 3:41 PM T [facility] Monocytes Absolute 0.75 0.20 - 1.00 K/mcL LAB HEMETOLOGY METHOD 07/29/2025 3:41 PM [facility] Eosinophils Absolute 0.06 0.00 - 0.50 K/mcL LAB HEMETOLOGY METHOD 07/29/2025 3:41 PM [facility] Basophils Absolute 0.02 0.00 - 0.20 K/mcL LAB HEMETOLOGY METHOD 07/29/2025 3:41 PM EDT [facility] [facility] Immature Granulocytes Absolute 0.02 0.00 - 0.03 K/[facility] HEMETOLOGY METHOD 07/29/2025 3:41 PM EDT [facility] Blood Venous blood specimen / Unknown Venipuncture / Unknown 07/29/2025 11:45 AM EDT 07/29/2025 11:45 AM EDT us Heber Garg MD LAB BLOOD ORDERABLES F inal Result Performing Organization Address City/[facility]/ZIP Co de Phone Number [facility] [address] [place] [address], [place] [phone] * Hemoglobin A1c (07/29/2025 11:45 AM EDT) Hemoglobin A1C 6.4 <6.5 % LAB CHEMISTRY METHOD 07/29/2025 8:50 PM EDT [facility] Mean Bld Glu Estim. 137 mg/dL LAB CHEMISTRY METHOD 07/29/2025 8:50 PM EDT [facility] Blood Venous blood specimen / Unknown Venipuncture / Unknown 07/29/2025 11:45 AM EDT 07/29/2025 11:45 AM EDT us Heber Garg MD LAB BLOOD ORDERABLES F inal Result [facility] [address] [place] [address], [place] [phone] * (ABNORMAL) Comprehensive metabolic panel (07/29/2025 11:45 AM EDT) Only the most recent of2 resultswithin the time period is included. Sodium 138 133 - 145 mmol/L LAB CHEMISTRY METHOD 07/29/2025 5:06 PM EDT [facility] Potassium 4.4 3.5 - 5.5 mmol/L LAB CHEMISTRY METHOD 07/29/2025 5:06 PM [facility] Chloride 106 96 - 110 mmol/L LAB CHEMISTRY METHOD 07/29/2025 5:06 PM [facility] CO2 26 21 - 32 mmol/L LAB CHEMISTRY METHOD 07/29/2025 5:06 PM [facility] Anion Gap 6 3 - 11 LAB CHEMISTRY METHOD 07/29/2025 5:06 PM [facility] Glucose 132(H) 70 - 100 mg/dL LAB CHEMISTRY METHOD 07/29/2025 5:06 PM [facility] BUN 24 5 - 25 mg/dL LAB CHEMISTRY METHOD 07/29/2025 5:06 PM [facility] Creatinine 1.48(H) 0.50 - 1.10 mg/dL LAB CHEMISTRY METHOD 07/29/2025 5:06 PM [facility] eGFR 34(L) >=60 mL/min/1. 73m2 LAB CHEMISTRY METHOD 07/29/2025 5:06 PM [facility] Comment:Calculation based on the Chronic Kidney Disease Epidemiology Collaboration (CKD-EPI) equation refit without adjustment for race. BUN/Creatinine Ratio 16.2 LAB CHEMISTRY METHOD 07/29/2025 5:06 PM [facility] Calcium 9.5 8.5 - 10.5 mg/dL LAB CHEMISTRY METHOD 07/29/2025 5:06 PM [facility] AST (SGOT) 16 10 - 42 unit/L LAB CHEMISTRY METHOD 07/29/2025 5:06 PM [facility] ALT (SGPT) 15 10 - 60 unit/L LAB CHEMISTRY METHOD 07/29/2025 5:06 PM [facility] Alkaline Phosphatase 97 42 - 121 unit/L LAB CHEMISTRY METHOD 07/29/2025 5:06 PM [facility] Total Protein 6.5 6.0 - 8.0 g/dL LAB CHEMISTRY METHOD 07/29/2025 5:06 PM EDT [facility] Albumin 3.8 3.2 - 5.0 g/dL LAB CHEMISTRY METHOD 07/29/2025 5:06 PM EDT [facility] Total Bilirubin 0.6 0.0 - 1.4 mg/dL LAB CHEMISTRY METHOD 07/29/2025 5:06 PM EDT [facility] Blood Venous blood specimen / Unknown Venipuncture / Unknown 07/29/2025 11:45 AM EDT 07/29/2025 11:45 AM EDT Heber Garg MD LAB BLOOD ORDERABLES F inal Result [facility] [address] [place] [address], [place] [phone] * External Xray Report (07/11/2025) Only the most recent of2 resultswithin the time period is included. Anatomical Region Laterality Modality Radiographic Amalia ging us Provider [facility] XR PROCEDURES Final Result * XR Chest 2 Views (06/25/2025 11:56 AM EDT) Anatomical Region Laterality Modality Body Radiographic Amalia ging 06/25/2025 12:1 9 PM EDT Impressions 06/25/2025 12:22 PM EDT No acute pulmonary pathology. -------- FINAL REPORT -------- Dictated By: Cordelia Severino Dictated Date: 06/25/2025 12:19 ET Assigned Physician: Cordelia Severino Reviewed and Electronically Signed By: Cordelia Severino Signed Date: 06/25/2025 12:22 ET Workstation ID: [id number] Transcribed By: Self Edit Transcribed Date: 06/25/2025 12:19 ET Narrative 06/25/2025 12:22 PM EDT CHEST, TWO VIEWS HISTORY: Dyspnea on exertion . TECHNIQUE: Frontal and lateral views of the chest. PRIOR: Chest x-ray 04/21/2023. FINDINGS: The lungs are clear. No pleural effusion is seen. No pneumothorax is seen. The cardiac diameter is within normal limits. No acute or aggressive appearing bony abnormalities are seen. There is moderate kyphoscoliosis and degenerative change of the spine. There is partially visualized posterior fusion hardware of the lower lumbar spine. There is atherosclerosis. There is a small hiatal hernia. Procedure Note Cordelia Severino MD - 06/25/2025 CHEST, TWO VIEWS HISTORY: Dyspnea on exertion . TECHNIQUE: Frontal and lateral views of the chest. PRIOR: Chest x-ray 04/21/2023. FINDINGS: The lungs are clear. No pleural effusion is seen. No pneumothorax is seen. The cardiac diameter is within normal limits. No acute or aggressive appearing bony abnormalities are seen. There ismoderate kyphoscoliosis and degenerative change of the spine. There ispartially visualized posterior fusion hardware of the lower lumbarspine. There is atherosclerosis. There is a small hiatal hernia. IMPRESSION: No acute pulmonary pathology. -------- FINAL REPORT -------- Dictated By: Cordelia Severino Dictated Date: 06/25/2025 12:19 ET Assigned Physician: Cordelia Severino Reviewed and Electronically Signed By: Cordelia Severino Signed Date: 06/25/2025 12:22 ET Workstation ID: [id number] Transcribed By: Self Edit Transcribed Date: 06/25/2025 12:19 ET us Steffen DEL [facility] IMG XR PROCEDURES Final Result * [id number], RSV, Influenza A and B qualitative RT-PCR (06/25/2025 11:40 AM EDT) SARS COV-2 Not Detected Not Detected LAB MOLECULAR DIAGNOSTICS METHOD 06/25/2025 5:04 PM EDT [facility] Comment: Disclaimer: The manner in which this information is used to guide patient care is the responsibility of the healthcare provider. Testing was performed using the Virdia SARS-CoV-2 test. This test has been authorized by FDA under an Emergency Use Authorization (EUA). This test is only authorized for the duration of time the declaration that circumstances exist justifying the authorization of the emergency use of in vitro diagnostic tests for detection of SARS-CoV-2 virus and/or diagnosis of COVID-19 infection under section 564(b)(1) of the Act, 21 U.S.C. 360bbb- 3(b)(1), unless the authorization is terminated or revoked sooner. Fact sheet for Healthcare Providers can be found at: https://www.fda.gov/media/203667/download Fact sheet for Patients can be found at: https://www.fda.gov/media/419104/download Influenza A PCR Not Detected Not Detected LAB MOLECULAR DIAGNOSTICS METHOD 06/25/2025 5:04 PM EDT [facility] Influenza B PCR Not Detected Not Detected LAB MOLECULAR DIAGNOSTICS METHOD 06/25/2025 5:04 PM EDT [facility] RSV PCR Not Detected Not Detected LAB MOLECULAR DIAGNOSTICS METHOD 06/25/2025 5:04 PM EDT [facility] Swab Nasopharyngeal structure / Unknown Non-blood Collection / Unknown 06/25/2025 11:40 AM EDT 06/25/2025 12:09 PM EDT us Steffen DEL [facility] LAB MICROBIOLOGY - GENER AL ORDERABLES Final Result [facility] [address] [place] [address], * Lipid panel with reflex to direct LDL (04/28/2025 11:52 AM EDT) Cholesterol 159 0 - 200 mg/dL LAB CHEMISTRY METHOD 04/28/2025 7:13 PM EDT [facility] Triglycerides 84 0 - 150 mg/dL LAB CHEMISTRY METHOD 04/28/2025 7:13 PM EDT [facility] HDL 60 >=40 mg/dL LAB CHEMISTRY METHOD 04/28/2025 7:13 PM EDT [facility] LDL Calculated 82 0 - 100 mg/dL LAB CHEMISTRY METHOD 04/28/2025 7:13 PM EDT [facility] VLDL Cholesterol Tato 16.8 mg/dL LAB CHEMISTRY METHOD 04/28/2025 7:13 PM EDT [facility] Non HDL Chol. (LDL+VLDL) 99 <145 mg/dL LAB CHEMISTRY METHOD 04/28/2025 7:13 PM EDT [facility] Chol/HDL Ratio 2.7 0.0 - 4.4 LAB CHEMISTRY METHOD 04/28/2025 7:13 PM EDT [facility] Blood Venous blood specimen / Unknown Venipuncture / Unknown 04/28/2025 11:52 AM EDT 04/28/2025 11:52 AM EDT Saleem DEL ROS[facility]IO LAB BLOOD ORDERABLES Corina l Result [facility] [address] [place] [address], * Falls Risk Assessment (04/30/2024) Pathologist [facility] Falls Risk Assessment abstracted Historical Provider HEALTH MAINTENANCE Final Result * Depression Screening (03/19/2024) Pathologist [facility] Depression Screening abstracted Historical Provider HEALTH MAINTENANCE Final Result from Last 3 Months or Most Recently Relevant to Health Maintenance Insurance [facility] [place] [id number] MEDICARE [facility] Care Teams Hair Weaver Relationship Specialty Start Date End Date Saleem Gutiérrez PA [address] [place] [id number] PCP - General Internal Medicine 08/06/24
--- OUTSIDE RECORDS SUMMARY | 2025-09-18 01:03 | XMS_ITS | Encounter Summary ---
Author Organization [facility] Address [address] [place] [address] Care Team Providers Care Storage Garage Attendant Name Role Phone Saleem Gutiérrez Primary Care Provider [phone] Reason for Visit * Reason Onset Date Comments VNA 09/08/2025 Encounter Details Date Type Department Care Team ([facility] Contact Info) Description 09/08/2025 Telephone Adult Medicine [address] [phone] Teresa Collins MA Social History Tobacco Use Types Packs/Day Years Used Date Smoking Tobacco: Former Cigarettes 0.8 Q uit: 10/09/1987 Smokeless Tobacco: Never Alcohol [...] care for your loved ones. For example, childcare center administrator or elderly care for an older adult? [...] as of this encounter Progress Notes * Pasquale Shaw LPN - 09/08/2025 2:24 PM EST See FYI from [facility] * Teresa Collins MA - 09/08/2025 2:00 PM EST [facility]NA CALL Which [facility] office is calling? [facility] / Full name of caller: SEB Toscano The caller is A nurse Is the caller at the patients home?: no Reason for call: PATIENT HAS BEEN REFUSING VISITS THEY ARE GOING TO ATTEMPT ONE MORE TIME TOMORROW. Does caller need an urgent call back? no Was CONTACT Telephone # obtained above?: yes Fax #: documented in this encounter Plan of Treatment Upcoming Encounters Date Type Department Care Team (Late st Contact Info) Description 09/23/2025 2:40 PM EST Office Visit Gastroenterology - [address] [facility] 299 [facility] [address] [place] [phone] Pastora Arriola PA 299 [facility] [address] [place] [address] 10/22/2025 2:30 PM EST Clinical Support [address] [phone] 12/09/2025 2:30 PM EST Office Visit Adult Medicine [address] [phone] Saleem Gutiérrez PA [address] [place] [phone] 01/05/2026 1:30 PM EDT Appointment [facility] Ultrasound [address] [place] [phone] 06/17/2026 1:00 PM EDT Office Visit Vascular Surgery - [place] [address] [place] [phone] Cherise Matias MD [address] [place] [phone] documented as of this encounter Visit Diagnoses Not on filedocumented in this encounter Additional Health Concerns Assessment Noted Time PHQ-9 Depression Total Score: 25 025 10:03 AM EDT A fall risk assessment has been complete d for the patient 05/21/2025 10:02 AM EDT documented as of this encounter Care Teams Storage Garage Attendant Relationship Specialty Start Date End Date Saleem Gutiérrez PA [address] [place] [address] PCP - General Internal Medicine 08/06/24 documented as of this encounter
--- OUTSIDE RECORDS SUMMARY | 2025-09-18 01:03 | XMS_ITS | Encounter Summary ---
Author Organization [facility] Address [address] [place] [address] Care Team Providers Care Writer Producer Name Role Phone Saleem Gutiérrez Primary Care Provider [phone] Encounter Details Date Type Department Care Team (Late st Contact Info) Description 08/12/2025 Results Follow-Up Adult Medicine [facility] [address] [place], [place] [phone] Heber Garg MD [address] [place], [place] Social History Tobacco Use Types Packs/Day [...] do you feel lonely or isolated from ose around you? Never 05/21/2025 Food Risk [...] care for your loved ones. For example, manager child or elderly care for an older [...] Office Visit Gastroenterology - [address] [facility] [address] [place] [phone] Pastora Arriola PA 299 [facility] [address] [place] [address] 10/22/2025 2:30 PM EST Clinical Support Adult [facility] [address] [place] [phone] 12/09/2025 2:30 PM EST Office Visit Adult [address] [phone] Saleem Gutiérrez PA [address] [place] [phone] 01/05/2026 1:30 PM EDT Appointment [facility] Ultrasound [address] [place] [phone] 06/17/2026 1:00 PM EDT Office Visit Vascular Surgery - [place] [address] [place] [phone] Cherise Matias MD [address] [place] [phone] documented as of this encounter Visit Diagnoses Not on filedocumented in this encounter Additional Health Concerns Assessment Noted Time PHQ-9 Depression Total Score: 25 025 10:03 AM EDT A fall risk assessment has been complete d for the patient 05/21/2025 10:02 AM EDT documented as of this encounter Care Teams Writer Producer Relationship Specialty Start Date End Date Saleem Gutiérrez PA [address] [place] [address] PCP - General Internal Medicine 08/06/24 documented as of this encounter
--- OUTSIDE RECORDS SUMMARY | 2025-09-18 01:03 | XMS_ITS | Encounter Summary ---
Author Organization [facility] Address [address] [place] [address] Care Team Providers Care Dog And Cat Food Cook Name Role Phone Saleem Gutiérrez Primary Care Provider [phone] Encounter Details Date Type Department Care Team (Late st Contact Info) Description 07/29/2025 Results Follow-Up Adult Medicine [facility] [address] [place], [place] [phone] Heber Garg MD [address] [place], [place] Social History Tobacco Use Types Packs/Day [...] for your loved ones. For example, child and adolescent therapist or elderly care for an older adult? [...] Office Visit Gastroenterology - [address] [facility] [address] [place] [phone] Pastora Arriola PA 299 [facility] [address] [place] [address] 10/22/2025 2:30 PM EST Clinical Support Adult [facility] [address] [place] [phone] 12/09/2025 2:30 PM EST Office Visit Adult [address] [phone] Saleem Gutiérrez PA [address] [place] [phone] 01/05/2026 1:30 PM EDT Appointment [facility] Ultrasound [address] [place] [phone] 06/17/2026 1:00 PM EDT Office Visit Vascular Surgery - [place] [address] [place] [phone] Cherise Matias MD [address] [place] [phone] documented as of this encounter Visit Diagnoses Not on filedocumented in this encounter Additional Health Concerns Assessment Noted Time PHQ-9 Depression Total Score: 25 025 10:03 AM EDT A fall risk assessment has been complete d for the patient 05/21/2025 10:02 AM EDT documented as of this encounter Care Teams Dog And Cat Food Cook Relationship Specialty Start Date End Date Saleem Gutiérrez PA [address] [place] [phone] PCP - General Internal Medicine 08/06/24 documented as of this encounter
== END 2025-09-17 22:58 | disposition home or self-care (01) ==
PROVIDERS: Physician Assistant Medical; Emergency Provider Emergency Medicine; PCP Physician Assistant Medical
DX: R10.31 Right lower quadrant pain (principal); G89.4 Chronic pain syndrome; I10 Essential (primary) hypertension; E78.5 Hyperlipidemia, unspecified; Z86.73 Personal history of transient ischemic attack (TIA), and cerebral infarction without residual deficits; Z79.02 Long term (current) use of antithrombotics/antiplatelets; Z79.82 Long term (current) use of aspirin; Z79.899 Other long term (current) drug therapy
CPT/HCPCS: 36415; 74018; 74176; 80048; 80076; 81001; 83690; 83735; 84484; 85025; 86140; 87086; 93005; 96361; 96374; 99284; J7120

== ENCOUNTER → 2025-09-17 14:20 | Outpatient (BNV) | payer MEDICARE, SELFPAY | PROVIDERS: Emergency Provider Emergency Medicine; PCP Physician Assistant Medical; Visit Provider Internal Medicine Cardiovascular Disease | DX: R10.9 Unspecified abdominal pain (principal) | CPT/HCPCS: 93010 ==

== ENCOUNTER → 2025-09-17 14:20 | Outpatient (BNV) | payer MEDICARE, SELFPAY | PROVIDERS: PCP Physician Assistant Medical; Visit Provider Radiology Diagnostic Radiology | DX: K59.00 Constipation, unspecified (principal) | CPT/HCPCS: 74018 ==